=== PATIENT | female | born 1945 | race Caucasian/White ===

== ENCOUNTER → 2017-12-04 11:38 | Outpatient (CLI) | payer MEDICARE, SELFPAY ==
[2017-12-04 14:21] LABS: Anion Gap 9 (5-15); BUN 15 mg/dL (7-18); BUN/Creat Ratio 16.2 RATIO (10-20); Calcium,Total 8.9 mg/dL (8.5-10.1); Chloride 103 mmol/L (98-107); Cholesterol 150 mg/dL (200); Creatinine, Serum 0.92 mg/dL (0.55-1.02); EST Glomerular Filtration Rate 63 mL/min (>60); Est Glom Filt Rate - Afr Amer 76 mL/min (>60); Glucose 155 mg/dL (74-106); High Density Lipoprotein 48 mg/dL; Potassium 3.5 mmol/L (3.5-5.1); Sodium Level 138 mmol/L (136-145); Triglycerides 124 mg/dL; Very Low Density Lipoprotein 25 mg/dL (5-40)
[2017-12-04 14:27] LABS: Microalbumin,Random Urine 5.5 mg/L (NO RANGE EST.)
[2017-12-04 14:33] LABS: Hemoglobin A1c 6.3 % (4.2-6.3)
== END ==
PROVIDERS: Family Provider Family Medicine; PCP Family Medicine; Visit Provider Family Medicine
DX: I10 Essential (primary) hypertension (principal); R73.01 Impaired fasting glucose
CPT/HCPCS: 36415; 80048; 80061; 82043; 82570; 83036

== ENCOUNTER → 2018-05-27 17:00 | Outpatient (CLI) | payer MEDICARE, SELFPAY ==
--- NOTE | 2018-05-27 17:07 | BI_ITS ---
MAMMOGRAPHY - BILATERAL SCREENING REASON FOR EXAM: Female, 72 years old. Routine annual screening examination. PERTINENT HISTORY: Mother with breast cancer. TECHNIQUE: Digital bilateral breast kierra (3D mammographic acquisition) in the CC and MLO projections. 2-D mediolateral oblique (MLO) and craniocaudad (CC) views of both breasts were obtained. CAD: Full Field Digital Mammography with Computer Added Detection was performed. COMPARISON: Comparison is made with prior study dated March 24, 2017 and December 27, 2015. FINDINGS: Breast Composition: There are scattered areas of fibroglandular density. There are no dominant masses or suspicious calcifications. No other significant abnormalities are identified. There has been no significant change since the prior study. BI/SCREENING MAMM (CAD), BILAT IMPRESSION: Stable bilateral screening mammogram. Yearly follow-up mammogram recommended. (A) ASSESSMENT CATEGORY: BIRADS Category 1: Negative. A letter regarding these results will be sent to the patient by the facility within 30 days. Approximately 10% of breast cancers are not detected by mammography. A normal mammogram should not delay biopsy of a clinically suspicious abnormality. [id number] Electronically Signed: Collin Hampton MD at 9:15 EST Tel [phone], Service support ,
== END ==
PROVIDERS: Family Provider Family Medicine; PCP Family Medicine; Referring Provider Family Medicine; Visit Provider Family Medicine
DX: Z12.31 Encounter for screening mammogram for malignant neoplasm of breast (principal)
CPT/HCPCS: 77063; 77067

== ENCOUNTER → 2018-06-04 14:04 | Outpatient (CLI) | payer MEDICARE, SELFPAY ==
[2018-06-04 16:45] LABS: Hemoglobin A1c 6.8 % (4.2-6.3)
[2018-06-04 16:50] LABS: Anion Gap 10 (5-15); BUN 17 mg/dL (7-18); BUN/Creat Ratio 23.1 RATIO (10-20); Chloride 100 mmol/L (98-107); Cholesterol 156 mg/dL (200); Creatinine, Serum 0.74 mg/dL (0.55-1.02); EST Glomerular Filtration Rate 82 mL/min (>60); Est Glom Filt Rate - Afr Amer 99 mL/min (>60); Glucose 150 mg/dL (74-106); High Density Lipoprotein 54 mg/dL; Potassium 3.7 mmol/L (3.5-5.1); Sodium Level 139 mmol/L (136-145); Triglycerides 109 mg/dL; Very Low Density Lipoprotein 22 mg/dL (5-40)
--- OUTSIDE RECORDS SUMMARY | 2018-08-09 04:18 | XMS RPT_ITS ---
:1945 Author Organization [facility] Care Team Providers Name Role Phone EMIR ENRIQUE, DR. SMITH Attending Unavailable ANGEL ENRIQUE, DR. STEVEN Gaines Primary Care Unavailable Steven Smith Attending Unavailable Steven Smith Referring Unavailable Steven Smith Primary Care Unavailable Steven Smith Attending Unavailable Angel, Steven Primary Care Unavailable Angel, Steven Attending Unavailable Angel, Steven Primary Care Unavailable Angel, Steven Attending Unavailable Angel, Steven Primary Care Unavailable PROBLEMS PROBLEMS DATE TYPE CONDITION / CODE ATTENDING STATUS SOURCE 06/11/2018 Unknown Z51.89 - Encounter Steven Smith for other Community specified Hospital aftercare / Repository Z51.89(ICD-10) 06/04/2018 Unknown I10 - Essential Steven Smith (primary) Community hypertension / Hospital I10(ICD-10) Repository 06/04/2018 Unknown R73.01 - Impaired Steven Smith fasting glucose / Community R73.01(ICD-10) Hospital Repository 05/28/2018 Unknown Z12.31 - Encounter Steven Smith for screening Community mammogram for Hospital malignant neoplasm Repository of breast / Z12.31(ICD-10) PROCEDURES PROCEDURES No Procedure Records FoundRESULTS RESULTS HEMOGLOBIN A1C Collected: 06/04/2018 Status: F Source: [place] 2:07 PM [facility] REPOSITORY TYPE CODE TESTS RESULT OUT OF RANGE REFERENCE UNITS LAB L501.9985 4.2-6.3 % High HGB A1C 6.8 Performed By: #### L501.9985 #### [facility] [address] [place], [place], [id number] BASIC METABOLIC Collected: 06/04/2018 Status: F Source: [place] PROFILE (BMP) 2:07 PM [facility] REPOSITORY TYPE CODE TESTS RESULT OUT OF RANGE REFERENCE UNITS LAB L501.0100 74-106 mg/dL High GLU 150 Result Comment: Fasting Glucose result greater than or equal to 126 mg/dL suggests DIABETES MELLITUS per A.D.A. criteria. Please note revised GLUCOSE reference range effective 2017. LAB L501.1000 7-18 mg/dL Normal BUN 17 LAB L501.1100 0.55-1.02 mg/dL Normal CREAT,SERUM 0.74 Result Comment: The validity of the calculated GFR AND GFRAA in patients over 70 years has not been determined. Clinical correlation is essential. LAB L501.1110 >60 mL/min Normal EST GFR 82 Result Comment: Non- GFR Calc LAB L501.1115 >60 mL/min Normal EST GFR - AA 99 Result Comment: GFR Calc LAB L501.1300 10-20 RATIO High BUN/CRE 23.1 LAB L501.2200 8.5-10.1 mg/dL CA Normal 9.0 LAB L501.5300 136-145 mmol/L NA Normal 139 LAB L501.5600 3.5-5.1 mmol/L K Normal 3.7 LAB L501.5900 98-107 mmol/L CL Normal 100 LAB L501.6100 21.0-32.0 mmol/L Normal CO2 29.0 LAB L501.6200 5-15 Normal GAP 10 Performed By: #### L500.2500, L500.4100 #### [facility] [address] [place], [place], [address] LIPID PROFILE Collected: 06/04/2018 Status: F Source: [place] 2:07 PM [facility] REPOSITORY TYPE CODE TESTS RESULT OUT OF RANGE REFERENCE UNITS LAB L501.4900 200 mg/dL Normal CHOL 156 Result Comment: <200 mg/dL Desirable 200-240 mg/dL Borderline >240 mg/dL High Risk LAB L501.5000 mg/dL Normal TRIG 109 Result Comment: The drugs N-Acetylcysteine and Metamizole may falsely depress this assay. Serum Triglycerides Reference Interval Normal <150 mg/dL Borderline high 150 - 199 mg/dL High 200 - 499 mg/dL Very High > or = 500 mg/dL LAB L501.6400 mg/dL Normal HDL 54 Result Comment: The drugs N-Acetylcysteine and Metamizole may falsely depress this assay. Reference Range HDL <40 mg/dL Low HDL Cholesterol HDL >or= 60 mg/dL High HDL Cholesterol LAB L501.6500 0-130 mg/dL Normal LDL 80 LAB L501.6600 5-40 mg/dL Normal VLDL 22 Performed By: #### L500.2500, L500.4100 #### [facility] [address] [facility] [place], [address] SCREENING MAMM (CAD), Observed: 05/27/2018 Status: F Source: [place] BILAT 5:22 PM [facility] REPOSITORY [facility] Imaging Services [address] [place] [address] SCREENING MAMM (CAD), BILAT MR#: [id number] Acct: [id number] Name: JENIFFER MILIAN Rep #: [id number] : 1945 F 72 From: Collin Hampton MD PCP: Steven Smith MD Status: [facility] Study: SCREENING MAMM (CAD), BILAT Date of Exam: 05/27/18 Exam# [id number] Ordering Dr: Steven Smith MD MAMMOGRAPHY - BILATERAL SCREENING REASON FOR EXAM: Female, 72 years old. Routine annual screening examination. PERTINENT HISTORY: Mother with breast cancer. TECHNIQUE: Digital bilateral breast kierra (3D mammographic acquisition) in the CC and MLO projections. 2-D mediolateral oblique (MLO) and craniocaudad (CC) views of both breasts were obtained. CAD: Full Field Digital Mammography with Computer Added Detection was performed. COMPARISON: Comparison is made with prior study dated March 24, 2017 and December 27, 2015. FINDINGS: Breast Composition: There are scattered areas of fibroglandular density. There are no dominant masses or suspicious calcifications. No other significant abnormalities are identified. There has been no significant change since the prior study. BI/SCREENING MAMM (CAD), BILAT IMPRESSION: Stable bilateral screening mammogram. Yearly follow-up mammogram recommended. (A) ASSESSMENT CATEGORY: BIRADS Category 1: Negative. A letter regarding these results will be sent to the patient by the facility within 30 days. Approximately 10% of breast cancers are not detected by mammography. A normal mammogram should not delay biopsy of a clinically suspicious abnormality. [id number] Electronically Signed: Collin Hampton MD at 9:15 EST Tel [phone], Service support , CC: Steven Smith MD Power Plant Technician: Signed BASIC METABOLIC Collected: 12/04/2017 Status: F Source: [place] PROFILE (BMP) 11:39 AM [facility] REPOSITORY TYPE CODE TESTS RESULT OUT OF RANGE REFERENCE UNITS LAB L501.0100 74-106 mg/dL High GLU 155 Result Comment: Fasting Glucose result greater than or equal to 126 mg/dL suggests DIABETES MELLITUS per A.D.A. criteria. Please note revised GLUCOSE reference range effective 2017. LAB L501.1000 7-18 mg/dL Normal BUN 15 LAB L501.1100 0.55-1.02 mg/dL Normal CREAT,SERUM 0.92 Result Comment: The validity of the calculated GFR AND GFRAA in patients over 70 years has not been determined. Clinical correlation is essential. LAB L501.1110 >60 mL/min Normal EST GFR 63 Result Comment: Non- GFR Calc LAB L501.1115 >60 mL/min Normal EST GFR - AA 76 Result Comment: GFR Calc LAB L501.1300 10-20 RATIO Normal BUN/CRE 16.2 LAB L501.2200 8.5-10.1 mg/dL CA Normal 8.9 LAB L501.5300 136-145 mmol/L NA Normal 138 LAB L501.5600 3.5-5.1 mmol/L K Normal 3.5 LAB L501.5900 98-107 mmol/L CL Normal 103 LAB L501.6100 21.0-32.0 mmol/L Normal CO2 26.0 LAB L501.6200 5-15 Normal GAP 9 Performed By: #### L500.2500, L500.4100 #### [facility] [address] [place], [address] LIPID PROFILE Collected: 12/04/2017 Status: F Source: [place] 11:39 AM [facility] REPOSITORY TYPE CODE TESTS RESULT OUT OF RANGE REFERENCE UNITS LAB L501.4900 200 mg/dL Normal CHOL 150 Result Comment: <200 mg/dL Desirable 200-240 mg/dL Borderline >240 mg/dL High Risk LAB L501.5000 mg/dL Normal TRIG 124 Result Comment: The drugs N-Acetylcysteine and Metamizole may falsely depress this assay. Serum Triglycerides Reference Interval Normal <150 mg/dL Borderline high 150 - 199 mg/dL High 200 - 499 mg/dL Very High > or = 500 mg/dL LAB L501.6400 mg/dL Normal HDL 48 Result Comment: The drugs N-Acetylcysteine and Metamizole may falsely depress this assay. Reference Range HDL <40 mg/dL Low HDL Cholesterol HDL >or= 60 mg/dL High HDL Cholesterol LAB L501.6500 0-130 mg/dL Normal LDL 77 LAB L501.6600 5-40 mg/dL Normal VLDL 25 Performed By: #### L500.2500, L500.4100 #### [facility] [address] [place], [address] MICROALB:CREAT Collected: 12/04/2017 Status: F Source: [place] RATIO,RANDOM UR 11:39 AM [facility] REPOSITORY TYPE CODE TESTS RESULT OUT OF RANGE REFERENCE UNITS LAB L501.1200 NO RANGE EST. mg/dL Normal UR CREAT 34.20 LAB L502.0500 NO RANGE EST. mg/L Normal 5.5 MICROALBUMIN ,UR LAB L502.0600 <30 mg/g CRE mg/g CRE Normal 16.0 MALB:CREAT Performed By: #### L502.0250 #### [facility] [address] [place], [address] HEMOGLOBIN A1C Collected: 12/04/2017 Status: F Source: [place] 11:39 AM [facility] REPOSITORY TYPE CODE TESTS RESULT OUT OF RANGE REFERENCE UNITS LAB L501.9985 4.2-6.3 % Normal HGB A1C 6.3 Performed By: #### L501.9985 #### [facility] [address] [place], [address] ALLERGIES ALLERGIES No Allergies Records FoundENCOUNTERS ENCOUNTERS ADMIT/DISCHARGE ACCOUNT NUMBER ADMITTING ENCOUNTER LOCATION SOURCE CLASS 06/11/2018 [id number] General acute hospital ding:CCN Repository 06/04/2018 [id number] General acute hospital ding:MFPLAB Repository 05/27/2018 [id number] General acute hospital ding:OPBI Repository 01/08/2018/01/09/20 [id number] Ambulatory BBuilding:ONI Rothman [address] [place] [address] Repository 12/04/2017 [id number] General acute hospital ding:MFPLAB Repository PAYERS PAYERS ENCOUNTER GUARANTOR PAYER SUBSCRIBER SOURCE 06/11/2018 JENIFFER Toth Primary JENIFFER [id number] Insurance:NICOLLE HOOPER: Community [place] [employer] PPOPolicy [id number], [place] Number: Repository [id number]: [phone] [id number] [phone] () Date:[id number] [address]MA: 06/11/2018 Secondary NOT GIVENUNK [place] Insurance:SELF PAY [facility] Number: Effective Repository Date:2018-06-11 06/04/2018 JENIFFER L Primary JENIFFER L [place] [id number] Insurance:ANTHEM HAWKINSDOB: Community [place] [employer] PPOPolicy [id number], [place] Number: Repository [phone]: [phone] [id number] [phone] () Date:3839-26-54[id number] [place] [address]UH: 06/04/2018 Secondary NOT GIVENUNK [place] Insurance:SELF PAY [facility] Number: Effective Repository Date:2018-06-04 05/27/2018 JENIFFER L [id number] Insurance:ANTHEM [facility] CHILDRENKINSDOB: Community [place] [employer] PPOPolicy [id number], [place] Number: Repository [id number]: [phone] [id number] [phone] () Date:9379-28-07FO [address] [place] [address]SN: 05/27/2018 Secondary NOT GIVENUNK [place] Insurance:SELF PAY [facility] Number: Effective Repository Date:2018-03-09 01/08/2018 JENIFFER L [facility] Insurance:ANTHEM HAWKINSDOB: [facility] E [facility] H[facility]PITALBLUEPoly [id number] [facility] Number: [place], [place] [id number] [place], [place] [address]Hql: [phone]) Date:2017-11-17 [id number]: () [id number] [phone] Name:[address] ()Tel: [phone], [place] [phone] () [address]HD: 12/04/2017 Jeniffer Primary Jeniffer [place] [id number] Insurance:ANTHEM HawkinsDOB: Community [place] MED[place]ARE PPOPolicy [id number], [place] Number: Repository [address]Ltq: [phone] [id number] [phone] () Date:2561-26-36[address]VDUQMU, [place] [address]GR: 12/04/2017 Secondary NOT GIVENUNK [place] Insurance:SELF PAY [facility] Number: Effective Repository Date:2017-12-04
== END ==
PROVIDERS: Family Provider Family Medicine; PCP Family Medicine; Visit Provider Family Medicine
DX: I10 Essential (primary) hypertension (principal); R73.01 Impaired fasting glucose
CPT/HCPCS: 36415; 80048; 80061; 83036

== ENCOUNTER → 2018-12-04 11:18 | Outpatient (CLI) | payer MEDICARE, SELFPAY ==
[2018-12-04 12:17] LABS: Hemoglobin A1c 6.6 % (4.2-6.3)
[2018-12-04 12:25] LABS: ALB/GLOB Ratio 0.9 RATIO (0.9-2.4); AST(SGOT) 23 U/L (15-37); Alanine Aminotransfer ALT/SGPT 39 U/L (13-56); Albumin, Serum 3.5 g/dL (3.2-5.0); Alkaline Phosphatase 83 U/L (45-117); Anion Gap 4 (5-15); BUN 10 mg/dL (7-18); BUN/Creat Ratio 14.4 RATIO (10-20); Calcium,Total 9.4 mg/dL (8.5-10.1); Chloride 101 mmol/L (98-107); Cholesterol 148 mg/dL (200); Creatinine, Serum 0.69 mg/dL (0.55-1.02); EST Glomerular Filtration Rate 88 mL/min (>60); Est Glom Filt Rate - Afr Amer 106 mL/min (>60); Globulin 3.8 g/dL (2.2-4.2); Glucose 135 mg/dL (74-106); High Density Lipoprotein 51 mg/dL; Potassium 3.9 mmol/L (3.5-5.1); Protein, Total 7.3 g/dL (6.4-8.2); Sodium Level 133 mmol/L (136-145); Triglycerides 138 mg/dL; Very Low Density Lipoprotein 28 mg/dL (5-40)
== END ==
PROVIDERS: Family Provider Family Medicine; PCP Family Medicine; Referring Provider Family Medicine; Visit Provider Family Medicine
DX: R73.01 Impaired fasting glucose (principal); E66.9 Obesity, unspecified; Z68.43 Body mass index [BMI] 50.0-59.9, adult
CPT/HCPCS: 36415; 80053; 80061; 83036

== ENCOUNTER → 2019-06-09 14:29 | Outpatient (CLI) | payer MEDICARE, SELFPAY ==
[2019-06-09 16:10] LABS: Anion Gap 6 (5-15); BUN 15 mg/dL (7-18); BUN/Creat Ratio 20.3 RATIO (10-20); Calcium,Total 9.2 mg/dL (8.5-10.1); Chloride 105 mmol/L (98-107); Cholesterol 161 mg/dL (200); Creatinine, Serum 0.74 mg/dL (0.55-1.02); EST Glomerular Filtration Rate 81 mL/min (>60); Est Glom Filt Rate - Afr Amer 98 mL/min (>60); Glucose 119 mg/dL (74-106); High Density Lipoprotein 55 mg/dL; Potassium 4.1 mmol/L (3.5-5.1); Sodium Level 138 mmol/L (136-145); Triglycerides 127 mg/dL; Very Low Density Lipoprotein 25 mg/dL (5-40)
[2019-06-09 16:14] LABS: Hemoglobin A1c 6.2 % (4.2-6.3)
== END ==
PROVIDERS: PCP Family Medicine; Referring Provider Family Medicine; Visit Provider Family Medicine
DX: I10 Essential (primary) hypertension (principal); R73.01 Impaired fasting glucose
CPT/HCPCS: 36415; 80048; 80061; 83036

== ENCOUNTER → 2019-06-28 16:54 | Outpatient (CLI) | payer MEDICARE, SELFPAY ==
--- NOTE | 2019-06-28 16:59 | BI_ITS ---
MAMMOGRAPHY - BILATERAL SCREENING REASON FOR EXAM: Female, 73 years old. Routine annual screening examination. PERTINENT HISTORY: Mother with breast cancer. TECHNIQUE: Digital bilateral breast rosa maria (3D mammographic acquisition) in the CC and MLO projections. 2-D mediolateral oblique (MLO) and craniocaudad (CC) views of both breasts were obtained. CAD: Full Field Digital Mammography with Computer Added Detection was performed. COMPARISON: Comparison is made with prior examination dated May 27, 2018 and March 24, 2017. FINDINGS: Breast Composition: There are scattered areas of fibroglandular density. There are no dominant masses or suspicious calcifications. No other significant abnormalities are identified. There has been no significant change since the prior study. BI/SCREEN MAMM (CAD) W/ROSA MARIA BILAT IMPRESSION: Stable bilateral screening mammogram. Yearly follow-up mammogram recommended. (A) ASSESSMENT CATEGORY: BIRADS Category 1: Negative. A letter regarding these results will be sent to the patient by the facility within 30 days. Approximately 10% of breast cancers are not detected by mammography. A normal mammogram should not delay biopsy of a clinically suspicious abnormality. [id number] Electronically Signed: Collin Hampton, at 9:44 EST , Service support ,
== END ==
PROVIDERS: PCP Family Medicine; Referring Provider Family Medicine; Visit Provider Family Medicine
DX: Z12.31 Encounter for screening mammogram for malignant neoplasm of breast (principal)
CPT/HCPCS: 77063; 77067

== ENCOUNTER → 2020-02-27 10:55 | Outpatient (CLI) | payer MEDICARE, SELFPAY | PROVIDERS: PCP Family Medicine; Visit Provider Family Medicine | DX: Z00.00 Encounter for general adult medical examination without abnormal findings (principal) | CPT/HCPCS: 36415 ==

== ENCOUNTER → 2020-12-27 14:20 | Outpatient (CLI) | payer MEDICARE, SELFPAY ==
[2020-12-27 17:54] LABS: ALB/GLOB Ratio 0.9 RATIO (0.9-2.4); AST(SGOT) 22 U/L (15-37); Alanine Aminotransfer ALT/SGPT 35 U/L (13-56); Albumin, Serum 3.6 g/dL (3.2-5.0); Alkaline Phosphatase 101 U/L (45-117); Anion Gap 8 (5-15); BUN 18 mg/dL (7-18); BUN/Creat Ratio 23.2 RATIO (10-20); Calcium,Total 9.1 mg/dL (8.5-10.1); Chloride 105 mmol/L (98-107); Cholesterol 150 mg/dL (200); Creatinine, Serum 0.78 mg/dL (0.55-1.02); EST Glomerular Filtration Rate 76 mL/min (>60); Est Glom Filt Rate - Afr Amer 93 mL/min (>60); Globulin 3.8 g/dL (2.2-4.2); Glucose 134 mg/dL (74-106); High Density Lipoprotein 51 mg/dL; Potassium 4.3 mmol/L (3.5-5.1); Protein, Total 7.4 g/dL (6.4-8.2); Sodium Level 137 mmol/L (136-145); Triglycerides 104 mg/dL; Very Low Density Lipoprotein 21 mg/dL (5-40)
[2020-12-27 17:59] LABS: Microalbumin,Random Urine 12.5 mg/L (NO RANGE EST.)
== END ==
PROVIDERS: PCP Family Medicine; Visit Provider Family Medicine
DX: I10 Essential (primary) hypertension (principal); E11.9 Type 2 diabetes mellitus without complications
CPT/HCPCS: 36415; 80053; 80061; 82043; 83036

== ENCOUNTER → 2021-03-30 10:11 | Outpatient (CLI) | payer MEDICARE, SELFPAY ==
[2021-03-30 11:11] LABS: ALB/GLOB Ratio 0.8 RATIO (0.9-2.4); AST(SGOT) 18 U/L (15-37); Alanine Aminotransfer ALT/SGPT 31 U/L (13-56); Albumin, Serum 3.1 g/dL (3.2-5.0); Alkaline Phosphatase 87 U/L (45-117); Anion Gap 7 (5-15); BUN 22 mg/dL (7-18); BUN/Creat Ratio 31.5 RATIO (10-20); Chloride 104 mmol/L (98-107); Cholesterol 151 mg/dL (200); EST Glomerular Filtration Rate 86 mL/min (>60); Est Glom Filt Rate - Afr Amer 105 mL/min (>60); Globulin 4.1 g/dL (2.2-4.2); Glucose 146 mg/dL (74-106); High Density Lipoprotein 54 mg/dL; Potassium 3.7 mmol/L (3.5-5.1); Protein, Total 7.2 g/dL (6.4-8.2); Sodium Level 138 mmol/L (136-145); Triglycerides 106 mg/dL; Very Low Density Lipoprotein 21 mg/dL (5-40)
== END ==
PROVIDERS: PCP Family Medicine; Referring Provider Family Medicine; Visit Provider Family Medicine
DX: I10 Essential (primary) hypertension (principal)
CPT/HCPCS: 36415; 80053; 80061

== ENCOUNTER 2021-07-03 14:14 | Outpatient (CLI) | payer MEDICARE, SELFPAY ==
[2021-07-03 19:03] LABS: Anion Gap 8 (5-15); BUN 16 mg/dL (7-18); BUN/Creat Ratio 24.8 RATIO (10-20); Chloride 99 mmol/L (98-107); Creatinine, Serum 0.64 mg/dL (0.55-1.02); EST Glomerular Filtration Rate 95 mL/min (>60); Est Glom Filt Rate - Afr Amer 115 mL/min (>60); Glucose 122 mg/dL (74-106); Potassium 3.6 mmol/L (3.5-5.1); Sodium Level 136 mmol/L (136-145)
== END 2021-07-03 23:59 | disposition home or self-care (01) ==
LOC: MFPLAB 14:17
PROVIDERS: PCP Family Medicine; Referring Provider Family Medicine; Visit Provider Family Medicine
DX: I10 Essential (primary) hypertension (principal)
CPT/HCPCS: 36415; 80048

== ENCOUNTER 2022-01-28 09:09 | Observation (INO) | payer MEDICARE, SELFPAY ==
[2022-01-28] VITALS (11 sets, daily range): BP systolic 136–172; BP diastolic 55–85; PULSE 65–89; RESP 18–19; TEMP 36.4–36.9; O2SAT 93–99; BMI 76.4; BMI 78.0
--- NOTE | 2022-01-28 09:19 | EX.ED.DYSGE1 ---
HPI History of Present Illness Chief Complaint: Alt LOC Informant: patient Onset/Context/Timing Onset: Weeks (3) Context: Gradual Onset Timing: Continuous Quality: Dull Location: Left leg Worsened by: Palpation Relieved by: Nothing Narrative Narrative: Patient presents with left leg infection that has been getting progressively worse over the past 3 weeks. Patient states she has some dull pain in her left leg. Patient states it is worse whenever she hits it or bumps it. Patient states nothing makes it better. Patient states she has not been sleeping well. Patient denies any fevers or chills. Patient denies any discharge or drainage. Patient states she has a history of bullous pemphigoid on her left leg. Patient states that he has been improved recently. [facility] Medical History (Updated 01/28/22 @ 11:[address] Amilcar Rankin, ) Bullous pemphigoid Cataracts, bilateral Cholecystectomy planned Fatty liver Glaucoma (increased eye pressure) Hypertension Melanoma Obesity Sleep apnea Type II diabetes mellitus Home Medications ascorbic acid (vitamin C) 1,000 mg tablet 1 g PO DAILY 01/28/22 [History Last Taken Unknown] bimatoprost 0.01 % eye drops (Lumigan) 1 drp EACH EYE QPM 01/28/22 [History Last Taken Unknown] biotin 10,000 mcg capsule 5,000 mcg PO DAILY 01/28/22 [History Last Taken Unknown] calcium carbonate 600 mg-vitamin D3 10 mcg (400 unit) tablet (Calcium 600 + D(3)) 1 tab PO BID 01/28/22 [History Last Taken Unknown] carvedilol 25 mg tablet 25 mg PO BID 01/28/22 [History Last Taken Unknown] cinnamon bark 500 mg capsule (Cinnamon) 2,000 mg PO DAILY 01/28/22 [History Last Taken Unknown] jjolxphreln-qhldkbhsr-uzvl883-hyal 750 mg-100 mg-125 mg-1.65 mg tablet (Glucosamine Chondroit Complx Advan) 1 tab PO DAILY 01/28/22 [History Last Taken Unknown] hydrochlorothiazide 25 mg tablet 25 mg PO BID 01/28/22 [History Last Taken Unknown] krill 1,000 mg-omega-3 170 mg-dha 50 mg-epa 80 lb-sjzwrn-mdtuq capsule (krill oil) 2 cap PO DAILY 01/28/22 [History Last Taken Unknown] lysine 1,000 mg tablet 1,000 mg PO DAILY 01/28/22 [History Last Taken Unknown] vmevlzdl-ibyp-tjvtc acid 200 mcg-lycopene 5 mg-boron 250 mcg tablet (Bladder 2.2) 1 tab PO PRN PRN leaking bladder 01/28/22 [History Last Taken Unknown] multivitamin-ferrous fumarate-folic acid 18 mg-400 mcg tablet 1 tab PO DAILY 01/28/22 [History Last Taken Unknown] niacinamide 500 mg tablet 500 mg PO BID 01/28/22 [History Last Taken Unknown] omega-3 fatty acids-vitamin E 1,000 mg capsule 1 cap PO DAILY 01/28/22 [History Last Taken Unknown] timolol 0.5 %-dorzolamide 2 %-latanprost 0.005 % (PF) eye drops 1 drp ophthalmic (eye) QHS 01/28/22 [History Last Taken Unknown] triamcinolone acetonide 0.1 % topical cream 1 applic topical PRN PRN redness 01/28/22 [History Last Taken Unknown] Allergy/AdvReac Type Severity Reaction Status Date / Time ciprofloxacin [From Cipro] Allergy Hives Verified 01/28/22 09:19 Penicillins Allergy Hives Verified 01/28/22 09:19 NSAIDS (Non-Steroidal AdvReac Upset Verified 01/28/22 09:19 Anti-Inflamma Stomach Surgical History (Updated 01/28/22 @ 09:[address] Amilcar Rankin DO) Hx of appendectomy Hx of cholecystectomy Social History (Updated 01/28/22 @ 09:[address] Amilcar Rankin DO) Smoking Status: Never smoker alcohol intake: never substance use type: does not use ROS ROS ED Constitutional Constitutional ED: Denies chills or fever(s) Eyes Eyes: Denies blurry vision or change in vision ENT ENT ED: Denies rhinorrhea or sore throat Cardiovascular Cardiovascular: Denies chest pain or palpitations Respiratory/Chest Respiratory/Chest: Denies cough or dyspnea Gastrointestinal Gastrointestinal: Denies nausea or vomiting Genitourinary Genitourinary ED: Denies dysuria or hematuria Musculoskeletal Musculoskeletal: Denies back pain or neck pain Integumentary Reports rash; Denies abscess Neurologic Neurologic: Denies headache(s) or weakness Allergic/Immunologic Allergic/Immunologic ED: Denies mouth swelling or urticaria EXAM Physical Exam Const Vital Signs: 01/28/22 09:10 01/28/22 09:12 01/28/22 09:12 Temperature 98.1 F 98.1 F 98.1 F Temperature Source Oral Oral Oral Pulse Rate 83 78 83 Respiratory Rate 18 18 18 Respiratory Effort Respiratory Pattern Blood Pressure 163/85 H 163/85 H 163/85 H Blood Pressure Mean 111 111 111 Pulse Ox 99 98 98 Oxygen Delivery Method Room Air Room Air Room Air 01/28/22 11:10 01/28/22 11:10 01/28/22 11:12 Temperature 97.8 F Temperature Source Temporal Pulse Rate 78 79 Respiratory Rate 19 H 18 Respiratory Effort Normal Non-Labored Respiratory Pattern Normal Blood Pressure 155/64 H 155/64 H Blood Pressure Mean 94 94 Pulse Ox 95 97 Oxygen Delivery Method Room Air Room Air Positive well nourished, well developed and obese General Appearance ED: well developed and NAD Nutritional Appearance: obese HEENT Reports dry mucous membranes Mouth ED: Yes dry mucous membranes Mouth: dry mucous membranes Neck supple and no JVD Resp normal respiratory effort and clear to auscultation bilaterally Cardio regular rate and regular rhythm GI normal to inspection, nondistended, normoactive bowel sounds and non-tender Palpation: soft Extremity Extremity Narrative: There is some erythema and warmth over the left lower extremity. There is mild erythema on the right lower leg. There is no discharge or drainage. There are no vesicles or pustules noted. There is no evidence of any abscess formation. Pedal pulses are equal bilaterally. Sensation was intact to light touch in all digits. Capillary refill was less than 2 seconds in all digits. General Extremety ED: Yes edema and tenderness General Extremity: edema Neuro oriented x3, CN's II-XII intact bilaterally and no sensory deficits noted Sensorium / Orientation: alert Motor Exam: strength 5/5 throughout MDM MDM MDM Narrative Medical decision making narrative: Patient was given IV fluids. EKG was obtained. On my interpretation, it showed a normal sinus rhythm with a rate of 80. RI interval, QRS interval, and QTc intervals were all normal. Burdine was normal. There are no acute ST or T wave changes. There is criteria for LVH. There are no prior EKGs available for comparison. Portable 1 view chest x-ray was obtained. On my interpretation, lung barnett are clear. There is cardiomegaly. Bony thorax is normal. There is no acute process noted. Radiologist also interpreted the x-ray and agrees. CBC shows a mild leukocytosis of 11.1. PT with INR and PTT within normal limits. Comprehensive metabolic profile shows a mild hyponatremia of 130 and hypokalemia of 3.0. Glucose was 146. High-sensitivity troponin was slightly elevated at 144. Lipase was normal. Lactate was normal. Patient was started on Ancef for the cellulitis on her left leg. Patient was given aspirin the elevated troponin. Patient was given potassium for her hypokalemia. Because of the elevated troponin, I feel the patient would benefit from observation in the hospital. Case was discussed with the hospitalist. He will admit the patient for observation. Patient understood and was agreeable with the plan. All questions were answered. Lab Data Attestation: I reviewed the patient's lab results. Labs: Laboratory Results - last 24 hr 01/28/22 01/28/22 01/28/22 09:43 09:43 10:23 WBC 11.1 H RBC 4.58 Hgb 14.4 Hct 42.9 MCV 93.7 MCH 31.4 MCHC 33.6 RDW Std Deviation 44.5 H RDW Coeff of Garland 13.1 Plt Count 198 MPV 10.6 Immature Gran % (Auto) 0.400 Neut % (Auto) 76.6 H Lymph % (Auto) 12.5 L Choct[place] % (Auto) 9.3 Eos % (Auto) 0.7 Baso % (Auto) 0.5 Absolute Neuts (auto) 8.5 H Absolute Lymphs (auto) 1.39 Nucleated RBC % 0 PT 14.2 INR 1.1 APTT 28.8 Sodium 130 L Potassium 3.0 L Chloride 93 L Carbon Dioxide 25.0 Anion Gap 12 BUN 11 Creatinine 0.58 Estim Creat Clear Calc 36.67 Est GFR (MDRD) Af Amer 129 Est GFR (MDRD) Non-Af 107 BUN/Creatinine Ratio 18.9 Glucose 146 H Lactic Acid Calcium 9.1 Total Bilirubin 1.50 H AST 50 H ALT 43 Alkaline Phosphatase 66 Troponin I High Sens 144 H* Total Protein 6.6 Albumin 3.1 L Globulin 3.5 Albumin/Globulin Ratio 0.9 Lipase 91 01/28/22 10:23 WBC RBC Hgb Hct MCV MCH MCHC RDW Std Deviation RDW Coeff of Garland Plt Count MPV Immature Gran % (Auto) Neut % (Auto) Lymph % (Auto) [place]ct[place] % (Auto) Eos % (Auto) Baso % (Auto) Absolute Neuts (auto) Absolute Lymphs (auto) Nucleated RBC % PT INR APTT Sodium Potassium Chloride Carbon Dioxide Anion Gap BUN Creatinine Estim Creat Clear Calc Est GFR (MDRD) Af Amer Est GFR (MDRD) Non-Af BUN/Creatinine Ratio Glucose Lactic Acid 1.4 Calcium Total Bilirubin AST ALT Alkaline Phosphatase Troponin I High Sens Total Protein Albumin Globulin Albumin/Globulin Ratio Lipase Radiography Chest X-Ray - ED: 1 View, Read by ED Physician, Read by Radiologist, No Acute Disease and Cardiomegaly Diagnostic Testing: Clinical Impression(s) from Imaging Studies Chest X-Ray 01/28/22 10:25 IMPRESSION: Cardiomegaly. The lungs are clear. Electronically Signed: Collin Hampton MD at 10:48 EDT , EKG Initial EKG: Attestation: I personally reviewed and interpreted this EKG as follows: Interpretation: Sinus Rhythm (80) and No Acute Injury Pattern Prior EKG tracings: not available for review Prior: No Prior Discharge Plan Dx/Rx/DC Orders Clinical Impression: Elevated troponin, General weakness, Cellulitis of left lower leg, Morbid obesity with BMI of 70 and over, adult Disposition Disposition: Acute Care [facility]
--- NOTE | 2022-01-28 09:27 | EKG12_ITS ---
Test Reason : alt loc Blood Pressure : / mmHG Vent. Rate : 080 BPM Atrial Rate : 080 BPM P-R Int : 186 ms QRS Dur : 100 ms QT Int : 438 ms P-R-T Axes : 047 001 001 degrees QTc Int : 505 ms Normal sinus rhythm Minimal voltage criteria for LVH, may be normal variant ( R in aVL ) Cannot rule out Anterior infarct , age undetermined Abnormal ECG Confirmed by TALIB GUAJARDO, LEONARDO ([id number]), commercial production editor CECILIO MCGARRY ([id number]) on 01/29/2022 1:58:05 PM Referred By: Confirmed By:LEONARDO MAYERS MD
[2022-01-28 10:03] LABS: Absolute Lymphocyte Count 1.39 X10^3/uL (0.83-4.51); Absolute Neutrophil Count 8.5 X10^3/uL (2.0-7.7); Basophil# 0.05 X10^3/uL; Basophil% 0.5 % (0-1); Eosinophil# 0.08 X10^3/uL; Eosinophils% 0.7 % (0-5); Hematocrit 42.9 % (37-47); Hemoglobin 14.4 g/dL (12.0-15.0); Lymphocyte # 1.39 X10^3/ul (0.83-4.51); Lymphocyte % 12.5 % (19-41); Mean Corp Hgb Conc 33.6 g/dL (32-36); Mean Corpuscular Hgb 31.4 pg (27.0-32.0); Mean Corpuscular Volume 93.7 fL (81-99); Mean Platelet Vol. 10.6 fl (6.2-12.0); Monocyte# 1.03 X10^3/uL; Monocyte% 9.3 % (0-10); NRBC Flagged by Analyzer 0 % (0-5); Neutrophil # 8.51 X10^3/uL (2.7-7.7); Neutrophil % 76.6 % (47-70); POSITIVE COUNT YES; Platelet Count 198 K/mm3 (150-450); RBC Distribution Width CV 13.1 % (11.6-14.6); RBC Distribution Width SD 44.5 fl (35.1-43.9); Red Blood Count 4.58 M/mm3 (4.2-5.4); White Blood Count 11.1 K/mm3 (4.4-11.0)
--- NOTE | 2022-01-28 10:25 | RAD_ITS ---
STUDY: X-RAY CHEST REASON FOR EXAM: Female, 76 years old. Cough TECHNIQUE: Single AP portable view of the chest. COMPARISON: Comparison is made with prior study dated 04/23/2016. FINDINGS: EKG electrodes are seen. Scattered calcified granulomas. There is no demonstrated pleural abnormality. There is moderate cardiac enlargement. Normal mediastinum and arie. Normal visualized pulmonary arteries. There is atherosclerotic calcification of the aortic arch with tortuosity. There are diffuse degenerative changes of the visualized thoracic spine. There is degenerative osteoarthritis of the bilateral shoulders. There is no demonstrated abnormality of the visualized soft tissue structures of the upper abdomen. RAD/Chest 1 View (Portable) IMPRESSION: Cardiomegaly. The lungs are clear. Electronically Signed: Collin Hampton MD at 10:48 EDT ,
[2022-01-28 10:27] LABS: ALB/GLOB Ratio 0.9 RATIO (0.9-2.4); AST(SGOT) 50 U/L (15-37); Alanine Aminotransfer ALT/SGPT 43 U/L (13-56); Albumin, Serum 3.1 g/dL (3.2-5.0); Alkaline Phosphatase 66 U/L (45-117); Anion Gap 12 (5-15); BUN 11 mg/dL (7-18); BUN/Creat Ratio 18.9 RATIO (10-20); Calcium,Total 9.1 mg/dL (8.5-10.1); Chloride 93 mmol/L (98-107); Creatinine, Serum 0.58 mg/dL (0.55-1.02); EST Glomerular Filtration Rate 107 mL/min (>60); Est Glom Filt Rate - Afr Amer 129 mL/min (>60); Estimated Creatinine Clearance 36.67 ml/min; Globulin 3.5 g/dL (2.2-4.2); Glucose 146 mg/dL (74-106); Lipase 91 U/L (73-393); Protein, Total 6.6 g/dL (6.4-8.2); Sodium Level 130 mmol/L (136-145); Troponin-I HS 144 pg/mL (3.0-54.0)
[2022-01-28 10:45] LABS: International Normalized Ratio 1.1; Prothrombin Time (Protime)PT. 14.2 SECONDS (11.7-14.9)
[2022-01-28 10:46] LABS: Partial Thromboplast Time 28.8 Seconds (24.1-36.2)
[2022-01-28] MEDS: Aspirin 81 MG TAB.CHEW 324 MG PO (10:48)
[2022-01-28] MEDS: Potassium Chloride Oral Tablet 20 MEQ 40 MEQ PO (11:08)
[2022-01-28 11:10] LABS: Lactic Acid 1.4 mmol/L (0.4-1.9)
[2022-01-28 12:10] LABS: Troponin-I HS 128 pg/mL (3.0-54.0)
[2022-01-28] MEDS: Cefazolin 1 GM/50 ML BAG IV (12:13)
--- NOTE | 2022-01-28 12:14 | HP.PCM.HOS_ITS ---
[facility] - General General Date of Service: 01/28/22 Chief Complaint: Leg redness. HPI Narrative HARINDER MILIAN, is a 76 F who presents due to swelling in her lower extremities and redness. States its been ongoing for couple weeks but admits that she is unable to see her leg due to her morbid obesity. Patient's other daughter was admitted last night for perforated bowel and her other daughter came to stay with her. Brought to the hospital today. Patient was seen by the emergency room and received cefazolin. Patient was not have any chest pain or any shortness of breath but did have a troponin that was elevated at 144-128. Patient notes that she has had chronic lower extremity edema. FORMERLY [facility], [facility] Medical History (Updated 01/28/22 @ 12:[address] Amilcar Aguilar, DO) Bullous pemphigoid Cataracts, bilateral Cholecystectomy planned Fatty liver Glaucoma (increased eye pressure) Hypertension Lymphedema Melanoma Obesity Sleep apnea Type II diabetes mellitus Home Medications ascorbic acid (vitamin C) 1,000 mg tablet 1 g PO DAILY 01/28/22 [History Last Taken Unknown] bimatoprost 0.01 % eye drops (Lumigan) 1 drp EACH EYE QPM 01/28/22 [History Last Taken Unknown] biotin 10,000 mcg capsule 5,000 mcg PO DAILY 01/28/22 [History Last Taken Unknown] calcium carbonate 600 mg-vitamin D3 10 mcg (400 unit) tablet (Calcium 600 + D(3)) 1 tab PO BID 01/28/22 [History Last Taken Unknown] carvedilol 25 mg tablet 25 mg PO BID 01/28/22 [History Last Taken Unknown] cinnamon bark 500 mg capsule (Cinnamon) 2,000 mg PO DAILY 01/28/22 [History Last Taken Unknown] apaxcoftmkm-fuyjkdbuq-xqbd892-hyal 750 mg-100 mg-125 mg-1.65 mg tablet (Glucosamine Chondroit Complx Advan) 1 tab PO DAILY 01/28/22 [History Last Taken Unknown] hydrochlorothiazide 25 mg tablet 25 mg PO BID 01/28/22 [History Last Taken Unknown] krill 1,000 mg-omega-3 170 mg-dha 50 mg-epa 80 gk-umdzub-jgklj capsule (krill oil) 2 cap PO DAILY 01/28/22 [History Last Taken Unknown] lysine 1,000 mg tablet 1,000 mg PO DAILY 01/28/22 [History Last Taken Unknown] jpcdjqru-eapr-movjy acid 200 mcg-lycopene 5 mg-boron 250 mcg tablet (Bladder 2.2) 1 tab PO PRN PRN leaking bladder 01/28/22 [History Last Taken Unknown] multivitamin-ferrous fumarate-folic acid 18 mg-400 mcg tablet 1 tab PO DAILY 01/28/22 [History Last Taken Unknown] niacinamide 500 mg tablet 500 mg PO BID 01/28/22 [History Last Taken Unknown] omega-3 fatty acids-vitamin E 1,000 mg capsule 1 cap PO DAILY 01/28/22 [History Last Taken Unknown] timolol 0.5 %-dorzolamide 2 %-latanprost 0.005 % (PF) eye drops 1 drp ophthalmic (eye) QHS 01/28/22 [History Last Taken Unknown] triamcinolone acetonide 0.1 % topical cream 1 applic topical PRN PRN redness 01/28/22 [History Last Taken Unknown] Allergy/AdvReac Type Severity Reaction Status Date / Time ciprofloxacin [From Cipro] Allergy Hives Verified 01/28/22 09:19 Penicillins Allergy Hives Verified 01/28/22 09:19 NSAIDS (Non-Steroidal AdvReac Upset Verified 01/28/22 09:19 Anti-Inflamma Stomach Surgical History Hx of appendectomy Hx of cholecystectomy Social History Smoking Status: Never smoker alcohol intake: never substance use type: does not use ROS ROS Narrative Unaware if she is put on any weight. All review of systems were negative except as mentioned above in the history of present illness and the other review of systems. Vital Signs Vital Signs Vital Signs: 01/28/22 09:10 01/28/22 09:12 01/28/22 09:12 Temperature 36.7 C 36.7 C 36.7 C Temperature Source Oral Oral Oral Pulse Rate 83 78 83 Respiratory Rate 18 18 18 Respiratory Effort Respiratory Pattern Blood Pressure 163/85 H 163/85 H 163/85 H Blood Pressure Mean 111 111 111 Pulse Ox 99 98 98 Oxygen Delivery Method Room Air Room Air Room Air 01/28/22 11:10 01/28/22 11:10 01/28/22 11:12 Temperature 36.6 C Temperature Source Temporal Pulse Rate 78 79 Respiratory Rate 19 H 18 Respiratory Effort Normal Non-Labored Respiratory Pattern Normal Blood Pressure 155/64 H 155/64 H Blood Pressure Mean 94 94 Pulse Ox 95 97 Oxygen Delivery Method Room Air Room Air Weight Weight: 189.7 kg Body Mass Index (BMI) 76.4 Physical Exam Const alert and no apparent distress HEENT normocephalic Resp normal respiratory effort, no retractions, no use of accessory muscles and clear to auscultation bilaterally Cardio regular rate, regular rhythm, S1 normal heart sound and S2 normal heart sound GI normal to inspection, nondistended, normoactive bowel sounds, soft to palpation, non-tender and non-distended Extremity Extremity Narrative: Bilateral lower extremity edema with lymphedematous changes. Skin Skin Narrative: More prominent lymphedema changes on her left lower extremity. No warmth noted. Results Lab / Micro Data Attestation: I reviewed the patient's lab results. Result Diagrams: 01/28/22 09:43 01/28/22 09:43 Labs: Laboratory Results - last 24 hr 01/28/22 09:43: WBC 11.1 H, RBC 4.58, Hgb 14.4, Hct 42.9, MCV 93.7, MCH 31.4, MCHC 33.6, RDW Std Deviation 44.5 H, RDW Coeff of Garland 13.1, Plt Count 198, MPV 10.6, Immature Gran % (Auto) 0.400, Neut % (Auto) 76.6 H, Lymph % (Auto) 12.5 L, [place] % (Auto) 9.3, Eos % (Auto) 0.7, Baso % (Auto) 0.5, Absolute Neuts (auto) 8.5 H, Absolute Lymphs (auto) 1.39, Nucleated RBC % 0 01/28/22 09:43: Sodium 130 L, Potassium 3.0 L, Chloride 93 L, Carbon Dioxide 25.0, Anion Gap 12, BUN 11, Creatinine 0.58, Estim Creat Clear Calc 36.67, Est GFR (MDRD) Af Amer 129, Est GFR (MDRD) Non-Af 107, BUN/Creatinine Ratio 18.9, Glucose 146 H, Calcium 9.1, Total Bilirubin 1.50 H, AST 50 H, ALT 43, Alkaline Phosphatase 66, Troponin I High Sens 144 H*, Total Protein 6.6, Albumin 3.1 L, Globulin 3.5, Albumin/Globulin Ratio 0.9, Lipase 91 01/28/22 10:23: PT 14.2, INR 1.1, APTT 28.8 01/28/22 10:23: Lactic Acid 1.4 01/28/22 11:19: Troponin I High Sens 128 H* Micro: Microbiology 01/28/22 09:38 Nasal Secretion SARS-CoV-2 & FLU Antigen (Rapid) - Final EKG Initial EKG: Attestation: I personally reviewed and interpreted this EKG as follows: Prior EKG tracings: available for review EKG Rhythm Intrepretation: Sinus Rhythm Radiology Impression Chest X-Ray 01/28/22 10:25 IMPRESSION: Cardiomegaly. The lungs are clear. Electronically Signed: Collin Hampton MD at 10:48 EDT , Assessment & Plan Assessment/Plan (1) Elevated troponin: PLAN: No baseline to compare to. Patient was not have any chest pain symptoms but a troponin was ordered nonetheless. But given that we have no baseline, patient will undergo a stress test. Start aspirin (2) Lymphedema: PLAN: Cellulitis ruled out DC HCTZ and start her on furosemide Check 2D echocardiogram. Concern the patient may have pulmonary artery hypertension. Patient does have JENNIFER but does use BiPAP. May use her BiPAP here. PLAN: Plan Chronic conditions * JENNIFER: Continue with BiPAP * Morbid obesity: Would benefit from bariatric evaluation VTE prophylaxis: Not indicated given observation status. Charges/Coding Visit Charges OBSV E&M: 36048 Initial observation care L2
[2022-01-28 14:36] LABS: Troponin-I HS 102 pg/mL (3.0-54.0)
--- NOTE | 2022-01-28 15:10 | EKG12_ITS ---
Test Reason : AM EKG Blood Pressure : / mmHG Vent. Rate : 078 BPM Atrial Rate : 078 BPM P-R Int : 180 ms QRS Dur : 100 ms QT Int : 416 ms P-R-T Axes : 057 006 004 degrees QTc Int : 474 ms Normal sinus rhythm Minimal voltage criteria for LVH, may be normal variant ( Hiren product ) Poor R wave progression Cannot rule out anterior infarct, age undetermined Confirmed by YOSVANY GUAJARDO, OLEGARIO ([id number]), proposal editor CECILIO MCGARRY ([id number]) on 01/30/2022 9:43:34 AM Referred By: Confirmed By:OLEGARIO BAR MD
[2022-01-28] MEDS: Furosemide 40 MG/4 ML Vial IV (16:32)
[2022-01-28] MEDS: Calcium Carb/Vitamin D 1 TABLET Tablet PO (19:05)
[2022-01-28] MEDS: Dorzolamide HCL/Timolol 10 ml Bottle 1 DRP EACH EYE (20:40)
[2022-01-28] MEDS: Latanoprost 0.005% 1 Bottle 1 DRP EACH EYE (21:28)
[2022-01-28] MEDS: Carvedilol 25 MG Tablet PO (21:29)
[2022-01-29] VITALS (12 sets, daily range): BP systolic 127–180; BP diastolic 57–73; PULSE 71–85; RESP 18–20; TEMP 36.5–37; O2SAT 94–100
[2022-01-29] MEDS: Aspirin E.C. 81 MG Tablet PO (05:41)
--- NOTE | 2022-01-29 05:55 | EKG12_ITS ---
Test Reason : elevated troponin Blood Pressure : / mmHG Vent. Rate : 074 BPM Atrial Rate : 074 BPM P-R Int : 182 ms QRS Dur : 096 ms QT Int : 438 ms P-R-T Axes : 054 -13 002 degrees QTc Int : 486 ms Normal sinus rhythm Cannot rule out Anterior infarct , age undetermined Abnormal ECG Confirmed by YOSVANY GUAJARDO, OLEGARIO ([id number]), international editorial producer CECILIO MCGARRY ([id number]) on 01/30/2022 9:43:58 AM Referred By: Lauren Confirmed By:OLEGARIO BAR MD
--- NOTE | 2022-01-29 05:55 | ECHOCS_ITS ---
Reason For Study: Edema Procedure This was a 2D Doppler, Color Flow transthoracic echocardiogram. Contrast injection was performed. Exam performed in department. Left Ventricle Normal LV size. Moderate concentric left ventricular hypertrophy. Left ventricular systolic function is normal. The estimated ejection fraction is 55 %. Stage 1 diastolic dysfunction. No regional wall motion abnormalities noted. Right Ventricle Normal RV size. Normal systolic function. Atria Normal left atrium. Normal right atrium. Mitral Valve Normal mitral valve. Tricuspid Valve Normal tricuspid valve. Mild (1+) tricuspid valve insufficiency. Pulmonary artery systolic pressure is 33 mmHg. Aortic Valve Trisinus/trileaflet aortic valve. Mild focal aortic valve thickening. Pulmonic Valve Normal pulmonic valve. Great Vessels Normal aortic root. Pericardium/Pleural No pericardial effusion. Medication Diluted definity 3ml given slow IV push to enhance endocardial definition. MMode/2D Measurements & Calculations LVIDd: 3.9 cm IVSd: 1.8 cm LVOT diam: 2.0 cm LVIDs: 2.5 cm LVPWd: 1.5 cm RVDd: 4.0 cm FS: 36.7 % LVOT area: 3.2 cm2 Ao root diam: 2.9 cm LAV(MOD-bp): 67.4 ml LVAd ap4: 34.3 cm2 LAV(MOD-bp) Indexed: 26.2 ml/m2 LVLd ap4: 8.5 cm LAV(MOD-sp2): 68.6 ml EDV(MOD-sp4): 115.4 ml LAV(MOD-sp4): 61.9 ml EDV(sp4-el): 116.6 ml LVAs ap4: 16.9 cm2 LVLs ap4: 7.0 cm ESV(MOD-sp4): 34.3 ml ESV(sp4-el): 34.3 ml EF(MOD-sp4): 70.3 % EF(sp4-el): 70.5 % SV(MOD-sp4): 81.1 ml SV(sp4-el): 82.2 ml LA A4 area: 21.2 cm2 LA dimension(2D): 5.0 cm RA A4 area: 14.4 cm2 Doppler Measurements & Calculations MV E max praful: 100.4 cm/sec Lat Peak E' Praful: 4.4 cm/sec Med Peak E' Praful: 4.8 cm/sec MV A max praful: 121.9 cm/sec E/E' lat: 22.7 E/E' med: 20.9 MV E/A: 0.82 Ao V2 max: 249.4 cm/sec LV V1 max: 167.2 cm/sec SV(LVOT): 140.4 ml Ao max P.9 mmHg LV V1 max P.2 mmHg Ao V2 mean: 181.6 cm/sec LV V1 mean P.3 mmHg Ao mean P.5 mmHg LV V1 mean: 140.6 cm/sec Ao V2 VTI: 56.3 cm LV V1 VTI: 43.5 cm TAYLOR(I,D): 2.5 cm2 TAYLOR(V,D): 2.2 cm2 PA V2 max: 119.9 cm/sec TR max praful: 268.9 cm/sec TR max P.9 mmHg ECHO/Echo Complete W/ Contrast Interpretation Summary Normal LV size. Left ventricular systolic function is normal. The estimated ejection fraction is 55 %. Moderate concentric left ventricular hypertrophy. Stage 1 diastolic dysfunction. Pulmonary artery systolic pressure is 33 mmHg. Contrast injection was performed. Ordering Physician: Amilcar Aguilar Performed By: Harleen Reyes, RODRIGO, RVT
[2022-01-29 06:32] LABS: Absolute Lymphocyte Count 1.27 X10^3/uL (0.83-4.51); Absolute Neutrophil Count 8.2 X10^3/uL (2.0-7.7); Basophil# 0.07 X10^3/uL; Basophil% 0.6 % (0-1); Eosinophil# 0.17 X10^3/uL; Eosinophils% 1.5 % (0-5); Hematocrit 41.5 % (37-47); Hemoglobin 13.7 g/dL (12.0-15.0); Lymphocyte # 1.27 X10^3/ul (0.83-4.51); Lymphocyte % 11.6 % (19-41); Mean Corpuscular Hgb 30.3 pg (27.0-32.0); Mean Corpuscular Volume 91.8 fL (81-99); Mean Platelet Vol. 10.8 fl (6.2-12.0); Monocyte% 10.9 % (0-10); NRBC Flagged by Analyzer 0 % (0-5); Neutrophil # 8.22 X10^3/uL (2.7-7.7); Neutrophil % 74.9 % (47-70); Platelet Count 247 K/mm3 (150-450); RBC Distribution Width CV 13.3 % (11.6-14.6); RBC Distribution Width SD 44.8 fl (35.1-43.9); Red Blood Count 4.52 M/mm3 (4.2-5.4)
[2022-01-29 07:05] LABS: Anion Gap 10 (5-15); BUN 11 mg/dL (7-18); BUN/Creat Ratio 25.3 RATIO (10-20); Chloride 95 mmol/L (98-107); Cholesterol 105 mg/dL (200); Creatinine, Serum 0.44 mg/dL (0.55-1.02); EST Glomerular Filtration Rate 149 mL/min (>60); Est Glom Filt Rate - Afr Amer 180 mL/min (>60); Estimated Creatinine Clearance 34.99 ml/min; Glucose 140 mg/dL (74-106); High Density Lipoprotein 46 mg/dL; Potassium 2.8 mmol/L (3.5-5.1); Sodium Level 132 mmol/L (136-145); Thyroid Stim Hormone (TSH) 1.97 uIU/mL (0.358-3.74); Triglycerides 74 mg/dL; Very Low Density Lipoprotein 15 mg/dL (5-40)
--- NOTE | 2022-01-29 08:01 | PN.HOSP_ITS ---
Subjective Subjective Feels better. Objective Data Objective Data Vital Signs: Vital Signs Temp Pulse Resp BP Pulse Ox O2 Del Method FiO2 36.5 C L 78 18 172/72 H 96 Room Air 21 01/29/22 07:41 01/29/22 07:41 01/29/22 07:41 01/29/22 07:41 01/29/22 07:41 01/29/22 07:41 01/28/22 21:16 Oxygen Delivery Method Room Air Weight: 187.5 kg Body Mass Index (BMI) 78.0 Intake & Output: Intake and Output for Last 24 Hours 01/27/22 01/28/22 01/29/22 23:59 23:59 23:59 Intake Total 1050 / 1170 120 / 120 Output Total 2700 / 3250 650 / 650 Balance -1650 / -2080 -530 / -530 Lab / Micro Data Result Diagrams: 01/29/22 05:20 01/29/22 05:20 Labs: Laboratory Results - last 24 hr 01/28/22 09:43: WBC 11.1 H, RBC 4.58, Hgb 14.4, Hct 42.9, MCV 93.7, MCH 31.4, MCHC 33.6, RDW Std Deviation 44.5 H, RDW Coeff of Gar[place] 13.1, Plt Count 198, MPV 10.6, Immature Gran % (Auto) 0.400, Neut % (Auto) 76.6 H, Lymph % (Auto) 12.5 L, [place] % (Auto) 9.3, Eos % (Auto) 0.7, Baso % (Auto) 0.5, Absolute Neuts (auto) 8.5 H, Absolute Lymphs (auto) 1.39, Nucleated RBC % 0 01/28/22 09:43: Sodium 130 L, Potassium 3.0 L, Chloride 93 L, Carbon Dioxide 25.0, Anion Gap 12, BUN 11, Creatinine 0.58, Estim Creat Clear Calc 36.67, Est GFR (MDRD) Af Amer 129, Est GFR (MDRD) Non-Af 107, BUN/Creatinine Ratio 18.9, Glucose 146 H, Calcium 9.1, Total Bilirubin 1.50 H, AST 50 H, ALT 43, Alkaline Phosphatase 66, Troponin I High Sens 144 H*, Total Protein 6.6, Albumin 3.1 L, Globulin 3.5, Albumin/Globulin Ratio 0.9, Lipase 91 01/28/22 10:23: PT 14.2, INR 1.1, APTT 28.8 01/28/22 10:23: Lactic Acid 1.4 01/28/22 11:19: Troponin I High Sens 128 H* 01/28/22 14:10: Troponin I High Sens 102 H 01/29/22 05:20: WBC 11.0, RBC 4.52, Hgb 13.7, Hct 41.5, MCV 91.8, MCH 30.3, MCHC 33.0, RDW Std Deviation 44.8 H, RDW Coeff of [place] 13.3, Plt Count 247, MPV 10.8, Immature Gran % (Auto) 0.500, Neut % (Auto) 74.9 H, Lymph % (Auto) 11.6 L, [place] % (Auto) 10.9 H, Eos % (Auto) 1.5, Baso % (Auto) 0.6, Absolute Neuts (auto) 8.2 H, Absolute Lymphs (auto) 1.27, Nucleated RBC % 0 01/29/22 05:20: Sodium 132 L, Potassium 2.8 L, Chloride 95 L, Carbon Dioxide 27.0, Anion Gap 10, BUN 11, Creatinine 0.44 L, Estim Creat Clear Calc 34.99, Est GFR (MDRD) Af Amer 180, Est GFR (MDRD) Non-Af 149, BUN/Creatinine Ratio 25.3 H, Glucose 140 H, Calcium 9.0, Triglycerides 74, Cholesterol 105, LDL Cholesterol 44, VLDL Cholesterol 15, HDL Cholesterol 46, TSH 1.97 Micro: Microbiology 01/28/22 09:43 Blood Culture (Wb) - Arm Left Blood Culture - Preliminary 01/28/22 09:38 Nasal Secretion SARS-CoV-2 & FLU Antigen (Rapid) - Final Radiography Diagnostic Testing: Radiology Impression Chest X-Ray 01/28/22 10:25 IMPRESSION: Cardiomegaly. The lungs are clear. Electronically Signed: Collin Hampton MD at 10:48 EDT , Physical Exam Const alert and no apparent distress Constitutional Narrative: god spirits Resp normal respiratory effort and no retractions Cardio regular rate, regular rhythm, S1 normal heart sound and S2 normal heart sound GI normal to inspection, nondistended, normoactive bowel sounds Extremity Extremity Narrative: bilateral edema Skin Skin Narrative: still with lymphedema in lower extremities. Assessment & Plan Assessment/Plan (1) Elevated troponin: PLAN: No baseline to compare to. Patient was not have any chest pain symptoms but a troponin was ordered nonetheless. Stress test negative No aditional work up. (2) Lymphedema: PLAN: Cellulitis ruled out DC HCTZ and start her on furosemide 2D echocardiogram shows an EF of 55% with pulmonary artery systolic pressure of 33 mmHg. Patient does have JENNIFER but does use BiPAP. May use her BiPAP here. (3) Hypokalemia: PLAN: Replace Check magnesium (4) Bacteremia: PLAN: Thus far 1 of 2 sets. Detection positive for staph aureus and group B strep. Unclear if actual true infection or colonization though given the staph and strep it would seem more concerning that this could actually be a true infection. Her legs, though I do not feel are cellulitic, could be a source if this is true infection. PLAN: Plan Chronic conditions * JENNIFER: Continue with BiPAP * Morbid obesity: Would benefit from bariatric evaluation VTE prophylaxis: Not indicated given observation status. Discussed with the patient's daughter. There is a daughter that patient does not live with her as the patient's daughter whom she does live with is currently in the hospital recovering from surgery. The daughter spoke with states that she is concerned about her mental status and for possible dementia. Greater than 35 minutes of which greater than 50% of time was discussed with the patient and daughter about test results, plan for treatment, anticipated need for group home facility and also discussing admission versus observation status. Charges/Coding Visit Charges Inpatient E&M: 89008 Subs Hosp L3
[2022-01-29] MEDS: Potassium Chloride Oral Tablet 20 MEQ 60 MEQ PO (08:38)
[2022-01-29] MEDS: Dorzolamide HCL/Timolol 10 ml Bottle 1 DRP EACH EYE ×2 (08:40→21:43)
[2022-01-29] MEDS: Potassium Chloride 10mEq/100mL 10 MEQ/100 ML IV.SOLN. 100 MEQ IV BOLUS ×4 (11:23→14:45)
[2022-01-29] MEDS: Calcium Carb/Vitamin D 1 TABLET Tablet PO ×2 (11:24→16:39)
[2022-01-29] MEDS: Carvedilol 25 MG Tablet PO ×2 (11:25→21:42)
[2022-01-29] MEDS: Furosemide 40 MG/4 ML Vial IV ×2 (11:25→17:01)
--- NOTE | 2022-01-29 11:50 | CASEMGMT ---
Addendum entered by Sangeeta Majano 01/29/22 15:32: This RN CM back to room with CUMMINGS form, explanation done-pt voices understanding, and signs CUMMINGS form. Pt is A/Ox4. Original to chart and copy to pt. Pt voices no further questions/concerns/needs. Steven MOLINA CM Original Note: This RN CM to room with CUMMINGS form but therapy is at bedside. CM to go back at later time. Steven MOLINA CM
--- NOTE | 2022-01-29 12:20 | STRESSREP ---
Stress Test Report Pharmacologic perfusion stress test. 76-year-old lady with a history of chest pain. Stress protocol: Resting EKG demonstrates normal sinus rhythm with a rate of 97 bpm normal intervals are noted resting blood pressure 170/100 mmHg. 0.4 mg of regadenoson was infused per usual protocol followed by rapid intravenous saline flush injection continuous EKG monitoring was performed. The maximum heart rate attained was 104 bpm which was 73% of max impacted heart rate the maximum workload was 1 metabolic equivalent. At rest there were no ST or T wave changes noted to suggest abnormal flow reserve and at peak infusion nonspecific ST changes were noted with did not meet the criteria for ischemia. No clinical angina was noted the test was terminated due to completion of protocol. The final blood pressure was 160/82 mmHg. Myocardial perfusion protocol. 15.0 mCi of technetium 99m sestamibi was injected at rest. 0.4 mg of regadenoson was infused per usual protocol. At peak infusion 44.8 mCi of technetium 99m sestamibi was injected stress images were obtained stress and rest images were reconstructed in comparing the short axis vertical long and horizontal long axis. Perfusion SPECT analysis: Review of the stress images demonstrate normal uptake of tracer noted in all areas of the myocardium. The resting images similar demonstrate normal uptake of tracer noted in all areas of the myocardium. No areas of reversibility are noted to suggest ischemia. Conclusion: Normal pharmacologic myocardial perfusion stress test. Preserved ejection fraction.
--- NOTE | 2022-01-29 12:47 | CASEMGMT ---
SW met with patient. Introduced self and role at [facility]. SW spoke with patient about her discharge plan. Patient agreed she would need to go to a jail facility at discharge. SW provided patient with a list of jail facility providers including quality and resource use data and consistent with patient?s preferred geographic region, medical needs, and insurance network were provided from the [facility] Guide. SW explained patient will need to pick at least 3-4 facilities that she would be willing to go to. SW will then call the facilities and make referrals. SW will let patient know who is able to accept. SW explained that insurance will need to approve patient before patient can be discharged. This can take a day or two depending on insurance. SW will check back in a little bit to get choices. Jing Frances BUSINESS OPERATIONS COORDINATORMarylin FIGUEROA
--- NOTE | 2022-01-29 13:28 | CASEMGMT ---
ARPIT checked back with patient and her daughter has the list with her other daughter in room 124. Jing Frances PLANT ASSOCIATE [place]
--- NOTE | 2022-01-29 14:03 | CASEMGMT ---
Addendum entered by Angelita Toney 01/29/22 14:44: [facility] reached out and is unable to take patient due to the weigh limit. Angelita Toney Discharge Data Operations Leader Original Note: Discharge Data Operations Leader Angelita d/jose de jesus specimen preparation assistant sent referral via [facility] to Viviane ARRIAGA [place], [facility]. Will follow up. Plan: Angelita Toney Discharge Data Operations Leader
--- NOTE | 2022-01-29 15:38 | CASEMGMT ---
Discharge Back Roller Marge from [facility] reached out. Clinically [facility] will accept patient. Marge was waiting for insurance to come back for benefits. Marge stated that if [facility] is in network Marge will start pre-cert. Angelita went to patient bedside, patient is in agreement to going to [facility]. Patient stated she knows how hard it can be to find beds at a SNF now a days. Angelita told patient that the plan will be to go to [facility] then unless insurance is not in network. Pre-cert will be started todat 01/29/2022 Plan: [facility], Waiting pre-cert Angelita Toney Discharge Back Roller
--- NOTE | 2022-01-29 16:10 | PCM.RX.CS ---
Consult Pharmacy has been consulted to manage selected antiobiotic: Vancomycin Type of Consult: New start Suspected Infection: Bacteremia Labs: Sodium 132 mmol/L (136-145) L 01/29/22 05:20 Potassium 2.8 mmol/L (3.5-5.1) L 01/29/22 05:20 Chloride 95 mmol/L (98-107) L 01/29/22 05:20 Carbon Dioxide 27.0 mmol/L (21.0-32.0) 01/29/22 05:20 Anion Gap 10 (5-15) 01/29/22 05:20 BUN 11 mg/dL (7-18) 01/29/22 05:20 Creatinine 0.44 mg/dL (0.55-1.02) L 01/29/22 05:20 Est GFR (MDRD) Af Amer 180 mL/min (>60) 01/29/22 05:20 Est GFR (MDRD) Non-Af 149 mL/min (>60) 01/29/22 05:20 BUN/Creatinine Ratio 25.3 RATIO (10-20) H 01/29/22 05:20 Glucose 140 mg/dL (74-106) H 01/29/22 05:20 Microbiology: Microbiology 01/28/22 09:43 Blood Culture (Wb) - Arm Left Bacteria Detection (PCR) - Final Staphylococcus aureus Streptococcus agalactiae (B) 01/28/22 09:43 Blood Culture (Wb) - Arm Left Blood Culture - Preliminary 01/28/22 09:38 Nasal Secretion SARS-CoV-2 & FLU Antigen (Rapid) - Final Pharmacy Plan for Drug Dosing: NEW START IV VANCOMYCIN Consulting Physician: JOEL Indication: BACTEREMIA Goal Trough: 15-20 MG/DL SrCr: 0.44 --> ROUNDED TO 0.8 DUE TO AGE CrCl: 94 ML/MIN (USING ADJUSTED BODY WEIGHT) Comments: LOADING DOSE OF 2000MG GIVEN 01/29/22 @ 1545 Vancomycin Dose: WILL START 1250MG Q8 BASED ON CRCL AND WEIGHT PER POLICY. TROUGH ORDER PRIOR TO 4TH TOTAL DOSE. Pending Level: 01/30/22 @ 1530 Pharmacy Service will continue to monitor and adjust dosing as required.
[2022-01-29] MEDS: 0.9% Saline Lock 10 ML Syringe IV (17:01)
[2022-01-29] MEDS: Acetaminophen 325 MG Tablet 650 MG PO (21:41)
[2022-01-29] MEDS: Latanoprost 0.005% 1 Bottle 1 DRP EACH EYE (21:43)
[2022-01-30] VITALS (16 sets, daily range): BP systolic 147–192; BP diastolic 69–86; PULSE 73–97; RESP 16–20; TEMP 36.4–36.8; O2SAT 93–96
[2022-01-30 06:42] LABS: Absolute Lymphocyte Count 1.75 X10^3/uL (0.83-4.51); Absolute Neutrophil Count 7.1 X10^3/uL (2.0-7.7); Basophil# 0.08 X10^3/uL; Basophil% 0.8 % (0-1); Eosinophil# 0.32 X10^3/uL; Eosinophils% 3.1 % (0-5); Hematocrit 40.2 % (37-47); Hemoglobin 13.2 g/dL (12.0-15.0); Lymphocyte # 1.75 X10^3/ul (0.83-4.51); Lymphocyte % 16.9 % (19-41); Mean Corp Hgb Conc 32.8 g/dL (32-36); Mean Corpuscular Hgb 30.4 pg (27.0-32.0); Mean Corpuscular Volume 92.6 fL (81-99); Mean Platelet Vol. 10.8 fl (6.2-12.0); Monocyte# 1.08 X10^3/uL; Monocyte% 10.4 % (0-10); NRBC Flagged by Analyzer 0 % (0-5); Neutrophil # 7.06 X10^3/uL (2.7-7.7); Neutrophil % 68.3 % (47-70); Platelet Count 240 K/mm3 (150-450); RBC Distribution Width CV 13.5 % (11.6-14.6); RBC Distribution Width SD 46.6 fl (35.1-43.9); Red Blood Count 4.34 M/mm3 (4.2-5.4); White Blood Count 10.3 K/mm3 (4.4-11.0)
[2022-01-30 07:23] LABS: Anion Gap 9 (5-15); BUN 15 mg/dL (7-18); BUN/Creat Ratio 32.3 RATIO (10-20); Calcium,Total 8.5 mg/dL (8.5-10.1); Chloride 100 mmol/L (98-107); Creatinine, Serum 0.46 mg/dL (0.55-1.02); EST Glomerular Filtration Rate 138 mL/min (>60); Est Glom Filt Rate - Afr Amer 167 mL/min (>60); Estimated Creatinine Clearance 34.99 ml/min; Glucose 133 mg/dL (74-106); Potassium 3.2 mmol/L (3.5-5.1); Sodium Level 136 mmol/L (136-145)
--- NOTE | 2022-01-30 07:52 | PN.HOSP_ITS ---
Subjective Subjective Feels well. No new events. Objective Data Objective Data Vital Signs: Vital Signs Temp Pulse Resp BP Pulse Ox O2 Del Method FiO2 36.6 C 76 16 158/75 H 95 Room Air 21 01/30/22 05:00 01/30/22 05:00 01/30/22 05:00 01/30/22 05:00 01/30/22 05:00 01/30/22 07:49 01/28/22 21:16 Oxygen Delivery Method Room Air Weight: 187.5 kg Body Mass Index (BMI) 78.0 Intake & Output: Intake and Output for Last 24 Hours 01/28/22 01/29/22 01/30/22 23:59 23:59 23:59 Intake Total 1050 / 1170 1656.67 / 1656.67 515 / 515 Output Total 2700 / 3250 2150 / 2150 250 / 250 Balance -1650 / -2080 -493.33 / -493.33 265 / 265 Lab / Micro Data Result Diagrams: 01/30/22 05:30 01/30/22 05:30 Labs: Laboratory Results - last 24 hr 01/29/22 05:20: Magnesium 2.0 01/30/22 05:30: WBC 10.3, RBC 4.34, Hgb 13.2, Hct 40.2, MCV 92.6, MCH 30.4, MCHC 32.8, RDW Std Deviation 46.6 H, RDW Coeff of Garland 13.5, Plt Count 240, MPV 10.8, Immature Gran % (Auto) 0.500, Neut % (Auto) 68.3, Lymph % (Auto) 16.9 L, Alfalfa % (Auto) 10.4 H, Eos % (Auto) 3.1, Baso % (Auto) 0.8, Absolute Neuts (auto) 7.1, Absolute Lymphs (auto) 1.75, Nucleated RBC % 0 01/30/22 05:30: Sodium 136, Potassium 3.2 L, Chloride 100, Carbon Dioxide 27.0, Anion Gap 9, BUN 15, Creatinine 0.46 L, Estim Creat Clear Calc 34.99, Est GFR (MDRD) Af Amer 167, Est GFR (MDRD) Non-Af 138, BUN/Creatinine Ratio 32.3 H, Glucose 133 H, Calcium 8.5 Micro: Microbiology 01/28/22 09:43 Blood Culture (Wb) - Arm Left Bacteria Detection (PCR) - Final Staphylococcus aureus Streptococcus agalactiae (B) 01/28/22 09:43 Blood Culture (Wb) - Arm Left Blood Culture - Preliminary Streptococcus agalactiae (B) Staphylococcus aureus 01/28/22 09:38 Nasal Secretion SARS-CoV-2 & FLU Antigen (Rapid) - Final Radiography Diagnostic Testing: Radiology Impression Echocardiogram 01/29/22 05:55 Interpretation Summary Normal LV size. Left ventricular systolic function is normal. The estimated ejection fraction is 55 %. Moderate concentric left ventricular hypertrophy. Stage 1 diastolic dysfunction. Pulmonary artery systolic pressure is 33 mmHg. Contrast injection was performed. Ordering Physician: Amilcar Aguilar Performed By: Harleen Reyes, RODRIGO, RVT Physical Exam Const alert Resp normal respiratory effort, no retractions and no use of accessory muscles Cardio regular rate, regular rhythm and S1 normal heart sound GI normal to inspection, nondistended, normoactive bowel sounds and soft to palpation Extremity Extremity Narrative: lymphedema bilaterally. Psych affect normal Assessment & Plan Assessment/Plan (1) Elevated troponin: PLAN: No baseline to compare to. Patient was not have any chest pain symptoms but a troponin was ordered nonetheless. Stress test negative No aditional work up. (2) Lymphedema: PLAN: Cellulitis ruled out DC HCTZ and start her on furosemide 2D echocardiogram shows an EF of 55% with pulmonary artery systolic pressure of 33 mmHg. Patient does have JENNIFER but does use BiPAP. May use her BiPAP here. (3) Hypokalemia: PLAN: Replace (4) Bacteremia: PLAN: Thus far 1 of 2 sets. Detection positive for staph aureus and group B strep. Unclear if actual true infection or colonization though given the staph and strep it would seem more concerning that this could actually be a true infection. Her legs, though I do not feel are cellulitic, could be a source if this is true infection. Repeat BCx. PLAN: Plan Chronic conditions * JENNIFER: Continue with BiPAP * Morbid obesity: Would benefit from bariatric evaluation VTE prophylaxis: Change to enoxaparin Discussed with the patient's friend with the patient's permission. Patient's friend endorsed to the to me as well as the patient that she is very debilitated and that the patient's daughter, who is in the hospital, is unable to care for the patient as she is recovering from surgery herself. Charges/Coding Visit Charges Inpatient E&M: 24333 Subs Hosp L2
[2022-01-30] MEDS: Carvedilol 25 MG Tablet PO ×2 (09:30→22:23)
[2022-01-30] MEDS: Calcium Carb/Vitamin D 1 TABLET Tablet PO ×2 (09:30→16:18)
[2022-01-30] MEDS: Aspirin E.C. 81 MG Tablet PO (09:30)
[2022-01-30] MEDS: Dorzolamide HCL/Timolol 10 ml Bottle 1 DRP EACH EYE ×2 (09:30→22:24)
[2022-01-30] MEDS: 0.9% Saline Lock 10 ML Syringe IV ×5 (09:30→17:24)
[2022-01-30] MEDS: Potassium Chloride Oral Tablet 20 MEQ 40 MEQ PO ×2 (09:33→16:18)
--- NOTE | 2022-01-30 09:49 | CASEMGMT ---
Discharge Hse Manager Marge from [facility] reached out. Pre-cert has been obtained. Patient can go to [facility] when medically ready. [facility] notified. Plan: [facility], When medically ready. Angelita Toney Discharge Hse Manager
--- NOTE | 2022-01-30 09:55 | CASEMGMT ---
Addendum entered by Sangeeta Majano 01/30/22 10:08: Dr. Esquivel aware there is a script on pt's chart for him to sign for colostomy supplies, voices understanding. Steven MOLINA CM Original Note: Per Jovita at [facility], pt has only met $300 of $3000 deductible so at this point she would have to pay $251.53 for each SN visit until she hits deductible. Pt is updated on all at this time and voices no concerns with paying until meets deductible. Pt aware that this visit will go toward deductible as well. Pt aware PT/OT added and would like to get up and moving. Jovita at [facility] updated and will notify this [facility]G of acceptance. CM to follow. Steven MOLINA CM
--- NOTE | 2022-01-30 10:09 | CASEMGMT ---
Discharge Molder Meat Angelita funez fast food sales assistant reached out to Marge at [facility] to see how long pre-cert is good for. Pre-cert is good until 01/31/2022. After tomorrow new pre-cert would be needed. Plan: [facility], When medically ready. Angelita Toney Discharge Molder Meat
[2022-01-30] MEDS: Furosemide 40 MG/4 ML Vial IV ×2 (10:14→17:24)
[2022-01-30 16:16] LABS: Vancomycin, Trough Level 18.3 ug/mL (5.0-15.0)
[2022-01-30] MEDS: Lisinopril 10 MG Tablet PO (16:18)
--- NOTE | 2022-01-30 16:52 | PCM.RX.CS ---
Consult Pharmacy has been consulted to manage selected antiobiotic: Vancomycin Type of Consult: Follow-up Prior Doses of Antibiotics Received/Current Regimen: 01/29/22 @ 1545 01/29/22 @ 2340 01/30/22 @1026 01/30/22 @ 1624 Labs: Sodium 136 mmol/L (136-145) 01/30/22 05:30 Potassium 3.2 mmol/L (3.5-5.1) L 01/30/22 05:30 Chloride 100 mmol/L (98-107) 01/30/22 05:30 Carbon Dioxide 27.0 mmol/L (21.0-32.0) 01/30/22 05:30 Anion Gap 9 (5-15) 01/30/22 05:30 BUN 15 mg/dL (7-18) 01/30/22 05:30 Creatinine 0.46 mg/dL (0.55-1.02) L 01/30/22 05:30 Est GFR (MDRD) Af Amer 167 mL/min (>60) 01/30/22 05:30 Est GFR (MDRD) Non-Af 138 mL/min (>60) 01/30/22 05:30 BUN/Creatinine Ratio 32.3 RATIO (10-20) H 01/30/22 05:30 Glucose 133 mg/dL (74-106) H 01/30/22 05:30 Vancomycin Trough 18.3 ug/mL (5.0-15.0) H 01/30/22 15:30 Microbiology: Microbiology 01/28/22 10:23 Blood Culture (Wb) - Left Forearm Blood Culture - Preliminary No growth in 48 hours. 01/28/22 09:43 Blood Culture (Wb) - Arm Left Bacteria Detection (PCR) - Final Staphylococcus aureus Streptococcus agalactiae (B) 01/28/22 09:43 Blood Culture (Wb) - Arm Left Blood Culture - Preliminary Streptococcus agalactiae (B) Staphylococcus aureus 01/28/22 09:38 Nasal Secretion SARS-CoV-2 & FLU Antigen (Rapid) - Final Weight used for dosin kg Estimated Creatinine Clearance: 96 Goal Trough: 15-20 mcg/mL Pharmacy Plan for Drug Dosing: CONTINUE VANCOMYCIN 1250MG Q8H Pharmacy Service will continue to monitor and adjust dosing as required. Follow-Up Labs: Trough Vancomycin Labs to be done on [date and time ordered]: 01/31/22 @ 1600
[2022-01-30] MEDS: Enoxaparin 40 MG/0.4 ML Syringe SC (17:24)
[2022-01-30] MEDS: Latanoprost 0.005% 1 Bottle 1 DRP EACH EYE (22:22)
--- NOTE | 2022-01-30 22:40 | RAD_ITS ---
STUDY: X-RAY CHEST REASON FOR EXAM: Female, 76 years old. wheezes TECHNIQUE: Single AP portable view of the chest. COMPARISON: 01/28/2022 FINDINGS: The lungs are clear and expanded. There is no demonstrated pleural abnormality. There is mild cardiac enlargement. Normal mediastinum and arie. Normal visualized pulmonary arteries. Normal visualized aortic arch and descending thoracic aorta. Normal visualized thoracic spine. Normal visualized ribs, clavicles, and shoulders. There is no demonstrated abnormality of the visualized soft tissue structures of the upper abdomen. RAD/Chest 1 View (Portable) IMPRESSION: Normal x-ray examination of the chest. Electronically Signed: Guevara Lawrence DO at 22:58 EDT ,
[2022-01-30] MEDS: MELATONIN 3 MG TABLET PO (22:50)
[2022-01-31] VITALS (13 sets, daily range): BP systolic 150–163; BP diastolic 52–104; PULSE 71–87; RESP 16–20; TEMP 36.6–37.1; O2SAT 94–97
[2022-01-31] MEDS: 0.9% Saline Lock 10 ML Syringe IV ×4 (01:15→16:51)
[2022-01-31] MEDS: Enoxaparin 40 MG/0.4 ML Syringe SC ×2 (05:05→16:52)
[2022-01-31 06:18] LABS: Anion Gap 7 (5-15); BUN 18 mg/dL (7-18); BUN/Creat Ratio 33.5 RATIO (10-20); Calcium,Total 8.6 mg/dL (8.5-10.1); Chloride 99 mmol/L (98-107); Creatinine, Serum 0.54 mg/dL (0.55-1.02); EST Glomerular Filtration Rate 117 mL/min (>60); Est Glom Filt Rate - Afr Amer 141 mL/min (>60); Estimated Creatinine Clearance 34.99 ml/min; Glucose 131 mg/dL (74-106); Potassium 3.8 mmol/L (3.5-5.1); Sodium Level 136 mmol/L (136-145)
--- NOTE | 2022-01-31 08:38 | PN.HOSP_ITS ---
Subjective Subjective No pain. decreased edema in LE. Objective Data Objective Data Vital Signs: Vital Signs Temp Pulse Resp BP Pulse Ox O2 Del Method FiO2 36.6 C 79 18 150/63 H 95 Room Air 21 01/31/22 04:00 01/31/22 07:00 01/31/22 04:00 01/31/22 04:00 01/31/22 04:00 01/31/22 08:15 01/30/22 15:40 Oxygen Delivery Method Room Air Weight: 187.5 kg Body Mass Index (BMI) 78.0 Intake & Output: Intake and Output for Last 24 Hours 01/29/22 01/30/22 01/31/22 23:59 23:59 23:59 Intake Total 1656.67 / 1656.67 2285 / 2285 585 / 585 Output Total 2150 / 2150 4150 / 4150 1350 / 1350 Balance -493.33 / -493.33 -1865 / -1865 -765 / -765 Lab / Micro Data Result Diagrams: 01/30/22 05:30 01/31/22 04:47 Labs: Laboratory Results - last 24 hr 01/30/22 15:30: Vancomycin Trough 18.3 H 01/31/22 04:47: Sodium 136, Potassium 3.8, Chloride 99, Carbon Dioxide 30.0, Anion Gap 7, BUN 18, Creatinine 0.54 L, Estim Creat Clear Calc 34.99, Est GFR (MDRD) Af Amer 141, Est GFR (MDRD) Non-Af 117, BUN/Creatinine Ratio 33.5 H, Glucose 131 H, Calcium 8.6 Micro: Microbiology 01/28/22 09:43 Blood Culture (Wb) - Arm Left Bacteria Detection (PCR) - Final Staphylococcus aureus Streptococcus agalactiae (B) 01/28/22 09:43 Blood Culture (Wb) - Arm Left Blood Culture - Final Streptococcus agalactiae (B) Staphylococcus aureus 01/28/22 10:23 Blood Culture (Wb) - Left Forearm Blood Culture - Preliminary No growth in 48 hours. 01/28/22 09:38 Nasal Secretion SARS-CoV-2 & FLU Antigen (Rapid) - Final Radiography Diagnostic Testing: Radiology Impression Chest X-Ray 01/30/22 22:40 IMPRESSION: Normal x-ray examination of the chest. Electronically Signed: Guevara Lawrence DO at 22:58 EDT , Physical Exam Const alert Constitutional Narrative: anxious. Speaking about herself in the third person. Resp normal respiratory effort Cardio regular rate, regular rhythm, S1 normal heart sound and S2 normal heart sound GI normal to inspection, nondistended, normoactive bowel sounds and soft to palpation Extremity Extremity Narrative: edema. slight improvement. Assessment & Plan Assessment/Plan (1) Elevated troponin: PLAN: No baseline to compare to. Patient was not have any chest pain symptoms but a troponin was ordered nonetheless. Stress test negative No aditional work up. (2) Lymphedema: PLAN: Cellulitis ruled out DC HCTZ and start her on furosemide 2D echocardiogram shows an EF of 55% with pulmonary artery systolic pressure of 33 mmHg. Patient does have JENNIFER but does use BiPAP. May use her BiPAP here. (3) Hypokalemia: PLAN: Replace (4) Bacteremia: PLAN: Thus far 1 of 2 sets. Detection positive for staph aureus and group B strep. Unclear if actual true infection or colonization though given the staph and strep it would seem more concerning that this could actually be a true infection. Her legs, though I do not feel are cellulitic, could be a source if this is true infection. Repeat BCx pending PLAN: Plan Chronic conditions * JENNIFER: Continue with BiPAP * Morbid obesity: Would benefit from bariatric evaluation VTE prophylaxis: Change to enoxaparin Discussed with the patient's friend with the patient's permission. Patient's friend endorsed to the to me as well as the patient that she is very debilitated and that the patient's daughter, who is in the hospital, is unable to care for the patient as she is recovering from surgery herself. Charges/Coding Visit Charges Inpatient E&M: 96065 Subs Hosp L2
[2022-01-31] MEDS: Albuterol 2.5 MG/3 ML VIAL.NEB. INHALATION (09:07)
[2022-01-31] MEDS: Aspirin E.C. 81 MG Tablet PO (09:32)
[2022-01-31] MEDS: Lisinopril 20 MG Tablet PO (09:32)
[2022-01-31] MEDS: Furosemide 40 MG/4 ML Vial IV ×2 (09:32→16:52)
[2022-01-31] MEDS: Calcium Carb/Vitamin D 1 TABLET Tablet PO ×2 (09:32→16:52)
[2022-01-31] MEDS: Potassium Chloride Oral Tablet 20 MEQ 40 MEQ PO ×2 (09:32→16:52)
[2022-01-31] MEDS: Carvedilol 25 MG Tablet PO ×2 (09:32→21:53)
[2022-01-31] MEDS: Dorzolamide HCL/Timolol 10 ml Bottle 1 DRP EACH EYE ×2 (09:32→21:52)
--- NOTE | 2022-01-31 11:41 | CASEMGMT ---
Addendum entered by Angelita Toney 01/31/22 15:12: Marge has reached out. Pre-cert has . Marge has started a new pre-cert. Marge will reach out when pre-cert has been obtained. Angelita Toney Discharge Manager Underwriting Original Note: Discharge Manager Underwriting Angelita d/jose de jesus murillo sent updated pt/ot notes and progress note via [facility] to Marge at [facility]. Plan: [facility] Angelita Toney Discharge Manager Underwriting
--- NOTE | 2022-01-31 15:22 | CASEMGMT ---
Discharge Ethylene Compressor Operator Marge reached out from [facility]. Marge got pre-cert again. Patient can go when medically ready. Dr. Aguilar is aware. Pre-cert is good until 02/03/2022 Plan: [facility], When medically ready Angelita Toney Discharge Ethylene Compressor Operator
[2022-01-31 16:32] LABS: Vancomycin, Trough Level 20.4 ug/mL (5.0-15.0)
--- NOTE | 2022-01-31 16:39 | NURSING ---
Patent only received half bag of vancomycin at this time. Vanc trough slightly elevated. Ok to waste other half of bag per pharmacist
--- NOTE | 2022-01-31 16:57 | PCM.RX.CS ---
Consult Pharmacy has been consulted to manage selected antiobiotic: Vancomycin Type of Consult: Follow-up Suspected Infection: Bacteremia Prior Doses of Antibiotics Received/Current Regimen: current dose is vanc 1250mg IV q8h Labs: Sodium 136 mmol/L (136-145) 01/31/22 04:47 Potassium 3.8 mmol/L (3.5-5.1) 01/31/22 04:47 Chloride 99 mmol/L (98-107) 01/31/22 04:47 Carbon Dioxide 30.0 mmol/L (21.0-32.0) 01/31/22 04:47 Anion Gap 7 (5-15) 01/31/22 04:47 BUN 18 mg/dL (7-18) 01/31/22 04:47 Creatinine 0.54 mg/dL (0.55-1.02) L 01/31/22 04:47 Est GFR (MDRD) Af Amer 141 mL/min (>60) 01/31/22 04:47 Est GFR (MDRD) Non-Af 117 mL/min (>60) 01/31/22 04:47 BUN/Creatinine Ratio 33.5 RATIO (10-20) H 01/31/22 04:47 Glucose 131 mg/dL (74-106) H 01/31/22 04:47 Vancomycin Trough 20.4 ug/mL (5.0-15.0) H 01/31/22 16:00 Microbiology: Microbiology 01/28/22 09:43 Blood Culture (Wb) - Arm Left Bacteria Detection (PCR) - Final Staphylococcus aureus Streptococcus agalactiae (B) 01/28/22 09:43 Blood Culture (Wb) - Arm Left Blood Culture - Final Streptococcus agalactiae (B) Staphylococcus aureus 01/28/22 10:23 Blood Culture (Wb) - Left Forearm Blood Culture - Preliminary No growth in 48 hours. 01/28/22 09:38 Nasal Secretion SARS-CoV-2 & FLU Antigen (Rapid) - Final Weight used for dosin.5 kg Estimated Creatinine Clearance: 95ml/min Goal Trough: 15-20 mcg/mL Pharmacy Plan for Drug Dosing: The vanc trough drawn at 16:00 today (drawn approx 8 hours after the previous dose) was 20.4. This is slightly high so will discontinue the current dose. Per the MAR, it appears the nurse may have hung this afternoon's dose a few minutes before the trough was drawn but the nurse said that it wasn't actully started until after the trough was drawn at 16:00. The nurse then was told by pharmacy to hold the rest of the infusion since the trough came back high (the patient received about half of the 1250mg dose). Will change dose to 1000mg IV q8h starting at midnight tonight. Repeat another trough tomorrow afternoon. The patient's CrCl of 95 ml/min was calculated using an adjusted body weight and the SCr rounded to 0.8 since the patient is > 65 years. Pharmacy Service will continue to monitor and adjust dosing as required. Follow-Up Labs: Trough Vancomycin Labs to be done on [date and time ordered]: 02/01/22 15:30
[2022-01-31] MEDS: Latanoprost 0.005% 1 Bottle 1 DRP EACH EYE (21:52)
[2022-01-31] MEDS: MELATONIN 3 MG TABLET PO (21:53)
[2022-02-01] VITALS (10 sets, daily range): BP systolic 154–209; BP diastolic 74–111; PULSE 77–87; RESP 18–20; TEMP 36.7–37.2; O2SAT 93–98
[2022-02-01] MEDS: Albuterol 2.5 MG/3 ML VIAL.NEB. INHALATION (00:18)
[2022-02-01] MEDS: Vancomycin IV 1,000 MG/200 ML BAG 200 MG IV ×2 (00:32→08:27)
[2022-02-01] MEDS: Enoxaparin 40 MG/0.4 ML Syringe SC (05:14)
[2022-02-01] MEDS: hydrALAZINE 20 MG/ML Vial 10 MG IV (05:21)
[2022-02-01] MEDS: 0.9% Saline Lock 10 ML Syringe IV (05:22)
[2022-02-01 07:53] LABS: Anion Gap 8 (5-15); BUN 21 mg/dL (7-18); BUN/Creat Ratio 39.2 RATIO (10-20); Calcium,Total 9.1 mg/dL (8.5-10.1); Chloride 101 mmol/L (98-107); Creatinine, Serum 0.54 mg/dL (0.55-1.02); EST Glomerular Filtration Rate 117 mL/min (>60); Est Glom Filt Rate - Afr Amer 142 mL/min (>60); Estimated Creatinine Clearance 34.99 ml/min; Glucose 136 mg/dL (74-106); Potassium 3.6 mmol/L (3.5-5.1); Sodium Level 137 mmol/L (136-145)
[2022-02-01] MEDS: Potassium Chloride Oral Tablet 20 MEQ 40 MEQ PO (08:04)
[2022-02-01] MEDS: Aspirin E.C. 81 MG Tablet PO (08:04)
[2022-02-01] MEDS: Calcium Carb/Vitamin D 1 TABLET Tablet PO (08:04)
--- NOTE | 2022-02-01 10:14 | PCM.TXEXTCAR ---
Diet Diet Order/Speech Therapy: 01/29/22 12:40 Diet: Cardiac - Heart Healthy Is pt able to select menu?: Yes Fluid intake: 1.5 liters/day Routine Orders/Code Status Routine Lab Work: BMP (weekly) Code Status: Full Code Wound(s) LLE: Wound Type: lymphedema Dressing Change: Dry Sterile Dressing Therapies Physical Therapy: Eval and Treat Occupational Therapy: Eval and Treat Problem/Diagnosis (1) Elevated troponin: Status: Acute Code(s): R77.8 - Other specified abnormalities of plasma proteins Plan: No baseline to compare to. Patient was not have any chest pain symptoms but a troponin was ordered nonetheless. Stress test negative No aditional work up. (2) Lymphedema: Status: Acute Code(s): I89.0 - Lymphedema, not elsewhere classified Plan: Cellulitis ruled out DC HCTZ and start her on furosemide 2D echocardiogram shows an EF of 55% with pulmonary artery systolic pressure of 33 mmHg. Patient does have JENNIFER but does use BiPAP. May use her BiPAP here. (3) Hypokalemia: Status: Acute Code(s): E87.6 - Hypokalemia Plan: Replace (4) Bacteremia: Status: Acute Code(s): R78.81 - Bacteremia Plan: If a true infection, the source would likely be due to her lower extremities. Which I still do not feel are cellulitic Detection positive for staph aureus and group B strep. Unclear if actual true infection or colonization though given the staph and strep it would seem more concerning that this could actually be a true infection. Her legs, though I do not feel are cellulitic, could be a source if this is true infection. Repeat BCx negative Unclear if this is actual true infection but would continue with the treatment as it was showing strep and staph aureus, both of which are atypical contaminants, and treated with clindamycin to cleated 10-day course of antibiotics. Plan Chronic conditions JENNIFER: Continue with BiPAP Morbid obesity: Would benefit from bariatric evaluation VTE prophylaxis: Change to enoxaparin Allergies/Procedures Done in Hospital Allergies ciprofloxacin [From Cipro] Allergy (Verified 01/28/22 09:19) Hives Penicillins Allergy (Verified 01/28/22 09:19) Hives NSAIDS (Non-Steroidal Anti-Inflamma Adverse Reaction (Verified 01/28/22 09:19) Upset Stomach Procedures: None Type of Care/Length of Stay Estimated LOS: Convalescent Care Less Than 30 days Type of Care Needed: Skilled Rehab Potential: Fair Prognosis: Fair Additional Orders/Day of Discharge Day of Discharge: 02/01/22 Dietary and Speech Recommendations Dietitian Recommendations/Changes: 1800 CCD/ Cardiac diet Discharge Plan Admission Admit Date/Time: 01/31/22 09:13 Primary Reason for Your Visit: Debility Attending Provider: Amilcar Aguialr Primary Care Provider: Care Physician,No Primary Discharge Orders/Prescriptions Prescriptions: New acetaminophen [Tylenol] 325 mg Tablet 650 mg PO Q4H PRN PRN (Reason: Pain 1-10 Or Fever) Qty: 0 0RF lisinopril 20 mg Tablet 20 mg PO DAILY Qty: 0 0RF furosemide 40 mg tablet 40 mg PO DAILY Qty: 30 0RF potassium chloride 20 mEq tablet extended release 20 meq PO DAILY Qty: 30 0RF clindamycin HCl 150 mg capsule 450 mg PO Q8H 6 Days Qty: 54 0RF Continued carvedilol 25 mg Tablet 25 mg PO BID Rx Instructions: must administer with a meal/food ascorbic acid (vitamin C) 1,000 mg Tablet 1 g PO DAILY triamcinolone acetonide 0.1 % Cream 1 applic TOPICAL PRN PRN (Reason: redness) biotin 10,000 mcg Capsule 5,000 mcg PO DAILY calcium carbonate-vitamin D3 [Calcium 600 + D(3)] 600 mg-10 mcg (400 unit) Tablet 1 tab PO BID Glucos Chond Cplx Advanced 750 mg-100 mg- 125 mg-1.65 mg Tablet 1 tab PO DAILY qycysoqobntu-wevb-xzbtc acid 18-400 mg-mcg Tablet 1 tab PO DAILY Lumigan 0.01 % Drops 1 drp EACH EYE QPM dorzolamide-timolol 22.3-6.8 mg/mL drops 1 drp EACH EYE BID Discontinued lysine 1,000 mg Tablet 1,000 mg PO DAILY hydrochlorothiazide 25 mg Tablet 25 mg PO BID Fish Oil 1,000 mg Capsule 1 cap PO DAILY cinnamon bark [Cinnamon] 500 mg Capsule 2,000 mg PO DAILY Bladder 2.2 200-5-250 mcg-mg-mcg Tablet 1 tab PO PRN PRN (Reason: leaking bladder) [id number] [krill oil] [id number],[id number] mg Capsule 2 cap PO DAILY Referrals / Follow Up: Care Physician,No Primary [Primary Care Provider] - Disposition Disposition (needs filled in before D/C Order can be placed): Senior Living Facility
--- NOTE | 2022-02-01 10:24 | DS.PCM_ITS ---
Providers Date of Admission: 01/31/22 Primary Care Physician: No Primary Care Phys Reason For Visit: ABNORMAL TROPONIN Diagnosis Discharge Diagnosis (1) Elevated troponin: Status: Acute Code(s): R77.8 - Other specified abnormalities of plasma proteins Plan: No baseline to compare to. Patient was not have any chest pain symptoms but a troponin was ordered nonetheless. Stress test negative No aditional work up. (2) Lymphedema: Status: Acute Code(s): I89.0 - Lymphedema, not elsewhere classified Plan: Cellulitis ruled out DC HCTZ and start her on furosemide 2D echocardiogram shows an EF of 55% with pulmonary artery systolic pressure of 33 mmHg. Patient does have JENNIFER but does use BiPAP. May use her BiPAP here. Continue furosemide 40 mg daily Fluid restrict 1.5 liters/day (3) Hypokalemia: Status: Acute Code(s): E87.6 - Hypokalemia Plan: 2/2 diuresis. Continue replacement while on furosemide (4) Bacteremia: Status: Acute Code(s): R78.81 - Bacteremia Plan: If a true infection, the source would likely be due to her lower extremities. Which I still do not feel are cellulitic Detection positive for staph aureus and group B strep. Unclear if actual true infection or colonization though given the staph and strep it would seem more concerning that this could actually be a true infection. Her legs, though I do not feel are cellulitic, could be a source if this is true infection. Repeat BCx negative Unclear if this is actual true infection but would continue with the treatment as it was showing strep and staph aureus, both of which are atypical contaminants, and treated with clindamycin to cleated 10-day course of antibiotics. Plan Chronic conditions * JENNIFER: Continue with BiPAP * Morbid obesity: Would benefit from bariatric evaluation DC to SNF Patient would benefit from outpt psychiatric evaluation. Pt is not overtly psychotic, but almost appears manic. Concern for undiagnosed bipolar disorder. Medications at Discharge Home Medications ascorbic acid (vitamin C) 1,000 mg tablet 1 g PO DAILY 01/28/22 bimatoprost 0.01 % eye drops (Lumigan) 1 drp EACH EYE QPM 01/28/22 biotin 10,000 mcg capsule 5,000 mcg PO DAILY 01/28/22 calcium carbonate 600 mg-vitamin D3 10 mcg (400 unit) tablet (Calcium 600 + D(3 )) 1 tab PO BID 01/28/22 carvedilol 25 mg tablet 25 mg PO BID 01/28/22 dorzolamide 22.3 mg-timolol 6.8 mg/mL eye drops 1 drp EACH EYE BID 01/28/22 xyjglpsgyxm-fwjarmzah-skzs506-hyal 750 mg-100 mg-125 mg-1.65 mg tablet (Glucosamine Chondroit Complx Advan) 1 tab PO DAILY 01/28/22 multivitamin-ferrous fumarate-folic acid 18 mg-400 mcg tablet 1 tab PO DAILY 01/28/22 triamcinolone acetonide 0.1 % topical cream 1 applic topical PRN PRN redness 01/28/22 acetaminophen 325 mg tablet (Tylenol) 650 mg PO Q4H PRN PRN Pain 1-10 Or Fever #0 tabs 02/01/22 clindamycin HCl 150 mg capsule 450 mg PO Q8H 6 days #54 caps 02/01/22 furosemide 40 mg tablet 40 mg PO DAILY #30 tabs 02/01/22 lisinopril 20 mg tablet 20 mg PO DAILY #0 tabs 02/01/22 potassium chloride 20 mEq tablet,extended release 20 meq PO DAILY #30 tabs 02/01/22 Hospital Course Operations None Procedures 2-D Echocardiogram Summary of Care Provided Minutes Spent on Discharge: 40 Weight / BMI Weight Weight: 187.5 kg Body Mass Index (BMI) 78.0 ABG / Lab / Microbiology Data Result Diagrams: 01/30/22 05:30 02/01/22 06:58 Laboratory: Laboratory Results - last 24 hr 01/31/22 16:00: Vancomycin Trough 20.4 H 02/01/22 06:58: Sodium 137, Potassium 3.6, Chloride 101, Carbon Dioxide 28.0, Anion Gap 8, BUN 21 H, Creatinine 0.54 L, Estim Creat Clear Calc 34.99, Est GFR (MDRD) Af Amer 142, Est GFR (MDRD) Non-Af 117, BUN/Creatinine Ratio 39.2 H, Glucose 136 H, Calcium 9.1 Microbiology: Microbiology 01/30/22 08:43 Blood Culture (Wb) - Right Forearm Blood Culture - Preliminary No growth in 48 hours. 01/30/22 08:35 Blood Culture (Wb) - Left Forearm Blood Culture - Preliminary No growth in 48 hours. 02/01/22 08:47 Nasal Secretion SARS-CoV-2 Antigen (Rapid) - Final 01/28/22 09:43 Blood Culture (Wb) - Arm Left Bacteria Detection (PCR) - Final Staphylococcus aureus Streptococcus agalactiae (B) 01/28/22 09:43 Blood Culture (Wb) - Arm Left Blood Culture - Final Streptococcus agalactiae (B) Staphylococcus aureus 01/28/22 10:23 Blood Culture (Wb) - Left Forearm Blood Culture - Preliminary No growth in 48 hours. 01/28/22 09:38 Nasal Secretion SARS-CoV-2 & FLU Antigen (Rapid) - Final D/C Instructions Discharge Diet: Low fat / Low cholesterol and 2000 Calorie Control Diet Meaningful Use Info Meaningful Use Diagnoses (Choose all that apply): None applicable Discharge Plan Admission Admit Date/Time: 01/31/22 09:13 Primary Reason for Your Visit: Debility Attending Provider: Amilcar Aguilar Primary Care Provider: Care Physician,No Primary Discharge Orders/Prescriptions Prescriptions: New acetaminophen [Tylenol] 325 mg Tablet 650 mg PO Q4H PRN PRN (Reason: Pain 1-10 Or Fever) Qty: 0 0RF lisinopril 20 mg Tablet 20 mg PO DAILY Qty: 0 0RF furosemide 40 mg tablet 40 mg PO DAILY Qty: 30 0RF potassium chloride 20 mEq tablet extended release 20 meq PO DAILY Qty: 30 0RF clindamycin HCl 150 mg capsule 450 mg PO Q8H 6 Days Qty: 54 0RF Continued carvedilol 25 mg Tablet 25 mg PO BID Rx Instructions: must administer with a meal/food ascorbic acid (vitamin C) 1,000 mg Tablet 1 g PO DAILY triamcinolone acetonide 0.1 % Cream 1 applic TOPICAL PRN PRN (Reason: redness) biotin 10,000 mcg Capsule 5,000 mcg PO DAILY calcium carbonate-vitamin D3 [Calcium 600 + D(3)] 600 mg-10 mcg (400 unit) Tablet 1 tab PO BID Glucos Chond Cplx Advanced 750 mg-100 mg- 125 mg-1.65 mg Tablet 1 tab PO DAILY ipirzgwanifl-dwai-cdftd acid 18-400 mg-mcg Tablet 1 tab PO DAILY Lumigan 0.01 % Drops 1 drp EACH EYE QPM dorzolamide-timolol 22.3-6.8 mg/mL drops 1 drp EACH EYE BID Discontinued lysine 1,000 mg Tablet 1,000 mg PO DAILY hydrochlorothiazide 25 mg Tablet 25 mg PO BID Fish Oil 1,000 mg Capsule 1 cap PO DAILY cinnamon bark [Cinnamon] 500 mg Capsule 2,000 mg PO DAILY Bladder 2.2 200-5-250 mcg-mg-mcg Tablet 1 tab PO PRN PRN (Reason: leaking bladder) hwndp-yu-1-bfe-yac-ujtcjlt-ast [krill oil] [id number],[id number] mg Capsule 2 cap PO DAILY Referrals / Follow Up: Care Physician,No Primary [Primary Care Provider] - Disposition Disposition (needs filled in before D/C Order can be placed): [facility]way Facility Charges/Coding Visit Charges Inpatient E&M: 13661 Disch Hosp
[2022-02-01] MEDS: Carvedilol 25 MG Tablet PO (10:27)
[2022-02-01] MEDS: Lisinopril 20 MG Tablet PO (10:27)
[2022-02-01] MEDS: Furosemide 40 MG/4 ML Vial IV (10:27)
[2022-02-01] MEDS: Dorzolamide HCL/Timolol 10 ml Bottle 1 DRP EACH EYE (10:27)
--- NOTE | 2022-02-01 10:33 | NURSING ---
Left voicemail for PT's daughter Dee to call PCU to notify her of PT's d/c to [facility]
--- NOTE | 2022-02-01 10:38 | NURSING ---
Called [facility] and gabriele Mandel to notify them of PT's d/c
--- NOTE | 2022-02-01 10:45 | NURSING ---
I spoke with PT's daughter Dee to notify her of PT's d/c to [facility]
--- NOTE | 2022-02-01 10:50 | CASEMGMT ---
Social Work SW completed PAS/RR in the [facility] system as pt is going to [facility] today. AUGUSTINA Flores
== END 2022-02-01 12:50 | disposition skilled nursing facility (03) | DRG 948 ==
LOC: ED 11:35 → PCU 12:21
PROVIDERS: Emergency Provider Emergency Medicine
DX: R77.8 Other specified abnormalities of plasma proteins (principal); Z68.45 Body mass index [BMI] 70 or greater, adult; E66.01 Morbid (severe) obesity due to excess calories; E11.9 Type 2 diabetes mellitus without complications; E87.6 Hypokalemia; I10 Essential (primary) hypertension; I89.0 Lymphedema, not elsewhere classified; G47.33 Obstructive sleep apnea (adult) (pediatric); R78.81 Bacteremia; Z79.899 Other long term (current) drug therapy; E87.1 Hypo-osmolality and hyponatremia
CPT/HCPCS: 36415; 71045; 78452; 80048; 80053; 80061; 80202; 83605; 83690; 83735; 84443; 84484; 85025; 85610; 85730; 87040; 87149; 87186; 87426; 87428; 93005; 93017; 93306; 94640; 96365; 96366; 96367; 96372; 96375; 96376; 97110; 97116; 97162; 97166; 97530; 97535; 97802; 99221; 99285; A9500; Q9957; A4216; C8929; G0378; J1938; J2785

== ENCOUNTER 2022-02-04 18:57 | Emergency (ER) | payer MEDICARE, SELFPAY ==
[2022-02-04 19:03] VITALS: BP 174/97; PULSE 90; RESP 18; TEMP 36.7; O2SAT 94; BMI 74.9
--- NOTE | 2022-02-04 19:20 | ED.RN ---
THIS RN SPOKE WITH [facility] NURSE LIZ WHO JUST ARRIVED ON SHIFT. PER NOTES FROM PREVIOUS SHIFT, PT ESCAPED FACILITY ALSO THROWING OBJECTS AT STAFF AND DID NOT TAKE MEDS. FACILITY WANTING PSYCH EVAL.
--- NOTE | 2022-02-04 19:46 | EX.ED.DYSGE1 ---
HPI History of Present Illness Chief Complaint: Mental Health Informant: patient and SNF Narrative Narrative: Patient presents from [facility] for request of a psych eval. Patient was just discharged there for rehab couple days ago after a short stay in the hospital. Patient reportedly is not comfortable with her care there and was trying to leave the facility. In light of this I sent her to the emergency room for a psych eval. Patient is alert and states she does not feel comfortable there and does not wish to go back. [facility] Medical History Bullous pemphigoid Cataracts, bilateral Cholecystectomy planned Fatty liver Glaucoma (increased eye pressure) Hypertension Lymphedema Melanoma Obesity Sleep apnea Type II diabetes mellitus Home Medications ascorbic acid (vitamin C) 1,000 mg tablet 1 g PO DAILY 01/28/22 [History Last Taken Unknown] bimatoprost 0.01 % eye drops (Lumigan) 1 drp EACH EYE QPM 01/28/22 [History Last Taken Unknown] biotin 10,000 mcg capsule 5,000 mcg PO DAILY 01/28/22 [History Last Taken Unknown] calcium carbonate 600 mg-vitamin D3 10 mcg (400 unit) tablet (Calcium 600 + D(3)) 1 tab PO BID 01/28/22 [History Last Taken Unknown] carvedilol 25 mg tablet 25 mg PO BID 01/28/22 [History Last Taken Unknown] dorzolamide 22.3 mg-timolol 6.8 mg/mL eye drops 1 drp EACH EYE BID 01/28/22 [History Last Taken Unknown] owbsqezqwww-cbgjcvabr-shgq982-hyal 750 mg-100 mg-125 mg-1.65 mg tablet (Glucosamine Chondroit Complx Advan) 1 tab PO DAILY 01/28/22 [History Last Taken Unknown] multivitamin-ferrous fumarate-folic acid 18 mg-400 mcg tablet 1 tab PO DAILY 01/28/22 [History Last Taken Unknown] triamcinolone acetonide 0.1 % topical cream 1 applic topical PRN PRN redness 01/28/22 [History Last Taken Unknown] acetaminophen 325 mg tablet (Tylenol) 650 mg PO Q4H PRN PRN Pain 1-10 Or Fever #0 tabs 02/01/22 [Rx Last Taken Unknown] clindamycin HCl 150 mg capsule 450 mg PO Q8H 6 days #54 caps 02/01/22 [Rx Last Taken Unknown] furosemide 40 mg tablet 40 mg PO DAILY #30 tabs 02/01/22 [Rx Last Taken Unknown] lisinopril 20 mg tablet 20 mg PO DAILY #0 tabs 02/01/22 [Rx Last Taken Unknown] potassium chloride 20 mEq tablet,extended release 20 meq PO DAILY #30 tabs 02/01/22 [Rx Last Taken Unknown] aluminum-mag hydroxide-simethicone 225 mg-200 mg-25 mg/5 mL oral susp 30 ml PO Q4H PRN PRN Acid Reflux 02/04/22 [History Last Taken Unknown] bisacodyl 10 mg rectal suppository 10 mg SC DAILY PRN Constipation 02/04/22 [History Last Taken Unknown] Allergy/AdvReac Type Severity Reaction Status Date / Time ciprofloxacin [From Cipro] Allergy Hives Verified 02/04/22 19:07 Penicillins Allergy Hives Verified 02/04/22 19:07 NSAIDS (Non-Steroidal AdvReac Upset Verified 02/04/22 19:07 Anti-Inflamma Stomach Surgical History Hx of appendectomy Hx of cholecystectomy Social History Smoking Status: Never smoker alcohol intake: never substance use type: does not use ROS ROS ED Constitutional Constitutional ED: Denies chills or fever(s) Eyes Eyes: Denies change in vision or discharge from eye(s) ENT ENT ED: Denies discharge from eye(s), rhinorrhea or sore throat Cardiovascular Cardiovascular: Denies chest pain or palpitations Respiratory/Chest Respiratory/Chest: Denies cough or dyspnea Gastrointestinal Gastrointestinal: Denies abdominal pain, diarrhea, nausea or vomiting Genitourinary Genitourinary ED: Denies difficulty urinating or dysuria Musculoskeletal Musculoskeletal: Denies back pain or extremity pain Integumentary Denies Abrasions or rash Neurologic Neurologic: Denies headache(s) or weakness Allergic/Immunologic Allergic/Immunologic ED: Denies lip swelling or urticaria EXAM Physical Exam Const Vital Signs: 02/04/22 19:03 02/04/22 19:12 02/04/22 21:11 Temperature 98.1 F Temperature Source Oral Pulse Rate 90 Respiratory Rate 18 15 Respiratory Effort Normal Non-Labored Blood Pressure 174/97 H Blood Pressure Mean 122 Pulse Ox 94 Oxygen Delivery Method Room Air Room Air 02/04/22 23:08 Temperature Temperature Source Pulse Rate 48 L Respiratory Rate 15 Respiratory Effort Blood Pressure 172/91 H Blood Pressure Mean 118 Pulse Ox 97 Oxygen Delivery Method Room Air Positive well nourished, well developed and obese General Appearance ED: well developed Nutritional Appearance: obese HEENT Reports normocephalic and head/scalp atraumatic Eyes PERRL and EOMs intact bilaterally Neck supple Chest Wall inspection of chest normal and palpation of chest normal Resp normal respiratory effort and clear to auscultation bilaterally Cardio regular rate and regular rhythm GI normal to inspection, nondistended, normoactive bowel sounds Palpation: soft Extremity Extremity Narrative: Chronic edema bilateral lower extremities. Mild erythema, left greater than right. No sign of acute cellulitis. Neuro oriented x3 Neuro Narrative: No focal neurologic deficits. Sensorium / Orientation: alert Psych mental status grossly normal Skin no rashes or lesions noted MDM MDM MDM Narrative Medical decision making narrative: Nurse spoke with the staff at [facility]. They state that the patient is trying to wander away from the facility and the protocol is to have her evaluated with a mental health eval. Lab work for medical clearance is obtained. Lab Data Attestation: I reviewed the patient's lab results. Labs: Laboratory Results - last 24 hr 02/04/22 02/04/22 02/04/22 20:00 20:00 20:00 WBC 10.1 RBC 4.82 Hgb 14.7 Hct 44.6 MCV 92.5 MCH 30.5 MCHC 33.0 RDW Std Deviation 45.7 H RDW Coeff of [place] 13.4 Plt Count Not Reportable MPV 10.6 Immature Gran % (Auto) 0.600 Neut % (Auto) 66.8 Lymph % (Auto) 14.3 L [place] % (Auto) 12.4 H Eos % (Auto) 5.3 H Baso % (Auto) 0.6 Absolute Neuts (auto) 6.7 Absolute Lymphs (auto) 1.44 Nucleated RBC % 0 Differential Comment SCANNED Platelet Estimate ADEQUATE Sodium 137 Potassium 4.5 Chloride 103 Carbon Dioxide 28.0 Anion Gap 6 BUN 19 H Creatinine 0.75 Estim Creat Clear Calc 34.99 Est GFR (MDRD) Af Amer 96 Est GFR (MDRD) Non-Af 79 BUN/Creatinine Ratio 25.3 H Glucose 148 H Calcium 9.2 Urine Opiates Screen Urine Methadone Screen Ur Barbiturates Screen Ur Phencyclidine Scrn Ur Amphetamines Screen MDMA (Ecstasy) Screen U Benzodiazepines Scrn Urine Cocaine Screen U Cannabinoids Screen Ur Drug Screen Comment Ethyl Alcohol < 3.0 02/04/22 20:59 WBC RBC Hgb Hct MCV MCH MCHC RDW Std Deviation RDW Coeff of [place] Plt Count MPV Immature Gran % (Auto) Neut % (Auto) Lymph % (Auto) [place] % (Auto) Eos % (Auto) Baso % (Auto) Absolute Neuts (auto) Absolute Lymphs (auto) Nucleated RBC % Differential Comment Platelet Estimate Sodium Potassium Chloride Carbon Dioxide Anion Gap BUN Creatinine Estim Creat Clear Calc Est GFR (MDRD) Af Amer Est GFR (MDRD) Non-Af BUN/Creatinine Ratio Glucose Calcium Urine Opiates Screen NEGATIVE Urine Methadone Screen NEGATIVE Ur Barbiturates Screen NEGATIVE Ur Phencyclidine Scrn NEGATIVE Ur Amphetamines Screen NEGATIVE MDMA (Ecstasy) Screen NEGATIVE U Benzodiazepines Scrn NEGATIVE Urine Cocaine Screen NEGATIVE U Cannabinoids Screen NEGATIVE Ur Drug Screen Comment Ethyl Alcohol Treatment and Re-Evaluation Narrative: Lab work and urinalysis unremarkable. Patient is medically cleared for evaluation by we are awaiting crisis evaluation at this time. Patient be signed out to oncoming physician pending evaluation. Discharge Plan Triage Chief Complaint: Mental Health Other Complaint: General Illness ED Provider: Ava Schmitt Dx/Rx/DC Orders Prescriptions: No Action carvedilol 25 mg Tablet 25 mg PO BID Rx Instructions: must administer with a meal/food ascorbic acid (vitamin C) 1,000 mg Tablet 1 g PO DAILY triamcinolone acetonide 0.1 % Cream 1 applic TOPICAL PRN PRN (Reason: redness) biotin 10,000 mcg Capsule 5,000 mcg PO DAILY calcium carbonate-vitamin D3 [Calcium 600 + D(3)] 600 mg-10 mcg (400 unit) Tablet 1 tab PO BID Glucos Chond Cplx Advanced 750 mg-100 mg- 125 mg-1.65 mg Tablet 1 tab PO DAILY qkpjgljokqhb-hrgp-noqvz acid 18-400 mg-mcg Tablet 1 tab PO DAILY Lumigan 0.01 % Drops 1 drp EACH EYE QPM dorzolamide-timolol 22.3-6.8 mg/mL drops 1 drp EACH EYE BID acetaminophen [Tylenol] 325 mg Tablet 650 mg PO Q4H PRN PRN (Reason: Pain 1-10 Or Fever) Qty: 0 0RF lisinopril 20 mg Tablet 20 mg PO DAILY Qty: 0 0RF furosemide 40 mg tablet 40 mg PO DAILY Qty: 30 0RF potassium chloride 20 mEq tablet extended release 20 meq PO DAILY Qty: 30 0RF clindamycin HCl 150 mg capsule 450 mg PO Q8H 6 Days Qty: 54 0RF Antacid Simethicone 225-200-25 mg/5 mL Suspension 30 ml PO Q4H PRN PRN (Reason: Acid Reflux) bisacodyl 10 mg Suppository 10 mg SC DAILY PRN (Reason: Constipation) Primary Care Provider: Care Physician,No Primary Referrals: Care Physician,No Primary [Primary Care Provider] -
[2022-02-04 20:14] LABS: Absolute Lymphocyte Count 1.44 X10^3/uL (0.83-4.51); Absolute Neutrophil Count 6.7 X10^3/uL (2.0-7.7); Basophil# 0.06 X10^3/uL; Basophil% 0.6 % (0-1); Eosinophil# 0.53 X10^3/uL; Eosinophils% 5.3 % (0-5); Hematocrit 44.6 % (37-47); Hemoglobin 14.7 g/dL (12.0-15.0); Lymphocyte # 1.44 X10^3/ul (0.83-4.51); Lymphocyte % 14.3 % (19-41); Mean Corpuscular Hgb 30.5 pg (27.0-32.0); Mean Corpuscular Volume 92.5 fL (81-99); Mean Platelet Vol. 10.6 fl (6.2-12.0); Monocyte# 1.25 X10^3/uL; Monocyte% 12.4 % (0-10); NRBC Flagged by Analyzer 0 % (0-5); Neutrophil # 6.74 X10^3/uL (2.7-7.7); Neutrophil % 66.8 % (47-70); POSITIVE COUNT YES; RBC Distribution Width CV 13.4 % (11.6-14.6); RBC Distribution Width SD 45.7 fl (35.1-43.9); Red Blood Count 4.82 M/mm3 (4.2-5.4); White Blood Count 10.1 K/mm3 (4.4-11.0)
[2022-02-04 20:27] LABS: Anion Gap 6 (5-15); BUN 19 mg/dL (7-18); BUN/Creat Ratio 25.3 RATIO (10-20); Calcium,Total 9.2 mg/dL (8.5-10.1); Chloride 103 mmol/L (98-107); Creatinine, Serum 0.75 mg/dL (0.55-1.02); EST Glomerular Filtration Rate 79 mL/min (>60); Est Glom Filt Rate - Afr Amer 96 mL/min (>60); Estimated Creatinine Clearance 34.99 ml/min; Glucose 148 mg/dL (74-106); Potassium 4.5 mmol/L (3.5-5.1); Sodium Level 137 mmol/L (136-145)
[2022-02-04 20:32] LABS: Differential Comment SCANNED; Differential Indicated SCAN CRITERIA MET; Platelet Estimate ADEQUATE (ADEQ)
[2022-02-04 20:36] LABS: Alcohol, Blood (Medical)-Serum < 3.0 mg/dL
[2022-02-04 21:11] VITALS: RESP 15
[2022-02-04 21:31] LABS: Amphetamine Urine VISTA NEGATIVE (<1000 ng/mL); Barbiturate Urine VISTA NEGATIVE (< 200 ng/mL); Benzodiazepine Urine VISTA NEGATIVE (< 200 ng/mL); Cocaine Urine VISTA NEGATIVE (< 300 ng/mL); Ecstacy Urine VISTA NEGATIVE (< 500 ng/mL); Methadone Urine VISTA NEGATIVE (< 300 ng/mL); PCP Urine VISTA NEGATIVE (< 25 ng/mL); THC Urine VISTA NEGATIVE (< 50 ng/mL); Vista UDS pH Range 6
[2022-02-04 23:08] VITALS: BP 172/91; PULSE 48; RESP 15; O2SAT 97
[2022-02-05] VITALS (12 sets, daily range): BP systolic 134–170; BP diastolic 74–82; PULSE 72–80; RESP 14–27; TEMP 36.6; O2SAT 95–97
--- NOTE | 2022-02-05 10:54 | ED.RN ---
THIS RN INTO ROOM TO CHECK GLUCOSE AND VITAL SIGNS. PATIENT REFUSES. PATIENT STARTED SCREAMING. DR. LOVE NOTIFIED.
--- NOTE | 2022-02-05 11:54 | CM.ED ---
Social Work Voicemail received from [facility] that patient is on a wait list. Voicemail sent around 09:00 today. Telephone call to Rima, rosa. This healthcare social worker inquired if patient is accepted and just waiting on bed. Intake reports that patient has not been accepted and that a bed is now open. Intake request for an EKG and Covid test results to be faxed. This healthcare social worker updated medical team, above clinical information to be obtained. Telephone call to Ava Laguerre. This healthcare social worker updated Ava on above as Crisis completed initial assessment and has been working on placement. Ava reports that patient has been declined at [facility]. Will continue to follow PLAN: [facility]-psychSamantha Ruiz MSW, AUGUSTINA
--- NOTE | 2022-02-05 12:51 | CM.ED ---
Social Work EKG and COVID-19 test results obtained and faxed to [facility] This psychotherapist social worker updated by medical team that patient daughter is present in ED. This psychotherapist social worker to patient room to updated patient daughter on above information. Patient daughter agreeable with treatment plan. PLAN: [facility]. Pending approval at [facility] German Ruiz SHADE MATCHER, CAROLINA-S
[2022-02-05 12:56] LABS: Bedside Glucose 109 mg/dL (74-106)
--- NOTE | 2022-02-05 13:05 | ED.RN ---
OlyaRN talked with pt and she was agreeable to take hydrochlorothiazide, carvedilol, clindamycin, timolol eye drop. verified with Dr. Lauren, given verbal order to order these meds.
[2022-02-05] MEDS: Clindamycin HCl 150 MG Capsule 450 MG PO (13:43)
[2022-02-05] MEDS: hydroCHLOROthiazide 25 MG Tablet PO (13:44)
[2022-02-05] MEDS: Carvedilol 25 MG Tablet PO (13:44)
[2022-02-05] MEDS: Dorzolamide HCL/Timolol 10 ml Bottle 1 DRP EACH EYE (13:45)
--- NOTE | 2022-02-05 13:52 | CM.ED ---
Social Work Telephone call to [facility], intake. No answer. Voicemail left inquiring about status of referral and if requested clinical information was obtained. Will continue to follow. German MARTE, AUGUSTINA
--- NOTE | 2022-02-05 16:00 | CM.ED ---
Social Work Telephone call to Konrad Abarca. Konrad reports to have accepted patient but to need a pink slip made out to Rima and then will call with admitting information. This social work supervisor faxed pink slip. Medical team updated. Will continue to follow. German MARTE, AUGUSTINA
--- NOTE | 2022-02-05 16:22 | CM.ED ---
Social Work Telephone call from [facility] Abarca. Patient accepted by Dr. Galaviz. Nurse to call report to [phone]. Patient to admit to [place] location with [facility]ira-psych unit. This social media executive updated patient daughter, Dee, medical team. Secratary to set up transportation. PLAN: [facility] - [facility]. German MARTE, MIKEYS
--- NOTE | 2022-02-05 17:22 | ED.RN ---
THIS RN CALLED REPORT TO [facility] AT 1720. THIS RN GAVE NURSE REPORT TO TRACY HINKLE.
--- NOTE | 2022-02-05 19:37 | NURSING ---
CALLED PHYSICIANS TO GET AN UPDATED ETA AND WAS TOLD IT WILL BE ANOTHER 90 MINUTES
== END 2022-02-05 22:33 ==
PROVIDERS: Emergency Provider Emergency Medicine; Visit Provider Emergency Medicine
DX: L53.9 Erythematous condition, unspecified (principal); G47.30 Sleep apnea, unspecified; E66.9 Obesity, unspecified; Z79.899 Other long term (current) drug therapy
CPT/HCPCS: 80048; 80307; 82077; 82962; 85025; 87811; 93005; 94002; 99285; P9612; A4216

== ENCOUNTER 2022-02-17 12:16 | Emergency (ER) | payer MEDICARE, SELFPAY ==
[2022-02-17 12:16] VITALS: BP 146/75; BP 164/79; PULSE 73; PULSE 75; RESP 21; TEMP 36.6; O2SAT 96; BMI 71.3
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
--- NOTE | 2022-02-17 13:06 | ED.RN ---
physicians called [facility] 20-30 min
[2022-02-17 13:50] VITALS: BP 151/90; PULSE 75; RESP 18; O2SAT 95
== END 2022-02-17 13:51 | disposition skilled nursing facility (03) ==
PROVIDERS: Emergency Provider Emergency Medicine; Visit Provider Emergency Medicine
DX: M54.50 Low back pain, unspecified (principal); E66.9 Obesity, unspecified; G47.30 Sleep apnea, unspecified
CPT/HCPCS: 99283

== ENCOUNTER → 2022-03-17 | Outpatient (REF) | payer MEDICARE, SELFPAY ==
[2022-03-17 07:58] LABS: Hematocrit 43.6 % (37-47); Hemoglobin 14.1 g/dL (12.0-15.0); Mean Corp Hgb Conc 32.3 g/dL (32-36); Mean Corpuscular Hgb 30.9 pg (27.0-32.0); Mean Corpuscular Volume 95.6 fL (81-99); Mean Platelet Vol. 11.8 fl (6.2-12.0); Platelet Count 172 K/mm3 (150-450); RBC Distribution Width CV 14.9 % (11.6-14.6); RBC Distribution Width SD 52.7 fl (35.1-43.9); Red Blood Count 4.56 M/mm3 (4.2-5.4)
[2022-03-17 08:08] LABS: Anion Gap 7 (5-15); BUN 11 mg/dL (7-18); BUN/Creat Ratio 24.7 RATIO (10-20); CRP 9.82 mg/L (0.0-3.0); Calcium,Total 8.7 mg/dL (8.5-10.1); Chloride 103 mmol/L (98-107); Creatinine, Serum 0.45 mg/dL (0.55-1.02); EST Glomerular Filtration Rate 145 mL/min (>60); Est Glom Filt Rate - Afr Amer 175 mL/min (>60); Glucose 112 mg/dL (74-106); Magnesium 1.8 mg/dL (1.6-2.6); Potassium 3.4 mmol/L (3.5-5.1); Sodium Level 139 mmol/L (136-145)
== END ==
LOC: OLS.SW 04:00
PROVIDERS: Visit Provider Internal Medicine
DX: U07.1 COVID-19 (principal); R74.8 Abnormal levels of other serum enzymes; I89.0 Lymphedema, not elsewhere classified; I10 Essential (primary) hypertension; E87.6 Hypokalemia
CPT/HCPCS: 36415; 80048; 83735; 85027; 86140

== ENCOUNTER → 2022-03-26 | Outpatient (CLI) | payer MEDICARE, SELFPAY ==
[2022-03-26 15:14] LABS: Absolute Lymphocyte Count 1.36 X10^3/uL (0.83-4.51); Basophil# 0.07 X10^3/uL; Basophil% 0.9 % (0-1); Eosinophil# 0.04 X10^3/uL; Eosinophils% 0.5 % (0-5); Hematocrit 45.5 % (37-47); Hemoglobin 14.8 g/dL (12.0-15.0); Lymphocyte # 1.36 X10^3/ul (0.83-4.51); Lymphocyte % 16.7 % (19-41); Mean Corp Hgb Conc 32.5 g/dL (32-36); Mean Corpuscular Hgb 30.6 pg (27.0-32.0); Mean Corpuscular Volume 94.2 fL (81-99); Mean Platelet Vol. 11.9 fl (6.2-12.0); Monocyte# 0.61 X10^3/uL; Monocyte% 7.5 % (0-10); NRBC Flagged by Analyzer 0 % (0-5); Neutrophil # 6.01 X10^3/uL (2.7-7.7); Platelet Count 191 K/mm3 (150-450); RBC Distribution Width SD 51.8 fl (35.1-43.9); Red Blood Count 4.83 M/mm3 (4.2-5.4); White Blood Count 8.1 K/mm3 (4.4-11.0)
[2022-03-26 15:25] LABS: ALB/GLOB Ratio 0.9 RATIO (0.9-2.4); AST(SGOT) 27 U/L (15-37); Alanine Aminotransfer ALT/SGPT 74 U/L (13-56); Albumin, Serum 3.4 g/dL (3.2-5.0); Alkaline Phosphatase 102 U/L (45-117); Anion Gap 7 (5-15); BUN 27 mg/dL (7-18); BUN/Creat Ratio 37.6 RATIO (10-20); Calcium,Total 9.5 mg/dL (8.5-10.1); Chloride 101 mmol/L (98-107); Creatinine, Serum 0.72 mg/dL (0.55-1.02); EST Glomerular Filtration Rate 84 mL/min (>60); Est Glom Filt Rate - Afr Amer 101 mL/min (>60); Globulin 3.8 g/dL (2.2-4.2); Glucose 135 mg/dL (74-106); Potassium 3.7 mmol/L (3.5-5.1); Protein, Total 7.2 g/dL (6.4-8.2); Sodium Level 137 mmol/L (136-145)
== END | disposition home or self-care (01) ==
LOC: MTLAB 12:52
PROVIDERS: PCP Nurse Practitioner Family; Referring Provider Nurse Practitioner Family; Visit Provider Nurse Practitioner Family
DX: I10 Essential (primary) hypertension (principal)
CPT/HCPCS: 36415; 80053; 85025

== ENCOUNTER → 2022-06-03 | Outpatient (CLI) | payer MEDICARE, SELFPAY ==
[2022-06-03 18:00] LABS: Absolute Lymphocyte Count 2.27 X10^3/uL (0.83-4.51); Absolute Neutrophil Count 3.3 X10^3/uL (2.0-7.7); Basophil% 1.5 % (0-1); Hematocrit 48.3 % (37-47); Hemoglobin 15.5 g/dL (12.0-15.0); Lymphocyte # 2.27 X10^3/ul (0.83-4.51); Lymphocyte % 34.2 % (19-41); Mean Corp Hgb Conc 32.1 g/dL (32-36); Mean Corpuscular Hgb 31.4 pg (27.0-32.0); Mean Corpuscular Volume 97.8 fL (81-99); Mean Platelet Vol. 12.1 fl (6.2-12.0); Monocyte# 0.56 X10^3/uL; Monocyte% 8.4 % (0-10); NRBC Flagged by Analyzer 0 % (0-5); Neutrophil % 49.7 % (47-70); Platelet Count 206 K/mm3 (150-450); RBC Distribution Width CV 12.8 % (11.6-14.6); RBC Distribution Width SD 45.9 fl (35.1-43.9); Red Blood Count 4.94 M/mm3 (4.2-5.4); White Blood Count 6.6 K/mm3 (4.4-11.0)
[2022-06-03 18:25] LABS: ALB/GLOB Ratio 1.1 RATIO (0.9-2.4); AST(SGOT) 18 U/L (15-37); Alanine Aminotransfer ALT/SGPT 26 U/L (13-56); Albumin, Serum 3.6 g/dL (3.2-5.0); Alkaline Phosphatase 95 U/L (45-117); Anion Gap 8 (5-15); BUN 15 mg/dL (7-18); BUN/Creat Ratio 26.5 RATIO (10-20); Calcium,Total 9.2 mg/dL (8.5-10.1); Chloride 104 mmol/L (98-107); Creatinine, Serum 0.57 mg/dL (0.55-1.02); EST Glomerular Filtration Rate 110 mL/min (>60); Est Glom Filt Rate - Afr Amer 133 mL/min (>60); Globulin 3.4 g/dL (2.2-4.2); Glucose 103 mg/dL (74-106); Potassium 4.1 mmol/L (3.5-5.1); Sodium Level 139 mmol/L (136-145)
== END | disposition home or self-care (01) ==
LOC: MFPLAB 16:39
PROVIDERS: PCP Nurse Practitioner Family; Visit Provider Family Medicine
DX: I10 Essential (primary) hypertension (principal)
CPT/HCPCS: 36415; 80053; 85025

== ENCOUNTER 2022-09-11 08:00 | Outpatient (RCR) | payer MEDICARE, SELFPAY ==
[2022-09-04 08:06] VITALS: BP 165/98; PULSE 95; RESP 16; TEMP 36.2; BMI 66.5
--- NOTE | 2022-09-04 09:27 | HP.PCM_ITS ---
History of Present Illness Date of Service: 09/04/22 Chief Complaint: Bilateral lower extremity wounds and blisters History of Wound: Patient is a 76-year-old female with PMHx of excision of melanoma from the left arm, HTN, morbid obesity, lymphedema, DM type II, bullous pemphigoid. She states she will be following with dermatology for continued skin examination due to history of melanoma. She recently developed multiple sites of blister to both lower extremities which has ruptured leaking yellow serous fluid. She denies recent cellulitis to the lower extremities. Daughter states they recently developed over the last week or 2 and did discuss with her PCP. She was referred to the wound care center for care of multiple lower extremity wounds with blisters. Patient is morbidly obese however is trying to move more and is able to walk. Patient is diabetic with last A1c 6.0%, denies taking medication. Patient denies N/V/F/chills. She denies pain to the lower extremities today. FORMERLY [facility], [facility] Medical History (Updated 09/04/22 @ 09:[address] Gilmar Coyne, DPM) Bullous pemphigoid Cataracts, bilateral Cholecystectomy planned Fatty liver Glaucoma (increased eye pressure) Hypertension Lymphedema MDD (major depressive disorder), single episode, severe with psychotic features Melanoma Morbid obesity with BMI of 70 and over, adult Obesity Sleep apnea Type II diabetes mellitus Home Medications ascorbic acid (vitamin C) 1,000 mg tablet 1 g PO DAILY 01/28/22 [History Last Taken Unknown] biotin 10,000 mcg capsule 5,000 mcg PO DAILY 01/28/22 [History Last Taken Unknown] calcium carbonate 600 mg-vitamin D3 10 mcg (400 unit) tablet (Calcium 600 + D(3)) 1 tab PO BID 01/28/22 [History Last Taken Unknown] carvedilol 25 mg tablet 25 mg PO BID 01/28/22 [History Last Taken Unknown] [id number] 750 mg-100 mg-125 mg-1.65 mg tablet (Glucosamine Chondroit Complx Advan) 1 tab PO DAILY 01/28/22 [History Last Taken Unknown] multivitamin-ferrous fumarate-folic acid 18 mg-400 mcg tablet 1 tab PO DAILY 01/28/22 [History Last Taken Unknown] triamcinolone acetonide 0.1 % topical cream 1 applic topical PRN PRN redness 01/28/22 [History Last Taken Unknown] furosemide 40 mg tablet 40 mg PO DAILY #30 tabs 02/01/22 [Rx Last Taken Unknown] potassium chloride 20 mEq tablet,extended release 20 meq PO DAILY #30 tabs 02/01/22 [Rx Last Taken Unknown] sertraline 25 mg tablet 25 mg PO DAILY #30 tabs 04/28/22 [Rx Last Taken Unknown] Allergy/AdvReac Type Severity Reaction Status Date / Time ciprofloxacin [From Cipro] Allergy Hives Verified 04/28/22 09:31 Penicillins Allergy Hives Verified 04/28/22 09:31 NSAIDS (Non-Steroidal AdvReac Upset Verified 04/28/22 09:31 Anti-Inflamma Stomach Cephallexin AdvReac Severe Other Uncoded 04/28/22 09:31 Surgical History Hx of appendectomy Hx of cholecystectomy Social History household members: other housing: [facility] Smoking Status: Never smoker alcohol intake: never substance use type: does not use ROS Constitutional Constitutional: Denies chills, fatigue or fever(s) Eyes Eyes: Denies change in vision or double vision ENT HEENT: Denies dysphagia, nasal congestion or sore throat Cardiovascular Cardiovascular: Denies chest pain, claudication or palpitations Respiratory/Chest Respiratory/Chest: Denies cough or wheezing Gastrointestinal Gastrointestinal: Denies abdominal pain, constipation, diarrhea, nausea or vomiting Genitourinary Genitourinary: Denies dysuria, hematuria, urinary frequency, urinary hesitancy, urinary incontinence or urinary urgency Musculoskeletal Musculoskeletal: Denies joint pain, joint stiffness or joint swelling Integumentary Integumentary: Denies jaundice, lesions or rash Neurologic Neurologic: Denies dizziness, numbness or seizures Psychiatric Psychiatric: Reports depression Endocrine Endocrinology: Denies cold intolerance or heat intolerance Hematologic/Lymphatic Hematologic/Lymphatic: Denies easy bleeding or easy bruising Vital Signs Vital Signs Vital Signs: 09/04/22 08:06 Temperature 97.2 F L Temperature Source Temporal Pulse Rate 95 Respiratory Rate 16 Blood Pressure 165/98 H Blood Pressure Mean 120 Blood Pressure Source Monitor Blood Pressure Position Semi-Fowlers Blood Pressure Location Left Forearm Weight Weight: 165.108 kg Body Mass Index (BMI) 66.5 Physical Exam Const alert, oriented x3, no apparent distress and well nourished General Appearance: cooperative HEENT normocephalic Eyes General Eye: normal appearance of both eyes Neck General: normal visual inspection Lymph Lymphatic: no lymphadenopathy noted and no lymphedema noted Resp normal respiratory effort Cardio regular rate and regular rhythm Extremity normal capillary refill, no joint enlargement and no calf tenderness Extremity Narrative: DP and PT pulses weakly palpable secondary to edema bilateral. Triphasic DP and PT on Doppler bilateral. Capillary fill time less than 4 seconds to the digits bilateral. Musculoskeletal: Muscle strength 5 of 5 and age-appropriate. No pain to palpation to bones of the foot or ankle Dermatological: There is multiple areas of serous filled bulla that are intact in multiple areas that are ruptured with the deroofed skin with superficial granular tissue to bilateral lower extremities. Chronic areas of rubor secondary to lymphedema and chronic venous stasis/insufficiency and bullous pemphigoid. No signs of infection. Skin no rashes or lesions noted, skin turgor normal and no jaundice Neuro moves all extremities Debridement Note Debridement Note Wound debrided: Right lower extremity Laterality: Right Wound Grade/Stage: Martin stage I Type of Debridement: Excisional debridement Anesthesia Used: 5% Lidocaine Gel Depth: Down to and including healthy tissue and in the subcutaneous layer Percentage of wound debrided: 100 Instrument Used: #15 blade Tissue Removed: Fibrous, devitalized subcutaneous, biofilm, slough Severity: Fat Layer Exposed Amount of bleeding with debridement: Mild Bleeding Controlled with: Compression and gauze Patient tolerated procedure: Patient tolerated procedure well Post-Debridement Measurements and Additional Note: Post-Debridement Measurements/Treatment KATIE - Nurse 1 - General Ulcer Assessment Start: 09/04/22 08:05 Freq: Status: Active Protocol: NETTIE Activity Type Activity Date Activity User E-sign Co-sign Detail Recorded Client Recorded Date Recorded By Document 09/04/22 08:06 ACE [id number] 09/04/22 08:24 ACE Edit Result 09/04/22 08:06 ACE (1) [id number] 09/04/22 08:26 ACE (1) Right - Posterior Tibial Palpable => Yes - Posterior Tibial Doppler => Multiphasic - Dorsalis Pedis Palpable => Yes - Dorsalis Pedis Doppler => Multiphasic Left - Posterior Tibial Palpable => Yes - Posterior Tibial Doppler => Multiphasic - Dorsalis Pedis Palpable => Yes - Dorsalis Pedis Doppler => Multiphasic 09/04/22 08:06 WC - Today's Visit Information Type of service Follow-up Visit (Physician/COMBO WELDER ) Arrival Mode Ambulatory, Walker Patient Identification Verified (Name & Yes ) Patient Requires Transmission-Based No Precautions Safety Precautions NA Finger Stick Blood Sugar(mg/dl) (if 108 indicated): Blood Sugar Stated by Patient Height and Weight Height 5 ft 2 in Weight 165.108 kg Weight in Pounds 364.0 lbs Body Mass Index (BMI) 66.5 BMI Classification Obese BSA - Henry 2.47 Vital Signs Temperature (97.8 F-99.1 F) 97.2 F L Temperature Source Temporal Pulse Rate (60-100) 95 Pulse Location Monitor Respiratory Rate (12-18) 16 Respiratory rate source Observation Blood Pressure (90/60-120/80) 165/98 H Blood Pressure Mean 120 Source Monitor Position Semi-Fowlers Blood Pressure Location Left Forearm History Since Last Visit- (Skip if this is Patient's initial visit) Left Footwear Slipper Right Footwear Slipper Pain Scale: 0-10 Numeric Is Patient Pain Free? Yes Lower Extremity Assessment/ Foot Assessment/ Toe Nail Assessment Right -Posterior Tibial Palpable Yes -Posterior Tibial Doppler Multiphasic -Dorsalis Pedis Palpable Yes -Dorsalis Pedis Doppler Multiphasic Left -Posterior Tibial Palpable Yes -Posterior Tibial Doppler Multiphasic -Dorsalis Pedis Palpable Yes -Dorsalis Pedis Doppler Multiphasic Communication Assessment Preferred language Trinidadian Tankage Grinder Operator Required No Able to Read Yes Able to Write Yes Right Hearing Abillity Normal Left Hearing Abillity Normal Visual Assistive Devices Glasses Teaching Assessment Preferences Verbal,Written, Audio/Visual, Demonstration Barriers to Learning None Readiness To Learn Excellent Willingness to Engage in Self Management High Activies Readiness to Engage in Self Management High Activities Anxiety Level Calm Cooperation Cooperative Perception Coherent Interest in Health Problem Asks Questions Education Importance Acknowledges Need Does Patient Smoke tobacco or other No substances Smoking Status Never smoker Is Patient Diabetic Yes Functional Assessment Recent Decline in Ability to Perform Ambulation Assistive Device With Patient Yes List Device(s) with Patient walker Culture/Latter-Day/Still Operator Cultural/Latter-Day Needs that may affect No Treatment Plan Would you allow our hospital gut sorter to No meet you for the purpose of spiritual/ emotional support? Still Operator to contact place of pentecostal No Teaching: Wound Center [facility] Orientation/ Contacting Physician -Person Taught Patient,Family -Teaching Method Discussion, Demonstration -Response to teaching Return demonstration, Verbalize understanding [facility] Nurse 1 - General Ulcer Measurement Start: 09/04/22 08:05 Freq: Status: Active Protocol: Activity Type Activity Date Activity User E-sign Co-sign Detail Recorded Client Recorded Date Recorded By Document 09/04/22 08:06 [id number] 09/04/22 08:24 ACE 09/04/22 08:06 Wound Center Nurse 1 3-left posterior calf -Combined with other wound No -Current Size (cm) - Length 3.0 -Current Size (cm) - Width 4.0 -Current Size (cm) - Depth 0.1 -Total Square Cm 12.00 -Photo Taken Yes -Epithelialization Medium 34-66% -Tunneling No -Undermining/Tunneling No -Circular Undermining No -Classification - Martin Grading ( Grade 2 Diabetic Ulcer) -Exudate Amt Large -Exudate Type Serosanguineous -Wound Margin Flat & Intact -Granulation Amt Medium (34-66%) -Granulation Quality Red -Slough/Fibrin Yes -Necrosis Amt Small (1-33%) -Necrotic Tissue Type Adherent Slough -Structure Exposed N/A -Texture (Maryuri-wound Skin Appearance) Assessed, Localized Edema -Moisture (Maryuri-wound Skin Appearance) Assessed,Dry/ Scaly -Color (Maryuri-wound Skin Appearance) Assessed -Temperature (Maryuri-wound Skin No Abnormality Appearance) (Pt Warm) -Tenderness on Palpation (Maryuri-wound No Skin Appearance) -Ulcer Cleansing Wound Cleanser -Foul Odor after Cleansing No -Anesthetic Used 5% Lidocaine Gel 2-left sumner -Combined with other wound No -Current Size (cm) - Length 2.0 -Current Size (cm) - Width 2.6 -Current Size (cm) - Depth 0.1 -Total Square Cm 5.20 -Photo Taken Yes -Epithelialization Medium 34-66% -Tunneling No -Undermining/Tunneling No -Circular Undermining No -Classification - Martin Grading ( Grade 2 Diabetic Ulcer) -Exudate Amt Medium -Exudate Type Serosanguineous -Wound Margin Flat & Intact -Granulation Amt Large (67-100%) -Granulation Quality [place] -Slough/Fibrin Yes -Necrosis Amt Medium (34-66%) -Necrotic Tissue Type Adherent Slough -Structure Exposed N/A -Texture (Maryuri-wound Skin Appearance) Assessed, Localized Edema -Moisture (Maryuri-wound Skin Appearance) Assessed,Dry/ Scaly -Color (Maryuri-wound Skin Appearance) Assessed, Hemosiderin Staining -Temperature (Maryuri-wound Skin No Abnormality Appearance) (Pt Warm) -Tenderness on Palpation (Maryuri-wound No Skin Appearance) -Ulcer Cleansing Wound Cleanser -Foul Odor after Cleansing No -Anesthetic Used 5% Lidocaine Gel 1-right Cluster leg -Combined with other wound No -Current Size (cm) - Length 6.0 -Current Size (cm) - Width 3.5 -Current Size (cm) - Depth 0.1 -Total Square Cm 21.00 -Photo Taken Yes -Epithelialization Medium 34-66% -Tunneling No -Undermining/Tunneling No -Circular Undermining No -Classification - Martin Grading ( Grade 2 Diabetic Ulcer) -Exudate Amt Large -Exudate Type Serosanguineous -Wound Margin Flat & Intact -Granulation Amt Large (67-100%) -Granulation Quality Red -Slough/Fibrin Yes -Necrosis Amt Medium (34-66%) -Necrotic Tissue Type Adherent Slough -Structure Exposed N/A -Texture (Maryuri-wound Skin Appearance) Assessed, Localized Edema -Moisture (Maryuri-wound Skin Appearance) Assessed,Dry/ Scaly -Color (Maryuri-wound Skin Appearance) Assessed -Temperature (Maryuri-wound Skin No Abnormality Appearance) (Pt Warm) -Tenderness on Palpation (Maryuri-wound No Skin Appearance) -Ulcer Cleansing Wound Cleanser -Foul Odor after Cleansing No -Anesthetic Used 5% Lidocaine Gel Lower Limb Edema Present Yes Right Calf (cm) 58.5 Right Ankle (cm) 32.6 Left Calf (cm) 66.8 Left Ankle (cm) 34.0 WC - Nurse 3 - General Ulcer D/C NN Start: 09/04/22 08:05 Freq: Status: Active Protocol: Activity Type Activity Date Activity User E-sign Co-sign Detail Recorded Client Recorded Date Recorded By Document 09/04/22 09:01 DL [id number] 09/04/22 09:03 DL Edit Result 09/04/22 09:01 DL (1) [id number] 09/04/22 09:04 DL (1) 2-left sumner - Primary Dressing Applied => Promogran Jazlyn => Matter - Promogran Jazlyn Matter => 1 09/04/22 09:01 Wound Care Center Nurse 3 3-left posterior calf -Ulcer Cleansing Soap and Water -Foul Odor after Cleansing No -Primary Dressing Applied Promogran Jazlyn Matter -Promogran Jazlyn Matter 1 2-left sumner -Ulcer Cleansing Soap and Water -Foul Odor after Cleansing No -Primary Dressing Applied Promogran Jazlyn Matter -Other Dressing jazlyn -Promogran Jazlyn Matter 1 1-right Cluster leg -Ulcer Cleansing Soap and Water -Foul Odor after Cleansing No -Other Dressing jazlyn van -Multi-Layered Wrap Application Unna Boot - Bilateral ($) -Unna Boots (Bilat) ($) 2 Treatment Response Procedure Tolerated Well Pain Scale: 0-10 Numeric Is Patient Pain Free? Yes WC - Visit Discharge Discharge Condition Stable Ambulatory Status Ambulatory Transportation Private Auto Notes: Dressing applied per Subhash Park RN Today in clinic . Additional Wound Wound debrided: Left lower extremity Laterality: Left Wound Grade/Stage: Martin stage I Type of Debridement: Excisional debridement Anesthesia Used: 5% Lidocaine Gel Depth: Down to and including healthy tissue and in the subcutaneous layer Percentage of wound debrided: 100 Instrument Used: #15 blade Tissue Removed: Fibrous, devitalized subcutaneous, biofilm, slough Severity: Fat Layer Exposed Amount of bleeding with debridement: Mild Bleeding Controlled with: Compression and gauze Patient tolerated procedure: Patient tolerated procedure well Assessment/Plan Assessment/Plan (1) General weakness: CODE(S): R53.1 - Weakness (2) Morbid obesity with BMI of 70 and over, adult: CODE(S): E66.01 - Morbid (severe) obesity due to excess calories; Z68.45 - Body mass index [BMI] 70 or greater, adult (3) Lymphedema: CODE(S): I89.0 - Lymphedema, not elsewhere classified (4) Type 2 diabetes mellitus without complications: CODE(S): E11.9 - Type 2 diabetes mellitus without complications (5) Non-pressure chronic ulcer of left calf with fat layer exposed: CODE(S): L97.222 - Non-pressure chronic ulcer of left calf with fat layer exposed (6) Non-pressure chronic ulcer of right calf with fat layer exposed: CODE(S): L97.212 - Non-pressure chronic ulcer of right calf with fat layer exposed PLAN: Plan Patient seen and evaluated Discussed her multiple lower extremity wounds with multiple sites of blistering. Blister sites were drained and deroofed utilizing #15 blade. All deroofed blister sites and open wounds were debrided as noted in the clinical panel above to both lower extremities. Wounds to the right lower extremity demonstrate chronic rubor and skin changes secondary to chronic venous stasis/lymphedema. No signs of infection. Left lower extremity wounds: Left anterior measures 1.8 cm x 2.9 cm x 0.1 cm, left lateral measures 0.9 cm x 0.9 cm x 0.1 cm, left posterior measures 1.8 cm x 3.0 cm x 0.1 cm. Right lower extremity wounds: Multiple clustering wounds in close proximity with total area measuring 27 cm x 8 cm time 0.1 cm Wounds are superficial in nature and demonstrate no signs of infection. Wounds were dressed with Jazlyn and Unna boot applied to bilateral lower extremities. She was instructed to not get the Unna boots wet and to cover with cast bag when showering. Discussed continued elevation of lower extremities to assist in edema control. Encouraged lifestyle modification of diet and exercise. Discussed continuing diabetic diet to assist in controlling blood sugar level. Last A1c 6%. Discussed continued compression to aid in wound healing. Recommend compression stockings appropriately measured to leg once edema resolved for long-term edema control. Discussed signs and symptoms of infection. Discussed if she experiences any increasing redness about the wound sites moving up the leg, purulent drainage from the wound sites, increasing foul odor, or if she experiences any fever greater than 101 degree, nausea, vomiting, chills that these are signs of a progressing infection and she needs to report to the ED. Patient voices understanding of this. The following work up and care recommendations were made: Dressing: Jazlyn and Unna boot bilateral leg Wash: Do not get wet Tissue growth optimization: Jazlyn Offload: Unna boot bilateral Vascular: Weakly palpable pulses secondary to pedal edema however DP and PT pulses triphasic on Doppler. Edema: Bilateral lower extremity edema secondary to chronic venous stasis/insufficiency and lymphedema continue to elevate lower extremities at all times of rest. Unna boots have been applied bilateral Infection: No signs of infection Pain: May take [id number] Tylenol extra strength for discomfort Host factors: DM type II, chronic venous stasis/insufficiency, lymphedema I answered all the patient's questions. To return to the wound healing center in 1 week or call sooner if the patient has any questions or concerns.
[2022-09-11 07:59] VITALS: BP 193/74; PULSE 66; RESP 24; TEMP 36.4; BMI 66.5
--- NOTE | 2022-09-11 08:15 | PCM.WC.PN ---
History of Present Illness Date of Service: 09/11/22 Chief Complaint: Bilateral lower extremity wounds and blisters History of Wound: Patient is a 76-year-old female with PMHx of excision of melanoma from the left arm, HTN, morbid obesity, lymphedema, DM type II, bullous pemphigoid. She states she will be following with dermatology for continued skin examination due to history of melanoma. She recently developed multiple sites of blister to both lower extremities which has ruptured leaking yellow serous fluid. She denies recent cellulitis to the lower extremities. Daughter states they recently developed over the last week or 2 and did discuss with her PCP. She was referred to the wound care center for care of multiple lower extremity wounds with blisters. Patient is morbidly obese however is trying to move more and is able to walk. Patient is diabetic with last A1c 6.0%, denies taking medication. Patient denies N/V/F/chills. She denies pain to the lower extremities today. Subjective Subjective This is a 76-year-old female who presents to the wound care center today for a follow-up of multiple bilateral lower extremity wounds secondary to lymphedema. Daughter states that the Unna boots on the left leg did not stay intact and slid down. She denies constitutional symptoms today. Denies further complaints today. Objective Data Objective Data Vital Signs: Vital Signs Temp Pulse Resp BP 97.2 F L 95 16 165/98 H 09/04/22 08:06 09/04/22 08:06 09/04/22 08:06 09/04/22 08:06 Weight: 165.108 kg Body Mass Index (BMI) 66.5 Physical Exam Const alert, oriented x3, no apparent distress and well nourished General Appearance: cooperative HEENT normocephalic Eyes General Eye: normal appearance of both eyes Neck General: normal visual inspection Lymph Lymphatic: no lymphadenopathy noted and no lymphedema noted Resp normal respiratory effort Cardio regular rate and regular rhythm Extremity normal capillary refill, no joint enlargement and no calf tenderness Extremity Narrative: DP and PT pulses weakly palpable secondary to edema bilateral. Triphasic DP and PT on Doppler bilateral. Capillary fill time less than 4 seconds to the digits bilateral. Musculoskeletal: Muscle strength 5 of 5 and age-appropriate. No pain to palpation to bones of the foot or ankle Dermatological: There is multiple areas of serous filled bulla that are intact in multiple areas that are ruptured with the deroofed skin with superficial granular tissue to bilateral lower extremities. Chronic areas of rubor secondary to lymphedema and chronic venous stasis/insufficiency and bullous pemphigoid. No signs of infection. Skin no rashes or lesions noted, skin turgor normal and no jaundice Neuro moves all extremities Debridement Note Debridement Note Wound debrided: Left lower extremity x4 Laterality: Left Wound Grade/Stage: Martin stage I Type of Debridement: Excisional debridement Anesthesia Used: 5% Lidocaine Gel Depth: Down to and including healthy tissue and in the subcutaneous layer Percentage of wound debrided: 100 Instrument Used: #15 blade and Forceps Tissue Removed: Fibrous, devitalized subcutaneous, biofilm, slough Severity: Fat Layer Exposed Amount of bleeding with debridement: Mild Bleeding Controlled with: Compression and gauze Patient tolerated procedure: Patient tolerated procedure well Post-Debridement Measurements and Additional Note: Post-Debridement Measurements/Treatment - Nurse 1 - General Ulcer Assessment Start: 09/04/22 08:05 Freq: Status: Active Protocol: NETTIE Activity Type Activity Date Activity User E-sign Co-sign Detail Recorded Client Recorded Date Recorded By Document 09/04/22 08:06 [id number] 09/04/22 08:24 Edit Result 09/04/22 08:06 ACE (1) [id number] 09/04/22 08:26 ACE (1) Right - Posterior Tibial Palpable => Yes - Posterior Tibial Doppler => Multiphasic - Dorsalis Pedis Palpable => Yes - Dorsalis Pedis Doppler => Multiphasic Left - Posterior Tibial Palpable => Yes - Posterior Tibial Doppler => Multiphasic - Dorsalis Pedis Palpable => Yes - Dorsalis Pedis Doppler => Multiphasic 09/04/22 08:06 - Today's Visit Information Type of service Follow-up Visit (Physician/DELIVERY REPRESENTATIVE ) Arrival Mode Ambulatory, Walker Patient Identification Verified (Name & Yes ) Patient Requires Transmission-Based No Precautions Safety Precautions NA Finger Stick Blood Sugar(mg/dl) (if 108 indicated): Blood Sugar Stated by Patient Height and Weight Height 5 ft 2 in Weight 165.108 kg Weight in Pounds 364.0 lbs Body Mass Index (BMI) 66.5 BMI Classification Obese BSA - Henry 2.47 Vital Signs Temperature (97.8 F-99.1 F) 97.2 F L Temperature Source Temporal Pulse Rate (60-100) 95 Pulse Location Monitor Respiratory Rate (12-18) 16 Respiratory rate source Observation Blood Pressure (90/60-120/80) 165/98 H Blood Pressure Mean (mm Hg) 120 Source Monitor Position Semi-Fowlers Blood Pressure Location Left Forearm History Since Last Visit- (Skip if this is Patient's initial visit) Left Footwear Slipper Right Footwear Slipper Pain Scale: 0-10 Numeric Is Patient Pain Free? Yes Lower Extremity Assessment/ Foot Assessment/ Toe Nail Assessment Right -Posterior Tibial Palpable Yes -Posterior Tibial Doppler Multiphasic -Dorsalis Pedis Palpable Yes -Dorsalis Pedis Doppler Multiphasic Left -Posterior Tibial Palpable Yes -Posterior Tibial Doppler Multiphasic -Dorsalis Pedis Palpable Yes -Dorsalis Pedis Doppler Multiphasic Communication Assessment Preferred language [place] Women[employer]S [employer] Lecturer Required No Able to Read Yes Able to Write Yes Right Hearing Abillity Normal Left Hearing Abillity Normal Visual Assistive Devices Glasses Teaching Assessment Preferences Verbal,Written, Audio/Visual, Demonstration Barriers to Learning None Readiness To Learn Excellent Willingness to Engage in Self Management High Activies Readiness to Engage in Self Management High Activities Anxiety Level Calm Cooperation Cooperative Perception Coherent Interest in Health Problem Asks Questions Education Importance Acknowledges Need Does Patient Smoke tobacco or other No substances Smoking Status Never smoker Is Patient Diabetic Yes Functional Assessment Recent Decline in Ability to Perform Ambulation Assistive Device With Patient Yes List Device(s) with Patient walker Culture/Congregation/Senior Compliance Analyst Cultural/Congregation Needs that may affect No Treatment Plan Would you allow our hospital business development coordinator to No meet you for the purpose of spiritual/ emotional support? Senior Compliance Analyst to contact place of quaker No Teaching: Wound Center [facility] Orientation/ Contacting Physician -Person Taught Patient,Family -Teaching Method Discussion, Demonstration -Response to teaching Return demonstration, Verbalize understanding [facility] Nurse 1 - General Ulcer Measurement Start: 09/04/22 08:05 Freq: Status: Active Protocol: Activity Type Activity Date Activity User E-sign Co-sign Detail Recorded Client Recorded Date Recorded By Document 09/04/22 08:06 ACE [id number] 09/04/22 08:24 ACE 09/04/22 08:06 Wound Center Nurse 1 3-left posterior calf -Combined with other wound No -Current Size (cm) - Length 3.0 -Current Size (cm) - Width 4.0 -Current Size (cm) - Depth 0.1 -Total Square Cm 12.00 -Photo Taken Yes -Epithelialization Medium 34-66% -Tunneling No -Undermining/Tunneling No -Circular Undermining No -Classification - Martin Grading ( Grade 2 Diabetic Ulcer) -Exudate Amt Large -Exudate Type Serosanguineous -Wound Margin Flat & Intact -Granulation Amt Medium (34-66%) -Granulation Quality Red -Slough/Fibrin Yes -Necrosis Amt Small (1-33%) -Necrotic Tissue Type Adherent Slough -Structure Exposed N/A -Texture (Maryuri-wound Skin Appearance) Assessed, Localized Edema -Moisture (Maryuri-wound Skin Appearance) Assessed,Dry/ Scaly -Color (Maryuri-wound Skin Appearance) Assessed -Temperature (Maryuri-wound Skin No Abnormality Appearance) (Pt Warm) -Tenderness on Palpation (Maryuri-wound No Skin Appearance) -Ulcer Cleansing Wound Cleanser -Foul Odor after Cleansing No -Anesthetic Used 5% Lidocaine Gel 2-left sumner -Combined with other wound No -Current Size (cm) - Length 2.0 -Current Size (cm) - Width 2.6 -Current Size (cm) - Depth 0.1 -Total Square Cm 5.20 -Photo Taken Yes -Epithelialization Medium 34-66% -Tunneling No -Undermining/Tunneling No -Circular Undermining No -Classification - Martin Grading ( Grade 2 Diabetic Ulcer) -Exudate Amt Medium -Exudate Type Serosanguineous -Wound Margin Flat & Intact -Granulation Amt Large (67-100%) -Granulation Quality Fenton -Slough/Fibrin Yes -Necrosis Amt Medium (34-66%) -Necrotic Tissue Type Adherent Slough -Structure Exposed N/A -Texture (Maryuri-wound Skin Appearance) Assessed, Localized Edema -Moisture (Maryuri-wound Skin Appearance) Assessed,Dry/ Scaly -Color (Maryuri-wound Skin Appearance) Assessed, Hemosiderin Staining -Temperature (Maryuri-wound Skin No Abnormality Appearance) (Pt Warm) -Tenderness on Palpation (Maryuri-wound No Skin Appearance) -Ulcer Cleansing Wound Cleanser -Foul Odor after Cleansing No -Anesthetic Used 5% Lidocaine Gel 1-right Cluster leg -Combined with other wound No -Current Size (cm) - Length 6.0 -Current Size (cm) - Width 3.5 -Current Size (cm) - Depth 0.1 -Total Square Cm 21.00 -Photo Taken Yes -Epithelialization Medium 34-66% -Tunneling No -Undermining/Tunneling No -Circular Undermining No -Classification - Martin Grading ( Grade 2 Diabetic Ulcer) -Exudate Amt Large -Exudate Type Serosanguineous -Wound Margin Flat & Intact -Granulation Amt Large (67-100%) -Granulation Quality Red -Slough/Fibrin Yes -Necrosis Amt Medium (34-66%) -Necrotic Tissue Type Adherent Slough -Structure Exposed N/A -Texture (Maryuri-wound Skin Appearance) Assessed, Localized Edema -Moisture (Maryuri-wound Skin Appearance) Assessed,Dry/ Scaly -Color (Maryuri-wound Skin Appearance) Assessed -Temperature (Maryuri-wound Skin No Abnormality Appearance) (Pt Warm) -Tenderness on Palpation (Maryuri-wound No Skin Appearance) -Ulcer Cleansing Wound Cleanser -Foul Odor after Cleansing No -Anesthetic Used 5% Lidocaine Gel Lower Limb Edema Present Yes Right Calf (cm) 58.5 Right Ankle (cm) 32.6 Left Calf (cm) 66.8 Left Ankle (cm) 34.0 WC - Nurse 2 - General Ulcer CM Notes Start: 09/04/22 08:05 Freq: Status: Active Protocol: Activity Type Activity Date Activity User E-sign Co-sign Detail Recorded Client Recorded Date Recorded By Document 09/04/22 11:53 PL [id number] 09/04/22 12:15 PL 09/04/22 11:53 Wound Center Nurse 2 3-left posterior calf -Time 08:28 -Correct Patient Yes -Correct Side, Site, Position Yes -Correct Procedure Yes -Procedure Performed Yes -Type of Procedure Debridement -Clinical Debridement Subcutaneous -Tissue Removed Subcutaneous -Post Debridement (cm) - Length 2.9 -Post Debridement (cm) - Width 3.5 -Post Debridement (cm) - Depth 0.1 -Total Square (Post) (cm) 10.15 -Area of Debridement (cm) - Length 2.9 -Area of Debridement (cm) - Width 3.5 -Total Square (Area) (cm) 10.15 -Tunneling No -Undermining/Tunneling No -Circular Undermining No -Wound/Ulcer Outcome Not Healed -Ulcer Cleansing Rinsed/ Irrigated with Saline -Foul Odor after Cleansing No -Bioengineered Tissue No -Bleeding Controlled with Pressure -Treatment Response Procedure Tolerated Well -Debridement - Subq, 1st 20sq cm No 2-left sumner -Time 08:28 -Correct Patient Yes -Correct Side, Site, Position Yes -Correct Procedure Yes -Procedure Performed Yes -Type of Procedure Debridement -Clinical Debridement Subcutaneous -Tissue Removed Subcutaneous -Post Debridement (cm) - Length 1.8 -Post Debridement (cm) - Width 2.9 -Post Debridement (cm) - Depth 0.1 -Total Square (Post) (cm) 5.22 -Area of Debridement (cm) - Length 1.8 -Area of Debridement (cm) - Width 2.9 -Total Square (Area) (cm) 5.22 -Tunneling No -Undermining/Tunneling No -Circular Undermining No -Wound/Ulcer Outcome Not Healed -Ulcer Cleansing Rinsed/ Irrigated with Saline -Foul Odor after Cleansing No -Bioengineered Tissue No -Debridement - Subq, 1st 20sq cm No 1-right Cluster leg -Time 08:28 -Correct Patient Yes -Correct Side, Site, Position Yes -Correct Procedure Yes -Procedure Performed Yes -Type of Procedure Debridement -Clinical Debridement Subcutaneous -Tissue Removed Subcutaneous -Post Debridement (cm) - Length 27.0 -Post Debridement (cm) - Width 8.0 -Post Debridement (cm) - Depth 0.1 -Total Square (Post) (cm) 216.00 -Area of Debridement (cm) - Length 27.0 -Area of Debridement (cm) - Width 8.0 -Total Square (Area) (cm) 216.00 -Tunneling No -Undermining/Tunneling No -Circular Undermining No -Wound/Ulcer Outcome Not Healed -Ulcer Cleansing Rinsed/ Irrigated with Saline -Foul Odor after Cleansing No -Bioengineered Tissue No -Bleeding Controlled with Pressure -Treatment Response Procedure Tolerated Well -Debridement - Subq, 1st 20sq cm Yes -Debridement, SubQ, ea addt'l 20sq cm 11 or part thereof Pain Scale: 0-10 Numeric Is Patient Pain Free? Yes WC - Nurse 3 - General Ulcer D/C NN Start: 09/04/22 08:05 Freq: Status: Active Protocol: Activity Type Activity Date Activity User E-sign Co-sign Detail Recorded Client Recorded Date Recorded By Document 09/04/22 09:01 DL [id number] 09/04/22 09:03 DL Edit Result 09/04/22 09:01 DL (1) [id number] 09/04/22 09:04 DL Edit Result 09/04/22 09:01 DL (2) [id number] 09/04/22 09:50 BMF (1) 2-left sumner - Primary Dressing Applied => Promogran Jazlyn => Matter - Promogran Jazlyn Matter => 1 (2) 1-right Cluster leg - Primary Dressing Applied => Promogran Jazlyn => Matter - Promogran Jazlyn Matter => 1 09/04/22 09:01 Wound Care Center Nurse 3 3-left posterior calf -Ulcer Cleansing Soap and Water -Foul Odor after Cleansing No -Primary Dressing Applied Promogran Jazlyn Matter -Promogran Jazlyn Matter 1 2-left sumner -Ulcer Cleansing Soap and Water -Foul Odor after Cleansing No -Primary Dressing Applied Promogran Jazlyn Matter -Other Dressing jazlyn -Promogran Jazlyn Matter 1 1-right Cluster leg -Ulcer Cleansing Soap and Water -Foul Odor after Cleansing No -Primary Dressing Applied Promogran Jazlyn Matter -Other Dressing jazlyn -Promogran Jazlyn Matter 1 van -Multi-Layered Wrap Application Unna Boot - Bilateral ($) -Unna Boots (Bilat) ($) 2 Treatment Response Procedure Tolerated Well Pain Scale: 0-10 Numeric Is Patient Pain Free? Yes WC - Visit Discharge Discharge Condition Stable Ambulatory Status Ambulatory Transportation Private Auto Notes: Dressing applied per Subhash Park RN Today in clinic . Assessment/Plan Assessment/Plan (1) General weakness: CODE(S): R53.1 - Weakness (2) Morbid obesity with BMI of 70 and over, adult: CODE(S): E66.01 - Morbid (severe) obesity due to excess calories; Z68.45 - Body mass index [BMI] 70 or greater, adult (3) Lymphedema: CODE(S): I89.0 - Lymphedema, not elsewhere classified (4) Type 2 diabetes mellitus without complications: CODE(S): E11.9 - Type 2 diabetes mellitus without complications (5) Non-pressure chronic ulcer of left calf with fat layer exposed: CODE(S): L97.222 - Non-pressure chronic ulcer of left calf with fat layer exposed (6) Non-pressure chronic ulcer of right calf with fat layer exposed: CODE(S): L97.212 - Non-pressure chronic ulcer of right calf with fat layer exposed PLAN: Plan Patient seen and evaluated Discussed her multiple lower extremity wounds with multiple sites of blistering. Blister sites were drained and deroofed utilizing #15 blade. All deroofed blister sites and open wounds were debrided as noted in the clinical panel above to both lower extremities. Wounds to the right lower extremity demonstrate chronic rubor and skin changes secondary to chronic venous stasis/lymphedema. No signs of infection. Left lower extremity wounds: Left anterior measures 1.4 cm x 1.8 cm x 0.1 cm, left lateral measures 0.4 cm x 0.4 cm x 0.1 cm, left posterior measures 1.2 cm x 2.5 cm x 0.1 cm, new blister left anterior lateral measures 1.5 cm x 1.3 cm x 0.1 cm. Right lower extremity wounds: Multiple clustering wounds in close proximity with total area measuring 18 cm x 6 cm time 0.1 cm, there is areas of epithelialization across the wounds. Wounds are superficial in nature and demonstrate no signs of infection. Wounds demonstrating good progression in healing versus previous visit. She did have a biopsy performed to one of the blister sites on the dorsal aspect of the left foot by dermatology and placed on prednisone 4mg taper to aid her likely bullous pemphigoid. Due to failure of the Unna boots maintaining compression she was switched to 3M compression wrap today. Wounds were dressed with Jazlyn and 3M compression wrap applied to bilateral lower extremities. She was instructed to not get the 3M compression wrap wet and to cover with cast bag when showering. Discussed continued elevation of lower extremities to assist in edema control. Encouraged lifestyle modification of diet and exercise. Discussed continuing diabetic diet to assist in controlling blood sugar level. Last A1c 6%. Discussed continued compression to aid in wound healing. Recommend compression stockings appropriately measured to leg once edema resolved for long-term edema control. Discussed signs and symptoms of infection. Discussed if she experiences any increasing redness about the wound sites moving up the leg, purulent drainage from the wound sites, increasing foul odor, or if she experiences any fever greater than 101 degree, nausea, vomiting, chills that these are signs of a progressing infection and she needs to report to the ED. Patient voices understanding of this. The following work up and care recommendations were made: Dressing: Jazlyn and 3M compression wrap bilateral leg Wash: Do not get wet Tissue growth optimization: Jazlyn Offload: 3M compression wrap bilateral Vascular: Weakly palpable pulses secondary to pedal edema however DP and PT pulses triphasic on Doppler. Edema: Bilateral lower extremity edema secondary to chronic venous stasis/insufficiency and lymphedema continue to elevate lower extremities at all times of rest. 3M compression wrap have been applied bilateral Infection: No signs of infection Pain: May take [id number] Tylenol extra strength for discomfort Host factors: DM type II, chronic venous stasis/insufficiency, lymphedema I answered all the patient's questions. To return to the wound healing center in 1 week or call sooner if the patient has any questions or concerns.
== END 2022-09-14 23:59 | disposition home or self-care (01) ==
LOC: WC 08:00
PROVIDERS: PCP Family Medicine; Referring Provider Family Medicine; Visit Provider Student in an Organized Health Care Education/Training Program
DX: E11.622 Type 2 diabetes mellitus with other skin ulcer (principal); L97.212 Non-pressure chronic ulcer of right calf with fat layer exposed; L97.222 Non-pressure chronic ulcer of left calf with fat layer exposed; E66.01 Morbid (severe) obesity due to excess calories; Z68.45 Body mass index [BMI] 70 or greater, adult; I89.0 Lymphedema, not elsewhere classified; I10 Essential (primary) hypertension; Z79.899 Other long term (current) drug therapy; L12.0 Bullous pemphigoid
CPT/HCPCS: 11042; 11045; 29580; 29581; 99213; G0463

== ENCOUNTER 2022-10-09 10:45 | Outpatient (RCR) | payer MEDICARE, SELFPAY ==
[2022-09-15 00:49] VITALS: BP 193/74; PULSE 66; RESP 24; TEMP 36.4; BMI 66.5
[2022-09-16 13:08] VITALS: BP 236/95; PULSE 55; RESP 24; TEMP 36.4; BMI 66.5
[2022-09-16 13:34] VITALS: BP 196/84; PULSE 52
--- NOTE | 2022-09-18 11:01 | PCM.WC.PN ---
History of Present Illness Date of Service: 09/18/22 Chief Complaint: Bilateral lower extremity wounds and blisters History of Wound: Patient is a 76-year-old female with PMHx of excision of melanoma from the left arm, HTN, morbid obesity, lymphedema, DM type II, bullous pemphigoid. She states she will be following with dermatology for continued skin examination due to history of melanoma. She recently developed multiple sites of blister to both lower extremities which has ruptured leaking yellow serous fluid. She denies recent cellulitis to the lower extremities. Daughter states they recently developed over the last week or 2 and did discuss with her PCP. She was referred to the wound care center for care of multiple lower extremity wounds with blisters. Patient is morbidly obese however is trying to move more and is able to walk. Patient is diabetic with last A1c 6.0%, denies taking medication. Patient denies N/V/F/chills. She denies pain to the lower extremities today. Subjective Subjective This is a 76-year-old female who presents to the wound care center today for a follow-up of multiple bilateral lower extremity wounds secondary to lymphedema.? She states compression dressings are staying in place better.? She states she may have opened a new blister on the right sumner. She denies constitutional symptoms today.? Denies further complaints today. Objective Data Objective Data Vital Signs: Vital Signs Temp Pulse Resp BP 97.5 F L 52 L 24 H 196/84 H 09/16/22 13:08 09/16/22 13:34 09/16/22 13:08 09/16/22 13:34 Weight: 165.108 kg Body Mass Index (BMI) 66.5 Physical Exam Const alert, oriented x3, no apparent distress and well nourished General Appearance: cooperative HEENT normocephalic Eyes General Eye: normal appearance of both eyes Neck General: normal visual inspection Lymph Lymphatic: no lymphadenopathy noted and no lymphedema noted Resp normal respiratory effort Cardio regular rate and regular rhythm Extremity normal capillary refill, no joint enlargement, no calf tenderness and no pedal edema Extremity Narrative: DP and PT pulses weakly palpable secondary to edema bilateral.? Triphasic DP and PT on Doppler bilateral.? Capillary fill time less than 4 seconds to the digits bilateral. Musculoskeletal: Muscle strength 5 of 5 and age-appropriate.? No pain to palpation to bones of the foot or ankle Dermatological: There is multiple areas of serous filled bulla that are intact in multiple areas that are ruptured with the deroofed skin with superficial granular tissue to bilateral lower extremities.? Chronic areas of rubor secondary to lymphedema and chronic venous stasis/insufficiency and bullous pemphigoid.? No signs of infection. Skin no rashes or lesions noted, skin turgor normal and no jaundice Neuro moves all extremities Debridement Note Debridement Note Wound debrided: Right lower extremity x2 Laterality: Right Wound Grade/Stage: Martin stage I Type of Debridement: Excisional debridement Anesthesia Used: 5% Lidocaine Gel Depth: Down to and including healthy tissue and in the subcutaneous layer Percentage of wound debrided: 100 Instrument Used: 3mm curette Tissue Removed: Fibrous, devitalized subcutaneous, biofilm, slough Severity: Fat Layer Exposed Amount of bleeding with debridement: Mild Bleeding Controlled with: Compression and gauze Patient tolerated procedure: Patient tolerated procedure well Post-Debridement Measurements and Additional Note: Post-Debridement Measurements/Treatment - Nurse 1 - General Ulcer Assessment Start: 09/16/22 13:08 Freq: Status: Active Protocol: NETTIE Activity Type Activity Date Activity User E-sign Co-sign Detail Recorded Client Recorded Date Recorded By Document 09/16/22 13:08 DL [id number] 09/16/22 13:21 DL 09/16/22 13:08 - Today's Visit Information Type of service Nurse-only Visit Arrival Mode Ambulatory, Walker Transfer Assistance None Patient Identification Verified (Name & Yes ) Patient Requires Transmission-Based No Precautions Finger Stick Blood Sugar(mg/dl) (if 110 indicated): Blood Sugar Stated by Patient Height and Weight Body Mass Index (BMI) 66.5 BMI Classification Obese Vital Signs Temperature (97.8 F-99.1 F) 97.5 F L Temperature Source Temporal Pulse Rate (60-100) 55 L Pulse Location Monitor Respiratory Rate (12-18) 24 H Respiratory rate source Observation Blood Pressure (90/60-120/80) 236/95 H Blood Pressure Mean (mm Hg) 142 Source Monitor History Since Last Visit- (Skip if this is Patient's initial visit) Have you changed medications since your No last visit? Any new allergies or adverse reactions No Had a fall/change in ADL's that may No increase risk of falls Signs or symptoms of abuse and/or No neglect since last visit Have you been in the hospital since your No last visit? Has dressing in place as prescribed Yes Has compression in place as prescribed Yes Has offloadiing in place as prescribed N/A Experienced any changes in pain level or No management Pain Scale: 0-10 Numeric Is Patient Pain Free? Yes WC - Nurse 1 - General Ulcer Measurement Start: 09/16/22 13:08 Freq: Status: Active Protocol: Activity Type Activity Date Activity User E-sign Co-sign Detail Recorded Client Recorded Date Recorded By Document 09/16/22 13:08 DL [id number] 09/16/22 13:21 DL 09/16/22 13:08 Wound Center Nurse 1 3-left posterior calf -Exudate Amt Small -Exudate Type Serosanguineous -Texture (Maryuri-wound Skin Appearance) Scarring -Moisture (Maryuri-wound Skin Appearance) Dry/Scaly -Color (Maryuri-wound Skin Appearance) Hemosiderin Staining -Temperature (Maryuri-wound Skin No Abnormality Appearance) (Pt Warm) -Tenderness on Palpation (Maryuri-wound No Skin Appearance) -Ulcer Cleansing Soap and Water -Foul Odor after Cleansing No 2-left sumner -Exudate Amt Small -Exudate Type Serosanguineous -Structure Exposed N/A -Texture (Maryuri-wound Skin Appearance) Scarring -Moisture (Maryuri-wound Skin Appearance) Dry/Scaly -Color (Maryuri-wound Skin Appearance) Hemosiderin Staining -Temperature (Maryuri-wound Skin No Abnormality Appearance) (Pt Warm) -Tenderness on Palpation (Maryuri-wound No Skin Appearance) -Ulcer Cleansing Soap and Water -Foul Odor after Cleansing No 1-right Cluster leg -Exudate Amt Small -Exudate Type Serosanguineous -Texture (Maryuri-wound Skin Appearance) Scarring -Moisture (Maryuri-wound Skin Appearance) Dry/Scaly -Color (Maryuri-wound Skin Appearance) Hemosiderin Staining -Temperature (Maryuri-wound Skin No Abnormality Appearance) (Pt Warm) -Tenderness on Palpation (Maryuri-wound No Skin Appearance) -Ulcer Cleansing Soap and Water -Foul Odor after Cleansing No Right Calf (cm) 50 Right Ankle (cm) 30.2 Left Calf (cm) 69.5 Left Ankle (cm) 32 WC - Nurse 3 - General Ulcer D/C NN Start: 09/16/22 13:08 Freq: Status: Active Protocol: Activity Type Activity Date Activity User E-sign Co-sign Detail Recorded Client Recorded Date Recorded By Document 09/16/22 13:08 DL [id number] 09/16/22 13:21 DL Document 09/16/22 13:34 MW [id number] 09/16/22 13:36 MW 09/16/22 09/16/22 13:08 13:34 Vital Signs Temperature (97.8 F-99.1 F) 97.5 F L Temperature Source Temporal Pulse Rate (60-100) 55 L 52 L Pulse Location Monitor Monitor Respiratory Rate (12-18) 24 H Respiratory rate source Observation Blood Pressure (90/60-120/80) 236/95 H 196/84 H Blood Pressure Mean (mm Hg) 142 121 Source Monitor Monitor Position Sitting Blood Pressure Location Left Forearm Pain Scale: 0-10 Numeric Is Patient Pain Free? Yes Yes Wound Care Center Nurse 3 3-left posterior calf -Ulcer Cleansing Soap and Water -Foul Odor after Cleansing No -Primary Dressing Applied Aquacel AG 4x4 -Primary Dressing Covered/Secured with Dry Gauze -Aquacel AG 4x4 1 2-left sumner -Ulcer Cleansing Soap and Water -Foul Odor after Cleansing No -Other Dressing aquacel ag -Primary Dressing Covered/Secured with Dry Gauze 1-right Cluster leg -Ulcer Cleansing Soap and Water -Foul Odor after Cleansing No -Other Dressing aquacel ag -Primary Dressing Covered/Secured with Dry Gauze van -Multi-Layered Wrap Application Multi-Layer Comp - Bilat ($ ) Treatment Response Procedure Tolerated Well WC - Visit Discharge Discharge Condition Stable Stable Ambulatory Status Ambulatory, Walker Walker Transportation Private Auto Private Auto Accompanied by daughter Notes: Blood pressure rechecked after 3M2L wraps applied. Denies any S/S hypertension. Additional Wound Wound debrided: Left lower extremity x2 Laterality: Left Wound Grade/Stage: Martin stage I Type of Debridement: Excisional debridement Anesthesia Used: 5% Lidocaine Gel Depth: Down to and including healthy tissue and in the subcutaneous layer Percentage of wound debrided: 100 Instrument Used: 3mm curette Tissue Removed: Fibrous, devitalized subcutaneous, biofilm, slough Severity: Fat Layer Exposed Amount of bleeding with debridement: Mild Bleeding Controlled with: Compression and gauze Patient tolerated procedure: Patient tolerated procedure well Assessment/Plan Assessment/Plan (1) Non-pressure chronic ulcer of right calf with fat layer exposed: CODE(S): L97.212 - Non-pressure chronic ulcer of right calf with fat layer exposed (2) Non-pressure chronic ulcer of left calf with fat layer exposed: CODE(S): L97.222 - Non-pressure chronic ulcer of left calf with fat layer exposed (3) Type 2 diabetes mellitus without complications: CODE(S): E11.9 - Type 2 diabetes mellitus without complications (4) Lymphedema: CODE(S): I89.0 - Lymphedema, not elsewhere classified (5) Morbid obesity with BMI of 70 and over, adult: CODE(S): E66.01 - Morbid (severe) obesity due to excess calories; Z68.45 - Body mass index [BMI] 70 or greater, adult (6) General weakness: CODE(S): R53.1 - Weakness PLAN: Plan Patient seen and evaluated Discussed her multiple lower extremity wounds with multiple sites of blistering.? Blister sites were drained and deroofed utilizing #15 blade.? All deroofed blister sites and open wounds were debrided as noted in the clinical panel above to both lower extremities.? Wounds to the right lower extremity demonstrate chronic rubor and skin changes secondary to chronic venous stasis/lymphedema.? No signs of infection. Left lower extremity wounds: Left anterior measures healed, left medial measures 1.2 cm x 1.4 cm x 0.1 cm, left posterior measures healed, new blister left anterior lateral measures 1.6 cm x 2.1 cm x 0.1 cm. Right lower extremity wounds: Multiple clustering wounds in close proximity have healed. Right anterior wound measures 3.6 cm x 2.2 cm x 0.1 cm, right medial wound measures 0.5 cm x 0.4 cm x 0.1 cm Wounds are superficial in nature and demonstrate no signs of infection. Wounds demonstrating good progression in healing versus previous visit.? She did have a biopsy performed to one of the blister sites on the dorsal aspect of the left foot by dermatology and placed on prednisone 4mg taper to aid her likely bullous pemphigoid. She has finished oral prednisone taper. Wounds were dressed with Analia and 3M compression wrap applied to bilateral lower extremities.? She was instructed to not get the 3M compression wrap wet and to cover with cast bag when showering. Discussed continued elevation of lower extremities to assist in edema control. Encouraged lifestyle modification of diet and exercise.? Discussed continuing diabetic diet to assist in controlling blood sugar level.? Last A1c 6%. Discussed continued compression to aid in wound healing.? Recommend compression stockings appropriately measured to leg once edema resolved for long-term edema control. Discussed signs and symptoms of infection.? Discussed if she experiences any increasing redness about the wound sites moving up the leg, purulent drainage from the wound sites, increasing foul odor, or if she experiences any fever greater than 101 degree, nausea, vomiting, chills that these are signs of a progressing infection and she needs to report to the ED.? Patient voices understanding of this. The following work up and care recommendations were made: Dressing: Analia and 3M compression wrap bilateral leg Wash: Do not get wet Tissue growth optimization: Analia Offload: 3M compression wrap bilateral Vascular: Weakly palpable pulses secondary to pedal edema however DP and PT pulses triphasic on Doppler. Edema: Bilateral lower extremity edema secondary to chronic venous stasis/insufficiency and lymphedema continue to elevate lower extremities at all times of rest.? 3M compression wrap have been applied bilateral Infection: No signs of infection Pain: May take [id number] Tylenol extra strength for discomfort Host factors: DM type II, chronic venous stasis/insufficiency, lymphedema ? I answered all the patient's questions.? To return to the wound healing center in 1 week or call sooner if the patient has any questions or concerns.
[2022-09-18 11:29] VITALS: BP 154/78; PULSE 57; RESP 18; TEMP 36.3; BMI 66.5
[2022-09-25 11:20] VITALS: RESP 18; TEMP 36.1; BMI 66.5
--- NOTE | 2022-09-25 11:24 | PN.PCM_ITS ---
History of Present Illness Date of Service: 09/25/22 Chief Complaint: Bilateral lower extremity wounds and blisters History of Wound: Patient is a 76-year-old female with PMHx of excision of melanoma from the left arm, HTN, morbid obesity, lymphedema, DM type II, bullous pemphigoid. She states she will be following with dermatology for continued skin examination due to history of melanoma. She recently developed multiple sites of blister to both lower extremities which has ruptured leaking yellow serous fluid. She denies recent cellulitis to the lower extremities. Daughter states they recently developed over the last week or 2 and did discuss with her PCP. She was referred to the wound care center for care of multiple lower extremity wounds with blisters. Patient is morbidly obese however is trying to move more and is able to walk. Patient is diabetic with last A1c 6.0%, denies taking medication. Patient denies N/V/F/chills. She denies pain to the lower extremities today. Subjective Subjective This is a 76-year-old female who presents to the wound care center today for a follow-up of multiple bilateral lower extremity wounds secondary to lymphedema.? She states compression dressings are staying in place better.? She feels that her wounds have healed today.? She denies constitutional symptoms today.? Denies further complaints today. Objective Data Objective Data Vital Signs: Vital Signs Temp Pulse Resp BP O2 Del Method 97.4 F L 57 L 18 154/78 H Room Air 09/18/22 11:29 09/18/22 11:29 09/18/22 11:29 09/18/22 11:29 09/18/22 11:29 Oxygen Delivery Method Room Air Weight: 165.108 kg Body Mass Index (BMI) 66.5 Physical Exam Const alert, oriented x3, no apparent distress and well nourished General Appearance: cooperative HEENT normocephalic Eyes General Eye: normal appearance of both eyes Neck General: normal visual inspection Lymph Lymphatic: no lymphadenopathy noted and no lymphedema noted Resp normal respiratory effort Cardio regular rate and regular rhythm Extremity normal capillary refill, no joint enlargement, no calf tenderness and no pedal edema Extremity Narrative: DP and PT pulses weakly palpable secondary to edema bilateral.? Triphasic DP and PT on Doppler bilateral.? Capillary fill time less than 4 seconds to the digits bilateral. Musculoskeletal: Muscle strength 5 of 5 and age-appropriate.? No pain to palpation to bones of the foot or ankle Dermatological: There is multiple areas of previous serous filled bulla that have healed.? Chronic areas of rubor secondary to lymphedema and chronic venous stasis/insufficiency and bullous pemphigoid.? No signs of infection. Skin no rashes or lesions noted, skin turgor normal and no jaundice Neuro moves all extremities Debridement Note Debridement Note No debridement was completed: No debridement was completed today Post-Debridement Measurements and Additional Note: Post-Debridement Measurements/Treatment - Nurse 1 - General Ulcer Assessment Start: 09/16/22 13:08 Freq: Status: Active Protocol: [email or web address] Activity Type Activity Date Activity User E-sign Co-sign Detail Recorded Client Recorded Date Recorded By Document 09/16/22 13:08 DL [id number] 09/16/22 13:21 DL Document 09/18/22 11:29 [facility] [id number] 09/18/22 11:42 [facility] 09/16/22 09/18/22 13:08 11:29 - Today's Visit Information Type of service Nurse-only Follow-up Visit Visit (Physician/PUBLIC HEALTH AIDE ) Arrival Mode Ambulatory, Ambulatory, Walker Walker Transfer Assistance None None Accompanied by AIMEE Patient Identification Verified (Name & Yes No ) Patient Requires Transmission-Based No No Precautions Finger Stick Blood Sugar(mg/dl) (if 110 indicated): Blood Sugar Stated by Patient Height and Weight Body Mass Index (BMI) 66.5 66.5 BMI Classification Obese Obese Vital Signs Temperature (97.8 F-99.1 F) 97.5 F L 97.4 F L Temperature Source Temporal Temporal Pulse Rate (60-100) 55 L 57 L Pulse Location Monitor Monitor Respiratory Rate (12-18) 24 H 18 Respiratory rate source Observation Observation Oxygen Delivery Method Room Air Blood Pressure (90/60-120/80) 236/95 H 154/78 H Blood Pressure Mean (mm Hg) 142 103 Source Monitor Monitor Position Supine Blood Pressure Location Right Forearm History Since Last Visit- (Skip if this is Patient's initial visit) Have you changed medications since your No No last visit? Any new allergies or adverse reactions No No Had a fall/change in ADL's that may No No increase risk of falls Signs or symptoms of abuse and/or No No neglect since last visit Have you been in the hospital since your No No last visit? Has dressing in place as prescribed Yes Yes Has compression in place as prescribed Yes Yes Has offloadiing in place as prescribed N/A N/A Experienced any changes in pain level or No No management Left Footwear Regular Shoe Right Footwear Regular Shoe Pain Scale: 0-10 Numeric Is Patient Pain Free? Yes Yes WC - Nurse 1 - General Ulcer Measurement Start: 09/16/22 13:08 Freq: Status: Active Protocol: Activity Type Activity Date Activity User E-sign Co-sign Detail Recorded Client Recorded Date Recorded By Document 09/16/22 13:08 DL [id number] 09/16/22 13:21 DL Document 09/18/22 11:29 BM [id number] 09/18/22 11:42 BMF 09/16/22 09/18/22 13:08 11:29 Wound Center Nurse 1 3-left posterior calf -Combined with other wound No -Current Size (cm) - Length 0.1 -Current Size (cm) - Width 0.1 -Current Size (cm) - Depth 0.1 -Total Square Cm 0.01 -Epithelialization Large 67-100% -Exudate Amt Small -Exudate Type Serosanguineous -Texture (Maryuri-wound Skin Appearance) Scarring Assessed, Scarring -Moisture (Maryuri-wound Skin Appearance) Dry/Scaly Assessed,Dry/ Scaly -Color (Maryuri-wound Skin Appearance) Hemosiderin Assessed Staining -Temperature (Maryuri-wound Skin No Abnormality No Abnormality Appearance) (Pt Warm) (Pt Warm) -Tenderness on Palpation (Maryuri-wound No No Skin Appearance) -Ulcer Cleansing Soap and Water Soap and Water -Foul Odor after Cleansing No 2-left sumner -Combined with other wound No -Current Size (cm) - Length 1.5 -Current Size (cm) - Width 11.2 -Current Size (cm) - Depth 0.1 -Total Square Cm 16.80 -Photo Taken No -Epithelialization Small 1-33% -Tunneling No -Undermining/Tunneling No -Circular Undermining No -Exudate Amt Small Medium -Exudate Type Serosanguineous Serous -Wound Margin Flat & Intact -Granulation Amt Large (67-100%) -Granulation Quality Red -Slough/Fibrin Yes -Necrosis Amt Small (1-33%) -Necrotic Tissue Type Adherent Slough -Structure Exposed N/A -Texture (Maryuri-wound Skin Appearance) Scarring Assessed, Scarring -Moisture (Maryuri-wound Skin Appearance) Dry/Scaly Assessed,Dry/ Scaly -Color (Maryuri-wound Skin Appearance) Hemosiderin Assessed Staining -Temperature (Maryuri-wound Skin No Abnormality No Abnormality Appearance) (Pt Warm) (Pt Warm) -Tenderness on Palpation (Maryuri-wound No No Skin Appearance) -Ulcer Cleansing Soap and Water Soap and Water -Foul Odor after Cleansing No No -Anesthetic Used 4% Lidocaine Solution 1-right Cluster leg -Combined with other wound No -Current Size (cm) - Length 2.6 -Current Size (cm) - Width 4 -Current Size (cm) - Depth 0.1 -Total Square Cm 10.4 -Epithelialization Small 1-33% -Tunneling No -Undermining/Tunneling No -Circular Undermining No -Exudate Amt Small Medium -Exudate Type Serosanguineous Serosanguineous -Wound Margin Flat & Intact -Granulation Amt Large (67-100%) -Granulation Quality Red -Slough/Fibrin Yes -Necrosis Amt Small (1-33%) -Necrotic Tissue Type Adherent Slough -Texture (Maryuri-wound Skin Appearance) Scarring Assessed, Scarring -Moisture (Maryuri-wound Skin Appearance) Dry/Scaly Assessed,Dry/ Scaly -Color (Maryuri-wound Skin Appearance) Hemosiderin Assessed Staining -Temperature (Maryuri-wound Skin No Abnormality No Abnormality Appearance) (Pt Warm) (Pt Warm) -Tenderness on Palpation (Maryuri-wound No No Skin Appearance) -Ulcer Cleansing Soap and Water Soap and Water -Foul Odor after Cleansing No No -Anesthetic Used 4% Lidocaine Solution Lower Limb Edema Present Yes Right Calf (cm) 50 53.8 Right Ankle (cm) 30.2 29.5 Left Calf (cm) 69.5 62.8 Left Ankle (cm) 32 30.6 WC - Nurse 2 - General Ulcer CM Notes Start: 09/16/22 13:08 Freq: Status: Active Protocol: Activity Type Activity Date Activity User E-sign Co-sign Detail Recorded Client Recorded Date Recorded By Document 09/18/22 11:53 ACE [id number] 09/18/22 12:05 JF 09/18/22 11:53 Wound Center Nurse 2 3-left posterior calf -Time 11:54 -Correct Patient No -Correct Side, Site, Position No -Correct Procedure No -Procedure Performed No -Post Debridement (cm) - Length 0 -Post Debridement (cm) - Width 0 -Post Debridement (cm) - Depth 0 -Total Square (Post) (cm) 0 -Area of Debridement (cm) - Length 0 -Area of Debridement (cm) - Width 0 -Total Square (Area) (cm) 0 -Tunneling No -Undermining/Tunneling No -Circular Undermining No -Wound/Ulcer Outcome Healed- Epithelialized -Foul Odor after Cleansing No -Bioengineered Tissue No -Bleeding Controlled with NA -Treatment Response Procedure Tolerated Well -Offloading No -Debridement - Subq, 20sq cm No 4-right medial leg -Time 12:05 -Correct Patient Yes -Correct Side, Site, Position Yes -Correct Procedure Yes -Procedure Performed Yes -Type of Procedure Debridement -Clinical Debridement Subcutaneous -Tissue Removed Subcutaneous -Post Debridement (cm) - Length 0.5 -Post Debridement (cm) - Width 0.4 -Post Debridement (cm) - Depth 0.1 -Total Square (Post) (cm) 0.20 -Area of Debridement (cm) - Length 0.5 -Area of Debridement (cm) - Width 0.4 -Total Square (Area) (cm) 0.20 -Tunneling No -Undermining/Tunneling No -Circular Undermining No -Wound/Ulcer Outcome Not Healed -Ulcer Cleansing Rinsed/ Irrigated with Saline -Foul Odor after Cleansing No -Bioengineered Tissue No -Bleeding Controlled with Pressure -Treatment Response Procedure Tolerated Well -Offloading No -Debridement - Subq, 20sq cm No 2-left sumner -Time 11:56 -Correct Patient Yes -Correct Side, Site, Position Yes -Correct Procedure Yes -Procedure Performed Yes -Type of Procedure Debridement -Clinical Debridement Subcutaneous -Tissue Removed Subcutaneous -Post Debridement (cm) - Length 1.2 -Post Debridement (cm) - Width 1.4 -Post Debridement (cm) - Depth 0.1 -Total Square (Post) (cm) 1.68 -Area of Debridement (cm) - Length 1.2 -Area of Debridement (cm) - Width 1.4 -Total Square (Area) (cm) 1.68 -Tunneling No -Undermining/Tunneling No -Circular Undermining No -Wound/Ulcer Outcome Not Healed -Ulcer Cleansing Rinsed/ Irrigated with Saline -Foul Odor after Cleansing No -Bioengineered Tissue No -Bleeding Controlled with Pressure -Treatment Response Procedure Tolerated Well -Offloading No -Debridement - Subq, 1st 20sq cm Yes 1-right Cluster leg -Time 11:57 -Correct Patient Yes -Correct Side, Site, Position Yes -Correct Procedure Yes -Procedure Performed Yes -Type of Procedure Debridement -Clinical Debridement Subcutaneous -Tissue Removed Subcutaneous -Post Debridement (cm) - Length 3.6 -Post Debridement (cm) - Width 2.2 -Post Debridement (cm) - Depth 0.1 -Total Square (Post) (cm) 7.92 -Area of Debridement (cm) - Length 3.6 -Area of Debridement (cm) - Width 2.2 -Total Square (Area) (cm) 7.92 -Tunneling No -Undermining/Tunneling No -Circular Undermining No -Wound/Ulcer Outcome Not Healed -Ulcer Cleansing Rinsed/ Irrigated with Saline -Foul Odor after Cleansing No -Bioengineered Tissue No -Bleeding Controlled with Pressure -Treatment Response Procedure Tolerated Well -Offloading No -Debridement - Subq, 1st 20sq cm No Pain Scale: 0-10 Numeric Is Patient Pain Free? Yes WC - Nurse 3 - General Ulcer D/C NN Start: 09/16/22 13:08 Freq: Status: Active Protocol: Activity Type Activity Date Activity User E-sign Co-sign Detail Recorded Client Recorded Date Recorded By Document 09/16/22 13:08 DL [id number] 09/16/22 13:21 DL Document 09/16/22 13:34 MW [id number] 09/16/22 13:36 MW Document 09/18/22 12:11 [facility] [id number] 09/18/22 12:13 BMF 09/16/22 09/16/22 09/18/22 13:08 13:34 12:11 Vital Signs Temperature (97.8 F-99.1 F) 97.5 F L Temperature Source Temporal Pulse Rate (60-100) 55 L 52 L Pulse Location Monitor Monitor Respiratory Rate (12-18) 24 H Respiratory rate source Observation Blood Pressure (90/60-120/80) 236/95 H 196/84 H Blood Pressure Mean (mm Hg) 142 121 Source Monitor Monitor Position Sitting Blood Pressure Location Left Forearm Pain Scale: 0-10 Numeric Is Patient Pain Free? Yes Yes Yes Wound Care Center Nurse 3 3-left posterior calf -Ulcer Cleansing Soap and Water -Foul Odor after Cleansing No -Primary Dressing Applied Aquacel AG 4x4 -Primary Dressing Covered/Secured with Dry Gauze -Aquacel AG 4x4 1 4-right medial leg -Ulcer Cleansing Rinsed/ Irrigated with Saline -Foul Odor after Cleansing No -Primary Dressing Applied Aquacel AG 4x4 -Other Dressing PER PL RN -Primary Dressing Covered/Secured with Dry Gauze -Aquacel AG 4x4 1 2-left sumner -Ulcer Cleansing Soap and Water Rinsed/ Irrigated with Saline -Foul Odor after Cleansing No No -Primary Dressing Applied Aquacel AG 4x4 -Other Dressing aquacel ag PER PL RN -Primary Dressing Covered/Secured with Dry Gauze Dry Gauze -Aquacel AG 4x4 0 1-right Cluster leg -Ulcer Cleansing Soap and Water Rinsed/ Irrigated with Saline -Foul Odor after Cleansing No No -Primary Dressing Applied Aquacel AG 4x4 -Other Dressing aquacel ag PER PL RN -Primary Dressing Covered/Secured with Dry Gauze Dry Gauze -Aquacel AG 4x4 0 van -Multi-Layered Wrap Application Multi-Layer Multi-Layer Comp - Bilat ($ Comp - Bilat ($ ) ) -Other PER PL RN Treatment Response Procedure Procedure Tolerated Well Tolerated Well WC - Visit Discharge Discharge Condition Stable Stable Stable Ambulatory Status Ambulatory, Walker Ambulatory, Walker Walker Transportation Private Auto Private Auto Private Auto Accompanied by daughter AIMEE Notes: Blood pressure rechecked after 3M2L wraps applied. Denies any S/S hypertension. Assessment/Plan Assessment/Plan (1) Non-pressure chronic ulcer of right calf with fat layer exposed: CODE(S): L97.212 - Non-pressure chronic ulcer of right calf with fat layer exposed (2) Non-pressure chronic ulcer of left calf with fat layer exposed: CODE(S): L97.222 - Non-pressure chronic ulcer of left calf with fat layer exposed (3) Type 2 diabetes mellitus without complications: CODE(S): E11.9 - Type 2 diabetes mellitus without complications (4) Lymphedema: CODE(S): I89.0 - Lymphedema, not elsewhere classified (5) Morbid obesity with BMI of 70 and over, adult: CODE(S): E66.01 - Morbid (severe) obesity due to excess calories; Z68.45 - Body mass index [BMI] 70 or greater, adult (6) General weakness: CODE(S): R53.1 - Weakness PLAN: Plan Patient seen and evaluated Left lower extremity wounds: Healed today Right lower extremity wounds: Healed today Sites demonstrate no signs of infection Legs were dressed with 3M compression wrap applied to bilateral lower extremities.? She was instructed to not get the 3M compression wrap wet and to cover with cast bag when showering. Discussed continued elevation of lower extremities to assist in edema control. Encouraged lifestyle modification of diet and exercise.? Discussed continuing diabetic diet to assist in controlling blood sugar level.? Last A1c 6%. She will return for nurse visit next week for to change the 3M compression wrap. Discussed seeing her in 2 weeks to ensure sites remain healed and at that time if all healed she may be discharged from the wound center. Discussed continued compression to aid in wound healing.? Recommend compression stockings appropriately measured to leg once edema resolved for long-term edema control. Discussed signs and symptoms of infection.? Discussed if she experiences any increasing redness about the wound sites moving up the leg, purulent drainage from the wound sites, increasing foul odor, or if she experiences any fever greater than 101 degree, nausea, vomiting, chills that these are signs of a progressing infection and she needs to report to the ED.? Patient voices understanding of this. The following work up and care recommendations were made: DressinM compression wrap bilateral leg Wash: Do not get wet Tissue growth optimization: None Offload: 3M compression wrap bilateral Vascular: Weakly palpable pulses secondary to pedal edema however DP and PT pulses triphasic on Doppler. Edema: Bilateral lower extremity edema secondary to chronic venous stasis/insufficiency and lymphedema continue to elevate lower extremities at all times of rest.? 3M compression wrap have been applied bilateral Infection: No signs of infection Pain: May take [id number] Tylenol extra strength for discomfort Host factors: DM type II, chronic venous stasis/insufficiency, lymphedema ? I answered all the patient's questions.? To return to the wound healing center in 2 week or call sooner if the patient has any questions or concerns.
--- NOTE | 2022-10-02 08:18 | PCM.WC.PN ---
History of Present Illness Chief Complaint: Bilateral lower extremity wounds and blisters History of Wound: Patient is a 76-year-old female with PMHx of excision of melanoma from the left arm, HTN, morbid obesity, lymphedema, DM type II, bullous pemphigoid. She states she will be following with dermatology for continued skin examination due to history of melanoma. She recently developed multiple sites of blister to both lower extremities which has ruptured leaking yellow serous fluid. She denies recent cellulitis to the lower extremities. Daughter states they recently developed over the last week or 2 and did discuss with her PCP. She was referred to the wound care center for care of multiple lower extremity wounds with blisters. Patient is morbidly obese however is trying to move more and is able to walk. Patient is diabetic with last A1c 6.0%, denies taking medication. Patient denies N/V/F/chills. She denies pain to the lower extremities today. Subjective Subjective This is a 76-year-old female who presents to the wound care center today for a follow-up of multiple bilateral lower extremity wounds secondary to lymphedema.? She states compression dressings are staying in place better.? She feels that her wounds have healed today.? She denies constitutional symptoms today.? Denies further complaints today. Objective Data Objective Data Vital Signs: Vital Signs Temp Pulse Resp BP O2 Del Method 97.0 F L 57 L 18 154/78 H Room Air 09/25/22 11:20 09/18/22 11:29 09/25/22 11:20 09/18/22 11:29 09/18/22 11:29 Oxygen Delivery Method Room Air Weight: 165.108 kg Body Mass Index (BMI) 66.5 Physical Exam Const alert, oriented x3, no apparent distress and well nourished General Appearance: cooperative HEENT normocephalic Eyes General Eye: normal appearance of both eyes Neck General: normal visual inspection Lymph Lymphatic: no lymphadenopathy noted and no lymphedema noted Resp normal respiratory effort Cardio regular rate and regular rhythm Extremity normal capillary refill, no joint enlargement, no calf tenderness and no pedal edema Extremity Narrative: DP and PT pulses weakly palpable secondary to edema bilateral.? Triphasic DP and PT on Doppler bilateral.? Capillary fill time less than 4 seconds to the digits bilateral. Musculoskeletal: Muscle strength 5 of 5 and age-appropriate.? No pain to palpation to bones of the foot or ankle Dermatological: There is multiple areas of previous serous filled bulla that have healed.? Chronic areas of rubor secondary to lymphedema and chronic venous stasis/insufficiency and bullous pemphigoid.? No signs of infection. Skin no rashes or lesions noted, skin turgor normal and no jaundice Neuro moves all extremities Debridement Note Debridement Note Post-Debridement Measurements and Additional Note: Post-Debridement Measurements/Treatment - Nurse 1 - General Ulcer Assessment Start: 09/16/22 13:08 Freq: Status: Active Protocol: NETTIE Activity Type Activity Date Activity User E-sign Co-sign Detail Recorded Client Recorded Date Recorded By Document 09/16/22 13:08 DL [id number] 09/16/22 13:21 DL Document 09/18/22 11:29 [facility] [id number] 09/18/22 11:42 BM Document 09/25/22 11:20 [facility] [id number] 09/25/22 11:27 BM 09/16/22 09/18/22 09/25/22 13:08 11:29 11:20 - Today's Visit Information Type of service Nurse-only Follow-up Visit Follow-up Visit Visit (Physician/ASSISTANT QUALITY MANAGER (Physician/ASSISTANT QUALITY MANAGER ) ) Arrival Mode Ambulatory, Ambulatory, Ambulatory, Walker Walker Walker Transfer Assistance None None Accompanied by AIMEE Patient Identification Verified (Name & Yes No Yes ) Patient Requires Transmission-Based No No No Precautions Finger Stick Blood Sugar(mg/dl) (if 110 indicated): Blood Sugar Stated by Patient Height and Weight Body Mass Index (BMI) 66.5 66.5 66.5 BMI Classification Obese Obese Obese Vital Signs Temperature (97.8 F-99.1 F) 97.5 F L 97.4 F L 97.0 F L Temperature Source Temporal Temporal Temporal Pulse Rate (60-100) 55 L 57 L Pulse Location Monitor Monitor Respiratory Rate (12-18) 24 H 18 18 Respiratory rate source Observation Observation Observation Oxygen Delivery Method Room Air Blood Pressure (90/60-120/80) 236/95 H 154/78 H Blood Pressure Mean (mm Hg) 142 103 Source Monitor Monitor Position Supine Blood Pressure Location Right Forearm History Since Last Visit- (Skip if this is Patient's initial visit) Have you changed medications since your No No Yes last visit? Any new allergies or adverse reactions No No No Had a fall/change in ADL's that may No No No increase risk of falls Signs or symptoms of abuse and/or No No No neglect since last visit Have you been in the hospital since your No No No last visit? Has dressing in place as prescribed Yes Yes Yes Has compression in place as prescribed Yes Yes Yes Has offloadiing in place as prescribed N/A N/A N/A Experienced any changes in pain level or No No No management Left Footwear Regular Shoe Slipper Right Footwear Regular Shoe Slipper Pain Scale: 0-10 Numeric Is Patient Pain Free? Yes Yes Yes WC - Nurse 1 - General Ulcer Measurement Start: 09/16/22 13:08 Freq: Status: Active Protocol: Activity Type Activity Date Activity User E-sign Co-sign Detail Recorded Client Recorded Date Recorded By Document 09/16/22 13:08 DL [id number] 09/16/22 13:21 DL Document 09/18/22 11:29 [facility] [id number] 09/18/22 11:42 [facility] Document 09/25/22 11:20 [facility] [id number] 09/25/22 11:27 [facility] 09/16/22 09/18/22 09/25/22 13:08 11:29 11:20 Wound Center Nurse 1 4-right medial leg -Combined with other wound No -Current Size (cm) - Length 0.1 -Current Size (cm) - Width 0.1 -Current Size (cm) - Depth 0.1 -Total Square Cm 0.01 -Photo Taken Yes -Epithelialization Large 67-100% -Tunneling No -Undermining/Tunneling No -Circular Undermining No -Wound Margin Indistinct, Non -Visible -Granulation Amt None Present (0 %) -Slough/Fibrin No -Structure Exposed N/A -Texture (Maryuri-wound Skin Appearance) Assessed, Localized Edema -Moisture (Maryuri-wound Skin Appearance) Assessed,Dry/ Scaly -Color (Maryuri-wound Skin Appearance) Assessed -Temperature (Maryuri-wound Skin No Abnormality Appearance) (Pt Warm) -Tenderness on Palpation (Maryuri-wound No Skin Appearance) -Ulcer Cleansing Wound Cleanser -Foul Odor after Cleansing No 3-left posterior calf -Combined with other wound No -Current Size (cm) - Length 0.1 -Current Size (cm) - Width 0.1 -Current Size (cm) - Depth 0.1 -Total Square Cm 0.01 -Epithelialization Large 67-100% -Exudate Amt Small -Exudate Type Serosanguineous -Texture (Maryuri-wound Skin Appearance) Scarring Assessed, Scarring -Moisture (Maryuri-wound Skin Appearance) Dry/Scaly Assessed,Dry/ Scaly -Color (Maryuri-wound Skin Appearance) Hemosiderin Assessed Staining -Temperature (Maryuri-wound Skin No Abnormality No Abnormality Appearance) (Pt Warm) (Pt Warm) -Tenderness on Palpation (Maryuri-wound No No Skin Appearance) -Ulcer Cleansing Soap and Water Soap and Water -Foul Odor after Cleansing No 2-left sumner -Combined with other wound No No -Current Size (cm) - Length 1.5 0 -Current Size (cm) - Width 11.2 0 -Current Size (cm) - Depth 0.1 0 -Total Square Cm 16.80 0 -Photo Taken No Yes -Epithelialization Small 1-33% Large 67-100% -Tunneling No No -Undermining/Tunneling No No -Circular Undermining No No -Exudate Amt Small Medium None Present -Exudate Type Serosanguineous Serous -Wound Margin Flat & Intact Flat & Intact -Granulation Amt Large (67-100%) None Present (0 %) -Granulation Quality Red -Slough/Fibrin Yes No -Necrosis Amt Small (1-33%) None Present (0 %) -Necrotic Tissue Type Adherent Slough -Structure Exposed N/A N/A -Texture (Maryuri-wound Skin Appearance) Scarring Assessed, Assessed, Scarring Localized Edema -Moisture (Maryuri-wound Skin Appearance) Dry/Scaly Assessed,Dry/ Assessed,Dry/ Scaly Scaly -Color (Maryuri-wound Skin Appearance) Hemosiderin Assessed Assessed Staining -Temperature (Maryuri-wound Skin No Abnormality No Abnormality No Abnormality Appearance) (Pt Warm) (Pt Warm) (Pt Warm) -Tenderness on Palpation (Maryuri-wound No No No Skin Appearance) -Ulcer Cleansing Soap and Water Soap and Water Wound Cleanser -Foul Odor after Cleansing No No No -Anesthetic Used 4% Lidocaine Solution 1-right Cluster leg -Combined with other wound No No -Current Size (cm) - Length 2.6 0.1 -Current Size (cm) - Width 4 0.1 -Current Size (cm) - Depth 0.1 0.1 -Total Square Cm 10.4 0.01 -Photo Taken Yes -Epithelialization Small 1-33% Large 67-100% -Tunneling No No -Undermining/Tunneling No No -Circular Undermining No No -Exudate Amt Small Medium -Exudate Type Serosanguineous Serosanguineous -Wound Margin Flat & Intact -Granulation Amt Large (67-100%) None Present (0 %) -Granulation Quality Red -Slough/Fibrin Yes No -Necrosis Amt Small (1-33%) -Necrotic Tissue Type Adherent Slough -Structure Exposed N/A -Texture (Maryuri-wound Skin Appearance) Scarring Assessed, Assessed, Scarring Localized Edema -Moisture (Maryuri-wound Skin Appearance) Dry/Scaly Assessed,Dry/ Assessed,Dry/ Scaly Scaly -Color (Maryuri-wound Skin Appearance) Hemosiderin Assessed Assessed Staining -Temperature (Maryuri-wound Skin No Abnormality No Abnormality No Abnormality Appearance) (Pt Warm) (Pt Warm) (Pt Warm) -Tenderness on Palpation (Maryuri-wound No No No Skin Appearance) -Ulcer Cleansing Soap and Water Soap and Water Wound Cleanser -Foul Odor after Cleansing No No No -Anesthetic Used 4% Lidocaine Solution Lower Limb Edema Present Yes Yes Right Calf (cm) 50 53.8 57.6 Right Ankle (cm) 30.2 29.5 28.9 Left Calf (cm) 69.5 62.8 58.4 Left Ankle (cm) 32 30.6 30.0 WC - Nurse 2 - General Ulcer CM Notes Start: 09/16/22 13:08 Freq: Status: Active Protocol: Activity Type Activity Date Activity User E-sign Co-sign Detail Recorded Client Recorded Date Recorded By Document 09/18/22 11:53 ACE [id number] 09/18/22 12:05 09/18/22 11:53 Wound Center Nurse 2 4-right medial leg -Time 12:05 -Correct Patient Yes -Correct Side, Site, Position Yes -Correct Procedure Yes -Procedure Performed Yes -Type of Procedure Debridement -Clinical Debridement Subcutaneous -Tissue Removed Subcutaneous -Post Debridement (cm) - Length 0.5 -Post Debridement (cm) - Width 0.4 -Post Debridement (cm) - Depth 0.1 -Total Square (Post) (cm) 0.20 -Area of Debridement (cm) - Length 0.5 -Area of Debridement (cm) - Width 0.4 -Total Square (Area) (cm) 0.20 -Tunneling No -Undermining/Tunneling No -Circular Undermining No -Wound/Ulcer Outcome Not Healed -Ulcer Cleansing Rinsed/ Irrigated with Saline -Foul Odor after Cleansing No -Bioengineered Tissue No -Bleeding Controlled with Pressure -Treatment Response Procedure Tolerated Well -Offloading No -Debridement - Subq, 20sq cm No 3-left posterior calf -Time 11:54 -Correct Patient No -Correct Side, Site, Position No -Correct Procedure No -Procedure Performed No -Post Debridement (cm) - Length 0 -Post Debridement (cm) - Width 0 -Post Debridement (cm) - Depth 0 -Total Square (Post) (cm) 0 -Area of Debridement (cm) - Length 0 -Area of Debridement (cm) - Width 0 -Total Square (Area) (cm) 0 -Tunneling No -Undermining/Tunneling No -Circular Undermining No -Wound/Ulcer Outcome Healed- Epithelialized -Foul Odor after Cleansing No -Bioengineered Tissue No -Bleeding Controlled with NA -Treatment Response Procedure Tolerated Well -Offloading No -Debridement - Subq, 20sq cm No 2-left sumner -Time 11:56 -Correct Patient Yes -Correct Side, Site, Position Yes -Correct Procedure Yes -Procedure Performed Yes -Type of Procedure Debridement -Clinical Debridement Subcutaneous -Tissue Removed Subcutaneous -Post Debridement (cm) - Length 1.2 -Post Debridement (cm) - Width 1.4 -Post Debridement (cm) - Depth 0.1 -Total Square (Post) (cm) 1.68 -Area of Debridement (cm) - Length 1.2 -Area of Debridement (cm) - Width 1.4 -Total Square (Area) (cm) 1.68 -Tunneling No -Undermining/Tunneling No -Circular Undermining No -Wound/Ulcer Outcome Not Healed -Ulcer Cleansing Rinsed/ Irrigated with Saline -Foul Odor after Cleansing No -Bioengineered Tissue No -Bleeding Controlled with Pressure -Treatment Response Procedure Tolerated Well -Offloading No -Debridement - Subq, 1st 20sq cm Yes 1-right Cluster leg -Time 11:57 -Correct Patient Yes -Correct Side, Site, Position Yes -Correct Procedure Yes -Procedure Performed Yes -Type of Procedure Debridement -Clinical Debridement Subcutaneous -Tissue Removed Subcutaneous -Post Debridement (cm) - Length 3.6 -Post Debridement (cm) - Width 2.2 -Post Debridement (cm) - Depth 0.1 -Total Square (Post) (cm) 7.92 -Area of Debridement (cm) - Length 3.6 -Area of Debridement (cm) - Width 2.2 -Total Square (Area) (cm) 7.92 -Tunneling No -Undermining/Tunneling No -Circular Undermining No -Wound/Ulcer Outcome Not Healed -Ulcer Cleansing Rinsed/ Irrigated with Saline -Foul Odor after Cleansing No -Bioengineered Tissue No -Bleeding Controlled with Pressure -Treatment Response Procedure Tolerated Well -Offloading No -Debridement - Subq, 1st 20sq cm No Pain Scale: 0-10 Numeric Is Patient Pain Free? Yes WC - Nurse 3 - General Ulcer D/C NN Start: 09/16/22 13:08 Freq: Status: Active Protocol: Activity Type Activity Date Activity User E-sign Co-sign Detail Recorded Client Recorded Date Recorded By Document 09/16/22 13:08 DL [id number] 09/16/22 13:21 DL Document 09/16/22 13:34 MW [id number] 09/16/22 13:36 MW Document 09/18/22 12:11 [facility] [id number] 09/18/22 12:13 [facility] Document 09/25/22 11:42 [id number] 09/25/22 11:42 09/16/22 09/16/22 09/18/22 13:08 13:34 12:11 Vital Signs Temperature (97.8 F-99.1 F) 97.5 F L Temperature Source Temporal Pulse Rate (60-100) 55 L 52 L Pulse Location Monitor Monitor Respiratory Rate (12-18) 24 H Respiratory rate source Observation Blood Pressure (90/60-120/80) 236/95 H 196/84 H Blood Pressure Mean (mm Hg) 142 121 Source Monitor Monitor Position Sitting Blood Pressure Location Left Forearm Pain Scale: 0-10 Numeric Is Patient Pain Free? Yes Yes Yes Wound Care Center Nurse 3 4-right medial leg -Ulcer Cleansing Rinsed/ Irrigated with Saline -Foul Odor after Cleansing No -Primary Dressing Applied Aquacel AG 4x4 -Other Dressing PER PL RN -Primary Dressing Covered/Secured with Dry Gauze -Aquacel AG 4x4 1 3-left posterior calf -Ulcer Cleansing Soap and Water -Foul Odor after Cleansing No -Primary Dressing Applied Aquacel AG 4x4 -Primary Dressing Covered/Secured with Dry Gauze -Aquacel AG 4x4 1 2-left sumner -Ulcer Cleansing Soap and Water Rinsed/ Irrigated with Saline -Foul Odor after Cleansing No No -Primary Dressing Applied Aquacel AG 4x4 -Other Dressing aquacel ag PER PL RN -Primary Dressing Covered/Secured with Dry Gauze Dry Gauze -Aquacel AG 4x4 0 1-right Cluster leg -Ulcer Cleansing Soap and Water Rinsed/ Irrigated with Saline -Foul Odor after Cleansing No No -Primary Dressing Applied Aquacel AG 4x4 -Other Dressing aquacel ag PER PL RN -Primary Dressing Covered/Secured with Dry Gauze Dry Gauze -Aquacel AG 4x4 0 van -Lotion applied to leg before compression wrap -Multi-Layered Wrap Application Multi-Layer Multi-Layer Comp - Bilat ($ Comp - Bilat ($ ) ) -Other PER PL RN Treatment Response Procedure Procedure Tolerated Well Tolerated Well WC - Visit Discharge Discharge Condition Stable Stable Stable Ambulatory Status Ambulatory, Walker Ambulatory, Walker Walker Transportation Private Auto Private Auto Private Auto Accompanied by daughter AIMEE Medication Reconcilliation completed & provided to patient/care provider Clinical Summary of Care Provided Notes: Blood pressure rechecked after 3M2L wraps applied. Denies any S/S hypertension. 09/25/22 11:42 Vital Signs Temperature (97.8 F-99.1 F) Temperature Source Pulse Rate (60-100) Pulse Location Respiratory Rate (12-18) Respiratory rate source Blood Pressure (90/60-120/80) Blood Pressure Mean (mm Hg) Source Position Blood Pressure Location Pain Scale: 0-10 Numeric Is Patient Pain Free? Yes Wound Care Center Nurse 3 4-right medial leg -Ulcer Cleansing -Foul Odor after Cleansing -Primary Dressing Applied -Other Dressing -Primary Dressing Covered/Secured with -Aquacel AG 4x4 3-left posterior calf -Ulcer Cleansing -Foul Odor after Cleansing -Primary Dressing Applied -Primary Dressing Covered/Secured with -Aquacel AG 4x4 2-left sumner -Ulcer Cleansing -Foul Odor after Cleansing -Primary Dressing Applied -Other Dressing -Primary Dressing Covered/Secured with -Aquacel AG 4x4 1-right Cluster leg -Ulcer Cleansing -Foul Odor after Cleansing -Primary Dressing Applied -Other Dressing -Primary Dressing Covered/Secured with -Aquacel AG 4x4 van -Lotion applied to leg before Yes compression wrap -Multi-Layered Wrap Application Multi-Layer Comp - Bilat ($ ) -Other Treatment Response WC - Visit Discharge Discharge Condition Stable Ambulatory Status Ambulatory, Walker Transportation Private Auto Accompanied by daughter Medication Reconcilliation completed & Yes provided to patient/care provider Clinical Summary of Care Provided Yes Notes: Assessment/Plan Assessment/Plan (1) Non-pressure chronic ulcer of right calf with fat layer exposed: CODE(S): L97.212 - Non-pressure chronic ulcer of right calf with fat layer exposed (2) Non-pressure chronic ulcer of left calf with fat layer exposed: CODE(S): L97.222 - Non-pressure chronic ulcer of left calf with fat layer exposed (3) Type 2 diabetes mellitus without complications: CODE(S): E11.9 - Type 2 diabetes mellitus without complications (4) Lymphedema: CODE(S): I89.0 - Lymphedema, not elsewhere classified (5) Morbid obesity with BMI of 70 and over, adult: CODE(S): E66.01 - Morbid (severe) obesity due to excess calories; Z68.45 - Body mass index [BMI] 70 or greater, adult (6) General weakness: CODE(S): R53.1 - Weakness PLAN: Plan Patient seen and evaluated Left lower extremity wounds: Healed today Right lower extremity wounds: Healed today Sites demonstrate no signs of infection Legs were dressed with 3M compression wrap applied to bilateral lower extremities.? She was instructed to not get the 3M compression wrap wet and to cover with cast bag when showering. Discussed continued elevation of lower extremities to assist in edema control. Encouraged lifestyle modification of diet and exercise.? Discussed continuing diabetic diet to assist in controlling blood sugar level.? Last A1c 6%. She will return for nurse visit next week for to change the 3M compression wrap. Discussed seeing her in 2 weeks to ensure sites remain healed and at that time if all healed she may be discharged from the wound center. Discussed continued compression to aid in wound healing.? Recommend compression stockings appropriately measured to leg once edema resolved for long-term edema control. Discussed signs and symptoms of infection.? Discussed if she experiences any increasing redness about the wound sites moving up the leg, purulent drainage from the wound sites, increasing foul odor, or if she experiences any fever greater than 101 degree, nausea, vomiting, chills that these are signs of a progressing infection and she needs to report to the ED.? Patient voices understanding of this. The following work up and care recommendations were made: DressinM compression wrap bilateral leg Wash: Do not get wet Tissue growth optimization: None Offload: 3M compression wrap bilateral Vascular: Weakly palpable pulses secondary to pedal edema however DP and PT pulses triphasic on Doppler. Edema: Bilateral lower extremity edema secondary to chronic venous stasis/insufficiency and lymphedema continue to elevate lower extremities at all times of rest.? 3M compression wrap have been applied bilateral Infection: No signs of infection Pain: May take [id number] Tylenol extra strength for discomfort Host factors: DM type II, chronic venous stasis/insufficiency, lymphedema ? I answered all the patient's questions.? To return to the wound healing center in 2 week or call sooner if the patient has any questions or concerns.
[2022-10-09 10:56] VITALS: BP 161/82; PULSE 68; RESP 18; TEMP 36; BMI 66.5
--- NOTE | 2022-10-09 11:03 | PN.PCM_ITS ---
History of Present Illness Date of Service: 10/09/22 Chief Complaint: Bilateral lower extremity wounds and blisters History of Wound: Patient is a 76-year-old female with PMHx of excision of melanoma from the left arm, HTN, morbid obesity, lymphedema, DM type II, bullous pemphigoid. She states she will be following with dermatology for continued skin examination due to history of melanoma. She recently developed multiple sites of blister to both lower extremities which has ruptured leaking yellow serous fluid. She denies recent cellulitis to the lower extremities. Daughter states they recently developed over the last week or 2 and did discuss with her PCP. She was referred to the wound care center for care of multiple lower extremity wounds with blisters. Patient is morbidly obese however is trying to move more and is able to walk. Patient is diabetic with last A1c 6.0%, denies taking medication. Patient denies N/V/F/chills. She denies pain to the lower extremities today. Subjective Subjective This is a 76-year-old female who presents to the wound care center today for a follow-up of multiple bilateral lower extremity wounds secondary to lymphedema.? States she has opened up several new blister sites. States her previous biopsy revealed bullous pemphigoid. She denies constitutional symptoms today.? Denies further complaints today. Objective Data Objective Data Vital Signs: Vital Signs Temp Pulse Resp BP O2 Del Method 97.0 F L 57 L 18 154/78 H Room Air 09/25/22 11:20 09/18/22 11:29 09/25/22 11:20 09/18/22 11:29 09/18/22 11:29 Oxygen Delivery Method Room Air Weight: 165.108 kg Body Mass Index (BMI) 66.5 Physical Exam Const alert, oriented x3, no apparent distress and well nourished General Appearance: cooperative HEENT normocephalic Eyes General Eye: normal appearance of both eyes Neck General: normal visual inspection Lymph Lymphatic: no lymphadenopathy noted and no lymphedema noted Resp normal respiratory effort Cardio regular rate and regular rhythm Extremity normal capillary refill, no joint enlargement, no calf tenderness and no pedal edema Extremity Narrative: DP and PT pulses weakly palpable secondary to edema bilateral.? Triphasic DP and PT on Doppler bilateral.? Capillary fill time less than 4 seconds to the digits bilateral. Musculoskeletal: Muscle strength 5 of 5 and age-appropriate.? No pain to palpation to bones of the foot or ankle Dermatological: There is multiple areas of serous filled bulla to the right lower extremity and 1 to the anterior left lower extremity.? Chronic areas of rubor secondary to lymphedema and chronic venous stasis/insufficiency and bullous pemphigoid.? No signs of infection. Skin no rashes or lesions noted, skin turgor normal and no jaundice Neuro moves all extremities Debridement Note Debridement Note Wound debrided: Right lower extremity x6 Laterality: Right Wound Grade/Stage: Martin stage I Type of Debridement: Excisional debridement Anesthesia Used: 5% Lidocaine Gel Depth: Down to and including healthy tissue and in the subcutaneous layer Percentage of wound debrided: 100 Instrument Used: #15 blade and Forceps Tissue Removed: Fibrous, devitalized subcutaneous, biofilm, slough Severity: Fat Layer Exposed Amount of bleeding with debridement: Mild Bleeding Controlled with: Compression and gauze Patient tolerated procedure: Patient tolerated procedure well Post-Debridement Measurements and Additional Note: Post-Debridement Measurements/Treatment - Nurse 1 - General Ulcer Assessment Start: 09/16/22 13:08 Freq: Status: Active Protocol: NETTIE Activity Type Activity Date Activity User E-sign Co-sign Detail Recorded Client Recorded Date Recorded By Document 09/16/22 13:08 [id number] 09/16/22 13:21 Document 09/18/22 11:29 [facility] [id number] 09/18/22 11:42 [facility] Document 09/25/22 11:20 [facility] [id number] 09/25/22 11:27 [facility] 09/16/22 09/18/22 09/25/22 13:08 11:29 11:20 - Today's Visit Information Type of service Nurse-only Follow-up Visit Follow-up Visit Visit (Physician/OPERATIONS RESEARCH ENGINEER (Physician/OPERATIONS RESEARCH ENGINEER ) ) Arrival Mode Ambulatory, Ambulatory, Ambulatory, Walker Walker Walker Transfer Assistance None None Accompanied by AIMEE Patient Identification Verified (Name & Yes No Yes ) Patient Requires Transmission-Based No No No Precautions Finger Stick Blood Sugar(mg/dl) (if 110 indicated): Blood Sugar Stated by Patient Height and Weight Body Mass Index (BMI) 66.5 66.5 66.5 BMI Classification Obese Obese Obese Vital Signs Temperature (97.8 F-99.1 F) 97.5 F L 97.4 F L 97.0 F L Temperature Source Temporal Temporal Temporal Pulse Rate (60-100) 55 L 57 L Pulse Location Monitor Monitor Respiratory Rate (12-18) 24 H 18 18 Respiratory rate source Observation Observation Observation Oxygen Delivery Method Room Air Blood Pressure (90/60-120/80) 236/95 H 154/78 H Blood Pressure Mean (mm Hg) 142 103 Source Monitor Monitor Position Supine Blood Pressure Location Right Forearm History Since Last Visit- (Skip if this is Patient's initial visit) Have you changed medications since your No No Yes last visit? Any new allergies or adverse reactions No No No Had a fall/change in ADL's that may No No No increase risk of falls Signs or symptoms of abuse and/or No No No neglect since last visit Have you been in the hospital since your No No No last visit? Has dressing in place as prescribed Yes Yes Yes Has compression in place as prescribed Yes Yes Yes Has offloadiing in place as prescribed N/A N/A N/A Experienced any changes in pain level or No No No management Left Footwear Regular Shoe Slipper Right Footwear Regular Shoe Slipper Pain Scale: 0-10 Numeric Is Patient Pain Free? Yes Yes Yes WC - Nurse 1 - General Ulcer Measurement Start: 09/16/22 13:08 Freq: Status: Active Protocol: Activity Type Activity Date Activity User E-sign Co-sign Detail Recorded Client Recorded Date Recorded By Document 09/16/22 13:08 DL [id number] 09/16/22 13:21 DL Document 09/18/22 11:29 [facility] [id number] 09/18/22 11:42 [facility] Document 09/25/22 11:20 [facility] [id number] 09/25/22 11:27 F 09/16/22 09/18/22 09/25/22 13:08 11:29 11:20 Wound Center Nurse 1 4-right medial leg -Combined with other wound No -Current Size (cm) - Length 0.1 -Current Size (cm) - Width 0.1 -Current Size (cm) - Depth 0.1 -Total Square Cm 0.01 -Photo Taken Yes -Epithelialization Large 67-100% -Tunneling No -Undermining/Tunneling No -Circular Undermining No -Wound Margin Indistinct, Non -Visible -Granulation Amt None Present (0 %) -Slough/Fibrin No -Structure Exposed N/A -Texture (Maryuri-wound Skin Appearance) Assessed, Localized Edema -Moisture (Maryuri-wound Skin Appearance) Assessed,Dry/ Scaly -Color (Maryuri-wound Skin Appearance) Assessed -Temperature (Maryuri-wound Skin No Abnormality Appearance) (Pt Warm) -Tenderness on Palpation (Maryuri-wound No Skin Appearance) -Ulcer Cleansing Wound Cleanser -Foul Odor after Cleansing No 3-left posterior calf -Combined with other wound No -Current Size (cm) - Length 0.1 -Current Size (cm) - Width 0.1 -Current Size (cm) - Depth 0.1 -Total Square Cm 0.01 -Epithelialization Large 67-100% -Exudate Amt Small -Exudate Type Serosanguineous -Texture (Maryuri-wound Skin Appearance) Scarring Assessed, Scarring -Moisture (Maryuri-wound Skin Appearance) Dry/Scaly Assessed,Dry/ Scaly -Color (Maryuri-wound Skin Appearance) Hemosiderin Assessed Staining -Temperature (Maryuri-wound Skin No Abnormality No Abnormality Appearance) (Pt Warm) (Pt Warm) -Tenderness on Palpation (Maryuri-wound No No Skin Appearance) -Ulcer Cleansing Soap and Water Soap and Water -Foul Odor after Cleansing No 2-left sumner -Combined with other wound No No -Current Size (cm) - Length 1.5 0 -Current Size (cm) - Width 11.2 0 -Current Size (cm) - Depth 0.1 0 -Total Square Cm 16.80 0 -Photo Taken No Yes -Epithelialization Small 1-33% Large 67-100% -Tunneling No No -Undermining/Tunneling No No -Circular Undermining No No -Exudate Amt Small Medium None Present -Exudate Type Serosanguineous Serous -Wound Margin Flat & Intact Flat & Intact -Granulation Amt Large (67-100%) None Present (0 %) -Granulation Quality Red -Slough/Fibrin Yes No -Necrosis Amt Small (1-33%) None Present (0 %) -Necrotic Tissue Type Adherent Slough -Structure Exposed N/A N/A -Texture (Maryuri-wound Skin Appearance) Scarring Assessed, Assessed, Scarring Localized Edema -Moisture (Maryuri-wound Skin Appearance) Dry/Scaly Assessed,Dry/ Assessed,Dry/ Scaly Scaly -Color (Maryuri-wound Skin Appearance) Hemosiderin Assessed Assessed Staining -Temperature (Maryuri-wound Skin No Abnormality No Abnormality No Abnormality Appearance) (Pt Warm) (Pt Warm) (Pt Warm) -Tenderness on Palpation (Maryuri-wound No No No Skin Appearance) -Ulcer Cleansing Soap and Water Soap and Water Wound Cleanser -Foul Odor after Cleansing No No No -Anesthetic Used 4% Lidocaine Solution 1-right Cluster leg -Combined with other wound No No -Current Size (cm) - Length 2.6 0.1 -Current Size (cm) - Width 4 0.1 -Current Size (cm) - Depth 0.1 0.1 -Total Square Cm 10.4 0.01 -Photo Taken Yes -Epithelialization Small 1-33% Large 67-100% -Tunneling No No -Undermining/Tunneling No No -Circular Undermining No No -Exudate Amt Small Medium -Exudate Type Serosanguineous Serosanguineous -Wound Margin Flat & Intact -Granulation Amt Large (67-100%) None Present (0 %) -Granulation Quality Red -Slough/Fibrin Yes No -Necrosis Amt Small (1-33%) -Necrotic Tissue Type Adherent Slough -Structure Exposed N/A -Texture (Maryuri-wound Skin Appearance) Scarring Assessed, Assessed, Scarring Localized Edema -Moisture (Maryuri-wound Skin Appearance) Dry/Scaly Assessed,Dry/ Assessed,Dry/ Scaly Scaly -Color (Maryuri-wound Skin Appearance) Hemosiderin Assessed Assessed Staining -Temperature (Maryuri-wound Skin No Abnormality No Abnormality No Abnormality Appearance) (Pt Warm) (Pt Warm) (Pt Warm) -Tenderness on Palpation (Maryuri-wound No No No Skin Appearance) -Ulcer Cleansing Soap and Water Soap and Water Wound Cleanser -Foul Odor after Cleansing No No No -Anesthetic Used 4% Lidocaine Solution Lower Limb Edema Present Yes Yes Right Calf (cm) 50 53.8 57.6 Right Ankle (cm) 30.2 29.5 28.9 Left Calf (cm) 69.5 62.8 58.4 Left Ankle (cm) 32 30.6 30.0 WC - Nurse 2 - General Ulcer CM Notes Start: 09/16/22 13:08 Freq: Status: Active Protocol: Activity Type Activity Date Activity User E-sign Co-sign Detail Recorded Client Recorded Date Recorded By Document 09/18/22 11:53 ACE [id number] 09/18/22 12:05 ACE 09/18/22 11:53 Wound Center Nurse 2 4-right medial leg -Time 12:05 -Correct Patient Yes -Correct Side, Site, Position Yes -Correct Procedure Yes -Procedure Performed Yes -Type of Procedure Debridement -Clinical Debridement Subcutaneous -Tissue Removed Subcutaneous -Post Debridement (cm) - Length 0.5 -Post Debridement (cm) - Width 0.4 -Post Debridement (cm) - Depth 0.1 -Total Square (Post) (cm) 0.20 -Area of Debridement (cm) - Length 0.5 -Area of Debridement (cm) - Width 0.4 -Total Square (Area) (cm) 0.20 -Tunneling No -Undermining/Tunneling No -Circular Undermining No -Wound/Ulcer Outcome Not Healed -Ulcer Cleansing Rinsed/ Irrigated with Saline -Foul Odor after Cleansing No -Bioengineered Tissue No -Bleeding Controlled with Pressure -Treatment Response Procedure Tolerated Well -Offloading No -Debridement - Subq, 1st 20sq cm No 3-left posterior calf -Time 11:54 -Correct Patient No -Correct Side, Site, Position No -Correct Procedure No -Procedure Performed No -Post Debridement (cm) - Length 0 -Post Debridement (cm) - Width 0 -Post Debridement (cm) - Depth 0 -Total Square (Post) (cm) 0 -Area of Debridement (cm) - Length 0 -Area of Debridement (cm) - Width 0 -Total Square (Area) (cm) 0 -Tunneling No -Undermining/Tunneling No -Circular Undermining No -Wound/Ulcer Outcome Healed- Epithelialized -Foul Odor after Cleansing No -Bioengineered Tissue No -Bleeding Controlled with NA -Treatment Response Procedure Tolerated Well -Offloading No -Debridement - Subq, 1st 20sq cm No 2-left sumner -Time 11:56 -Correct Patient Yes -Correct Side, Site, Position Yes -Correct Procedure Yes -Procedure Performed Yes -Type of Procedure Debridement -Clinical Debridement Subcutaneous -Tissue Removed Subcutaneous -Post Debridement (cm) - Length 1.2 -Post Debridement (cm) - Width 1.4 -Post Debridement (cm) - Depth 0.1 -Total Square (Post) (cm) 1.68 -Area of Debridement (cm) - Length 1.2 -Area of Debridement (cm) - Width 1.4 -Total Square (Area) (cm) 1.68 -Tunneling No -Undermining/Tunneling No -Circular Undermining No -Wound/Ulcer Outcome Not Healed -Ulcer Cleansing Rinsed/ Irrigated with Saline -Foul Odor after Cleansing No -Bioengineered Tissue No -Bleeding Controlled with Pressure -Treatment Response Procedure Tolerated Well -Offloading No -Debridement - Subq, 1st 20sq cm Yes 1-right Cluster leg -Time 11:57 -Correct Patient Yes -Correct Side, Site, Position Yes -Correct Procedure Yes -Procedure Performed Yes -Type of Procedure Debridement -Clinical Debridement Subcutaneous -Tissue Removed Subcutaneous -Post Debridement (cm) - Length 3.6 -Post Debridement (cm) - Width 2.2 -Post Debridement (cm) - Depth 0.1 -Total Square (Post) (cm) 7.92 -Area of Debridement (cm) - Length 3.6 -Area of Debridement (cm) - Width 2.2 -Total Square (Area) (cm) 7.92 -Tunneling No -Undermining/Tunneling No -Circular Undermining No -Wound/Ulcer Outcome Not Healed -Ulcer Cleansing Rinsed/ Irrigated with Saline -Foul Odor after Cleansing No -Bioengineered Tissue No -Bleeding Controlled with Pressure -Treatment Response Procedure Tolerated Well -Offloading No -Debridement - Subq, 1st 20sq cm No Pain Scale: 0-10 Numeric Is Patient Pain Free? Yes WC - Nurse 3 - General Ulcer D/C NN Start: 09/16/22 13:08 Freq: Status: Active Protocol: Activity Type Activity Date Activity User E-sign Co-sign Detail Recorded Client Recorded Date Recorded By Document 09/16/22 13:08 DL [id number] 09/16/22 13:21 DL Document 09/16/22 13:34 MW [id number] 09/16/22 13:36 MW Document 09/18/22 12:11 BMF [id number] 09/18/22 12:13 BMF Document 09/25/22 11:42 [id number] 09/25/22 11:42 JF Document 10/02/22 06:58 PL [id number] 10/03/22 06:58 PL 09/16/22 09/16/22 09/18/22 13:08 13:34 12:11 Vital Signs Temperature (97.8 F-99.1 F) 97.5 F L Temperature Source Temporal Pulse Rate (60-100) 55 L 52 L Pulse Location Monitor Monitor Respiratory Rate (12-18) 24 H Respiratory rate source Observation Blood Pressure (90/60-120/80) 236/95 H 196/84 H Blood Pressure Mean (mm Hg) 142 121 Source Monitor Monitor Position Sitting Blood Pressure Location Left Forearm Pain Scale: 0-10 Numeric Is Patient Pain Free? Yes Yes Yes Wound Care Center Nurse 3 4-right medial leg -Ulcer Cleansing Rinsed/ Irrigated with Saline -Foul Odor after Cleansing No -Primary Dressing Applied Aquacel AG 4x4 -Other Dressing PER PL RN -Primary Dressing Covered/Secured with Dry Gauze -Aquacel AG 4x4 1 3-left posterior calf -Ulcer Cleansing Soap and Water -Foul Odor after Cleansing No -Primary Dressing Applied Aquacel AG 4x4 -Primary Dressing Covered/Secured with Dry Gauze -Aquacel AG 4x4 1 2-left sumner -Ulcer Cleansing Soap and Water Rinsed/ Irrigated with Saline -Foul Odor after Cleansing No No -Primary Dressing Applied Aquacel AG 4x4 -Other Dressing aquacel ag PER PL RN -Primary Dressing Covered/Secured with Dry Gauze Dry Gauze -Aquacel AG 4x4 0 1-right Cluster leg -Ulcer Cleansing Soap and Water Rinsed/ Irrigated with Saline -Foul Odor after Cleansing No No -Primary Dressing Applied Aquacel AG 4x4 -Other Dressing aquacel ag PER PL RN -Primary Dressing Covered/Secured with Dry Gauze Dry Gauze -Aquacel AG 4x4 0 van -Lotion applied to leg before compression wrap -Multi-Layered Wrap Application Multi-Layer Multi-Layer Comp - Bilat ($ Comp - Bilat ($ ) ) -Other PER PL RN Treatment Response Procedure Procedure Tolerated Well Tolerated Well WC - Visit Discharge Discharge Condition Stable Stable Stable Ambulatory Status Ambulatory, Walker Ambulatory, Walker Walker Transportation Private Auto Private Auto Private Auto Accompanied by daughter AIMEE Medication Reconcilliation completed & provided to patient/care provider Clinical Summary of Care Provided Notes: Blood pressure rechecked after 3M2L wraps applied. Denies any S/S hypertension. 09/25/22 10/02/22 11:42 06:58 Vital Signs Temperature (97.8 F-99.1 F) Temperature Source Pulse Rate (60-100) Pulse Location Respiratory Rate (12-18) Respiratory rate source Blood Pressure (90/60-120/80) Blood Pressure Mean (mm Hg) Source Position Blood Pressure Location Pain Scale: 0-10 Numeric Is Patient Pain Free? Yes Yes Wound Care Center Nurse 3 4-right medial leg -Ulcer Cleansing -Foul Odor after Cleansing -Primary Dressing Applied -Other Dressing -Primary Dressing Covered/Secured with -Aquacel AG 4x4 3-left posterior calf -Ulcer Cleansing -Foul Odor after Cleansing -Primary Dressing Applied -Primary Dressing Covered/Secured with -Aquacel AG 4x4 2-left sumner -Ulcer Cleansing -Foul Odor after Cleansing -Primary Dressing Applied -Other Dressing -Primary Dressing Covered/Secured with -Aquacel AG 4x4 1-right Cluster leg -Ulcer Cleansing -Foul Odor after Cleansing -Primary Dressing Applied -Other Dressing -Primary Dressing Covered/Secured with -Aquacel AG 4x4 avn -Lotion applied to leg before Yes compression wrap -Multi-Layered Wrap Application Multi-Layer Multi-Layer Comp - Bilat ($ Comp - Bilat ($ ) ) -Other Treatment Response WC - Visit Discharge Discharge Condition Stable Ambulatory Status Ambulatory, Walker Transportation Private Auto Accompanied by daughter Medication Reconcilliation completed & Yes provided to patient/care provider Clinical Summary of Care Provided Yes Notes: Additional Wound Wound debrided: Left anterior lower extremity Laterality: Left Wound Grade/Stage: Martin stage I Type of Debridement: Excisional debridement Anesthesia Used: 5% Lidocaine Gel Depth: Down to and including healthy tissue and in the subcutaneous layer Percentage of wound debrided: 100 Instrument Used: #15 blade and Forceps Tissue Removed: Fibrous, devitalized subcutaneous, biofilm, slough Severity: Fat Layer Exposed Amount of bleeding with debridement: Mild Bleeding Controlled with: Compression and gauze Patient tolerated procedure: Patient tolerated procedure well Assessment/Plan Assessment/Plan (1) Non-pressure chronic ulcer of right calf with fat layer exposed: CODE(S): L97.212 - Non-pressure chronic ulcer of right calf with fat layer exposed (2) Non-pressure chronic ulcer of left calf with fat layer exposed: CODE(S): L97.222 - Non-pressure chronic ulcer of left calf with fat layer exposed (3) Type 2 diabetes mellitus without complications: CODE(S): E11.9 - Type 2 diabetes mellitus without complications (4) Lymphedema: CODE(S): I89.0 - Lymphedema, not elsewhere classified (5) Morbid obesity with BMI of 70 and over, adult: CODE(S): E66.01 - Morbid (severe) obesity due to excess calories; Z68.45 - Body mass index [BMI] 70 or greater, adult (6) General weakness: CODE(S): R53.1 - Weakness PLAN: Plan Patient seen and evaluated Her previous biopsy result returned positive for bullous pemphigoid. She will discuss with dermatology for continued treatments. Left lower extremity wounds: Anterior leg wound measuring 1.5 cm x 2.5 cm x 0.1 cm. No signs of infection Right lower extremity wounds: Proximal lateral measures 1.9 cm x 2 cm x 0.1 cm, lateral measures 1.8 cm x 1.9 cm x 0.1 cm, right lateral distal measures 1.4 cm x 1.4 cm x 0.1 cm, right anterior measures 2.5 cm x 3.6 cm x 0.1 cm, right medial measures 6.5 cm x 3.7 cm x 0.1 cm Sites demonstrate no signs of infection Legs were dressed with Adaptic and 4 x 4 gauze to blister sites and 3M compression wrap applied to bilateral lower extremities.? She was instructed to not get the 3M compression wrap wet and to cover with cast bag when showering. Discussed continued elevation of lower extremities to assist in edema control. Encouraged lifestyle modification of diet and exercise.? Discussed continuing diabetic diet to assist in controlling blood sugar level.? Last A1c 6%. Discussed continued compression to aid in wound healing.? Recommend compression stockings appropriately measured to leg once edema resolved for long-term edema control. Discussed signs and symptoms of infection.? Discussed if she experiences any increasing redness about the wound sites moving up the leg, purulent drainage from the wound sites, increasing foul odor, or if she experiences any fever greater than 101 degree, nausea, vomiting, chills that these are signs of a progressing infection and she needs to report to the ED.? Patient voices understanding of this. The following work up and care recommendations were made: Dressing: Adaptic, 4 x 4 gauze, 3M compression wrap bilateral leg Wash: Do not get wet Tissue growth optimization: None Offload: 3M compression wrap bilateral Vascular: Weakly palpable pulses secondary to pedal edema however DP and PT pulses triphasic on Doppler. Edema: Bilateral lower extremity edema secondary to chronic venous stasis/insufficiency and lymphedema continue to elevate lower extremities at all times of rest.? 3M compression wrap have been applied bilateral Infection: No signs of infection Pain: May take [id number] Tylenol extra strength for discomfort Host factors: DM type II, chronic venous stasis/insufficiency, lymphedema, bullous pemphigoid ? I answered all the patient's questions.? To return to the wound healing center in 1 week or call sooner if the patient has any questions or concerns.
== END 2022-10-15 23:59 | disposition home or self-care (01) ==
LOC: WC 10:45
PROVIDERS: PCP Family Medicine; Referring Provider Family Medicine; Visit Provider Student in an Organized Health Care Education/Training Program
DX: E11.622 Type 2 diabetes mellitus with other skin ulcer (principal); L97.212 Non-pressure chronic ulcer of right calf with fat layer exposed; L97.222 Non-pressure chronic ulcer of left calf with fat layer exposed; E66.01 Morbid (severe) obesity due to excess calories; Z68.44 Body mass index [BMI] 60.0-69.9, adult; I89.0 Lymphedema, not elsewhere classified; I10 Essential (primary) hypertension; R53.1 Weakness; L12.0 Bullous pemphigoid
CPT/HCPCS: 11042; 11045; 29581; 99213; G0463

== ENCOUNTER → 2022-10-15 | Outpatient (CLI) | payer MEDICARE, SELFPAY ==
[2022-10-15 16:18] LABS: Anion Gap 6 (5-15); BUN 19 mg/dL (7-18); BUN/Creat Ratio 30.8 RATIO (10-20); Calcium,Total 9.1 mg/dL (8.5-10.1); Chloride 106 mmol/L (98-107); Creatinine, Serum 0.62 mg/dL (0.55-1.02); EST Glomerular Filtration Rate 100 mL/min (>60); Est Glom Filt Rate - Afr Amer 120 mL/min (>60); Glucose 131 mg/dL (74-106); Potassium 4.3 mmol/L (3.5-5.1); Sodium Level 138 mmol/L (136-145)
== END | disposition home or self-care (01) ==
LOC: MFPLAB 11:41
PROVIDERS: PCP Family Medicine; Visit Provider Family Medicine
DX: E87.6 Hypokalemia (principal)
CPT/HCPCS: 36415; 80048

== ENCOUNTER 2022-11-06 08:30 | Outpatient (RCR) | payer MEDICARE, SELFPAY ==
[2022-10-16 00:38] VITALS: BP 161/82; PULSE 68; RESP 18; TEMP 36; BMI 66.5
[2022-10-16 10:57] VITALS: BP 142/79; PULSE 69; TEMP 36.2; BMI 66.5
--- NOTE | 2022-10-16 10:58 | PCM.WC.PN ---
History of Present Illness Date of Service: 10/16/22 Chief Complaint: Bilateral lower extremity wounds and blisters History of Wound: Patient is a 76-year-old female with PMHx of excision of melanoma from the left arm, HTN, morbid obesity, lymphedema, DM type II, bullous pemphigoid. She states she will be following with dermatology for continued skin examination due to history of melanoma. She recently developed multiple sites of blister to both lower extremities which has ruptured leaking yellow serous fluid. She denies recent cellulitis to the lower extremities. Daughter states they recently developed over the last week or 2 and did discuss with her PCP. She was referred to the wound care center for care of multiple lower extremity wounds with blisters. Patient is morbidly obese however is trying to move more and is able to walk. Patient is diabetic with last A1c 6.0%, denies taking medication. Patient denies N/V/F/chills. She denies pain to the lower extremities today. Subjective Subjective This is a 76-year-old female who presents to the wound care center today for a follow-up of multiple bilateral lower extremity wounds secondary to lymphedema.? States she has opened up several new blister sites.? States her previous biopsy revealed bullous pemphigoid and she is seeing dermatology for injection of biologics.? She denies constitutional symptoms today.? Denies further complaints today. Objective Data Objective Data Vital Signs: Vital Signs Temp Pulse Resp BP 96.8 F L 68 18 161/82 H 10/16/22 00:38 10/16/22 00:38 10/16/22 00:38 10/16/22 00:38 Weight: 165.108 kg Body Mass Index (BMI) 66.5 Physical Exam Const alert, oriented x3 and no apparent distress General Appearance: cooperative HEENT normocephalic Eyes General Eye: normal appearance of both eyes Neck General: normal visual inspection Lymph Lymphatic: no lymphadenopathy noted and no lymphedema noted Resp normal respiratory effort Cardio regular rate and regular rhythm Extremity normal capillary refill, no joint enlargement, no calf tenderness and no pedal edema Extremity Narrative: DP and PT pulses weakly palpable secondary to edema bilateral.? Triphasic DP and PT on Doppler bilateral.? Capillary fill time less than 4 seconds to the digits bilateral. Musculoskeletal: Muscle strength 5 of 5 and age-appropriate.? No pain to palpation to bones of the foot or ankle Dermatological: There is multiple areas of serous filled bulla to the right lower extremity and 1 to the anterior left lower extremity.? Chronic areas of rubor secondary to lymphedema and chronic venous stasis/insufficiency and bullous pemphigoid.? No signs of infection. Skin no rashes or lesions noted, skin turgor normal and no jaundice Neuro moves all extremities Debridement Note Debridement Note Wound debrided: Left lower extremity Laterality: Left Wound Grade/Stage: Martin stage I Type of Debridement: Excisional debridement Anesthesia Used: 5% Lidocaine Gel Depth: Down to and including healthy tissue and in the subcutaneous layer Percentage of wound debrided: 100 Instrument Used: #15 blade Tissue Removed: Fibrous, devitalized subcutaneous, biofilm, slough Severity: Fat Layer Exposed Amount of bleeding with debridement: Mild Bleeding Controlled with: Compression and gauze Patient tolerated procedure: Patient tolerated procedure well Additional Wound Wound debrided: Right lower extremity Laterality: Right Wound Grade/Stage: Martin stage I Type of Debridement: Excisional debridement Anesthesia Used: 5% Lidocaine Gel Depth: Down to and including healthy tissue and in the subcutaneous layer Percentage of wound debrided: 100 Instrument Used: #15 blade Tissue Removed: Fibrous, devitalized subcutaneous, biofilm, slough Severity: Fat Layer Exposed Amount of bleeding with debridement: Mild Bleeding Controlled with: Compression and gauze Patient tolerated procedure: Patient tolerated procedure well Assessment/Plan Assessment/Plan (1) Non-pressure chronic ulcer of right calf with fat layer exposed: CODE(S): L97.212 - Non-pressure chronic ulcer of right calf with fat layer exposed (2) Non-pressure chronic ulcer of left calf with fat layer exposed: CODE(S): L97.222 - Non-pressure chronic ulcer of left calf with fat layer exposed (3) Type 2 diabetes mellitus without complications: CODE(S): E11.9 - Type 2 diabetes mellitus without complications (4) Lymphedema: CODE(S): I89.0 - Lymphedema, not elsewhere classified (5) Morbid obesity with BMI of 70 and over, adult: CODE(S): E66.01 - Morbid (severe) obesity due to excess calories; Z68.45 - Body mass index [BMI] 70 or greater, adult (6) General weakness: CODE(S): R53.1 - Weakness (7) Intrinsic eczema: CODE(S): L20.84 - Intrinsic (allergic) eczema (8) Bullous pemphigoid: CODE(S): L12.0 - Bullous pemphigoid PLAN: Plan Patient seen and evaluated Her previous biopsy result returned positive for bullous pemphigoid.? She is following dermatology who is discontinued her steroid and started her on initial dose of Dupixent 600 mg subQ and will follow with 300 mg SC every other week for 10 weeks. She will continue to follow with dermatology to evaluate progress. Left lower extremity wounds: Anterior leg wound measuring 1.0 cm x 2.0 cm x 0.1 cm.? No signs of infection Right lower extremity wounds: Proximal lateral healed, lateral healed, right lateral distal healed, right anterior measures 2.0 cm x 2.0 cm x 0.1 cm, right medial measures 3.0 cm x 2.0 cm x 0.1 cm Sites demonstrate no signs of infection Legs were dressed with Adaptic and 4 x 4 gauze to blister sites and 3M compression wrap applied to bilateral lower extremities.? She was instructed to not get the 3M compression wrap wet and to cover with cast bag when showering. Discussed continued elevation of lower extremities to assist in edema control. Encouraged lifestyle modification of diet and exercise.? Discussed continuing diabetic diet to assist in controlling blood sugar level.? Last A1c 6%. Discussed continued compression to aid in wound healing.? Recommend compression stockings appropriately measured to leg once edema resolved for long-term edema control. Discussed signs and symptoms of infection.? Discussed if she experiences any increasing redness about the wound sites moving up the leg, purulent drainage from the wound sites, increasing foul odor, or if she experiences any fever greater than 101 degree, nausea, vomiting, chills that these are signs of a progressing infection and she needs to report to the ED.? Patient voices understanding of this. The following work up and care recommendations were made: Dressing: Adaptic, 4 x 4 gauze, 3M compression wrap bilateral leg Wash: Do not get wet Tissue growth optimization: None Offload: 3M compression wrap bilateral Vascular: Weakly palpable pulses secondary to pedal edema however DP and PT pulses triphasic on Doppler. Edema: Bilateral lower extremity edema secondary to chronic venous stasis/insufficiency and lymphedema continue to elevate lower extremities at all times of rest.? 3M compression wrap have been applied bilateral Infection: No signs of infection Pain: May take [id number] Tylenol extra strength for discomfort Host factors: DM type II, chronic venous stasis/insufficiency, lymphedema, bullous pemphigoid ? I answered all the patient's questions.? To return to the wound healing center in 1 week or call sooner if the patient has any questions or concerns.
--- NOTE | 2022-10-23 10:33 | PN.PCM_ITS ---
History of Present Illness Date of Service: 10/23/22 Chief Complaint: Bilateral lower extremity wounds and blisters History of Wound: Patient is a 76-year-old female with PMHx of excision of melanoma from the left arm, HTN, morbid obesity, lymphedema, DM type II, bullous pemphigoid. She states she will be following with dermatology for continued skin examination due to history of melanoma. She recently developed multiple sites of blister to both lower extremities which has ruptured leaking yellow serous fluid. She denies recent cellulitis to the lower extremities. Daughter states they recently developed over the last week or 2 and did discuss with her PCP. She was referred to the wound care center for care of multiple lower extremity wounds with blisters. Patient is morbidly obese however is trying to move more and is able to walk. Patient is diabetic with last A1c 6.0%, denies taking medication. Patient denies N/V/F/chills. She denies pain to the lower extremities today. Subjective Subjective This is a 76-year-old female who presents to the wound care center today for a follow-up of multiple bilateral lower extremity wounds secondary to lymphedema.? States she has opened up several new blister sites.? States her previous biopsy revealed bullous pemphigoid and she is seeing dermatology for injection of biologics, Dupixent which she recieved last week.? She denies constitutional symptoms today.? Denies further complaints today. Objective Data Objective Data Vital Signs: Vital Signs Temp Pulse Resp BP 97.2 F L 69 18 142/79 H 10/16/22 10:57 10/16/22 10:57 10/16/22 00:38 10/16/22 10:57 Weight: 165.108 kg Body Mass Index (BMI) 66.5 Physical Exam Const alert, oriented x3 and no apparent distress General Appearance: cooperative HEENT normocephalic Eyes General Eye: normal appearance of both eyes Neck General: normal visual inspection Lymph Lymphatic: no lymphadenopathy noted and no lymphedema noted Resp normal respiratory effort Cardio regular rate and regular rhythm Extremity normal capillary refill, no joint enlargement, no calf tenderness and no pedal edema Extremity Narrative: DP and PT pulses weakly palpable secondary to edema bilateral.? Triphasic DP and PT on Doppler bilateral.? Capillary fill time less than 4 seconds to the digits bilateral. Musculoskeletal: Muscle strength 5 of 5 and age-appropriate.? No pain to palpation to bones of the foot or ankle Dermatological: There is multiple areas of serous filled bulla to the right lower extremity and 1 to the anterior left lower extremity.? Chronic areas of rubor secondary to lymphedema and chronic venous stasis/insufficiency and bullous pemphigoid.? No signs of infection. Skin no rashes or lesions noted, skin turgor normal and no jaundice Neuro moves all extremities Debridement Note Debridement Note No debridement was completed: No debridement was completed today Post-Debridement Measurements and Additional Note: Post-Debridement Measurements/Treatment WC - Nurse 1 - General Ulcer Assessment Start: 10/16/22 10:48 Freq: Status: Active Protocol: NETTIE Activity Type Activity Date Activity User E-sign Co-sign Detail Recorded Client Recorded Date Recorded By Document 10/16/22 10:57 JARET [id number] 10/16/22 10:59 JARET 10/16/22 10:57 KATIE - Today's Visit Information Type of service Follow-up Visit (Physician/PATIENT NAVIGATOR ) Arrival Mode Ambulatory Patient Identification Verified (Name & Yes ) Patient Requires Transmission-Based No Precautions Safety Precautions NA Height and Weight Body Mass Index (BMI) 66.5 BMI Classification Obese Vital Signs Temperature (97.8 F-99.1 F) 97.2 F L Temperature Source Temporal Pulse Rate (60-100) 69 Pulse Location Monitor Blood Pressure (90/60-120/80) 142/79 H Blood Pressure Mean (mm Hg) 100 Source Monitor History Since Last Visit- (Skip if this is Patient's initial visit) Have you changed medications since your No last visit? Any new allergies or adverse reactions No Had a fall/change in ADL's that may No increase risk of falls Signs or symptoms of abuse and/or No neglect since last visit Have you been in the hospital since your No last visit? Has dressing in place as prescribed Yes Has compression in place as prescribed Yes Has offloadiing in place as prescribed N/A Experienced any changes in pain level or No management Left Footwear Regular Shoe Right Footwear Regular Shoe Pain Scale: 0-10 Numeric Is Patient Pain Free? Yes KATIE - Nurse 1 - General Ulcer Measurement Start: 10/16/22 10:48 Freq: Status: Active Protocol: Activity Type Activity Date Activity User E-sign Co-sign Detail Recorded Client Recorded Date Recorded By Document 10/16/22 10:57 AK [id number] 10/16/22 10:59 AK 10/16/22 10:57 Wound Center Nurse 1 #5 Left Ant -Combined with other wound No Lower Limb Edema Present No Right Calf (cm) 52 Right Ankle (cm) 29 Left Calf (cm) 55 Left Ankle (cm) 32 WC - Nurse 2 - General Ulcer CM Notes Start: 10/16/22 10:48 Freq: Status: Active Protocol: Activity Type Activity Date Activity User E-sign Co-sign Detail Recorded Client Recorded Date Recorded By Document 10/16/22 12:23 PL [id number] 10/16/22 12:24 PL 10/16/22 12:23 Wound Center Nurse 2 #5 Left Ant -Time 11:11 -Correct Patient Yes -Correct Side, Site, Position Yes -Correct Procedure Yes -Procedure Performed Yes -Type of Procedure Debridement -Clinical Debridement Subcutaneous -Tissue Removed Subcutaneous -Post Debridement (cm) - Length 1.8 -Post Debridement (cm) - Width 1.9 -Post Debridement (cm) - Depth 0.1 -Total Square (Post) (cm) 3.42 -Area of Debridement (cm) - Length 1.8 -Area of Debridement (cm) - Width 1.9 -Total Square (Area) (cm) 3.42 -Tunneling No -Undermining/Tunneling No -Circular Undermining No -Wound/Ulcer Outcome Not Healed -Ulcer Cleansing Rinsed/ Irrigated with Saline -Foul Odor after Cleansing No -Bioengineered Tissue No -Bleeding Controlled with Pressure -Treatment Response Procedure Tolerated Well -Debridement - Subq, 1st 20sq cm Yes Pain Scale: 0-10 Numeric Is Patient Pain Free? Yes - Nurse 3 - General Ulcer D/C NN Start: 10/16/22 10:48 Freq: Status: Active Protocol: Activity Type Activity Date Activity User E-sign Co-sign Detail Recorded Client Recorded Date Recorded By Document 10/16/22 11:21 [id number] 10/16/22 11:22 ACE 10/16/22 11:21 Wound Care Center Nurse 3 #5 Left Ant -Primary Dressing Applied NonAdherent Contact Layer -Primary Dressing Covered/Secured with Dry Gauze 4-right medial leg -Ulcer Cleansing Rinsed/ Irrigated with Saline -Foul Odor after Cleansing No -Primary Dressing Applied NonAdherent Contact Layer -Primary Dressing Covered/Secured with Dry Gauze 3-left posterior calf -Ulcer Cleansing Rinsed/ Irrigated with Saline -Foul Odor after Cleansing No -Primary Dressing Applied NonAdherent Contact Layer -Primary Dressing Covered/Secured with Dry Gauze 1-right Cluster leg -Ulcer Cleansing Rinsed/ Irrigated with Saline -Foul Odor after Cleansing No -Primary Dressing Applied NonAdherent Contact Layer -Primary Dressing Covered/Secured with Dry Gauze Left -Multi-Layered Wrap Application Multi-Layer Comp - Bilat ($ ) Pain Scale: 0-10 Numeric Is Patient Pain Free? Yes WC - Visit Discharge Discharge Condition Stable Ambulatory Status Ambulatory Transportation Private Auto Medication Reconcilliation completed & Yes provided to patient/care provider Clinical Summary of Care Provided Yes Assessment/Plan Assessment/Plan (1) Non-pressure chronic ulcer of right calf with fat layer exposed: CODE(S): L97.212 - Non-pressure chronic ulcer of right calf with fat layer exposed (2) Non-pressure chronic ulcer of left calf with fat layer exposed: CODE(S): L97.222 - Non-pressure chronic ulcer of left calf with fat layer exposed (3) Type 2 diabetes mellitus without complications: CODE(S): E11.9 - Type 2 diabetes mellitus without complications (4) Lymphedema: CODE(S): I89.0 - Lymphedema, not elsewhere classified (5) Morbid obesity with BMI of 70 and over, adult: CODE(S): E66.01 - Morbid (severe) obesity due to excess calories; Z68.45 - Body mass index [BMI] 70 or greater, adult (6) General weakness: CODE(S): R53.1 - Weakness (7) Intrinsic eczema: CODE(S): L20.84 - Intrinsic (allergic) eczema (8) Bullous pemphigoid: CODE(S): L12.0 - Bullous pemphigoid PLAN: Plan Patient seen and evaluated Her previous biopsy result returned positive for bullous pemphigoid.? She is following dermatology who is discontinued her steroid and started her on initial dose of Dupixent 600 mg subQ and will follow with 300 mg SC every other week for 10 weeks. She will continue to follow with dermatology to evaluate progress. Left lower extremity wounds: Anterior leg wound has healed.? No signs of infection Right lower extremity wounds: Proximal lateral healed, lateral healed, right lateral distal healed, right anterior healed, right medial healed Sites demonstrate no signs of infection Biologic injection is helping. Discussed returning in 2 weeks to continue to evaluate. Legs were dressed Tubigrip and Circaid Juxtalite compression wrap applied to bilateral lower extremities.? She was instructed to wrap daily. Discussed continued elevation of lower extremities to assist in edema control. Encouraged lifestyle modification of diet and exercise.? Discussed continuing diabetic diet to assist in controlling blood sugar level.? Last A1c 6%. Discussed continued compression to aid in wound healing.? Recommend compression stockings appropriately measured to leg once edema resolved for long-term edema control. Discussed signs and symptoms of infection.? Discussed if she experiences any increasing redness about the wound sites moving up the leg, purulent drainage from the wound sites, increasing foul odor, or if she experiences any fever greater than 101 degree, nausea, vomiting, chills that these are signs of a progressing infection and she needs to report to the ED.? Patient voices understanding of this. The following work up and care recommendations were made: Dressing: Adaptic, 4 x 4 gauze, 3M compression wrap bilateral leg Wash: Do not get wet Tissue growth optimization: None Offload: 3M compression wrap bilateral Vascular: Weakly palpable pulses secondary to pedal edema however DP and PT pulses triphasic on Doppler. Edema: Bilateral lower extremity edema secondary to chronic venous stasis/insufficiency and lymphedema continue to elevate lower extremities at all times of rest.? 3M compression wrap have been applied bilateral Infection: No signs of infection Pain: May take [id number] Tylenol extra strength for discomfort Host factors: DM type II, chronic venous stasis/insufficiency, lymphedema, bullous pemphigoid ? I answered all the patient's questions.? To return to the wound healing center in 2 weeks or call sooner if the patient has any questions or concerns.
[2022-10-23 10:48] VITALS: BP 162/87; PULSE 70; RESP 16; TEMP 35.9; BMI 66.5
[2022-11-06 08:21] VITALS: BP 169/91; PULSE 63; RESP 20; TEMP 35.9; BMI 66.5
--- NOTE | 2022-11-06 08:40 | PN.PCM_ITS ---
History of Present Illness Date of Service: 11/06/22 Chief Complaint: Bilateral lower extremity wounds and blisters History of Wound: Patient is a 76-year-old female with PMHx of excision of melanoma from the left arm, HTN, morbid obesity, lymphedema, DM type II, bullous pemphigoid. She states she will be following with dermatology for continued skin examination due to history of melanoma. She recently developed multiple sites of blister to both lower extremities which has ruptured leaking yellow serous fluid. She denies recent cellulitis to the lower extremities. Daughter states they recently developed over the last week or 2 and did discuss with her PCP. She was referred to the wound care center for care of multiple lower extremity wounds with blisters. Patient is morbidly obese however is trying to move more and is able to walk. Patient is diabetic with last A1c 6.0%, denies taking medication. Patient denies N/V/F/chills. She denies pain to the lower extremities today. Subjective Subjective This is a 76-year-old female who presents to the wound care center today for a follow-up of multiple bilateral lower extremity wounds secondary to lymphedema.?States her previous biopsy revealed bullous pemphigoid and she is seeing dermatology for injection of biologics, Dupixent which she received 3 weeks ago. States her wounds remain healed and skin is clearing up. She denies constitutional symptoms today.? Denies further complaints today. Objective Data Objective Data Vital Signs: Vital Signs Temp Pulse Resp BP 96.6 F L 70 16 162/87 H 10/23/22 10:48 10/23/22 10:48 10/23/22 10:48 10/23/22 10:48 Weight: 165.108 kg Body Mass Index (BMI) 66.5 Physical Exam Const alert, oriented x3 and no apparent distress General Appearance: cooperative HEENT normocephalic Eyes General Eye: normal appearance of both eyes Neck General: normal visual inspection Lymph Lymphatic: no lymphadenopathy noted and no lymphedema noted Resp normal respiratory effort Cardio regular rate and regular rhythm Extremity normal capillary refill, no joint enlargement, no calf tenderness and no pedal edema Extremity Narrative: DP and PT pulses weakly palpable secondary to edema bilateral.? Triphasic DP and PT on Doppler bilateral.? Capillary fill time less than 4 seconds to the digits bilateral. Musculoskeletal: Muscle strength 5 of 5 and age-appropriate.? No pain to palpation to bones of the foot or ankle Dermatological: Previous areas of blisters/wounds have healed and skin improving. No open wounds.? Chronic areas of rubor secondary to lymphedema and chronic venous stasis/insufficiency and bullous pemphigoid.? No signs of infection. Skin no rashes or lesions noted, skin turgor normal and no jaundice Neuro moves all extremities Debridement Note Debridement Note No debridement was completed: No debridement was completed today Post-Debridement Measurements and Additional Note: Post-Debridement Measurements/Treatment - Nurse 1 - General Ulcer Assessment Start: 10/16/22 10:48 Freq: Status: Active Protocol: [email or web address] Activity Type Activity Date Activity User E-sign Co-sign Detail Recorded Client Recorded Date Recorded By Document 10/16/22 10:57 JARET [id number] 10/16/22 10:59 OR Document 10/23/22 10:48 ACE [id number] 10/23/22 10:50 ACE 10/16/22 10/23/22 10:57 10:48 - Today's Visit Information Type of service Follow-up Visit Follow-up Visit (Physician/FURNITURE REPRODUCER (Physician/FURNITURE REPRODUCER ) ) Arrival Mode Ambulatory Ambulatory, Walker Patient Identification Verified (Name & Yes Yes ) Patient Requires Transmission-Based No No Precautions Safety Precautions NA Height and Weight Body Mass Index (BMI) 66.5 66.5 BMI Classification Obese Obese Vital Signs Temperature (97.8 F-99.1 F) 97.2 F L 96.6 F L Temperature Source Temporal Temporal Pulse Rate (60-100) 69 70 Pulse Location Monitor Monitor Respiratory Rate (12-18) 16 Respiratory rate source Observation Blood Pressure (90/60-120/80) 142/79 H 162/87 H Blood Pressure Mean (mm Hg) 100 112 Source Monitor Monitor Position Semi-Fowlers Blood Pressure Location Left Forearm History Since Last Visit- (Skip if this is Patient's initial visit) Have you changed medications since your No No last visit? Any new allergies or adverse reactions No No Had a fall/change in ADL's that may No No increase risk of falls Signs or symptoms of abuse and/or No No neglect since last visit Have you been in the hospital since your No No last visit? Has dressing in place as prescribed Yes Yes Has compression in place as prescribed Yes Yes Has offloadiing in place as prescribed N/A N/A Experienced any changes in pain level or No No management Left Footwear Regular Shoe Regular Shoe Right Footwear Regular Shoe Regular Shoe Pain Scale: 0-10 Numeric Is Patient Pain Free? Yes Yes WC - Nurse 1 - General Ulcer Measurement Start: 10/16/22 10:48 Freq: Status: Active Protocol: Activity Type Activity Date Activity User E-sign Co-sign Detail Recorded Client Recorded Date Recorded By Document 10/16/22 10:57 AK [id number] 10/16/22 10:59 AK Document 10/23/22 10:48 [id number] 10/23/22 10:50 JF 10/16/22 10/23/22 10:57 10:48 Wound Center Nurse 1 #5 Left Ant -Combined with other wound No Lower Limb Edema Present No Yes Right Calf (cm) 52 48.2 Right Ankle (cm) 29 29 Left Calf (cm) 55 50.6 Left Ankle (cm) 32 29.6 WC - Nurse 2 - General Ulcer CM Notes Start: 10/16/22 10:48 Freq: Status: Active Protocol: Activity Type Activity Date Activity User E-sign Co-sign Detail Recorded Client Recorded Date Recorded By Document 10/16/22 12:23 PL [id number] 10/16/22 12:24 PL 10/16/22 12:23 Wound Center Nurse 2 #5 Left Ant -Time 11:11 -Correct Patient Yes -Correct Side, Site, Position Yes -Correct Procedure Yes -Procedure Performed Yes -Type of Procedure Debridement -Clinical Debridement Subcutaneous -Tissue Removed Subcutaneous -Post Debridement (cm) - Length 1.8 -Post Debridement (cm) - Width 1.9 -Post Debridement (cm) - Depth 0.1 -Total Square (Post) (cm) 3.42 -Area of Debridement (cm) - Length 1.8 -Area of Debridement (cm) - Width 1.9 -Total Square (Area) (cm) 3.42 -Tunneling No -Undermining/Tunneling No -Circular Undermining No -Wound/Ulcer Outcome Not Healed -Ulcer Cleansing Rinsed/ Irrigated with Saline -Foul Odor after Cleansing No -Bioengineered Tissue No -Bleeding Controlled with Pressure -Treatment Response Procedure Tolerated Well -Debridement - Subq, 1st 20sq cm Yes Pain Scale: 0-10 Numeric Is Patient Pain Free? Yes WC - Nurse 3 - General Ulcer D/C NN Start: 10/16/22 10:48 Freq: Status: Active Protocol: Activity Type Activity Date Activity User E-sign Co-sign Detail Recorded Client Recorded Date Recorded By Document 10/16/22 11:21 [id number] 10/16/22 11:22 Document 10/23/22 11:13 [id number] 10/23/22 11:15 10/16/22 10/23/22 11:21 11:13 Wound Care Center Nurse 3 #5 Left Ant -Primary Dressing Applied NonAdherent Contact Layer -Primary Dressing Covered/Secured with Dry Gauze 4-right medial leg -Ulcer Cleansing Rinsed/ Irrigated with Saline -Foul Odor after Cleansing No -Primary Dressing Applied NonAdherent Contact Layer -Primary Dressing Covered/Secured with Dry Gauze 3-left posterior calf -Ulcer Cleansing Rinsed/ Irrigated with Saline -Foul Odor after Cleansing No -Primary Dressing Applied NonAdherent Contact Layer -Primary Dressing Covered/Secured with Dry Gauze 1-right Cluster leg -Ulcer Cleansing Rinsed/ Irrigated with Saline -Foul Odor after Cleansing No -Primary Dressing Applied NonAdherent Contact Layer -Primary Dressing Covered/Secured with Dry Gauze Right -Tubular Bandage Double Layer -Size of Tubigrip Used Size F -Size F ($) 4 Left -Multi-Layered Wrap Application Multi-Layer Comp - Bilat ($ ) -Tubular Bandage Double Layer -Size of Tubigrip Used Size F -Size F ($) 4 Pain Scale: 0-10 Numeric Is Patient Pain Free? Yes Yes - Visit Discharge Discharge Condition Stable Stable Ambulatory Status Ambulatory Ambulatory, Walker Transportation Private Auto Private Auto Medication Reconcilliation completed & Yes Yes provided to patient/care provider Clinical Summary of Care Provided Yes Yes Assessment/Plan Assessment/Plan (1) Non-pressure chronic ulcer of right calf with fat layer exposed: CODE(S): L97.212 - Non-pressure chronic ulcer of right calf with fat layer exposed (2) Non-pressure chronic ulcer of left calf with fat layer exposed: CODE(S): L97.222 - Non-pressure chronic ulcer of left calf with fat layer exposed (3) Type 2 diabetes mellitus without complications: CODE(S): E11.9 - Type 2 diabetes mellitus without complications (4) Lymphedema: CODE(S): I89.0 - Lymphedema, not elsewhere classified (5) Morbid obesity with BMI of 70 and over, adult: CODE(S): E66.01 - Morbid (severe) obesity due to excess calories; Z68.45 - Body mass index [BMI] 70 or greater, adult (6) General weakness: CODE(S): R53.1 - Weakness (7) Intrinsic eczema: CODE(S): L20.84 - Intrinsic (allergic) eczema (8) Bullous pemphigoid: CODE(S): L12.0 - Bullous pemphigoid PLAN: Plan Patient seen and evaluated Her previous biopsy result returned positive for bullous pemphigoid.? She is following dermatology who is discontinued her steroid and started her on initial dose of Dupixent 600 mg subQ and will follow with 300 mg SC every other week for 10 weeks. She will continue to follow with dermatology to evaluate progress. Left lower extremity wounds: Anterior leg wound healed.? No signs of infection Right lower extremity wounds: Proximal lateral healed, lateral healed, right lateral distal healed, right anterior healed, right medial healed Sites demonstrate no signs of infection Biologic injection is helping. Skin is clearing up and improving with no open wounds. Legs were dressed Tubigrip and Circaid Juxtalite compression wrap applied to bilateral lower extremities.? She was instructed to wrap daily. Discussed continued elevation of lower extremities to assist in edema control. Encouraged lifestyle modification of diet and exercise.? Discussed continuing diabetic diet to assist in controlling blood sugar level.? Last A1c 6%. Discussed continued compression to aid in wound healing.? Recommend compression stockings appropriately measured to leg once edema resolved for long-term edema control. The following work up and care recommendations were made: Dressing: None Wash: Soap and water Tissue growth optimization: None Offload: Tubigrip and elevation Vascular: Weakly palpable pulses secondary to pedal edema however DP and PT pulses triphasic on Doppler. Edema: Bilateral lower extremity edema secondary to chronic venous stasis/insufficiency and lymphedema continue to elevate lower extremities at all times of rest.? Tubigrip stocking bilateral Infection: No signs of infection Pain: May take [id number] Tylenol extra strength for discomfort Host factors: DM type II, chronic venous stasis/insufficiency, lymphedema, bullous pemphigoid ? At this time she is healed and being discharged from the wound care center. She will follow-up in the lymphedema clinic for continued care of her lower extremities. I answered all the patient's questions.? To return to the wound healing center as needed or call sooner if the patient has any questions or concerns.
== END 2022-11-06 14:54 | disposition home or self-care (01) ==
LOC: WC 08:30
PROVIDERS: PCP Family Medicine; Referring Provider Family Medicine; Visit Provider Student in an Organized Health Care Education/Training Program
DX: E11.622 Type 2 diabetes mellitus with other skin ulcer (principal); L97.222 Non-pressure chronic ulcer of left calf with fat layer exposed; L97.212 Non-pressure chronic ulcer of right calf with fat layer exposed; E66.01 Morbid (severe) obesity due to excess calories; Z68.45 Body mass index [BMI] 70 or greater, adult; I10 Essential (primary) hypertension; I89.0 Lymphedema, not elsewhere classified; L12.0 Bullous pemphigoid
CPT/HCPCS: 11042; 29581; 99213; G0463

== ENCOUNTER 2023-01-02 08:00 | Outpatient (RCR) | payer MEDICARE, SELFPAY ==
--- NOTE | 2022-12-15 16:41 | HP.OTEVAL_ITS ---
Patient's Visit Information Visit Information Visit Information: HARINDER MILIAN is a 77 year old F, referred to Occupational Therapy by Dr. Gilmar Coyne DPM, with a diagnosis of Lymphedema. Date of Evaluation: 12/15/22 Occupational Therapist: Ivonne Barone, SAMY/[place], CHT Subjective Subjective: This 77 year old female was seen for OT eval with dx of BLE lymphedema. Pt states she has had left LE lymphedema for years. pt states D/C from wound center-and has been using tubigrip and velcro closure devices to mtg. lymphedema- dtr is assisting pt. feels legs are doing better- states keeping wrapped 08/12. pt states wound center initiated getting home compression pump to assist pt in mtg. pt states she does sleep in bed with wedge to elevate her legs. pt would like to know what more she can do to decrease and mtg. her swelling. Lymphedema (Circumferential Measure) Mid-foot: right 27cm left 28cm Ankle: right 32.5cm left 33cm Lower calf: right 35cm left 44cm Largest calf: right 56cm left 60cm Below knee: right 61cm left 69cm Lower Limb Functional Index Lower Extremity Functional Score: 21 Goals Goal: Patient will demonstrate a 20% reduction in edema by discharge: Yes Goal: Patient will demonstrate adequate knowledge of self-bandaging by the end of the first week.: Yes Goal: Patient will demonstrate adequate knowledge of self-massage by the end of the second week.: Yes Goal: Patient will demonstrate adequate knowledge of skin care and precautions by the end of the first week.: Yes Goal: Patient will demonstrate adequate knowledge of therapeutic exercises by discharge.: Yes Goal: Patient will select an appropriate compression garment and demonstrate adequate knowledge of correct donning technique, care and wearing schedule by discharge.: Yes Goal: Patient will voice understanding of need to replace compression garment every four to six months by discharge.: Yes Rehabilitation General Assessment: pt demo with stage III lymphedema in BLE and would benefit from skilled OT services 2-3 visits to ed. pt and family on life long mtg of lymphedema, lymph stimulation ex, and self manual lymph massage. pt and family receptive. Today therapist ed. pt on compression alternatives - Velcor closure devices that provided compression for toes, ankle LE and above knee. Pt and pts dtr was receptive. Pt and dtr also ed. on lymph stimulation ex along with aquatic ex classes, and self manual lymph massage and skin care precautions. pt states she is getting information on silver sneakers to assist with her getting to pool to do ex. ( dtr is supportive). therapist ed. pt on use of home comp ression pump to use with self manual lymph massage. pt and pts drt states she has not received approval for home pump unit yet. Advised pt to work with ex. and compression daily. pt demo understanding and agree to POC. Rehabilitation Potential: Good Anticipated Interventions Anticipated Interventions: Education re assistive Equipment, Education re Diagnosis, Education re Life-long lymphedema Management, Education re Skin Care and Precautions, Education re Self Massage Techniques, Education re Correct Donning Tech,Care&Wearing Sched Comp Garments and Caregiver Training Visit Plan Frequency: Monthly Duration: 2 Months TEXT: Thank you for the opportunity to evaluate your patient. For Medicare and Medicare HMO plans, please review the plan of care and approve it. It will need to be FAXED BACK to us at [phone] for Medicare purposes. Please let me know if there are questions or concerns regarding this plan of care. Physician Signature: Date:
--- NOTE | 2023-05-20 13:55 | HP.OT.NRP ---
Patient Information Patient Information: HARINDER MILIAN was seen in my office for initial evaluation on 12/15/22. The following Plan of Care was established for this patient: POC Established Initial Frequency: Monthly Initial Duration: 2 Months Anticipated Interventions Anticipated Interventions: Education re assistive Equipment, Education re Diagnosis, Education re Life-long lymphedema Management, Education re Skin Care and Precautions, Education re Self Massage Techniques, Education re Correct Donning Tech,Care&Wearing Sched Comp Garments and Caregiver Training Last Seen Last Seen: This patient was last seen in our office 01/02/23. Pertinent comments regarding their Occupational therapy will appear below: pt was seen for 2 OT session for ed. on self lymphedema mtg. pt did get velcro closure device and has made good gains with her circumference and pt stated they were comfortable. pt has not scheduled further apts at this time and due to time lapse in services pt d/c. At this point I will be discontinuing this patient from occupational therapy. I would be happy to see this patient again in the future if found appropriate by the physician. Thank you! Ivonne Barone, OTR/L, CHT
== END 2023-01-02 19:00 | disposition home or self-care (01) ==
LOC: OT 08:00
PROVIDERS: PCP Family Medicine; Referring Provider Student in an Organized Health Care Education/Training Program; Visit Provider Student in an Organized Health Care Education/Training Program
DX: I89.0 Lymphedema, not elsewhere classified (principal)
CPT/HCPCS: 97166; 97530

== ENCOUNTER → 2023-08-24 | Outpatient (CLI) | payer MEDICARE, SELFPAY ==
[2023-08-24 12:36] LABS: Erythrocyte Sedimentation Rate 14 mm/hr (0-30)
[2023-08-24 12:38] LABS: Absolute Neutrophil Count 4.3 X10^3/uL (2.0-7.7); Basophil# 0.08 X10^3/uL; Basophil% 1.1 % (0-1); Eosinophil# 0.55 X10^3/uL; Eosinophils% 7.5 % (0-5); Hematocrit 46.5 % (37-47); Hemoglobin 14.9 g/dL (12.0-15.0); Lymphocyte % 23.3 % (19-41); Mean Corpuscular Hgb 30.7 pg (27.0-32.0); Mean Corpuscular Volume 95.7 fL (81-99); Mean Platelet Vol. 11.9 fl (6.2-12.0); Monocyte# 0.69 X10^3/uL; Monocyte% 9.5 % (0-10); NRBC Flagged by Analyzer 0 % (0-5); Neutrophil # 4.26 X10^3/uL (2.7-7.7); Neutrophil % 58.3 % (47-70); Platelet Count 184 K/mm3 (150-450); RBC Distribution Width CV 13.6 % (11.6-14.6); RBC Distribution Width SD 48.7 fl (35.1-43.9); Red Blood Count 4.86 M/mm3 (4.2-5.4); White Blood Count 7.3 K/mm3 (4.4-11.0)
[2023-08-24 12:56] LABS: Vitamin B12 540 pg/mL (211-911); Vitamin D,25 Hydroxy 42.2 ng/mL
[2023-08-24 13:01] LABS: ALB/GLOB Ratio 1.1 RATIO (0.9-2.4); AST(SGOT) 17 U/L (15-37); Alanine Aminotransfer ALT/SGPT 25 U/L (13-56); Albumin, Serum 3.7 g/dL (3.2-5.0); Alkaline Phosphatase 87 U/L (45-117); Anion Gap 6 (5-15); BUN 15 mg/dL (7-18); BUN/Creat Ratio 24.1 RATIO (10-20); Calcium,Total 8.9 mg/dL (8.5-10.1); Chloride 107 mmol/L (98-107); Cholesterol 145 mg/dL (200); Creatinine, Serum 0.62 mg/dL (0.55-1.02); EST Glomerular Filtration Rate 98 mL/min (>60); Est Glom Filt Rate - Afr Amer 119 mL/min (>60); Ferritin 93 ng/mL (8-252); Globulin 3.5 g/dL (2.2-4.2); Glucose 118 mg/dL (74-106); High Density Lipoprotein 55 mg/dL; Magnesium 2.1 mg/dL (1.6-2.6); Potassium 4.1 mmol/L (3.5-5.1); Protein, Total 7.2 g/dL (6.4-8.2); Sodium Level 139 mmol/L (136-145); Thyroid Stim Hormone (TSH) 3.85 uIU/mL (0.358-3.74); Triglycerides 80 mg/dL; Very Low Density Lipoprotein 16 mg/dL (5-40)
[2023-08-24 13:31] LABS: Hemoglobin A1c 5.8 % (3.8-5.6)
[2023-08-25 11:08] LABS: ANTINUCLEAR ANTIBODIES DIRECT Positive (Negative)
[2023-08-25 15:08] LABS: PROEL- A/G Ratio 1.4 (0.7-1.7); PROEL- Alpha-1 Globulin 0.3 g/dL (0.0-0.4); PROEL- Alpha-2 Globulin 0.5 g/dL (0.4-1.0); PROEL- Beta Globulin 0.9 g/dL (0.7-1.3); PROEL- Gamma Globulin 1.2 g/dL (0.4-1.8); PROEL- Globulin, Total 2.9 g/dL (2.2-3.9); PROEL- TOTAL PROTEIN 6.9 g/dL (6.0-8.5); PROEL-M-Spike Not Observed g/dL (Not Observed)
== END | disposition home or self-care (01) ==
LOC: MFPLAB 10:23
PROVIDERS: PCP Family Medicine; Visit Provider Family Medicine
DX: R53.83 Other fatigue (principal); E11.9 Type 2 diabetes mellitus without complications; E55.9 Vitamin D deficiency, unspecified
CPT/HCPCS: 36415; 80053; 80061; 82306; 82607; 82728; 83036; 83735; 84165; 84443; 85025; 85652; 86038; 86140

== ENCOUNTER → 2023-09-08 | Outpatient (CLI) | payer MEDICARE, SELFPAY ==
--- NOTE | 2023-09-08 09:29 | US_ITS ---
STUDY: SUPERFICIAL ULTRASOUND - LEFT LATERAL NECK AND SUBMANDIBULAR REGION REASON FOR EXAM: Female, 77 years old. FATIGUE, ITCHING, ENLARGED LYMPH NODES IN NECK AND ARMPITS. TECHNIQUE: A superficial ultrasound was performed with real-time and static umanzor-scale imaging. COMPARISON: None. FINDINGS: Multiple grayscale and color images of the lateral side of the left neck and submandibular region were acquired. 2-D lymph nodes are seen in the lateral side of the neck maximally measuring 1 cm in diameter but with normal reniform shape and preserved fatty hilus. 2 lymph nodes are also present in the submandibular region measuring 1.4 cm and 1.0 cm maximally. The lymph nodes in the submandibular region are slightly enlarged likely due to reactivity or underlying inflammation. If there is concern for malignancy or lymphoma a CT of the soft tissues of the neck with contrast should be obtained for further assessment. US/Head/Neck Soft Tissue IMPRESSION: 1. Mildly enlarged reactive lymph nodes in the submandibular region Electronically Signed: Bo Nguyen MD at 13:19 EDT ,
--- NOTE | 2023-09-08 09:29 | US_ITS ---
EXAM: US BILATERAL UPPER EXTREMITIES NON-VASCULAR, COMPLETE CLINICAL INDICATION: FATIGUE, ITCHING, ENLARGED LYMPH NODES IN ARMPIT AND NECK TECHNIQUE: Real-time ultrasound scan of the bilateral upper extremities with image documentation. COMPARISON: No relevant prior studies available. FINDINGS: SOFT TISSUES: A 2.5 cm well-defined, encapsulated soft tissue mass of the right axilla suggestive of a lipoma. Mildly prominent bilateral axillary lymph nodes are seen maintaining normal internal architecture suggestive of reactive change. No foreign body. US/Ext Non Vasc Limited/Soft Tiss IMPRESSION: 1. 2.5 cm right axillary lipoma. 2. Bilateral axillary reactive lymph nodes. Electronically Signed: Jackson Taylor MD at 14:23 EDT ,
--- NOTE | 2023-09-08 10:30 | BI_ITS ---
MAMMOGRAPHY - BILATERAL SCREENING REASON FOR EXAM: Female, 77 years old. Routine annual screening examination. PERTINENT HISTORY: Mother with breast cancer. TECHNIQUE: Digital bilateral breast rosa maria (3D mammographic acquisition) in the CC and MLO projections. 2-D mediolateral oblique (MLO) and craniocaudad (CC) views of both breasts were obtained. CAD: Full Field Digital Mammography with Computer Added Detection was performed. COMPARISON: Comparison is made with prior study June 28, 2019 and May 27, 2018. FINDINGS: Breast Composition: There are scattered areas of fibroglandular density. There are no dominant masses or suspicious calcifications. No other significant abnormalities are identified. There has been no significant change since the prior study. BI/SCRN MAMM (CAD)W/ROSA MARIA BILAT IMPRESSION: Stable bilateral screening mammogram. Yearly follow-up mammogram recommended. (A) ASSESSMENT CATEGORY: BIRADS Category 1: Negative. A letter regarding these results will be sent to the patient by the facility within 30 days. Approximately 10% of breast cancers are not detected by mammography. A normal mammogram should not delay biopsy of a clinically suspicious abnormality. [id number] Electronically Signed: Collin Hampton MD at 12:43 EDT ,
== END | disposition home or self-care (01) ==
LOC: US 09:28
PROVIDERS: PCP Family Medicine; Referring Provider Family Medicine; Visit Provider Family Medicine
DX: Z12.31 Encounter for screening mammogram for malignant neoplasm of breast (principal); R59.1 Generalized enlarged lymph nodes
CPT/HCPCS: 76536; 76882; 77063; 77067

== ENCOUNTER → 2023-10-01 | Outpatient (CLI) | payer MEDICARE, SELFPAY ==
[2023-10-01 12:56] LABS: Free T3 2.2 pg/mL (2.18-3.98); T4 Total, Thyroxin 7.6 ug/dL (4.8-13.9); Thyroid Stim Hormone (TSH) 4.61 uIU/mL (0.358-3.74)
[2023-10-03 08:11] LABS: Thyroid Stim Immunoglob <0.10 IU/L (0.00-0.55)
== END | disposition home or self-care (01) ==
LOC: MFPLAB 10:39
PROVIDERS: Visit Provider Family Medicine
DX: R79.89 Other specified abnormal findings of blood chemistry (principal); I10 Essential (primary) hypertension
CPT/HCPCS: 36415; 84436; 84443; 84445; 84481

== ENCOUNTER → 2023-12-01 | Outpatient (CLI) | payer MEDICARE, SELFPAY | END | disposition home or self-care (01) | LOC: MFPLAB 10:39 | PROVIDERS: PCP Family Medicine; Visit Provider Family Medicine | DX: E03.8 Other specified hypothyroidism (principal) | CPT/HCPCS: 36415; 84439; 84443 ==

== ENCOUNTER 2023-12-11 10:30 | Outpatient (RCR) | payer MEDICARE, SELFPAY ==
[2023-12-04 09:07] VITALS: BP 231/94; PULSE 71; RESP 18; TEMP 36.3; BMI 70.6
--- NOTE | 2023-12-04 11:40 | PCM.WC.HP ---
History of Present Illness Date of Service: 12/04/23 Chief Complaint: Right lower extremity ulcers and blisters and bilateral lymphedema History of Wound: Jeniffer is an 78-year-old female with PMHx of excision of melanoma from the left arm, HTN, morbid obesity, lymphedema, DM type II, bullous pemphigoid, JENNIFER on Bipap that has been treated by the wound healing center in the past, most recently October of [address] Coyne for nonhealing ulcers of lower extremities and edema. She is accompanied by her daughter Lily whom she lives with. Her bullous pemphigoid has been stable. Her lymphedema is not well controlled with Circaid compression wraps and she is also diligent with elevating her legs while in bed with a wedge pillow with still having difficulty with swelling in her lower legs. She is somewhat sedentary but does not sit with her legs down. She is compliant with JENNIFER treatment. She recently developed multiple sites of blisters to her right lower leg which have ruptured and have been leaking yellow serous fluid. The ulcers have been present x approx. 4 weeks. Her daughter has been applying vaseline and Bacitracin and covering these with gauze. She is compliant with Circaid compression wraps but does note that when she elevates her legs during the day and gets up that they do slide down frequently and her daughter is not always home to readjust the wraps and she is unable to do this on her own. She denies recent cellulitis to the lower extremities. Daughter brought her to PCP. She was referred to the wound care center for care of multiple right lower extremity ulcers with blisters. Patient is morbidly obese however is trying to move more and is able to walk some. Patient is diabetic with last A1c 5.9%, managed with diet. Patient denies N/V/F/chills. She denies pain to the lower extremities today. [facility] Medical History (Updated 12/04/23 @ 12:[address] Ilene Chavez DO) MDD (major depressive disorder), single episode, severe with psychotic features Lymphedema Morbid obesity with BMI of 70 and over, adult Cholecystectomy planned Melanoma Bullous pemphigoid Type II diabetes mellitus Cataracts, bilateral Glaucoma (increased eye pressure) Sleep apnea Fatty liver Hypertension Obesity Home Medications ?Medication ?Instructions ?Recorded ?Last Taken ?Type ascorbic acid (vitamin C) 1,000 mg 1 g PO DAILY 01/28/22 Unknown History tablet biotin 10,000 mcg capsule 5,000 mcg PO DAILY 01/28/22 Unknown History calcium carbonate 600 mg-vitamin 1 tab PO BID 01/28/22 Unknown History D3 10 mcg (400 unit) tablet (Calcium 600 + D(3)) carvedilol 25 mg tablet 25 mg PO BID 01/28/22 Unknown History [id number] 1 tab PO DAILY 01/28/22 Unknown History 750 mg-100 mg-125 mg-1.65 mg tablet (Glucosamine Chondroit Complx Advan) multivitamin-ferrous 1 tab PO DAILY 01/28/22 Unknown History fumarate-folic acid 18 mg-400 mcg tablet triamcinolone acetonide 0.1 % 1 applic topical PRN PRN redness 01/28/22 Unknown History topical cream dorzolamide 22.3 mg-timolol 6.8 ophthalmic (eye) 12/04/23 Unknown History mg/mL eye drops doxycycline monohydrate 100 mg 100 mg PO BID 12/04/23 Unknown History tablet levothyroxine 25 mcg tablet 25 mcg PO DAILY 12/04/23 Unknown History Allergy/AdvReac Type Severity Reaction Status Date / Time ciprofloxacin (From Cipro) Allergy Hives Verified 12/04/23 09:25 Penicillins Allergy Hives Verified 12/04/23 09:25 cephalexin AdvReac Severe Psychosis Verified 12/04/23 09:25 issues NSAIDS (Non-Steroidal AdvReac Upset Verified 12/04/23 09:25 Anti-Inflamma Stomach Surgical History Hx of cholecystectomy Hx of appendectomy Social History household members: other housing: [facility] Smoking Status: Never smoker alcohol intake: never substance use type: does not use ROS Constitutional Constitutional: Denies chills, fatigue or fever(s) Eyes Eyes: Denies blurry vision, change in vision or loss of vision ENT HEENT: Denies dysphagia, hearing loss or sore throat Cardiovascular Cardiovascular: Denies chest pain, edema or palpitations Respiratory/Chest Respiratory/Chest: Denies dry cough, dyspnea, dyspnea on exertion, productive cough or wheezing Gastrointestinal Gastrointestinal: Denies diarrhea, nausea or vomiting Genitourinary Genitourinary: Denies dysuria or polyuria Musculoskeletal Musculoskeletal: Denies arthralgias, joint stiffness or muscle weakness Integumentary Integumentary: Reports erythema and wounds Neurologic Neurologic: Denies dizziness, memory loss or weakness Psychiatric Psychiatric: Denies homicidal ideation or suicidal ideation Endocrine Endocrinology: Denies polydipsia, polyphagia or polyuria Hematologic/Lymphatic Hematologic/Lymphatic: Denies easy bleeding or easy bruising Allergic/Immunologic Allergic/Immunologic: Denies throat swelling, tongue swelling or urticaria Vital Signs Vital Signs Vital Signs: 12/04/23 09:07 Temperature 97.4 F L Temperature Source Temporal Pulse Rate 71 Respiratory Rate 18 Blood Pressure 231/94 H Blood Pressure Mean 139 Blood Pressure Source Monitor Blood Pressure Position Semi-Fowlers Blood Pressure Location Right Arm Oxygen Delivery Method Room Air Weight Weight: 175.087 kg Body Mass Index (BMI) 70.6 Physical Exam Const alert, oriented x3 and no apparent distress General Appearance: cooperative and comfortable Nutritional Appearance: morbidly obese HEENT normocephalic and head/scalp atraumatic Lymph Lymphatic: lymphedema elephantiasis Resp normal respiratory effort Effort and Inspection: able to speak in complete sentences Cardio regular rate and regular rhythm Extremity General Extremity: edema bilateral lower extremity Details: severe Skin General Skin Exam: lichenification, venous stasis and dermatitis Wounds: wounds noted Wound Narrative: as in clinical panel Psych mental status grossly normal, thought process normal, cooperative and affect normal Debridement Note Debridement Note Wound debrided: right dorsal foot Laterality: Right Type of Debridement: Selective debridement Anesthesia Used: 4% Lidocaine Solution and 5% Lidocaine Gel Depth: Down to and including healthy tissue and in the subcutaneous layer Percentage of wound debrided: 100 Instrument Used: 5mm curette Tissue Removed: yellow slough, devitalized tissue Severity: Limited To Skin Breakdown Amount of bleeding with debridement: None Patient tolerated procedure: Patient tolerated procedure well Post-Debridement Measurements and Additional Note: Post-Debridement Measurements/Treatment - Nurse 1 - General Ulcer Assessment Start: 12/04/23 09:07 Freq: Status: Active Protocol: NETTIE Activity Type Activity Date Activity User E-sign Co-sign Detail Recorded Client Recorded Date Recorded By Document 12/04/23 09:07 KW l 12/04/23 09:25 KW 12/04/23 09:07 - Today's Visit Information Type of service Initial Visit Arrival Mode Ambulatory, Walker Accompanied by daughter Patient Identification Verified (Name & Yes ) Height and Weight Height 5 ft 2 in Weight 175.087 kg Weight in Pounds 386.0 lbs Weight Measurement Method Estimated by Patient Body Mass Index (BMI) 70.6 BMI Classification Obese BSA - Henry 2.53 Vital Signs Temperature (97.8 F-99.1 F) 97.4 F L Temperature Source Temporal Pulse Rate (60-100) 71 Pulse Location Monitor Respiratory Rate (12-18) 18 Respiratory rate source Observation Oxygen Delivery Method Room Air Blood Pressure (90/60-120/80) 231/94 H Blood Pressure Mean 139 Source Monitor Position Semi-Fowlers Blood Pressure Location Right Arm History Since Last Visit- (Skip if this is Patient's initial visit) Have you changed medications since your No last visit? Any new allergies or adverse reactions No Had a fall/change in ADL's that may No increase risk of falls Signs or symptoms of abuse and/or No neglect since last visit Have you been in the hospital since your No last visit? Has dressing in place as prescribed Yes Has compression in place as prescribed Yes Has offloadiing in place as prescribed N/A Experienced any changes in pain level or No management Left Footwear Regular Shoe Right Footwear Regular Shoe Pain Scale: 0-10 Numeric Is Patient Pain Free? Yes WC - Nurse 1 - General Ulcer Measurement Start: 12/04/23 09:07 Freq: Status: Active Protocol: Activity Type Activity Date Activity User E-sign Co-sign Detail Recorded Client Recorded Date Recorded By Document 12/04/23 09:07 KW l 12/04/23 09:25 KW 12/04/23 09:07 Wound Center Nurse 1 #7 DORSAL FT -Current Size (cm) - Length 1.7 -Current Size (cm) - Width 2 -Current Size (cm) - Depth 0.1 -Total Square Cm 3.4 -Date of Last Picture (Recall this 12/04/23 field) -Exudate Amt Medium -Exudate Type Serosanguineous -Wound Margin Distinct, Outline Attached -Granulation Amt Large (67-100%) -Granulation Quality Red -Necrosis Amt Large (67-100%) -Necrotic Tissue Type Adherent Slough -Texture (Maryuri-wound Skin Appearance) Assessed -Moisture (Maryuri-wound Skin Appearance) Assessed -Color (Maryuri-wound Skin Appearance) Assessed -Tenderness on Palpation (Maryuri-wound No Skin Appearance) -Ulcer Cleansing Soap and Water -Foul Odor after Cleansing No -Anesthetic Used 5% Lidocaine Gel #9 RT SUMNER CLUSTER -Current Size (cm) - Length 3.8 -Current Size (cm) - Width 19 -Current Size (cm) - Depth 0.2 -Total Square Cm 72.2 -Date of Last Picture (Recall this 12/04/23 field) -Wound Margin Distinct, Outline Attached -Granulation Amt Large (67-100%) -Granulation Quality Red -Necrosis Amt Small (1-33%) -Necrotic Tissue Type Adherent Slough -Texture (Maryuri-wound Skin Appearance) Assessed -Moisture (Maryuri-wound Skin Appearance) Assessed -Color (Maryuri-wound Skin Appearance) Assessed -Temperature (Maryuri-wound Skin No Abnormality Appearance) (Pt Warm) -Tenderness on Palpation (Maryuri-wound No Skin Appearance) -Ulcer Cleansing Soap and Water -Foul Odor after Cleansing No -Anesthetic Used 5% Lidocaine Gel #8 MED ANKLE -Current Size (cm) - Length 1.9 -Current Size (cm) - Width 3.1 -Current Size (cm) - Depth 0.1 -Total Square Cm 5.89 -Date of Last Picture (Recall this 12/04/23 field) -Exudate Amt Medium -Wound Margin Distinct, Outline Attached -Granulation Amt Large (67-100%) -Granulation Quality Red -Necrosis Amt Small (1-33%) -Necrotic Tissue Type Adherent Slough -Texture (Maryuri-wound Skin Appearance) Assessed -Moisture (Maryuri-wound Skin Appearance) Assessed -Color (Maryuri-wound Skin Appearance) Assessed -Temperature (Maryuri-wound Skin No Abnormality Appearance) (Pt Warm) -Tenderness on Palpation (Maryuri-wound No Skin Appearance) -Ulcer Cleansing Soap and Water -Anesthetic Used 5% Lidocaine Gel #6 RT 3RD TOE -Current Size (cm) - Length 1.4 -Current Size (cm) - Width 0.5 -Current Size (cm) - Depth 0.1 -Total Square Cm 0.70 -Date of Last Picture (Recall this 12/04/23 field) -Wound Margin Distinct, Outline Attached -Necrosis Amt Small (1-33%) -Necrotic Tissue Type Adherent Slough -Texture (Maryuri-wound Skin Appearance) Assessed -Moisture (Maryuri-wound Skin Appearance) Assessed -Color (Maryuri-wound Skin Appearance) Assessed -Temperature (Maryuri-wound Skin No Abnormality Appearance) (Pt Warm) -Tenderness on Palpation (Maryuri-wound No Skin Appearance) -Ulcer Cleansing Soap and Water -Foul Odor after Cleansing No -Anesthetic Used 5% Lidocaine Gel Right Calf (cm) 57.6 Right Ankle (cm) 31 Left Calf (cm) 61.2 Left Ankle (cm) 29.8 WC - Nurse 2 - General Ulcer CM Notes Start: 12/04/23 09:07 Freq: Status: Active Protocol: Activity Type Activity Date Activity User E-sign Co-sign Detail Recorded Client Recorded Date Recorded By Document 12/04/23 09:39 [facility] 12/04/23 10:05 12/04/23 09:39 Wound Center Nurse 2 #7 DORSAL FT -Time 09:39 -Correct Patient Yes -Correct Side, Site, Position Yes -Tunneling No -Undermining/Tunneling No -Circular Undermining No -Wound/Ulcer Outcome Healed- Epithelialized #9 RT SUMNER CLUSTER -Time 09:39 -Correct Patient Yes -Correct Side, Site, Position Yes -Correct Procedure Yes -Procedure Performed Yes -Type of Procedure Debridement -Clinical Debridement Subcutaneous -Tissue Removed Subcutaneous -Post Debridement (cm) - Length 3.0 -Post Debridement (cm) - Width 2.0 -Post Debridement (cm) - Depth 0.1 -Total Square (Post) (cm) 6.00 -Area of Debridement (cm) - Length 3.0 -Area of Debridement (cm) - Width 2.0 -Total Square (Area) (cm) 6.00 -Tunneling No -Undermining/Tunneling No -Circular Undermining No -Wound/Ulcer Outcome Not Healed -Ulcer Cleansing Rinsed/ Irrigated with Saline -Foul Odor after Cleansing No -Bioengineered Tissue No -Bleeding Controlled with Pressure -Treatment Response Procedure Tolerated Well -Debridement - Subq, 1st 20sq cm Yes #8 MED ANKLE -Time 09:39 -Correct Patient Yes -Correct Side, Site, Position Yes -Correct Procedure Yes -Procedure Performed Yes -Type of Procedure Debridement -Clinical Debridement Subcutaneous -Tissue Removed Subcutaneous -Post Debridement (cm) - Length 1.4 -Post Debridement (cm) - Width 1.5 -Post Debridement (cm) - Depth 0.1 -Total Square (Post) (cm) 2.10 -Area of Debridement (cm) - Length 1.4 -Area of Debridement (cm) - Width 1.5 -Total Square (Area) (cm) 2.10 -Tunneling No -Undermining/Tunneling No -Circular Undermining No -Wound/Ulcer Outcome Not Healed -Ulcer Cleansing Rinsed/ Irrigated with Saline -Foul Odor after Cleansing No -Bleeding Controlled with Pressure -Treatment Response Procedure Tolerated Well -Debridement - Subq, 1st 20sq cm No #6 RT 3RD TOE -Time 09:40 -Correct Patient Yes -Correct Side, Site, Position Yes -Correct Procedure Yes -Procedure Performed Yes -Type of Procedure Debridement -Clinical Debridement Subcutaneous -Tissue Removed Subcutaneous -Post Debridement (cm) - Length 0.3 -Post Debridement (cm) - Width 0.2 -Post Debridement (cm) - Depth 0.1 -Total Square (Post) (cm) 0.06 -Area of Debridement (cm) - Length 0.3 -Area of Debridement (cm) - Width 0.2 -Total Square (Area) (cm) 0.06 -Tunneling No -Undermining/Tunneling No -Circular Undermining No -Wound/Ulcer Outcome Healed- Epithelialized -Bleeding Controlled with Pressure -Treatment Response Procedure Tolerated Well -Debridement - Subq, 1st 20sq cm No Pain Scale: 0-10 Numeric Is Patient Pain Free? Yes - Nurse 3 - General Ulcer D/C NN Start: 12/04/23 09:07 Freq: Status: Active Protocol: Activity Type Activity Date Activity User E-sign Co-sign Detail Recorded Client Recorded Date Recorded By Document 12/04/23 10:39 KW l 12/04/23 10:40 KW 12/04/23 10:39 Wound Care Center Nurse 3 #9 RT SUMNER CLUSTER -Primary Dressing Applied Promogran -Primary Dressing Covered/Secured with Dry Gauze -Promogran 1 #8 MED ANKLE -Other Dressing PROMOGRAN -Primary Dressing Covered/Secured with Dry Gauze #6 RT 3RD TOE -Other Dressing PROMOGRAN -Primary Dressing Covered/Secured with Dry Gauze, Secured with Tape Right -Multi-Layered Wrap Application Unna Boot - Right ($) Pain Scale: 0-10 Numeric Is Patient Pain Free? Yes - Visit Discharge Discharge Condition Stable Ambulatory Status Ambulatory, Walker Transportation Private Auto Accompanied by DAUGHTER Medication Reconcilliation completed & No provided to patient/care provider Clinical Summary of Care Provided Yes Additional Wound Wound debrided: rigt medial ankle Laterality: Right Type of Debridement: Excisional debridement Anesthesia Used: 4% Lidocaine Solution and 5% Lidocaine Gel Depth: Down to and including healthy tissue and in the subcutaneous layer Percentage of wound debrided: 100 Instrument Used: 5mm curette Tissue Removed: yellow slough, devitalized tissue Severity: Fat Layer Exposed Amount of bleeding with debridement: Mild Bleeding Controlled with: Compression and gauze Patient tolerated procedure: Patient tolerated procedure well Additional Wound Wound debrided: right anterior sumner Laterality: Right Type of Debridement: Excisional debridement Anesthesia Used: 4% Lidocaine Solution and 5% Lidocaine Gel Depth: Down to and including healthy tissue and in the subcutaneous layer Percentage of wound debrided: 100 Instrument Used: 5mm curette Tissue Removed: yellow slough, devitalized tissue Severity: Fat Layer Exposed Amount of bleeding with debridement: Mild Bleeding Controlled with: Compression and gauze Patient tolerated procedure: Patient tolerated procedure well Additional Wound Wound debrided: right 3rd toe Laterality: Right Type of Debridement: Selective debridement Anesthesia Used: 4% Lidocaine Solution and 5% Lidocaine Gel Depth: Down to and including healthy tissue and in the subcutaneous layer Instrument Used: 5mm curette Tissue Removed: yellow slough, devitalized tissue Severity: Fat Layer Exposed Amount of bleeding with debridement: None Bleeding Controlled with: Compression and gauze Patient tolerated procedure: Patient tolerated procedure well Assessment/Plan Assessment/Plan (1) Bullous pemphigoid: CODE(S): L12.0 - Bullous pemphigoid (2) Type 2 diabetes mellitus without complications: CODE(S): E11.9 - Type 2 diabetes mellitus without complications QUALIFIERS: Diabetes mellitus [facility] insulin use: without manager intermediate use Qualified Code(s): E11.9 - Type 2 diabetes mellitus without complications (3) Lymphedema: CODE(S): I89.0 - Lymphedema, not elsewhere classified (4) Morbid obesity with BMI of 70 and over, adult: CODE(S): E66.01 - Morbid (severe) obesity due to excess calories; Z68.45 - Body mass index [BMI] 70 or greater, adult (5) Hypertension: CODE(S): I10 - Essential (primary) hypertension QUALIFIERS: Hypertension type: primary hypertension Qualified Code(s): I10 - Essential (primary) hypertension (6) Venous stasis ulcer of right ankle with fat layer exposed: CODE(S): I83.013 - Varicose veins of right lower extremity with ulcer of ankle; L97.312 - Non-pressure chronic ulcer of right ankle with fat layer exposed QUALIFIERS: Varicose vein presence: with varicose veins Qualified Code(s): I83.013 - Varicose veins of right lower extremity with ulcer of ankle; L97.312 - Non-pressure chronic ulcer of right ankle with fat layer exposed (7) Ulcer of right lower extremity with fat layer exposed: CODE(S): L97.912 - Non-pressure chronic ulcer of unspecified part of right lower leg with fat layer exposed PLAN: Plan Evaluation and debridement of right lower extremity ulcers performed today in clinic as annotated above. At home wound-care instructions: Will apply Promogran to ulcers for moderate drainage and then apply UNNA boot compression wrap to manage increased edema of right lower leg. Continue treatment with Circaid compression wrap of left lower leg. Due to her compliance with conservative treatment of her lymphedema with compression wraps and elevation, lymphedema clinic referral and treatment with continued struggles with worsening lymphedema and development of ulcers, she would benefit from lymphedema pumps. She is unable to don traditional compression stockings or adjust her Circaid compression wraps due to arthritis and morbid obesity which limit the effectiveness of these modalities. She would be able to apply and operate lymphedema pumps. Off-loading: The patient was instructed to avoid pressure and friction on the affected areas. Reposition every 2 hours at minimum. Avoid prolonged standing and/or dangling of legs. When seated, feet should be elevated at chest level. Frequent ambulation is encouraged. Diet: Patient encouraged to increase protein intake while taking caution to avoid high carbohydrate and/or sugar intake to promote healing. Labs/cultures/imaging: Wound culture taken today, will treat based on results. She is on chronic treatment with doxycycline for bullous pemphigoid. Follow-up: Return in 1 week for wound care follow up. Return sooner or report to the emergency room should symptoms worsen, or new symptoms arise.
--- NOTE | 2023-12-08 16:34 | WC ---
Received an order for an ATB from Dr Chavez for Bactrim DS. Left her a voicemail for her to return my call.
--- NOTE | 2023-12-09 09:01 | WC ---
Notified patient regarding her positive wound culture, Dr Chavez ordered Bactrim DS 1 tab PO BID x 10 days with no refills. Patient said she should be fine with that and the prescription was called into [facility].
[2023-12-11 10:48] VITALS: BP 182/100; PULSE 88; RESP 18; TEMP 35.7; BMI 70.6
--- NOTE | 2023-12-11 13:35 | PCM.WC.PN ---
History of Present Illness Date of Service: 12/11/23 Chief Complaint: Right lower extremity ulcers and blisters and bilateral lymphedema History of Wound: Jeniffer is an 78-year-old female with PMHx of excision of melanoma from the left arm, HTN, morbid obesity, lymphedema, DM type II, bullous pemphigoid, JENNIFER on Bipap that has been treated by the wound healing center in the past, most recently October of [address] Coyne for nonhealing ulcers of lower extremities and edema. She is accompanied by her daughter Lily whom she lives with. Her bullous pemphigoid has been stable. Her lymphedema is not well controlled with Circaid compression wraps and she is also diligent with elevating her legs while in bed with a wedge pillow with still having difficulty with swelling in her lower legs. She is somewhat sedentary but does not sit with her legs down. She is compliant with JENNIFER treatment. She recently developed multiple sites of blisters to her right lower leg which have ruptured and have been leaking yellow serous fluid. The ulcers have been present x approx. 4 weeks. Her daughter has been applying vaseline and Bacitracin and covering these with gauze. She is compliant with Circaid compression wraps but does note that when she elevates her legs during the day and gets up that they do slide down frequently and her daughter is not always home to readjust the wraps and she is unable to do this on her own. She denies recent cellulitis to the lower extremities. Daughter brought her to PCP. She was referred to the wound care center for care of multiple right lower extremity ulcers with blisters. Patient is morbidly obese however is trying to move more and is able to walk some. Patient is diabetic with last A1c 5.9%, managed with diet. Patient denies N/V/F/chills. She denies pain to the lower extremities today. Subjective Subjective This is a 76-year-old female who presents to the wound care center today for a follow-up of multiple right lower extremity ulcers secondary to lymphedema.?She tolerated treatment with UNNA boot compression and had a decrease in 4 cm in her calf circumference since last week. The ulcers on her leg are improved and 2 healed but unfortunately 2 new blisters have developed. She denies increased pain, drainage, or odor. She was started on Bactrim DS for positive wound cultures and is tolerating treatment well. Objective Data Objective Data Vital Signs: Vital Signs Temp Pulse Resp BP O2 Del Method 96.2 F L 88 18 182/100 H Room Air 12/11/23 10:48 12/11/23 10:48 12/11/23 10:48 12/11/23 10:48 12/04/23 09:07 Oxygen Delivery Method Room Air Weight: 175.087 kg Body Mass Index (BMI) 70.6 Lab / Micro Data Micro: Microbiology 12/04/23 09:50 Ulcer, Decubitus - Leg, Right Gram Stain - Final 12/04/23 09:50 Ulcer, Decubitus - Leg, Right Wound Culture - Final Staphylococcus aureus 12/04/23 09:50 Ulcer, Decubitus - Leg, Right Anaerobic Culture - Final No anaerobic bacteria isolated. Physical Exam Const alert, oriented x3 and no apparent distress General Appearance: cooperative and comfortable Nutritional Appearance: morbidly obese HEENT normocephalic and head/scalp atraumatic Lymph Lymphatic: lymphedema elephantiasis Resp normal respiratory effort Effort and Inspection: able to speak in complete sentences Cardio regular rate and regular rhythm Extremity General Extremity: edema bilateral lower extremity Details: severe Skin General Skin Exam: lichenification, venous stasis and dermatitis Wounds: wounds noted Wound Narrative: as in clinical panel Psych mental status grossly normal, thought process normal, cooperative and affect normal Debridement Note Debridement Note Wound debrided: right dorsal foot Laterality: Right Type of Debridement: Selective debridement Anesthesia Used: 4% Lidocaine Solution and 5% Lidocaine Gel Depth: Down to and including healthy tissue and in the subcutaneous layer Percentage of wound debrided: 100 Instrument Used: 5mm curette Tissue Removed: yellow slough, devitalized tissue Severity: Limited To Skin Breakdown Amount of bleeding with debridement: None Patient tolerated procedure: Patient tolerated procedure well Post-Debridement Measurements and Additional Note: Post-Debridement Measurements/Treatment KATIE - Nurse 1 - General Ulcer Assessment Start: 12/04/23 09:07 Freq: Status: Active Protocol: NETTIE Activity Type Activity Date Activity User E-sign Co-sign Detail Recorded Client Recorded Date Recorded By Document 12/04/23 09:07 KW l 12/04/23 09:25 KW Document 12/11/23 10:48 RB wound 12/11/23 10:54 RB 12/04/23 12/11/23 09:07 10:48 - Today's Visit Information Type of service Initial Visit Follow-up Visit (Physician/[employer] ) Arrival Mode Ambulatory, Ambulatory Walker Transfer Assistance None Accompanied by daughter Patient Identification Verified (Name & Yes Yes ) Patient Requires Transmission-Based No Precautions Height and Weight Height 5 ft 2 in Weight 175.087 kg Weight in Pounds 386.0 lbs Weight Measurement Method Estimated by Patient Body Mass Index (BMI) 70.6 70.6 BMI Classification Obese Obese BSA - Henry 2.53 Vital Signs Temperature (97.8 F-99.1 F) 97.4 F L 96.2 F L Temperature Source Temporal Temporal Pulse Rate (60-100) 71 88 Pulse Location Monitor Radial Respiratory Rate (12-18) 18 18 Respiratory rate source Observation Observation Oxygen Delivery Method Room Air Blood Pressure (90/60-120/80) 231/94 H 182/100 H Blood Pressure Mean (mm Hg) 139 127 Source Monitor Manual Position Semi-Fowlers Semi-Fowlers Blood Pressure Location Right Arm Left Arm History Since Last Visit- (Skip if this is Patient's initial visit) Have you changed medications since your No No last visit? Any new allergies or adverse reactions No No Had a fall/change in ADL's that may No No increase risk of falls Signs or symptoms of abuse and/or No No neglect since last visit Have you been in the hospital since your No No last visit? Has dressing in place as prescribed Yes Yes Has compression in place as prescribed Yes Yes Has offloadiing in place as prescribed N/A No Experienced any changes in pain level or No No management Left Footwear Regular Shoe Right Footwear Regular Shoe Pain Scale: 0-10 Numeric Is Patient Pain Free? Yes Yes - Nurse 1 - General Ulcer Measurement Start: 12/04/23 09:07 Freq: Status: Active Protocol: Activity Type Activity Date Activity User E-sign Co-sign Detail Recorded Client Recorded Date Recorded By Document 12/04/23 09:07 KW l 12/04/23 09:25 KW Document 12/11/23 10:48 RB wound 12/11/23 10:54 RB 12/04/23 12/11/23 09:07 10:48 Wound Center Nurse 1 #8 MED ANKLE -Combined with other wound No -Current Size (cm) - Length 1.9 0.1 -Current Size (cm) - Width 3.1 0.1 -Current Size (cm) - Depth 0.1 0.1 -Total Square Cm 5.89 0.01 -Date of Last Picture (Recall this 12/04/23 field) -Tunneling No -Undermining/Tunneling No -Circular Undermining No -Exudate Amt Medium Medium -Exudate Type Serosanguineous -Wound Margin Distinct, Distinct, Outline Outline Attached Attached -Granulation Amt Large (67-100%) Medium (34-66%) -Granulation Quality [place] -Slough/Fibrin Yes -Necrosis Amt Small (1-33%) Medium (34-66%) -Necrotic Tissue Type Adherent Slough Adherent Slough -Structure Exposed N/A -Texture (Maryuri-wound Skin Appearance) Assessed Assessed -Moisture (Maryuri-wound Skin Appearance) Assessed Assessed -Color (Maryuri-wound Skin Appearance) Assessed Assessed -Temperature (Maryuri-wound Skin No Abnormality No Abnormality Appearance) (Pt Warm) (Pt Warm) -Tenderness on Palpation (Maryuri-wound No No Skin Appearance) -Ulcer Cleansing Soap and Water Wound Cleanser -Foul Odor after Cleansing No -Anesthetic Used 5% Lidocaine 5% Lidocaine Gel Gel #7 DORSAL FT -Current Size (cm) - Length 1.7 -Current Size (cm) - Width 2 -Current Size (cm) - Depth 0.1 -Total Square Cm 3.4 -Date of Last Picture (Recall this 12/04/23 field) -Exudate Amt Medium -Exudate Type Serosanguineous -Wound Margin Distinct, Outline Attached -Granulation Amt Large (67-100%) -Granulation Quality Red -Necrosis Amt Large (67-100%) -Necrotic Tissue Type Adherent Slough -Texture (Maryuri-wound Skin Appearance) Assessed -Moisture (Maryuri-wound Skin Appearance) Assessed -Color (Maryuri-wound Skin Appearance) Assessed -Tenderness on Palpation (Maryuri-wound No Skin Appearance) -Ulcer Cleansing Soap and Water -Foul Odor after Cleansing No -Anesthetic Used 5% Lidocaine Gel #6 RT 3RD TOE -Combined with other wound No -Current Size (cm) - Length 1.4 0.1 -Current Size (cm) - Width 0.5 0.1 -Current Size (cm) - Depth 0.1 0.1 -Total Square Cm 0.70 0.01 -Date of Last Picture (Recall this 12/04/23 field) -Tunneling No -Undermining/Tunneling No -Circular Undermining No -Exudate Amt Medium -Exudate Type Serosanguineous -Wound Margin Distinct, Distinct, Outline Outline Attached Attached -Granulation Amt Medium (34-66%) -Granulation Quality [place] -Slough/Fibrin Yes -Necrosis Amt Small (1-33%) Medium (34-66%) -Necrotic Tissue Type Adherent Slough Adherent Slough -Structure Exposed N/A -Texture (Maryuri-wound Skin Appearance) Assessed Assessed -Moisture (Maryuri-wound Skin Appearance) Assessed Assessed -Color (Maryuri-wound Skin Appearance) Assessed Assessed -Temperature (Maryuri-wound Skin No Abnormality No Abnormality Appearance) (Pt Warm) (Pt Warm) -Tenderness on Palpation (Maryuri-wound No No Skin Appearance) -Ulcer Cleansing Soap and Water Wound Cleanser -Foul Odor after Cleansing No No -Anesthetic Used 5% Lidocaine 5% Lidocaine Gel Gel #9 RT SUMNER CLUSTER -Combined with other wound No -Current Size (cm) - Length 3.8 1.2 -Current Size (cm) - Width 19 1 -Current Size (cm) - Depth 0.2 0.1 -Total Square Cm 72.2 1.2 -Date of Last Picture (Recall this 12/04/23 field) -Tunneling No -Undermining/Tunneling No -Circular Undermining No -Exudate Amt Medium -Exudate Type Serosanguineous -Wound Margin Distinct, Distinct, Outline Outline Attached Attached -Granulation Amt Large (67-100%) Medium (34-66%) -Granulation Quality [place] -Slough/Fibrin Yes -Necrosis Amt Small (1-33%) Medium (34-66%) -Necrotic Tissue Type Adherent Slough Adherent Slough -Structure Exposed N/A -Texture (Maryuri-wound Skin Appearance) Assessed Assessed -Moisture (Maryuri-wound Skin Appearance) Assessed Assessed,Dry/ Scaly -Color (Maryuri-wound Skin Appearance) Assessed Assessed -Temperature (Maryuri-wound Skin No Abnormality No Abnormality Appearance) (Pt Warm) (Pt Warm) -Tenderness on Palpation (Maryuri-wound No No Skin Appearance) -Ulcer Cleansing Soap and Water Wound Cleanser -Foul Odor after Cleansing No No -Anesthetic Used 5% Lidocaine 5% Lidocaine Gel Gel Lower Limb Edema Present Yes Right Calf (cm) 57.6 52 Right Ankle (cm) 31 30 Left Calf (cm) 61.2 Left Ankle (cm) 29.8 - Nurse 2 - General Ulcer CM Notes Start: 12/04/23 09:07 Freq: Status: Active Protocol: Activity Type Activity Date Activity User E-sign Co-sign Detail Recorded Client Recorded Date Recorded By Document 12/04/23 09:39 GM 12/04/23 10:05 Document 12/11/23 11:01 [facility] [id number] 12/11/23 11:19 [facility] 12/04/23 12/11/23 09:39 11:01 Wound Center Nurse 2 #8 MED ANKLE -Time 09:39 11:16 -Correct Patient Yes -Correct Side, Site, Position Yes -Correct Procedure Yes -Procedure Performed Yes -Type of Procedure Debridement -Clinical Debridement Subcutaneous -Tissue Removed Subcutaneous -Post Debridement (cm) - Length 1.4 0 -Post Debridement (cm) - Width 1.5 0 -Post Debridement (cm) - Depth 0.1 0 -Total Square (Post) (cm) 2.10 0 -Area of Debridement (cm) - Length 1.4 0 -Area of Debridement (cm) - Width 1.5 0 -Total Square (Area) (cm) 2.10 0 -Tunneling No -Undermining/Tunneling No -Circular Undermining No -Wound/Ulcer Outcome Not Healed Healed- Epithelialized -Ulcer Cleansing Rinsed/ Irrigated with Saline -Foul Odor after Cleansing No -Bleeding Controlled with Pressure -Treatment Response Procedure Tolerated Well -Debridement - Subq, 1st 20sq cm No #7 DORSAL FT -Time 09:39 -Correct Patient Yes -Correct Side, Site, Position Yes -Tunneling No -Undermining/Tunneling No -Circular Undermining No -Wound/Ulcer Outcome Healed- Epithelialized #6 RT 3RD TOE -Time 09:40 -Correct Patient Yes -Correct Side, Site, Position Yes -Correct Procedure Yes -Procedure Performed Yes -Type of Procedure Debridement -Clinical Debridement Subcutaneous -Tissue Removed Subcutaneous -Post Debridement (cm) - Length 0.3 0 -Post Debridement (cm) - Width 0.2 0 -Post Debridement (cm) - Depth 0.1 0 -Total Square (Post) (cm) 0.06 0 -Area of Debridement (cm) - Length 0.3 0 -Area of Debridement (cm) - Width 0.2 0 -Total Square (Area) (cm) 0.06 0 -Tunneling No -Undermining/Tunneling No -Circular Undermining No -Wound/Ulcer Outcome Healed- Healed- Epithelialized Epithelialized -Bleeding Controlled with Pressure NA -Treatment Response Procedure Tolerated Well -Debridement - Subq, 1st 20sq cm No #11- R 2ND TOE -Time 11:13 -Correct Patient Yes -Correct Side, Site, Position Yes -Correct Procedure Yes -Procedure Performed Yes -Type of Procedure Debridement -Clinical Debridement Subcutaneous -Tissue Removed Subcutaneous -Post Debridement (cm) - Length 0.9 -Post Debridement (cm) - Width 0.5 -Post Debridement (cm) - Depth 0.1 -Total Square (Post) (cm) 0.45 -Area of Debridement (cm) - Length 0.9 -Area of Debridement (cm) - Width 0.5 -Total Square (Area) (cm) 0.45 -Tunneling No -Undermining/Tunneling No -Circular Undermining No -Wound/Ulcer Outcome Not Healed -Ulcer Cleansing Rinsed/ Irrigated with Saline -Foul Odor after Cleansing No -Bioengineered Tissue No -Bleeding Controlled with Pressure -Treatment Response Procedure Tolerated Well -Debridement - Subq, 1st 20sq cm Yes #10- R DORSAL FOOT CLUSTER -Time 11:08 -Correct Patient Yes -Correct Side, Site, Position Yes -Correct Procedure Yes -Procedure Performed Yes -Type of Procedure Debridement -Clinical Debridement Subcutaneous -Tissue Removed Subcutaneous -Tunneling No -Undermining/Tunneling No -Wound/Ulcer Outcome Not Healed -Ulcer Cleansing Rinsed/ Irrigated with Saline -Foul Odor after Cleansing No -Bioengineered Tissue No -Bleeding Controlled with Pressure -Treatment Response Procedure Tolerated Well -Debridement - Subq, 1st 20sq cm No #9 RT SUMNER CLUSTER -Time 09:39 11:05 -Correct Patient Yes Yes -Correct Side, Site, Position Yes Yes -Correct Procedure Yes Yes -Procedure Performed Yes Yes -Type of Procedure Debridement Debridement -Clinical Debridement Subcutaneous Subcutaneous -Tissue Removed Subcutaneous Subcutaneous -Post Debridement (cm) - Length 3.0 1.5 -Post Debridement (cm) - Width 2.0 1.3 -Post Debridement (cm) - Depth 0.1 0.1 -Total Square (Post) (cm) 6.00 1.95 -Area of Debridement (cm) - Length 3.0 1.5 -Area of Debridement (cm) - Width 2.0 1.3 -Total Square (Area) (cm) 6.00 1.95 -Tunneling No No -Undermining/Tunneling No No -Circular Undermining No No -Wound/Ulcer Outcome Not Healed Not Healed -Ulcer Cleansing Rinsed/ Rinsed/ Irrigated with Irrigated with Saline Saline -Foul Odor after Cleansing No No -Bioengineered Tissue No No -Bleeding Controlled with Pressure Pressure -Treatment Response Procedure Tolerated Well -Debridement - Subq, 1st 20sq cm Yes No Pain Scale: 0-10 Numeric Is Patient Pain Free? Yes Yes - Nurse 3 - General Ulcer D/C NN Start: 12/04/23 09:07 Freq: Status: Active Protocol: Activity Type Activity Date Activity User E-sign Co-sign Detail Recorded Client Recorded Date Recorded By Document 12/04/23 10:39 KW l 12/04/23 10:40 KW Document 12/11/23 12:00 RB wound 12/11/23 12:01 RB 12/04/23 12/11/23 10:39 12:00 Wound Care Center Nurse 3 #8 MED ANKLE -Other Dressing PROMOGRAN -Primary Dressing Covered/Secured with Dry Gauze #6 RT 3RD TOE -Other Dressing PROMOGRAN -Primary Dressing Covered/Secured with Dry Gauze, Secured with Tape #11- R 2ND TOE -Primary Dressing Applied Promogran -Primary Dressing Covered/Secured with Dry Gauze, Secured with Tape -Promogran 1 #10- R DORSAL FOOT CLUSTER -Other Dressing promogran #9 RT SUMNER CLUSTER -Primary Dressing Applied Promogran -Other Dressing promogran -Primary Dressing Covered/Secured with Dry Gauze -Promogran 1 Right -Multi-Layered Wrap Application Unna Boot - Unna Boot - Right ($) Right ($) Treatment Response Procedure Tolerated Well Pain Scale: 0-10 Numeric Is Patient Pain Free? Yes Yes - Visit Discharge Discharge Condition Stable Stable Ambulatory Status Ambulatory, Ambulatory Walker Transportation Private Auto Private Auto Accompanied by DAUGHTER Medication Reconcilliation completed & No No provided to patient/care provider Clinical Summary of Care Provided Yes Yes Additional Wound Wound debrided: right second toe Laterality: Right Type of Debridement: Excisional debridement Anesthesia Used: 4% Lidocaine Solution and 5% Lidocaine Gel Depth: Down to and including healthy tissue and in the subcutaneous layer Percentage of wound debrided: 100 Instrument Used: 5mm curette Tissue Removed: Yellow slough, devitalized tissue Severity: Fat Layer Exposed Amount of bleeding with debridement: Mild Bleeding Controlled with: Compression and gauze Patient tolerated procedure: Patient tolerated procedure well Additional Wound Wound debrided: right anterior sumner Laterality: Right Type of Debridement: Excisional debridement Anesthesia Used: 4% Lidocaine Solution and 5% Lidocaine Gel Depth: Down to and including healthy tissue and in the subcutaneous layer Percentage of wound debrided: 100 Instrument Used: 5mm curette Tissue Removed: yellow slough, devitalized tissue Severity: Fat Layer Exposed Amount of bleeding with debridement: Mild Bleeding Controlled with: Compression and gauze Patient tolerated procedure: Patient tolerated procedure well Assessment/Plan Assessment/Plan (1) Bullous pemphigoid: CODE(S): L12.0 - Bullous pemphigoid (2) Type 2 diabetes mellitus without complications: CODE(S): E11.9 - Type 2 diabetes mellitus without complications QUALIFIERS: Diabetes mellitus longterm insulin use: without longterm use Qualified Code(s): E11.9 - Type 2 diabetes mellitus without complications (3) Lymphedema: CODE(S): I89.0 - Lymphedema, not elsewhere classified (4) Morbid obesity with BMI of 70 and over, adult: CODE(S): E66.01 - Morbid (severe) obesity due to excess calories; Z68.45 - Body mass index [BMI] 70 or greater, adult (5) Hypertension: CODE(S): I10 - Essential (primary) hypertension QUALIFIERS: Hypertension type: primary hypertension Qualified Code(s): I10 - Essential (primary) hypertension (6) Venous stasis ulcer of right ankle with fat layer exposed: CODE(S): I83.013 - Varicose veins of right lower extremity with ulcer of ankle; L97.312 - Non-pressure chronic ulcer of right ankle with fat layer exposed QUALIFIERS: Varicose vein presence: with varicose veins Qualified Code(s): I83.013 - Varicose veins of right lower extremity with ulcer of ankle; L97.312 - Non-pressure chronic ulcer of right ankle with fat layer exposed (7) Ulcer of right lower extremity with fat layer exposed: CODE(S): L97.912 - Non-pressure chronic ulcer of unspecified part of right lower leg with fat layer exposed PLAN: Plan Evaluation and debridement of right lower extremity ulcers performed today in clinic as annotated above. At home wound-care instructions: Will continue to apply Promogran to ulcers for moderate drainage and then apply UNNA boot compression wrap to manage increased edema of right lower leg. Continue treatment with Circaid compression wrap of left lower leg. Apply Promogran to second toe ulcer daily and cover with gauze for moderate drainage. Due to her compliance with conservative treatment of her lymphedema with compression wraps and elevation, lymphedema clinic referral and treatment with continued struggles with worsening lymphedema and development of ulcers, she would benefit from lymphedema pumps. She is unable to don traditional compression stockings or adjust her Circaid compression wraps due to arthritis and morbid obesity which limit the effectiveness of these modalities. She would be able to apply and operate lymphedema pumps. Off-loading: The patient was instructed to avoid pressure and friction on the affected areas. Reposition every 2 hours at minimum. Avoid prolonged standing and/or dangling of legs. When seated, feet should be elevated at chest level. Frequent ambulation is encouraged. Diet: Patient encouraged to increase protein intake while taking caution to avoid high carbohydrate and/or sugar intake to promote healing. Labs/cultures/imaging: Wound culture positive for Staph aureus and she is currently taking Bactrim DS. She is on chronic treatment with doxycycline for bullous pemphigoid. Follow-up: Return in 1 week for wound care follow up. Return sooner or report to the emergency room should symptoms worsen, or new symptoms arise.
--- NOTE | 2023-12-16 09:40 | WC ---
PHOTO 11/30/23 RIGHT MEDIAL ANKLE
--- NOTE | 2023-12-16 09:40 | WC ---
PHOTO 11/30/23 RIGHT DORSAL FOOT
--- NOTE | 2023-12-16 09:43 | WC ---
PHOTO RIGHT THIRD TOE 11/30/2023
--- NOTE | 2023-12-16 09:44 | WC ---
PHOTO RIGHT JOSUE CLUSTER
== END 2023-12-16 23:59 | disposition home or self-care (01) ==
LOC: WC 10:30
PROVIDERS: PCP Family Medicine; Referring Provider Family Medicine; Visit Provider Family Medicine
DX: L12.0 Bullous pemphigoid (principal); I83.013 Varicose veins of right lower extremity with ulcer of ankle; L97.912 Non-pressure chronic ulcer of unspecified part of right lower leg with fat layer exposed; E66.01 Morbid (severe) obesity due to excess calories; Z68.45 Body mass index [BMI] 70 or greater, adult; E11.9 Type 2 diabetes mellitus without complications; R68.83 Chills (without fever); I10 Essential (primary) hypertension; G47.33 Obstructive sleep apnea (adult) (pediatric); I89.0 Lymphedema, not elsewhere classified; I87.2 Venous insufficiency (chronic) (peripheral); Z90.49 Acquired absence of other specified parts of digestive tract
CPT/HCPCS: 11042; 29580; 87070; 87075; 87077; 87186; 87205; 99213; G0463

== ENCOUNTER 2024-01-15 10:00 | Outpatient (RCR) | payer MEDICARE, SELFPAY ==
[2023-12-17 00:27] VITALS: BP 182/100; PULSE 88; RESP 18; TEMP 35.7; BMI 70.6
[2023-12-18 09:10] VITALS: RESP 18; BMI 70.6
--- NOTE | 2023-12-18 11:58 | PN.PCM_ITS ---
History of Present Illness Date of Service: 12/18/23 Chief Complaint: Right lower extremity ulcers and blisters and bilateral l ymphedema History of Wound: Jeniffer is an 78-year-old female with PMHx of excision of melanoma from the left arm, HTN, morbid obesity, lymphedema, DM type II, bullous pemphigoid, JENNIFER on Bipap that has been treated by the wound healing center in the past, most recently October of [address] Coyne for nonhealing ulcers of lower extremities and edema and was prescribed Circaid compression wraps. She is accompanied by her daughter Lily whom she lives with. Her bullous pemphigoid has been stable. Her lymphedema is not well controlled with Circaid compression wraps and she is also diligent with elevating her legs while in bed with a wedge pillow with still having difficulty with swelling in her lower legs. She is somewhat sedentary but does not sit with her legs down. She is compliant with JENNIFER treatment. She recently developed multiple sites of blisters to her right lower leg which have ruptured and have been leaking yellow serous fluid. The ulcers have been pr esent x approx. 4 weeks. Her daughter has been applying vaseline and Bacitracin and covering these with gauze. She is compliant with Circaid compression wraps but does note that when she elevates her legs during the day and gets up that they do slide down frequently and her daughter is not always home to readjust the wraps and she is unable to do this on her own. She denies recent cellulitis to the lower extremities. Daughter brought her to PCP. She was referred to the wound care center for care of multiple right lower extremity ulcers with blisters. Patient is morbidly obese however is trying to move more and is able to walk some. Patient is diabetic with last A1c 5.9%, managed with diet. Patient denies N/V/F/chills. She denies pain to the lower extremities today. Subjective Subjective This is a 76-year-old female who presents to the wound care center today for a follow-up of multiple right lower extremity ulcers secondary to lymphedema.?She also developed new ulcers/blisters to the top of her left foot. She tolerated treatment with UNNA boot compression and had a decrease in 4 cm in her calf circumference the first week. The ulcers on her leg are improved and 2 healed but unfortunately more new blisters have developed. This is likely due in part to a flare of her bullous pemphigoid. She denies increased pain, drainage, or odor. She completed Bactrim DS for positive wound cultures. Objective Data Objective Data Vital Signs: Vital Signs Temp Pulse Resp BP 96.2 F L 88 18 182/100 H 12/17/23 00:27 12/17/23 00:27 12/18/23 09:10 12/17/23 00:27 Weight: 175.087 kg Body Mass Index (BMI) 70.6 Physical Exam Const alert, oriented x3 and no apparent distress General Appearance: cooperative and comfortable Nutritional Appearance: morbidly obese HEENT normocephalic and head/scalp atraumatic Lymph Lymphatic: lymphedema elephantiasis Resp normal respiratory effort Effort and Inspection: able to speak in complete sentences Cardio regular rate and regular rhythm Extremity General Extremity: edema bilateral lower extremity Details: severe Skin General Skin Exam: lichenification, venous stasis and dermatitis Wounds: wounds noted Wound Narrative: as in clinical panel Psych mental status grossly normal, thought process normal, cooperative and affect normal Debridement Note Debridement Note Wound debrided: right dorsal foot Laterality: Right Type of Debridement: Selective debridement Anesthesia Used: 4% Lidocaine Solution and 5% Lidocaine Gel Depth: Down to and including healthy tissue and in the subcutaneous layer Percentage of wound debrided: 100 Instrument Used: 5mm curette Tissue Removed: Yellow slough, devitalized tissue Severity: Fat Layer Exposed Amount of bleeding with debridement: Mild Bleeding Controlled with: Compression and gauze Patient tolerated procedure: Patient tolerated procedure well Post-Debridement Measurements and Additional Note: Post-Debridement Measurements/Treatment [facility] Nurse 1 - General Ulcer Assessment Start: 12/18/23 09:10 Freq: Status: Active Protocol: WC.LOWALEJANDROT Activity Type Activity Date Activity User E-sign Co-sign Detail Recorded Client Recorded Date Recorded By Document 12/18/23 09:10 RB wound 12/18/23 09:36 RB 12/18/23 09:10 - Today's Visit Information Type of service Follow-up Visit (Physician/SPA CONSULTANT ) Arrival Mode Ambulatory, Walker Transfer Assistance None Patient Identification Verified (Name & Yes ) Patient Requires Transmission-Based No Precautions Height and Weight Body Mass Index (BMI) 70.6 BMI Classification Obese Vital Signs Temperature Source Temporal Pulse Location Monitor Respiratory Rate (12-18) 18 Respiratory rate source Observation Source Monitor Position Semi-Fowlers Blood Pressure Location Left Arm History Since Last Visit- (Skip if this is Patient's initial visit) Have you changed medications since your No last visit? Any new allergies or adverse reactions No Had a fall/change in ADL's that may No increase risk of falls Signs or symptoms of abuse and/or No neglect since last visit Have you been in the hospital since your No last visit? Has dressing in place as prescribed Yes Has compression in place as prescribed No Has offloadiing in place as prescribed No Experienced any changes in pain level or No management Pain Scale: 0-10 Numeric Is Patient Pain Free? Yes WC - Nurse 1 - General Ulcer Measurement Start: 12/18/23 09:10 Freq: Status: Active Protocol: Activity Type Activity Date Activity User E-sign Co-sign Detail Recorded Client Recorded Date Recorded By Document 12/18/23 09:10 RB wound 12/18/23 09:36 RB 12/18/23 09:10 Wound Center Nurse 1 12. left dorsal foot -Combined with other wound No -Current Size (cm) - Length 1.5 -Current Size (cm) - Width 1.8 -Current Size (cm) - Depth 0.1 -Total Square Cm 2.70 -Photo Taken Yes -Tunneling No -Undermining/Tunneling No -Circular Undermining No -Exudate Amt Medium -Exudate Type Serosanguineous -Wound Margin Distinct, Outline Attached -Granulation Amt Medium (34-66%) -Granulation Quality [place] -Slough/Fibrin Yes -Necrosis Amt Medium (34-66%) -Necrotic Tissue Type Adherent Slough -Structure Exposed N/A -Texture (Maryuri-wound Skin Appearance) Assessed, Friable -Moisture (Maryuri-wound Skin Appearance) Assessed -Color (Maryuri-wound Skin Appearance) Assessed -Temperature (Maryuri-wound Skin No Abnormality Appearance) (Pt Warm) -Tenderness on Palpation (Maryuri-wound No Skin Appearance) -Ulcer Cleansing Wound Cleanser -Foul Odor after Cleansing No -Anesthetic Used 4% Lidocaine Solution #11- R 2ND TOE -Combined with other wound No -Current Size (cm) - Length 2 -Current Size (cm) - Width 2.5 -Current Size (cm) - Depth 0.1 -Total Square Cm 5.0 -Tunneling No -Undermining/Tunneling No -Circular Undermining No -Exudate Amt Medium -Exudate Type Serosanguineous -Wound Margin Distinct, Outline Attached -Granulation Amt Medium (34-66%) -Granulation Quality [place] -Slough/Fibrin Yes -Necrosis Amt Medium (34-66%) -Necrotic Tissue Type Adherent Slough -Structure Exposed N/A -Texture (Maryuri-wound Skin Appearance) Assessed -Moisture (Maryuri-wound Skin Appearance) Assessed -Color (Maryuri-wound Skin Appearance) Assessed -Temperature (Maryuri-wound Skin No Abnormality Appearance) (Pt Warm) -Tenderness on Palpation (Maryuri-wound No Skin Appearance) -Ulcer Cleansing Wound Cleanser -Foul Odor after Cleansing No -Anesthetic Used 4% Lidocaine Solution #10- R DORSAL FOOT CLUSTER -Combined with other wound No -Current Size (cm) - Length 0.1 -Current Size (cm) - Width 0.1 -Current Size (cm) - Depth 0.1 -Total Square Cm 0.01 #9 RT SUMNER CLUSTER -Combined with other wound No -Current Size (cm) - Length 9 -Current Size (cm) - Width 9.5 -Current Size (cm) - Depth 0.1 -Total Square Cm 85.5 -Tunneling No -Undermining/Tunneling No -Circular Undermining No -Exudate Amt Medium -Exudate Type Serosanguineous -Wound Margin Distinct, Outline Attached -Granulation Amt Medium (34-66%) -Granulation Quality [place] -Slough/Fibrin Yes -Necrosis Amt Medium (34-66%) -Necrotic Tissue Type Adherent Slough -Structure Exposed N/A -Texture (Maryuri-wound Skin Appearance) Assessed, Friable -Moisture (Maryuri-wound Skin Appearance) Assessed -Color (Maryuri-wound Skin Appearance) Assessed -Temperature (Maryuri-wound Skin No Abnormality Appearance) (Pt Warm) -Tenderness on Palpation (Maryuri-wound No Skin Appearance) -Ulcer Cleansing Wound Cleanser -Foul Odor after Cleansing No -Anesthetic Used 4% Lidocaine Solution Lower Limb Edema Present Yes Right Calf (cm) 63.5 Right Ankle (cm) 29.5 Left Calf (cm) 63 Left Ankle (cm) 30 WC - Nurse 2 - General Ulcer CM Notes Start: 12/18/23 09:10 Freq: Status: Active Protocol: Activity Type Activity Date Activity User E-sign Co-sign Detail Recorded Client Recorded Date Recorded By Document 12/18/23 09:41 JF 0000 12/18/23 10:02 JF 12/18/23 09:41 Wound Center Nurse 2 12. left dorsal foot -Time 09:59 -Correct Patient Yes -Correct Side, Site, Position Yes -Correct Procedure Yes -Procedure Performed Yes -Type of Procedure Debridement -Clinical Debridement Epidermis / Dermis -Tissue Removed Epidermis, Dermis -Post Debridement (cm) - Length 1.0 -Post Debridement (cm) - Width 3.0 -Post Debridement (cm) - Depth 0.1 -Total Square (Post) (cm) 3.00 -Area of Debridement (cm) - Length 1.0 -Area of Debridement (cm) - Width 3.0 -Total Square (Area) (cm) 3.00 -Tunneling No -Undermining/Tunneling No -Circular Undermining No -Wound/Ulcer Outcome Not Healed -Ulcer Cleansing Rinsed/ Irrigated with Saline -Foul Odor after Cleansing No -Bioengineered Tissue No -Bleeding Controlled with Pressure -Treatment Response Procedure Tolerated Well -Offloading No -Debridement - Open, 1st 20sq cm No -Debridement - Subq, 1st 20sq cm No #11- R 2ND TOE -Time 09:56 -Correct Patient Yes -Correct Side, Site, Position Yes -Correct Procedure Yes -Procedure Performed Yes -Type of Procedure Debridement -Clinical Debridement Subcutaneous -Tissue Removed Subcutaneous -Post Debridement (cm) - Length 1.5 -Post Debridement (cm) - Width 1.0 -Post Debridement (cm) - Depth 0.1 -Total Square (Post) (cm) 1.50 -Area of Debridement (cm) - Length 1.5 -Area of Debridement (cm) - Width 1.0 -Total Square (Area) (cm) 1.50 -Tunneling No -Undermining/Tunneling No -Circular Undermining No -Wound/Ulcer Outcome Not Healed -Ulcer Cleansing Rinsed/ Irrigated with Saline -Foul Odor after Cleansing No -Bioengineered Tissue No -Bleeding Controlled with Pressure -Treatment Response Procedure Tolerated Well -Offloading No -Debridement - Subq, 1st 20sq cm Yes #10- R DORSAL FOOT CLUSTER -Time 10:00 -Correct Patient Yes -Correct Side, Site, Position Yes -Correct Procedure Yes -Procedure Performed Yes -Type of Procedure Debridement -Clinical Debridement Epidermis / Dermis -Tissue Removed Epidermis, Dermis -Post Debridement (cm) - Length 1.0 -Post Debridement (cm) - Width 1.5 -Post Debridement (cm) - Depth 0.1 -Total Square (Post) (cm) 1.50 -Area of Debridement (cm) - Length 1.0 -Area of Debridement (cm) - Width 1.5 -Total Square (Area) (cm) 1.50 -Tunneling No -Undermining/Tunneling No -Circular Undermining No -Wound/Ulcer Outcome Not Healed -Ulcer Cleansing Rinsed/ Irrigated with Saline -Foul Odor after Cleansing No -Bioengineered Tissue No -Bleeding Controlled with Pressure -Treatment Response Procedure Tolerated Well -Offloading No -Debridement - Open, 1st 20sq cm No #9 RT SUMNER CLUSTER -Time 10:01 -Correct Patient Yes -Correct Side, Site, Position Yes -Correct Procedure Yes -Procedure Performed Yes -Type of Procedure Debridement -Clinical Debridement Epidermis / Dermis -Tissue Removed Epidermis, Dermis -Post Debridement (cm) - Length 3.5 -Post Debridement (cm) - Width 3.0 -Post Debridement (cm) - Depth 0.1 -Total Square (Post) (cm) 10.50 -Area of Debridement (cm) - Length 3.5 -Area of Debridement (cm) - Width 3.0 -Total Square (Area) (cm) 10.50 -Tunneling No -Undermining/Tunneling No -Circular Undermining No -Wound/Ulcer Outcome Not Healed -Ulcer Cleansing Rinsed/ Irrigated with Saline -Foul Odor after Cleansing No -Bioengineered Tissue No -Bleeding Controlled with Pressure -Treatment Response Procedure Tolerated Well -Offloading No -Debridement - Open, 1st 20sq cm Yes Pain Scale: 0-10 Numeric Is Patient Pain Free? Yes - Nurse 3 - General Ulcer D/C NN Start: 12/18/23 09:10 Freq: Status: Active Protocol: Activity Type Activity Date Activity User E-sign Co-sign Detail Recorded Client Recorded Date Recorded By Document 12/18/23 10:50 RB wound 12/18/23 10:52 RB 12/18/23 10:50 Wound Care Center Nurse 3 12. left dorsal foot -Ulcer Cleansing Wound Cleanser -Primary Dressing Applied Promogran -Primary Dressing Covered/Secured with Dry Gauze,Dry Gauze & Roll Gauze,Secured with Tape -Promogran 1 #11- R 2ND TOE -Ulcer Cleansing Wound Cleanser -Primary Dressing Applied Promogran -Primary Dressing Covered/Secured with Dry Gauze,Dry Gauze & Roll Gauze,Secured with Tape -Promogran 1 #10- R DORSAL FOOT CLUSTER -Ulcer Cleansing Wound Cleanser -Primary Dressing Applied Promogran -Primary Dressing Covered/Secured with Dry Gauze -Promogran 1 #9 RT SUMNER CLUSTER -Ulcer Cleansing Wound Cleanser -Primary Dressing Applied Promogran -Primary Dressing Covered/Secured with Dry Gauze -Promogran 1 Left -Multi-Layered Wrap Application Unna Boot - Left ($) Right -Multi-Layered Wrap Application Unna Boot - Right ($) Treatment Response Procedure Tolerated Well Pain Scale: 0-10 Numeric Is Patient Pain Free? Yes WC - Visit Discharge Ambulatory Status Ambulatory, Walker Transportation Private Auto Medication Reconcilliation completed & No provided to patient/care provider Clinical Summary of Care Provided Yes Additional Wound Wound debrided: right sumner cluster Laterality: Right Type of Debridement: Selective debridement Depth: Down to and including healthy tissue and in the subcutaneous layer Percentage of wound debrided: 100 Instrument Used: 5mm curette Tissue Removed: Yellow slough, devitalized tissue Severity: Fat Layer Exposed Amount of bleeding with debridement: Mild Bleeding Controlled with: Compression and gauze Patient tolerated procedure: Patient tolerated procedure well Additional Wound Wound debrided: left dorsal foot Laterality: Left Type of Debridement: Selective debridement Anesthesia Used: 4% Lidocaine Solution and 5% Lidocaine Gel Depth: Down to and including healthy tissue and in the subcutaneous layer Percentage of wound debrided: 100 Instrument Used: 5mm curette Tissue Removed: Yellow slough, devitalized tissue Severity: Fat Layer Exposed Amount of bleeding with debridement: Mild Bleeding Controlled with: Compression and gauze Patient tolerated procedure: Patient tolerated procedure well Additional Wound Wound debrided: right second toe Laterality: Right Type of Debridement: Excisional debridement Anesthesia Used: 4% Lidocaine Solution and 5% Lidocaine Gel Depth: Down to and including healthy tissue and in the subcutaneous layer Percentage of wound debrided: 100 Instrument Used: 5mm curette Tissue Removed: Yellow slough, devitalized tissue Severity: Fat Layer Exposed Amount of bleeding with debridement: Mild Bleeding Controlled with: Compression and gauze Patient tolerated procedure: Patient tolerated procedure well Assessment/Plan Assessment/Plan (1) Bullous pemphigoid: CODE(S): L12.0 - Bullous pemphigoid (2) Type 2 diabetes mellitus without complications: CODE(S): E11.9 - Type 2 diabetes mellitus without complications 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: without senior living use Qualified Code(s): E11.9 - Type 2 diabetes mellitus without complications (3) Lymphedema: CODE(S): I89.0 - Lymphedema, not elsewhere classified (4) Morbid obesity with BMI of 70 and over, adult: CODE(S): E66.01 - Morbid (severe) obesity due to excess calories; Z68.45 - Body mass index [BMI] 70 or greater, adult (5) Hypertension: CODE(S): I10 - Essential (primary) hypertension QUALIFIERS: Hypertension type: primary hypertension Qualified Code(s): I10 - Essential (primary) hypertension (6) Venous stasis ulcer of right ankle with fat layer exposed: CODE(S): I83.013 - Varicose veins of right lower extremity with ulcer of ankle; L97.312 - Non-pressure chronic ulcer of right ankle with fat layer exposed QUALIFIERS: Varicose vein presence: with varicose veins Qualified Code(s): I83.013 - Varicose veins of right lower extremity with ulcer of ankle; L97.312 - Non-pressure chronic ulcer of right ankle with fat layer exposed (7) Ulcer of right lower extremity with fat layer exposed: CODE(S): L97.912 - Non-pressure chronic ulcer of unspecified part of right lower leg with fat layer exposed PLAN: Plan Evaluation and debridement of right lower extremity ulcers and left dorsal foot ulcer performed today in clinic as annotated above. At home wound-care instructions: Will continue to apply Promogran to ulcers for moderate drainage and then apply UNNA boot compression wrap to manage edema of bilateral lower legs. Continue treatment with Circaid compression wrap of left lower leg. Apply Promogran to second toe ulcer daily and cover with gauze for moderate drainage. Due to her compliance with conservative treatment of her lymphedema with compression wraps and elevation, lymphedema clinic referral and treatment with continued struggles with worsening lymphedema and continued development of ulcers, she would benefit from lymphedema pumps. She is unable to don traditional compression stockings or adjust her Circaid compression wraps due to arthritis and morbid obesity which limit the effectiveness of these modalities. She would be able to apply and operate lymphedema pumps independently while her daughter is at work where she is unable to adjust compression wraps when her daughter is working. She was treated for a 2 month span last year by Dr. Coyne here and is now been seen for 3 weeks for this episode of ulcers and lymphedema. Off-loading: The patient was instructed to avoid pressure and friction on the affected areas. Reposition every 2 hours at minimum. Avoid prolonged standing and/or dangling of legs. When seated, feet should be elevated at chest level. Frequent ambulation is encouraged. Diet: Patient encouraged to increase protein intake while taking caution to avoid high carbohydrate and/or sugar intake to promote healing. Labs/cultures/imaging: Completed Bactrim for staph infection on wound culture. She is on chronic treatment with doxycycline for bullous pemphigoid. Follow-up: Return in 3 weeks for wound care follow up and weekly for nurse visits to change UNNA boots. Return sooner or report to the emergency room should symptoms worsen, or new symptoms arise.
[2023-12-24 11:30] VITALS: RESP 20; BMI 70.6
[2023-12-30 11:15] VITALS: RESP 24; TEMP 36.6; BMI 70.6
[2024-01-08 09:57] VITALS: PULSE 82; RESP 18; TEMP 35.2; BMI 70.6
--- NOTE | 2024-01-08 10:16 | WC ---
pt refused B/P. She states the automatic B/P machine is too tight.
--- NOTE | 2024-01-08 12:49 | PCM.WC.PN ---
History of Present Illness Date of Service: 01/08/24 Chief Complaint: Right lower extremity ulcers and blisters and bilateral lymphedema History of Wound: Jeniffer is an 78-year-old female with PMHx of excision of melanoma from the left arm, HTN, morbid obesity, lymphedema, DM type II, bullous pemphigoid, JENNIFER on Bipap that has been treated by the wound healing center in the past, most recently October of [address] Coyne for nonhealing ulcers of lower extremities and edema and was prescribed Circaid compression wraps. She is accompanied by her daughter Lily whom she lives with. Her bullous pemphigoid has been stable. Her lymphedema is not well controlled with Circaid compression wraps and she is also diligent with elevating her legs while in bed with a wedge pillow with still having difficulty with swelling in her lower legs. She is somewhat sedentary but does not sit with her legs down. She is compliant with JENNIFER treatment. She recently developed multiple sites of blisters to her right lower leg which have ruptured and have been leaking yellow serous fluid. The ulcers have been present x approx. 4 weeks. Her daughter has been applying vaseline and Bacitracin and covering these with gauze. She is compliant with Circaid compression wraps but does note that when she elevates her legs during the day and gets up that they do slide down frequently and her daughter is not always home to readjust the wraps and she is unable to do this on her own. She denies recent cellulitis to the lower extremities. Daughter brought her to PCP. She was referred to the wound care center for care of multiple right lower extremity ulcers with blisters. Patient is morbidly obese however is trying to move more and is able to walk some. Patient is diabetic with last A1c 5.9%, managed with diet. Patient denies N/V/F/chills. She denies pain to the lower extremities today. Subjective Subjective This is a 76-year-old female who presents to the wound care center today for a follow-up of multiple right lower extremity ulcers secondary to lymphedema.?She also developed new ulcers/blisters to the top of her left foot. She tolerated treatment with UNNA boot compression and had a decrease in 4 cm in her calf circumference the first week. The ulcers on her leg are improved and 2 healed but unfortunately more new blisters have developed. This is likely due in part to a flare of her bullous pemphigoid. She denies increased pain, drainage, or odor. She completed Bactrim DS for positive wound cultures. Objective Data Objective Data Vital Signs: Vital Signs Temp Pulse Resp BP O2 Del Method 95.3 F L 82 18 182/100 H Room Air 01/08/24 09:57 01/08/24 09:57 01/08/24 09:57 12/17/23 00:27 12/24/23 11:30 Oxygen Delivery Method Room Air Weight: 175.087 kg Body Mass Index (BMI) 70.6 Physical Exam Const alert, oriented x3 and no apparent distress General Appearance: cooperative and comfortable Nutritional Appearance: morbidly obese HEENT normocephalic and head/scalp atraumatic Lymph Lymphatic: lymphedema elephantiasis Resp normal respiratory effort Effort and Inspection: able to speak in complete sentences Cardio regular rate and regular rhythm Extremity General Extremity: edema bilateral lower extremity Details: severe Skin General Skin Exam: lichenification, venous stasis and dermatitis Wounds: wounds noted Wound Narrative: as in clinical panel Psych mental status grossly normal, thought process normal, cooperative and affect normal Debridement Note Debridement Note Wound debrided: left dorsal foot Laterality: Left Type of Debridement: Selective debridement Anesthesia Used: 4% Lidocaine Solution Depth: Down to and including healthy tissue and in the subcutaneous layer Percentage of wound debrided: 100 Instrument Used: 7mm curette Tissue Removed: Yellow slough, devitalized tissue Severity: Fat Layer Exposed Amount of bleeding with debridement: Mild Bleeding Controlled with: Compression and gauze Patient tolerated procedure: Patient tolerated procedure well Post-Debridement Measurements and Additional Note: Post-Debridement Measurements/Treatment - Nurse 1 - General Ulcer Assessment Start: 12/18/23 09:10 Freq: Status: Active Protocol: NETTIE Activity Type Activity Date Activity User E-sign Co-sign Detail Recorded Client Recorded Date Recorded By Document 12/18/23 09:10 RB wound 12/18/23 09:36 RB Document 12/24/23 11:30 KW xfh 12/24/23 11:32 KW Document 12/30/23 11:15 DL 1606-1-10 12/30/23 11:50 DL Document 01/08/24 09:57 RB [id number] 01/08/24 10:12 RB Edit Result 01/08/24 09:57 RB (1) [id number] 01/08/24 11:08 RB (1) Pulse Rate (60-100) => 82 Source Monitor => Position Semi-Fowlers => Blood Pressure Location Left Arm => 12/18/23 12/24/23 12/30/23 09:10 11:30 11:15 WC - Today's Visit Information Type of service Follow-up Visit Nurse-only Nurse-only (Physician/HOSPITAL SUPERINTENDENT Visit Visit ) Arrival Mode Ambulatory, Ambulatory, Ambulatory, Walker Walker Walker Transfer Assistance None None Accompanied by DAUGHTER Patient Identification Verified (Name & Yes Yes Yes ) Patient Requires Transmission-Based No No Precautions Height and Weight Body Mass Index (BMI) 70.6 70.6 70.6 BMI Classification Obese Obese Obese Vital Signs Temperature (97.8 F-99.1 F) 97.8 F Temperature Source Temporal Temporal Pulse Rate (60-100) Pulse Location Monitor Respiratory Rate (12-18) 18 20 H 24 H Respiratory rate source Observation Observation Observation Oxygen Delivery Method Room Air Source Monitor Position Semi-Fowlers Blood Pressure Location Left Arm Comment Refused BP today History Since Last Visit- (Skip if this is Patient's initial visit) Have you changed medications since your No No No last visit? Any new allergies or adverse reactions No No No Had a fall/change in ADL's that may No No No increase risk of falls Signs or symptoms of abuse and/or No No No neglect since last visit Have you been in the hospital since your No No No last visit? Has dressing in place as prescribed Yes Yes Yes Has compression in place as prescribed No Yes Yes Has offloadiing in place as prescribed No N/A N/A Experienced any changes in pain level or No No No management Left Footwear Slipper Right Footwear Slipper Pain Scale: 0-10 Numeric Is Patient Pain Free? Yes Yes Yes 01/08/24 09:57 WC - Today's Visit Information Type of service Follow-up Visit (Physician/HOSPITAL SUPERINTENDENT ) Arrival Mode Ambulatory, Walker Transfer Assistance Manual Accompanied by Patient Identification Verified (Name & Yes ) Patient Requires Transmission-Based Precautions Height and Weight Body Mass Index (BMI) 70.6 BMI Classification Obese Vital Signs Temperature (97.8 F-99.1 F) 95.3 F L Temperature Source Temporal Pulse Rate (60-100) 82 Pulse Location Monitor Respiratory Rate (12-18) 18 Respiratory rate source Observation Oxygen Delivery Method Source Position Blood Pressure Location Comment History Since Last Visit- (Skip if this is Patient's initial visit) Have you changed medications since your No last visit? Any new allergies or adverse reactions No Had a fall/change in ADL's that may No increase risk of falls Signs or symptoms of abuse and/or No neglect since last visit Have you been in the hospital since your No last visit? Has dressing in place as prescribed Yes Has compression in place as prescribed Yes Has offloadiing in place as prescribed No Experienced any changes in pain level or No management Left Footwear Right Footwear Pain Scale: 0-10 Numeric Is Patient Pain Free? Yes 01/08/24 10:16 Wound Center by Laila Vega pt refused B/P. She states the automatic B/P machine is too tight. Initialized on 01/08/24 10:16 - END OF NOTE WC - Nurse 1 - General Ulcer Measurement Start: 12/18/23 09:10 Freq: Status: Active Protocol: Activity Type Activity Date Activity User E-sign Co-sign Detail Recorded Client Recorded Date Recorded By Document 12/18/23 09:10 RB wound 12/18/23 09:36 RB Document 12/30/23 11:15 DL 1606-1-10 12/30/23 11:50 DL Document 01/08/24 09:57 RB [id number] 01/08/24 10:12 RB 12/18/23 12/30/23 01/08/24 09:10 11:15 09:57 Wound Center Nurse 1 12. left dorsal foot -Combined with other wound No No -Current Size (cm) - Length 1.5 0.1 0 -Current Size (cm) - Width 1.8 0.1 0 -Current Size (cm) - Depth 0.1 0.1 0 -Total Square Cm 2.70 0.01 0 -Photo Taken Yes Yes -Epithelialization Large 67-100% -Tunneling No -Undermining/Tunneling No -Circular Undermining No -Exudate Amt Medium None Present -Exudate Type Serosanguineous -Wound Margin Distinct, Outline Attached -Granulation Amt Medium (34-66%) Large (67-100%) -Granulation Quality [place] -Slough/Fibrin Yes -Necrosis Amt Medium (34-66%) None Present (0 %) -Necrotic Tissue Type Adherent Slough -Structure Exposed N/A N/A -Texture (Maryuri-wound Skin Appearance) Assessed, Scarring Friable -Moisture (Maryuri-wound Skin Appearance) Assessed Dry/Scaly -Color (Maryuri-wound Skin Appearance) Assessed No Abnormality -Temperature (Maryuri-wound Skin No Abnormality No Abnormality Appearance) (Pt Warm) (Pt Warm) -Tenderness on Palpation (Maryuri-wound No Skin Appearance) -Ulcer Cleansing Wound Cleanser Soap and Water -Foul Odor after Cleansing No No -Anesthetic Used 4% Lidocaine Solution #11- R 2ND TOE -Combined with other wound No No -Current Size (cm) - Length 2 0.1 0 -Current Size (cm) - Width 2.5 0.1 0 -Current Size (cm) - Depth 0.1 0.1 0 -Total Square Cm 5.0 0.01 0 -Photo Taken Yes -Epithelialization Large 67-100% -Tunneling No -Undermining/Tunneling No -Circular Undermining No -Exudate Amt Medium None Present -Exudate Type Serosanguineous -Wound Margin Distinct, Outline Attached -Granulation Amt Medium (34-66%) Large (67-100%) -Granulation Quality [place] -Slough/Fibrin Yes -Necrosis Amt Medium (34-66%) None Present (0 %) -Necrotic Tissue Type Adherent Slough -Structure Exposed N/A N/A -Texture (Maryuri-wound Skin Appearance) Assessed Scarring -Moisture (Maryuri-wound Skin Appearance) Assessed No Abnormality -Color (Maryuri-wound Skin Appearance) Assessed No Abnormality -Temperature (Maryuri-wound Skin No Abnormality No Abnormality Appearance) (Pt Warm) (Pt Warm) -Tenderness on Palpation (Maryuri-wound No No Skin Appearance) -Ulcer Cleansing Wound Cleanser Soap and Water -Foul Odor after Cleansing No No -Anesthetic Used 4% Lidocaine Solution #10- R DORSAL FOOT CLUSTER -Combined with other wound No No -Current Size (cm) - Length 0.1 0.1 0 -Current Size (cm) - Width 0.1 0.1 0 -Current Size (cm) - Depth 0.1 0.1 0 -Total Square Cm 0.01 0.01 0 -Photo Taken Yes -Epithelialization Large 67-100% -Exudate Amt None Present -Granulation Amt Large (67-100%) -Granulation Quality [place] -Necrosis Amt None Present (0 %) -Structure Exposed N/A -Texture (Maryuri-wound Skin Appearance) Scarring -Moisture (Maryuri-wound Skin Appearance) No Abnormality -Color (Maryuri-wound Skin Appearance) No Abnormality -Temperature (Maryuri-wound Skin No Abnormality Appearance) (Pt Warm) -Ulcer Cleansing Soap and Water -Foul Odor after Cleansing No #9 RT JOSUE CLUSTER -Combined with other wound No No -Current Size (cm) - Length 9 0.1 0.1 -Current Size (cm) - Width 9.5 0.1 0.1 -Current Size (cm) - Depth 0.1 0.1 0.1 -Total Square Cm 85.5 0.01 0.01 -Photo Taken Yes -Tunneling No No -Undermining/Tunneling No No -Circular Undermining No No -Exudate Amt Medium None Present None Present -Exudate Type Serosanguineous -Wound Margin Distinct, Distinct, Outline Outline Attached Attached -Granulation Amt Medium (34-66%) Large (67-100%) Large (67-100%) -Granulation Quality [place] -Slough/Fibrin Yes Yes -Necrosis Amt Medium (34-66%) None Present (0 Small (1-33%) %) -Necrotic Tissue Type Adherent Slough Adherent Slough -Structure Exposed N/A N/A -Texture (Maryuri-wound Skin Appearance) Assessed, Scarring Friable Friable -Moisture (Maryuri-wound Skin Appearance) Assessed No Abnormality Assessed -Color (Maryuri-wound Skin Appearance) Assessed No Abnormality Assessed -Temperature (Maryuri-wound Skin No Abnormality No Abnormality No Abnormality Appearance) (Pt Warm) (Pt Warm) (Pt Warm) -Tenderness on Palpation (Maryuri-wound No No No Skin Appearance) -Ulcer Cleansing Wound Cleanser Soap and Water Wound Cleanser -Foul Odor after Cleansing No No No -Anesthetic Used 4% Lidocaine Solution Lower Limb Edema Present Yes Yes Right Calf (cm) 63.5 61 Right Ankle (cm) 29.5 30 Left Calf (cm) 63 69 Left Ankle (cm) 30 30 WC - Nurse 2 - General Ulcer CM Notes Start: 12/18/23 09:10 Freq: Status: Active Protocol: Activity Type Activity Date Activity User E-sign Co-sign Detail Recorded Client Recorded Date Recorded By Document 12/18/23 09:41 JF 0000 12/18/23 10:02 JF Document 12/24/23 11:30 KW xfh 12/24/23 11:32 KW Document 01/08/24 10:44 [id number] 01/08/24 11:01 12/18/23 12/24/23 01/08/24 09:41 11:30 10:44 Wound Center Nurse 2 12. left dorsal foot -Time 09:59 10:44 -Correct Patient Yes Yes -Correct Side, Site, Position Yes Yes -Correct Procedure Yes Yes -Procedure Performed Yes Yes -Type of Procedure Debridement Debridement -Clinical Debridement Epidermis / Subcutaneous Dermis -Tissue Removed Epidermis, Subcutaneous Dermis -Post Debridement (cm) - Length 1.0 1.3 -Post Debridement (cm) - Width 3.0 1.0 -Post Debridement (cm) - Depth 0.1 0.1 -Total Square (Post) (cm) 3.00 1.30 -Area of Debridement (cm) - Length 1.0 1.3 -Area of Debridement (cm) - Width 3.0 1.0 -Total Square (Area) (cm) 3.00 1.30 -Tunneling No No -Undermining/Tunneling No No -Circular Undermining No No -Wound/Ulcer Outcome Not Healed Not Healed -Ulcer Cleansing Rinsed/ Rinsed/ Irrigated with Irrigated with Saline Saline -Foul Odor after Cleansing No No -Bioengineered Tissue No No -Bleeding Controlled with Pressure Pressure -Treatment Response Procedure Procedure Tolerated Well Tolerated Well -Offloading No -Debridement - Open, 1st 20sq cm No -Debridement - Subq, 1st 20sq cm No Yes #11- R 2ND TOE -Time 09:56 10:44 -Correct Patient Yes Yes -Correct Side, Site, Position Yes Yes -Correct Procedure Yes -Procedure Performed Yes -Type of Procedure Debridement -Clinical Debridement Subcutaneous -Tissue Removed Subcutaneous -Post Debridement (cm) - Length 1.5 -Post Debridement (cm) - Width 1.0 -Post Debridement (cm) - Depth 0.1 -Total Square (Post) (cm) 1.50 -Area of Debridement (cm) - Length 1.5 -Area of Debridement (cm) - Width 1.0 -Total Square (Area) (cm) 1.50 -Tunneling No No -Undermining/Tunneling No No -Circular Undermining No No -Wound/Ulcer Outcome Not Healed Healed- Epithelialized -Ulcer Cleansing Rinsed/ Irrigated with Saline -Foul Odor after Cleansing No -Bioengineered Tissue No -Bleeding Controlled with Pressure -Treatment Response Procedure Tolerated Well -Offloading No -Debridement - Subq, 1st 20sq cm Yes #10- R DORSAL FOOT CLUSTER -Time 10:00 10:45 -Correct Patient Yes Yes -Correct Side, Site, Position Yes Yes -Correct Procedure Yes -Procedure Performed Yes -Type of Procedure Debridement -Clinical Debridement Epidermis / Dermis -Tissue Removed Epidermis, Dermis -Post Debridement (cm) - Length 1.0 -Post Debridement (cm) - Width 1.5 -Post Debridement (cm) - Depth 0.1 -Total Square (Post) (cm) 1.50 -Area of Debridement (cm) - Length 1.0 -Area of Debridement (cm) - Width 1.5 -Total Square (Area) (cm) 1.50 -Tunneling No No -Undermining/Tunneling No No -Circular Undermining No No -Wound/Ulcer Outcome Not Healed Healed- Epithelialized -Ulcer Cleansing Rinsed/ Irrigated with Saline -Foul Odor after Cleansing No -Bioengineered Tissue No -Bleeding Controlled with Pressure -Treatment Response Procedure Tolerated Well -Offloading No -Debridement - Open, 20sq cm No #9 RT JOSUE CLUSTER -Time 10:01 10:45 -Correct Patient Yes Yes -Correct Side, Site, Position Yes Yes -Correct Procedure Yes -Procedure Performed Yes -Type of Procedure Debridement -Clinical Debridement Epidermis / Dermis -Tissue Removed Epidermis, Dermis -Post Debridement (cm) - Length 3.5 -Post Debridement (cm) - Width 3.0 -Post Debridement (cm) - Depth 0.1 -Total Square (Post) (cm) 10.50 -Area of Debridement (cm) - Length 3.5 -Area of Debridement (cm) - Width 3.0 -Total Square (Area) (cm) 10.50 -Tunneling No No -Undermining/Tunneling No No -Circular Undermining No No -Wound/Ulcer Outcome Not Healed Healed- Epithelialized -Ulcer Cleansing Rinsed/ Irrigated with Saline -Foul Odor after Cleansing No -Bioengineered Tissue No -Bleeding Controlled with Pressure -Treatment Response Procedure Tolerated Well -Offloading No -Debridement - Open, 1st 20sq cm Yes Pain Scale: 0-10 Numeric Is Patient Pain Free? Yes Yes Yes WC - Nurse 3 - General Ulcer D/C NN Start: 12/18/23 09:10 Freq: Status: Active Protocol: Activity Type Activity Date Activity User E-sign Co-sign Detail Recorded Client Recorded Date Recorded By Document 12/18/23 10:50 RB wound 12/18/23 10:52 RB Document 12/24/23 11:30 KW xfh 12/24/23 11:32 KW Document 12/30/23 11:15 DL 1606-1-10 12/30/23 11:50 DL Document 01/08/24 11:35 RB [id number] 01/08/24 11:36 RB 12/18/23 12/24/23 12/30/23 10:50 11:30 11:15 Wound Care Center Nurse 3 12. left dorsal foot -Ulcer Cleansing Wound Cleanser Soap and Water -Foul Odor after Cleansing No -Primary Dressing Applied Promogran Promogran -Other Dressing PT PROMOGRAN -Primary Dressing Covered/Secured with Dry Gauze,Dry Dry Gauze Gauze & Roll Gauze,Secured with Tape -Other Covering unna -Promogran 1 1 #11- R 2ND TOE -Ulcer Cleansing Wound Cleanser Soap and Water -Foul Odor after Cleansing No -Primary Dressing Applied Promogran -Other Dressing PT PROMOGRAN promogran -Primary Dressing Covered/Secured with Dry Gauze,Dry Dry Gauze Dry Gauze, Gauze & Roll Secured with Gauze,Secured Tape with Tape -Promogran 1 #10- R DORSAL FOOT CLUSTER -Ulcer Cleansing Wound Cleanser Soap and Water -Foul Odor after Cleansing No -Primary Dressing Applied Promogran -Other Dressing PROMOGRAN promogran -Primary Dressing Covered/Secured with Dry Gauze Dry Gauze -Other Covering unna -Promogran 1 #9 RT JOSUE CLUSTER -Ulcer Cleansing Wound Cleanser Soap and Water -Foul Odor after Cleansing No -Primary Dressing Applied Promogran -Other Dressing PROMOGRAN -Primary Dressing Covered/Secured with Dry Gauze Dry Gauze -Other Covering unna -Promogran 1 BLE -Multi-Layered Wrap Application Unna Boot - Unna Boot - Bilateral ($) Bilateral ($) Left -Multi-Layered Wrap Application Unna Boot - Left ($) Right -Multi-Layered Wrap Application Unna Boot - Right ($) Treatment Response Procedure Procedure Tolerated Well Tolerated Well Vital Signs Temperature (97.8 F-99.1 F) 97.8 F Temperature Source Temporal Respiratory Rate (12-18) 20 H 24 H Respiratory rate source Observation Observation Oxygen Delivery Method Room Air Comment Refused BP today Pain Scale: 0-10 Numeric Is Patient Pain Free? Yes Yes Yes WC - Visit Discharge Discharge Condition Stable Ambulatory Status Ambulatory, Ambulatory, Walker Walker Transportation Private Auto Private Auto Medication Reconcilliation completed & No provided to patient/care provider Clinical Summary of Care Provided Yes 01/08/24 11:35 Wound Care Center Nurse 3 12. left dorsal foot -Ulcer Cleansing -Foul Odor after Cleansing -Primary Dressing Applied -Other Dressing promogran -Primary Dressing Covered/Secured with -Other Covering -Promogran #11- R 2ND TOE -Ulcer Cleansing -Foul Odor after Cleansing -Primary Dressing Applied -Other Dressing -Primary Dressing Covered/Secured with -Promogran #10- R DORSAL FOOT CLUSTER -Ulcer Cleansing -Foul Odor after Cleansing -Primary Dressing Applied -Other Dressing -Primary Dressing Covered/Secured with -Other Covering -Promogran #9 RT JOSUE CLUSTER -Ulcer Cleansing -Foul Odor after Cleansing -Primary Dressing Applied -Other Dressing promogran -Primary Dressing Covered/Secured with -Other Covering -Promogran BLE -Multi-Layered Wrap Application Unna Boot - Bilateral ($) Left -Multi-Layered Wrap Application Right -Multi-Layered Wrap Application Treatment Response Procedure Tolerated Well Vital Signs Temperature (97.8 F-99.1 F) Temperature Source Respiratory Rate (12-18) Respiratory rate source Oxygen Delivery Method Comment Pain Scale: 0-10 Numeric Is Patient Pain Free? Yes WC - Visit Discharge Discharge Condition Stable Ambulatory Status Ambulatory, Walker Transportation Private Auto Medication Reconcilliation completed & No provided to patient/care provider Clinical Summary of Care Provided Yes Assessment/Plan Assessment/Plan (1) Bullous pemphigoid: CODE(S): L12.0 - Bullous pemphigoid (2) Type 2 diabetes mellitus without complications: CODE(S): E11.9 - Type 2 diabetes mellitus without complications QUALIFIERS: Diabetes mellitus usp insulin use: without usp use Qualified Code(s): E11.9 - Type 2 diabetes mellitus without complications (3) Lymphedema: CODE(S): I89.0 - Lymphedema, not elsewhere classified (4) Morbid obesity with BMI of 70 and over, adult: CODE(S): E66.01 - Morbid (severe) obesity due to excess calories; Z68.45 - Body mass index [BMI] 70 or greater, adult (5) Hypertension: CODE(S): I10 - Essential (primary) hypertension QUALIFIERS: Hypertension type: primary hypertension Qualified Code(s): I10 - Essential (primary) hypertension (6) Venous stasis ulcer of right ankle with fat layer exposed: CODE(S): I83.013 - Varicose veins of right lower extremity with ulcer of ankle; L97.312 - Non-pressure chronic ulcer of right ankle with fat layer exposed QUALIFIERS: Varicose vein presence: with varicose veins Qualified Code(s): I83.013 - Varicose veins of right lower extremity with ulcer of ankle; L97.312 - Non-pressure chronic ulcer of right ankle with fat layer exposed (7) Ulcer of right lower extremity with fat layer exposed: CODE(S): L97.912 - Non-pressure chronic ulcer of unspecified part of right lower leg with fat layer exposed PLAN: Plan Evaluation and debridement of right lower extremity ulcers and left dorsal foot ulcer performed today in clinic as annotated above. At home wound-care instructions: Will continue to apply Promogran to ulcer of left foot for moderate drainage and then apply UNNA boot compression wrap to manage edema of bilateral lower legs. She has been contacted by [employer] underwriting sales representative for lymphedema pumps. I do think that her ulcers are also being caused in part by bullous pemphigoid and prednisone did seem to prevent new ulcers from developing. We discussed possibly seeking rheumatology referral for other options for treatment. Due to her compliance with conservative treatment of her lymphedema with compression wraps and elevation, lymphedema clinic referral and treatment with continued struggles with worsening lymphedema and continued development of ulcers, she would benefit from lymphedema pumps. She is unable to don traditional compression stockings or adjust her Circaid compression wraps due to arthritis and morbid obesity which limit the effectiveness of these modalities. She would be able to apply and operate lymphedema pumps independently while her daughter is at work where she is unable to adjust compression wraps when her daughter is working. She was treated for a 2 month span last year by Dr. Coyne here and is now been seen for 6 weeks for this episode of ulcers and lymphedema. Off-loading: The patient was instructed to avoid pressure and friction on the affected areas. Reposition every 2 hours at minimum. Avoid prolonged standing and/or dangling of legs. When seated, feet should be elevated at chest level. Frequent ambulation is encouraged. Diet: Patient encouraged to increase protein intake while taking caution to avoid high carbohydrate and/or sugar intake to promote healing. Labs/cultures/imaging: Completed Bactrim for staph infection on wound culture. She is on chronic treatment with doxycycline for bullous pemphigoid. Follow-up: Return in 1 week for wound care follow up and weekly for nurse visits to change UNNA boots. Return sooner or report to the emergency room should symptoms worsen, or new symptoms arise.
--- NOTE | 2024-01-11 08:56 | WC ---
PHOTO 01/07/24 LEFT DORSAL FOOT
--- NOTE | 2024-01-11 08:56 | WC ---
PHOTO 01/08/24 RIGHT JOSUE
--- NOTE | 2024-01-11 08:57 | WC ---
PHOTO 01/08/24 RIGHT DORSAL FOOT
--- NOTE | 2024-01-11 08:59 | WC ---
PHOTO 01/08/24 RIGHT SECOND TOE
--- NOTE | 2024-01-13 13:31 | WC ---
PHOTO 01/08/24 LEFT DORSAL FOOT
--- NOTE | 2024-01-13 13:32 | WC ---
PHOTO 01/08/24 RIGHT DORSAL FOOT
--- NOTE | 2024-01-13 13:32 | WC ---
PHOTO 01/08/24 RIGHT 2ND TOE
[2024-01-15 09:48] VITALS: BP 188/90; PULSE 82; RESP 18; TEMP 36.1; BMI 70.6
--- NOTE | 2024-01-15 13:38 | PCM.WC.PN ---
History of Present Illness Date of Service: 01/15/24 Chief Complaint: Right lower extremity ulcers and blisters and bilateral lymphedema History of Wound: Jeniffer is an 78-year-old female with PMHx of excision of melanoma from the left arm, HTN, morbid obesity, lymphedema, DM type II, bullous pemphigoid, JENNIFER on Bipap that has been treated by the wound healing center in the past, most recently October of [address] Coyne for nonhealing ulcers of lower extremities and edema and was prescribed Circaid compression wraps. She is accompanied by her daughter Lily whom she lives with. Her bullous pemphigoid has been stable. Her lymphedema is not well controlled with Circaid compression wraps and she is also diligent with elevating her legs while in bed with a wedge pillow with still having difficulty with swelling in her lower legs. She is somewhat sedentary but does not sit with her legs down. She is compliant with JENNIFER treatment. She recently developed multiple sites of blisters to her right lower leg which have ruptured and have been leaking yellow serous fluid. The ulcers have been present x approx. 4 weeks. Her daughter has been applying vaseline and Bacitracin and covering these with gauze. She is compliant with Circaid compression wraps but does note that when she elevates her legs during the day and gets up that they do slide down frequently and her daughter is not always home to readjust the wraps and she is unable to do this on her own. She denies recent cellulitis to the lower extremities. Daughter brought her to PCP. She was referred to the wound care center for care of multiple right lower extremity ulcers with blisters. Patient is morbidly obese however is trying to move more and is able to walk some. Patient is diabetic with last A1c 5.9%, managed with diet. Patient denies N/V/F/chills. She denies pain to the lower extremities today. Subjective Subjective This is an 78-year-old female who presents to the wound care center today for a follow-up of multiple right lower extremity ulcers secondary to lymphedema.?She also developed new ulcers/blisters to the top of her left foot. She tolerated treatment with UNNA boot compression and had a decrease in 4 cm in her calf circumference the first week. The ulcers on her leg are improved and are almost healed. No new blisters have developed. This is likely due in part to a flare of her bullous pemphigoid and was started on a second course of prednisone on 01/08/24. She denies increased pain, drainage, or odor. Objective Data Objective Data Vital Signs: Vital Signs Temp Pulse Resp BP O2 Del Method 97 F L 82 18 188/90 H Room Air 01/15/24 09:48 01/15/24 09:48 01/15/24 09:48 01/15/24 09:48 12/24/23 11:30 Oxygen Delivery Method Room Air Weight: 175.087 kg Body Mass Index (BMI) 70.6 Physical Exam Const alert, oriented x3 and no apparent distress General Appearance: cooperative and comfortable Nutritional Appearance: morbidly obese HEENT normocephalic and head/scalp atraumatic Lymph Lymphatic: lymphedema elephantiasis Resp normal respiratory effort Effort and Inspection: able to speak in complete sentences Cardio regular rate and regular rhythm Extremity General Extremity: edema bilateral lower extremity Details: severe Skin General Skin Exam: lichenification, venous stasis and dermatitis Wounds: wounds noted Wound Narrative: as in clinical panel Psych mental status grossly normal, thought process normal, cooperative and affect normal Debridement Note Debridement Note Wound debrided: right sumner cluster Laterality: Right Type of Debridement: Excisional debridement Anesthesia Used: 4% Lidocaine Solution and 5% Lidocaine Gel Depth: Down to and including healthy tissue and in the subcutaneous layer Percentage of wound debrided: 100 Instrument Used: 3mm curette Tissue Removed: Yellow slough, devitalized tissue Severity: Fat Layer Exposed Amount of bleeding with debridement: Mild Bleeding Controlled with: Compression and gauze Patient tolerated procedure: Patient tolerated procedure well Post-Debridement Measurements and Additional Note: Post-Debridement Measurements/Treatment - Nurse 1 - General Ulcer Assessment Start: 12/18/23 09:10 Freq: Status: Active Protocol: NETTIE Activity Type Activity Date Activity User E-sign Co-sign Detail Recorded Client Recorded Date Recorded By Document 12/18/23 09:10 RB wound 12/18/23 09:36 RB Document 12/24/23 11:30 KW xfh 12/24/23 11:32 KW Document 12/30/23 11:15 DL 1606-1-10 12/30/23 11:50 DL Document 01/08/24 09:57 RB [id number] 01/08/24 10:12 RB Edit Result 01/08/24 09:57 RB (1) [id number] 01/08/24 11:08 RB Document 01/15/24 09:48 RB [id number] 01/15/24 10:13 RB Edit Result 01/15/24 09:48 RB (2) [id number] 01/15/24 10:18 RB (1) Pulse Rate (60-100) => 82 Source Monitor => Position Semi-Fowlers => Blood Pressure Location Left Arm => (2) Temperature (97.8 F-99.1 F) => 97 F L Pulse Rate (60-100) => 82 Pulse Location Monitor => Radial Blood Pressure (90/60-120/80) => 188/90 H Blood Pressure Mean (mm Hg) => 122 Source Monitor => Manual 12/18/23 12/24/23 12/30/23 09:10 11:30 11:15 WC - Today's Visit Information Type of service Follow-up Visit Nurse-only Nurse-only (Physician/CONTRACTS OFFICER Visit Visit ) Arrival Mode Ambulatory, Ambulatory, Ambulatory, Walker Walker Walker Transfer Assistance None None Accompanied by DAUGHTER Patient Identification Verified (Name & Yes Yes Yes ) Patient Requires Transmission-Based No No Precautions Height and Weight Body Mass Index (BMI) 70.6 70.6 70.6 BMI Classification Obese Obese Obese Vital Signs Temperature (97.8 F-99.1 F) 97.8 F Temperature Source Temporal Temporal Pulse Rate (60-100) Pulse Location Monitor Respiratory Rate (12-18) 18 20 H 24 H Respiratory rate source Observation Observation Observation Oxygen Delivery Method Room Air Blood Pressure (90/60-120/80) Blood Pressure Mean (mm Hg) Source Monitor Position Semi-Fowlers Blood Pressure Location Left Arm Comment Refused BP today History Since Last Visit- (Skip if this is Patient's initial visit) Have you changed medications since your No No No last visit? Any new allergies or adverse reactions No No No Had a fall/change in ADL's that may No No No increase risk of falls Signs or symptoms of abuse and/or No No No neglect since last visit Have you been in the hospital since your No No No last visit? Has dressing in place as prescribed Yes Yes Yes Has compression in place as prescribed No Yes Yes Has offloadiing in place as prescribed No N/A N/A Experienced any changes in pain level or No No No management Left Footwear Slipper Right Footwear Slipper Pain Scale: 0-10 Numeric Is Patient Pain Free? Yes Yes Yes 01/08/24 01/15/24 09:57 09:48 - Today's Visit Information Type of service Follow-up Visit Follow-up Visit (Physician/CONTRACTS OFFICER (Physician/CONTRACTS OFFICER ) ) Arrival Mode Ambulatory, Ambulatory, Walker Walker Transfer Assistance Manual Manual Accompanied by Patient Identification Verified (Name & Yes Yes ) Patient Requires Transmission-Based No Precautions Height and Weight Body Mass Index (BMI) 70.6 70.6 BMI Classification Obese Obese Vital Signs Temperature (97.8 F-99.1 F) 95.3 F L 97 F L Temperature Source Temporal Temporal Pulse Rate (60-100) 82 82 Pulse Location Monitor Radial Respiratory Rate (12-18) 18 18 Respiratory rate source Observation Observation Oxygen Delivery Method Blood Pressure (90/60-120/80) 188/90 H Blood Pressure Mean (mm Hg) 122 Source Manual Position Semi-Fowlers Blood Pressure Location Right Arm Comment History Since Last Visit- (Skip if this is Patient's initial visit) Have you changed medications since your No No last visit? Any new allergies or adverse reactions No No Had a fall/change in ADL's that may No No increase risk of falls Signs or symptoms of abuse and/or No No neglect since last visit Have you been in the hospital since your No No last visit? Has dressing in place as prescribed Yes Yes Has compression in place as prescribed Yes Yes Has offloadiing in place as prescribed No No Experienced any changes in pain level or No No management Left Footwear Slipper Right Footwear Slipper Pain Scale: 0-10 Numeric Is Patient Pain Free? Yes Yes 01/08/24 10:16 Wound Center by Laila Vega pt refused B/P. She states the automatic B/P machine is too tight. Initialized on 01/08/24 10:16 - END OF NOTE - Nurse 1 - General Ulcer Measurement Start: 12/18/23 09:10 Freq: Status: Active Protocol: Activity Type Activity Date Activity User E-sign Co-sign Detail Recorded Client Recorded Date Recorded By Document 12/18/23 09:10 RB wound 12/18/23 09:36 RB Document 12/30/23 11:15 DL 1606-1-10 12/30/23 11:50 DL Document 01/08/24 09:57 RB [id number] 01/08/24 10:12 RB Document 01/15/24 09:48 RB [id number] 01/15/24 10:13 RB 12/18/23 12/30/23 01/08/24 09:10 11:15 09:57 Wound Center Nurse 1 #11- R 2ND TOE -Combined with other wound No No -Current Size (cm) - Length 2 0.1 0 -Current Size (cm) - Width 2.5 0.1 0 -Current Size (cm) - Depth 0.1 0.1 0 -Total Square Cm 5.0 0.01 0 -Photo Taken Yes -Epithelialization Large 67-100% -Tunneling No -Undermining/Tunneling No -Circular Undermining No -Exudate Amt Medium None Present -Exudate Type Serosanguineous -Wound Margin Distinct, Outline Attached -Granulation Amt Medium (34-66%) Large (67-100%) -Granulation Quality [place] -Slough/Fibrin Yes -Necrosis Amt Medium (34-66%) None Present (0 %) -Necrotic Tissue Type Adherent Slough -Structure Exposed N/A N/A -Texture (Maryuri-wound Skin Appearance) Assessed Scarring -Moisture (Maryuri-wound Skin Appearance) Assessed No Abnormality -Color (Maryuri-wound Skin Appearance) Assessed No Abnormality -Temperature (Maryuri-wound Skin No Abnormality No Abnormality Appearance) (Pt Warm) (Pt Warm) -Tenderness on Palpation (Maryuri-wound No No Skin Appearance) -Ulcer Cleansing Wound Cleanser Soap and Water -Foul Odor after Cleansing No No -Anesthetic Used 4% Lidocaine Solution #10- R DORSAL FOOT CLUSTER -Combined with other wound No No -Current Size (cm) - Length 0.1 0.1 0 -Current Size (cm) - Width 0.1 0.1 0 -Current Size (cm) - Depth 0.1 0.1 0 -Total Square Cm 0.01 0.01 0 -Photo Taken Yes -Epithelialization Large 67-100% -Exudate Amt None Present -Granulation Amt Large (67-100%) -Granulation Quality [place] -Necrosis Amt None Present (0 %) -Structure Exposed N/A -Texture (Maryuri-wound Skin Appearance) Scarring -Moisture (Maryuri-wound Skin Appearance) No Abnormality -Color (Maryuri-wound Skin Appearance) No Abnormality -Temperature (Maryuri-wound Skin No Abnormality Appearance) (Pt Warm) -Ulcer Cleansing Soap and Water -Foul Odor after Cleansing No 12. left dorsal foot -Combined with other wound No No -Current Size (cm) - Length 1.5 0.1 0 -Current Size (cm) - Width 1.8 0.1 0 -Current Size (cm) - Depth 0.1 0.1 0 -Total Square Cm 2.70 0.01 0 -Photo Taken Yes Yes -Epithelialization Large 67-100% -Tunneling No -Undermining/Tunneling No -Circular Undermining No -Exudate Amt Medium None Present -Exudate Type Serosanguineous -Wound Margin Distinct, Outline Attached -Granulation Amt Medium (34-66%) Large (67-100%) -Granulation Quality [place] -Slough/Fibrin Yes -Necrosis Amt Medium (34-66%) None Present (0 %) -Necrotic Tissue Type Adherent Slough -Structure Exposed N/A N/A -Texture (Maryuri-wound Skin Appearance) Assessed, Scarring Friable -Moisture (Maryuri-wound Skin Appearance) Assessed Dry/Scaly -Color (Maryuri-wound Skin Appearance) Assessed No Abnormality -Temperature (Maryuri-wound Skin No Abnormality No Abnormality Appearance) (Pt Warm) (Pt Warm) -Tenderness on Palpation (Maryuri-wound No Skin Appearance) -Ulcer Cleansing Wound Cleanser Soap and Water -Foul Odor after Cleansing No No -Anesthetic Used 4% Lidocaine Solution #9 RT SUMNER CLUSTER -Combined with other wound No No -Current Size (cm) - Length 9 0.1 0.1 -Current Size (cm) - Width 9.5 0.1 0.1 -Current Size (cm) - Depth 0.1 0.1 0.1 -Total Square Cm 85.5 0.01 0.01 -Photo Taken Yes -Tunneling No No -Undermining/Tunneling No No -Circular Undermining No No -Exudate Amt Medium None Present None Present -Exudate Type Serosanguineous -Wound Margin Distinct, Distinct, Outline Outline Attached Attached -Granulation Amt Medium (34-66%) Large (67-100%) Large (67-100%) -Granulation Quality [place] -Slough/Fibrin Yes Yes -Necrosis Amt Medium (34-66%) None Present (0 Small (1-33%) %) -Necrotic Tissue Type Adherent Slough Adherent Slough -Structure Exposed N/A N/A -Texture (Maryuri-wound Skin Appearance) Assessed, Scarring Friable Friable -Moisture (Maryuri-wound Skin Appearance) Assessed No Abnormality Assessed -Color (Maryuri-wound Skin Appearance) Assessed No Abnormality Assessed -Temperature (Maryuri-wound Skin No Abnormality No Abnormality No Abnormality Appearance) (Pt Warm) (Pt Warm) (Pt Warm) -Tenderness on Palpation (Maryuri-wound No No No Skin Appearance) -Ulcer Cleansing Wound Cleanser Soap and Water Wound Cleanser -Foul Odor after Cleansing No No No -Anesthetic Used 4% Lidocaine Solution Lower Limb Edema Present Yes Yes Right Calf (cm) 63.5 61 Right Ankle (cm) 29.5 30 Left Calf (cm) 63 69 Left Ankle (cm) 30 30 01/15/24 09:48 Wound Center Nurse 1 #11- R 2ND TOE -Combined with other wound No -Current Size (cm) - Length 0 -Current Size (cm) - Width 0 -Current Size (cm) - Depth 0 -Total Square Cm 0 -Photo Taken Yes -Epithelialization Large 67-100% -Tunneling -Undermining/Tunneling -Circular Undermining -Exudate Amt -Exudate Type -Wound Margin -Granulation Amt -Granulation Quality -Slough/Fibrin -Necrosis Amt -Necrotic Tissue Type -Structure Exposed -Texture (Maryuri-wound Skin Appearance) -Moisture (Maryuri-wound Skin Appearance) -Color (Maryuri-wound Skin Appearance) -Temperature (Maryuri-wound Skin Appearance) -Tenderness on Palpation (Maryuri-wound Skin Appearance) -Ulcer Cleansing -Foul Odor after Cleansing -Anesthetic Used #10- R DORSAL FOOT CLUSTER -Combined with other wound No -Current Size (cm) - Length 0 -Current Size (cm) - Width 0 -Current Size (cm) - Depth 0 -Total Square Cm 0 -Photo Taken Yes -Epithelialization Large 67-100% -Exudate Amt -Granulation Amt -Granulation Quality -Necrosis Amt -Structure Exposed -Texture (Maryuri-wound Skin Appearance) -Moisture (Maryuri-wound Skin Appearance) -Color (Maryuri-wound Skin Appearance) -Temperature (Maryuri-wound Skin Appearance) -Ulcer Cleansing -Foul Odor after Cleansing 12. left dorsal foot -Combined with other wound No -Current Size (cm) - Length 0.1 -Current Size (cm) - Width 0.1 -Current Size (cm) - Depth 0.1 -Total Square Cm 0.01 -Photo Taken Yes -Epithelialization Large 67-100% -Tunneling No -Undermining/Tunneling No -Circular Undermining No -Exudate Amt Small -Exudate Type Serosanguineous -Wound Margin Distinct, Outline Attached -Granulation Amt Medium (34-66%) -Granulation Quality [place] -Slough/Fibrin Yes -Necrosis Amt Medium (34-66%) -Necrotic Tissue Type Adherent Slough -Structure Exposed Joint -Texture (Maryuri-wound Skin Appearance) Assessed -Moisture (Maryuri-wound Skin Appearance) Assessed -Color (Maryuri-wound Skin Appearance) Assessed -Temperature (Maryuri-wound Skin No Abnormality Appearance) (Pt Warm) -Tenderness on Palpation (Maryuri-wound No Skin Appearance) -Ulcer Cleansing Wound Cleanser -Foul Odor after Cleansing No -Anesthetic Used 5% Lidocaine Gel #9 RT SUMNER CLUSTER -Combined with other wound No -Current Size (cm) - Length 1 -Current Size (cm) - Width 2 -Current Size (cm) - Depth 0.1 -Total Square Cm 2 -Photo Taken Yes -Tunneling No -Undermining/Tunneling No -Circular Undermining No -Exudate Amt Medium -Exudate Type Serosanguineous -Wound Margin Distinct, Outline Attached -Granulation Amt Medium (34-66%) -Granulation Quality [place] -Slough/Fibrin Yes -Necrosis Amt Medium (34-66%) -Necrotic Tissue Type Adherent Slough -Structure Exposed N/A -Texture (Maryuri-wound Skin Appearance) Assessed -Moisture (Maryuri-wound Skin Appearance) Assessed -Color (Maryuri-wound Skin Appearance) Assessed -Temperature (Maryuri-wound Skin No Abnormality Appearance) (Pt Warm) -Tenderness on Palpation (Maryuri-wound No Skin Appearance) -Ulcer Cleansing Wound Cleanser -Foul Odor after Cleansing No -Anesthetic Used 5% Lidocaine Gel Lower Limb Edema Present Yes Right Calf (cm) 57.5 Right Ankle (cm) 28.8 Left Calf (cm) 71 Left Ankle (cm) 29.5 WC - Nurse 2 - General Ulcer CM Notes Start: 12/18/23 09:10 Freq: Status: Active Protocol: Activity Type Activity Date Activity User E-sign Co-sign Detail Recorded Client Recorded Date Recorded By Document 12/18/23 09:41 JF 0000 12/18/23 10:02 JF Document 12/24/23 11:30 KW [facility] 12/24/23 11:32 KW Document 01/08/24 10:44 GM [id number] 01/08/24 11:01 GM Document 01/15/24 11:11 GM [id number] 01/15/24 11:20 GM 12/18/23 12/24/23 01/08/24 09:41 11:30 10:44 Wound Center Nurse 2 #11- R 2ND TOE -Time 09:56 10:44 -Correct Patient Yes Yes -Correct Side, Site, Position Yes Yes -Correct Procedure Yes -Procedure Performed Yes -Type of Procedure Debridement -Clinical Debridement Subcutaneous -Tissue Removed Subcutaneous -Post Debridement (cm) - Length 1.5 -Post Debridement (cm) - Width 1.0 -Post Debridement (cm) - Depth 0.1 -Total Square (Post) (cm) 1.50 -Area of Debridement (cm) - Length 1.5 -Area of Debridement (cm) - Width 1.0 -Total Square (Area) (cm) 1.50 -Tunneling No No -Undermining/Tunneling No No -Circular Undermining No No -Wound/Ulcer Outcome Not Healed Healed- Epithelialized -Ulcer Cleansing Rinsed/ Irrigated with Saline -Foul Odor after Cleansing No -Bioengineered Tissue No -Bleeding Controlled with Pressure -Treatment Response Procedure Tolerated Well -Offloading No -Debridement - Subq, 1st 20sq cm Yes #10- R DORSAL FOOT CLUSTER -Time 10:00 10:45 -Correct Patient Yes Yes -Correct Side, Site, Position Yes Yes -Correct Procedure Yes -Procedure Performed Yes -Type of Procedure Debridement -Clinical Debridement Epidermis / Dermis -Tissue Removed Epidermis, Dermis -Post Debridement (cm) - Length 1.0 -Post Debridement (cm) - Width 1.5 -Post Debridement (cm) - Depth 0.1 -Total Square (Post) (cm) 1.50 -Area of Debridement (cm) - Length 1.0 -Area of Debridement (cm) - Width 1.5 -Total Square (Area) (cm) 1.50 -Tunneling No No -Undermining/Tunneling No No -Circular Undermining No No -Wound/Ulcer Outcome Not Healed Healed- Epithelialized -Ulcer Cleansing Rinsed/ Irrigated with Saline -Foul Odor after Cleansing No -Bioengineered Tissue No -Bleeding Controlled with Pressure -Treatment Response Procedure Tolerated Well -Offloading No -Debridement - Open, 1st 20sq cm No 12. left dorsal foot -Time 09:59 10:44 -Correct Patient Yes Yes -Correct Side, Site, Position Yes Yes -Correct Procedure Yes Yes -Procedure Performed Yes Yes -Type of Procedure Debridement Debridement -Clinical Debridement Epidermis / Subcutaneous Dermis -Tissue Removed Epidermis, Subcutaneous Dermis -Post Debridement (cm) - Length 1.0 1.3 -Post Debridement (cm) - Width 3.0 1.0 -Post Debridement (cm) - Depth 0.1 0.1 -Total Square (Post) (cm) 3.00 1.30 -Area of Debridement (cm) - Length 1.0 1.3 -Area of Debridement (cm) - Width 3.0 1.0 -Total Square (Area) (cm) 3.00 1.30 -Tunneling No No -Undermining/Tunneling No No -Circular Undermining No No -Wound/Ulcer Outcome Not Healed Not Healed -Ulcer Cleansing Rinsed/ Rinsed/ Irrigated with Irrigated with Saline Saline -Foul Odor after Cleansing No No -Bioengineered Tissue No No -Bleeding Controlled with Pressure Pressure -Treatment Response Procedure Procedure Tolerated Well Tolerated Well -Offloading No -Debridement - Open, 1st 20sq cm No -Debridement - Subq, 1st 20sq cm No Yes #9 RT SUMNER CLUSTER -Time 10:01 10:45 -Correct Patient Yes Yes -Correct Side, Site, Position Yes Yes -Correct Procedure Yes -Procedure Performed Yes -Type of Procedure Debridement -Clinical Debridement Epidermis / Dermis -Tissue Removed Epidermis, Dermis -Post Debridement (cm) - Length 3.5 -Post Debridement (cm) - Width 3.0 -Post Debridement (cm) - Depth 0.1 -Total Square (Post) (cm) 10.50 -Area of Debridement (cm) - Length 3.5 -Area of Debridement (cm) - Width 3.0 -Total Square (Area) (cm) 10.50 -Tunneling No No -Undermining/Tunneling No No -Circular Undermining No No -Wound/Ulcer Outcome Not Healed Healed- Epithelialized -Ulcer Cleansing Rinsed/ Irrigated with Saline -Foul Odor after Cleansing No -Bioengineered Tissue No -Bleeding Controlled with Pressure -Treatment Response Procedure Tolerated Well -Offloading No -Debridement - Open, 1st 20sq cm Yes -Debridement - Subq, 20sq cm Pain Scale: 0-10 Numeric Is Patient Pain Free? Yes Yes Yes 01/15/24 11:11 Wound Center Nurse 2 #11- R 2ND TOE -Time -Correct Patient -Correct Side, Site, Position -Correct Procedure -Procedure Performed -Type of Procedure -Clinical Debridement -Tissue Removed -Post Debridement (cm) - Length -Post Debridement (cm) - Width -Post Debridement (cm) - Depth -Total Square (Post) (cm) -Area of Debridement (cm) - Length -Area of Debridement (cm) - Width -Total Square (Area) (cm) -Tunneling -Undermining/Tunneling -Circular Undermining -Wound/Ulcer Outcome -Ulcer Cleansing -Foul Odor after Cleansing -Bioengineered Tissue -Bleeding Controlled with -Treatment Response -Offloading -Debridement - Subq, 20sq cm #10- R DORSAL FOOT CLUSTER -Time -Correct Patient -Correct Side, Site, Position -Correct Procedure -Procedure Performed -Type of Procedure -Clinical Debridement -Tissue Removed -Post Debridement (cm) - Length -Post Debridement (cm) - Width -Post Debridement (cm) - Depth -Total Square (Post) (cm) -Area of Debridement (cm) - Length -Area of Debridement (cm) - Width -Total Square (Area) (cm) -Tunneling -Undermining/Tunneling -Circular Undermining -Wound/Ulcer Outcome -Ulcer Cleansing -Foul Odor after Cleansing -Bioengineered Tissue -Bleeding Controlled with -Treatment Response -Offloading -Debridement - Open, 20sq cm 12. left dorsal foot -Time 11:12 -Correct Patient Yes -Correct Side, Site, Position Yes -Correct Procedure -Procedure Performed -Type of Procedure -Clinical Debridement -Tissue Removed -Post Debridement (cm) - Length -Post Debridement (cm) - Width -Post Debridement (cm) - Depth -Total Square (Post) (cm) -Area of Debridement (cm) - Length -Area of Debridement (cm) - Width -Total Square (Area) (cm) -Tunneling -Undermining/Tunneling -Circular Undermining -Wound/Ulcer Outcome Healed- Epithelialized -Ulcer Cleansing -Foul Odor after Cleansing -Bioengineered Tissue -Bleeding Controlled with -Treatment Response -Offloading -Debridement - Open, 1st 20sq cm -Debridement - Subq, 1st 20sq cm #9 RT SUMNER CLUSTER -Time 11:12 -Correct Patient Yes -Correct Side, Site, Position Yes -Correct Procedure Yes -Procedure Performed Yes -Type of Procedure Debridement -Clinical Debridement Subcutaneous -Tissue Removed Subcutaneous -Post Debridement (cm) - Length 0.6 -Post Debridement (cm) - Width 0.5 -Post Debridement (cm) - Depth 0.1 -Total Square (Post) (cm) 0.30 -Area of Debridement (cm) - Length 0.6 -Area of Debridement (cm) - Width 0.5 -Total Square (Area) (cm) 0.30 -Tunneling No -Undermining/Tunneling No -Circular Undermining No -Wound/Ulcer Outcome Not Healed -Ulcer Cleansing Rinsed/ Irrigated with Saline -Foul Odor after Cleansing No -Bioengineered Tissue No -Bleeding Controlled with Pressure -Treatment Response Procedure Tolerated Well -Offloading -Debridement - Open, 1st 20sq cm -Debridement - Subq, 1st 20sq cm Yes Pain Scale: 0-10 Numeric Is Patient Pain Free? Yes WC - Nurse 3 - General Ulcer D/C NN Start: 12/18/23 09:10 Freq: Status: Active Protocol: Activity Type Activity Date Activity User E-sign Co-sign Detail Recorded Client Recorded Date Recorded By Document 12/18/23 10:50 RB wound 12/18/23 10:52 RB Document 12/24/23 11:30 KW xfh 12/24/23 11:32 KW Document 12/30/23 11:15 DL 1606-1-10 12/30/23 11:50 DL Document 01/08/24 11:35 RB [id number] 01/08/24 11:36 RB Document 01/15/24 11:50 RB [id number] 01/15/24 11:52 RB 12/18/23 12/24/23 12/30/23 10:50 11:30 11:15 Wound Care Center Nurse 3 #11- R 2ND TOE -Ulcer Cleansing Wound Cleanser Soap and Water -Foul Odor after Cleansing No -Primary Dressing Applied Promogran -Other Dressing PT PROMOGRAN promogran -Primary Dressing Covered/Secured with Dry Gauze,Dry Dry Gauze Dry Gauze, Gauze & Roll Secured with Gauze,Secured Tape with Tape -Promogran 1 #10- R DORSAL FOOT CLUSTER -Ulcer Cleansing Wound Cleanser Soap and Water -Foul Odor after Cleansing No -Primary Dressing Applied Promogran -Other Dressing PROMOGRAN promogran -Primary Dressing Covered/Secured with Dry Gauze Dry Gauze -Other Covering unna -Promogran 1 12. left dorsal foot -Ulcer Cleansing Wound Cleanser Soap and Water -Foul Odor after Cleansing No -Primary Dressing Applied Promogran Promogran -Other Dressing PT PROMOGRAN -Primary Dressing Covered/Secured with Dry Gauze,Dry Dry Gauze Gauze & Roll Gauze,Secured with Tape -Other Covering unna -Promogran 1 1 #9 RT SUMNER CLUSTER -Ulcer Cleansing Wound Cleanser Soap and Water -Foul Odor after Cleansing No -Primary Dressing Applied Promogran -Other Dressing PROMOGRAN -Primary Dressing Covered/Secured with Dry Gauze Dry Gauze -Other Covering unna -Promogran 1 BLE -Multi-Layered Wrap Application Unna Boot - Unna Boot - Bilateral ($) Bilateral ($) Left -Multi-Layered Wrap Application Unna Boot - Left ($) Right -Multi-Layered Wrap Application Unna Boot - Right ($) -Other Treatment Response Procedure Procedure Tolerated Well Tolerated Well Vital Signs Temperature (97.8 F-99.1 F) 97.8 F Temperature Source Temporal Respiratory Rate (12-18) 20 H 24 H Respiratory rate source Observation Observation Oxygen Delivery Method Room Air Comment Refused BP today Pain Scale: 0-10 Numeric Is Patient Pain Free? Yes Yes Yes WC - Visit Discharge Discharge Condition Stable Ambulatory Status Ambulatory, Ambulatory, Walker Walker Transportation Private Auto Private Auto Medication Reconcilliation completed & No provided to patient/care provider Clinical Summary of Care Provided Yes 01/08/24 01/15/24 11:35 11:50 Wound Care Center Nurse 3 #11- R 2ND TOE -Ulcer Cleansing -Foul Odor after Cleansing -Primary Dressing Applied -Other Dressing -Primary Dressing Covered/Secured with -Promogran #10- R DORSAL FOOT CLUSTER -Ulcer Cleansing -Foul Odor after Cleansing -Primary Dressing Applied -Other Dressing -Primary Dressing Covered/Secured with -Other Covering -Promogran 12. left dorsal foot -Ulcer Cleansing -Foul Odor after Cleansing -Primary Dressing Applied -Other Dressing promogran -Primary Dressing Covered/Secured with -Other Covering -Promogran #9 RT SUMNER CLUSTER -Ulcer Cleansing Wound Cleanser -Foul Odor after Cleansing -Primary Dressing Applied -Other Dressing promogran promogran -Primary Dressing Covered/Secured with -Other Covering -Promogran BLE -Multi-Layered Wrap Application Unna Boot - Bilateral ($) Left -Multi-Layered Wrap Application Unna Boot - Left ($) Right -Multi-Layered Wrap Application -Other circaid Treatment Response Procedure Procedure Tolerated Well Tolerated Well Vital Signs Temperature (97.8 F-99.1 F) Temperature Source Respiratory Rate (12-18) Respiratory rate source Oxygen Delivery Method Comment Pain Scale: 0-10 Numeric Is Patient Pain Free? Yes Yes WC - Visit Discharge Discharge Condition Stable Stable Ambulatory Status Ambulatory, Ambulatory, Walker Walker Transportation Private Auto Private Auto Medication Reconcilliation completed & No No provided to patient/care provider Clinical Summary of Care Provided Yes Yes Assessment/Plan Assessment/Plan (1) Bullous pemphigoid: CODE(S): L12.0 - Bullous pemphigoid (2) Type 2 diabetes mellitus without complications: CODE(S): E11.9 - Type 2 diabetes mellitus without complications QUALIFIERS: Diabetes mellitus mcc insulin use: without mcc use Qualified Code(s): E11.9 - Type 2 diabetes mellitus without complications (3) Lymphedema: CODE(S): I89.0 - Lymphedema, not elsewhere classified (4) Morbid obesity with BMI of 70 and over, adult: CODE(S): E66.01 - Morbid (severe) obesity due to excess calories; Z68.45 - Body mass index [BMI] 70 or greater, adult (5) Hypertension: CODE(S): I10 - Essential (primary) hypertension QUALIFIERS: Hypertension type: primary hypertension Qualified Code(s): I10 - Essential (primary) hypertension (6) Venous stasis ulcer of right ankle with fat layer exposed: CODE(S): I83.013 - Varicose veins of right lower extremity with ulcer of ankle; L97.312 - Non-pressure chronic ulcer of right ankle with fat layer exposed QUALIFIERS: Varicose vein presence: with varicose veins Qualified Code(s): I83.013 - Varicose veins of right lower extremity with ulcer of ankle; L97.312 - Non-pressure chronic ulcer of right ankle with fat layer exposed (7) Ulcer of right lower extremity with fat layer exposed: CODE(S): L97.912 - Non-pressure chronic ulcer of unspecified part of right lower leg with fat layer exposed PLAN: Plan Evaluation and debridement of right lower extremity ulcers and left dorsal foot ulcer performed today in clinic as annotated above. At home wound-care instructions: Will continue to apply Promogran ulcer of rigt sumner for moderate drainage and then apply UNNA boot compression wrap to manage edema. She will wear a Circaid compression wrap to her left lower leg. She has been contacted by [facility] admissions representative for lymphedema pumps. I do think that her ulcers are also being caused in part by bullous pemphigoid and prednisone did seem to prevent new ulcers from developing. We discussed possibly seeking rheumatology referral for other options for treatment. Due to her compliance with conservative treatment of her lymphedema with compression wraps and elevation, lymphedema clinic referral and treatment with continued struggles with worsening lymphedema and continued development of ulcers, she would benefit from lymphedema pumps. She is unable to don traditional compression stockings or adjust her Circaid compression wraps due to arthritis and morbid obesity which limit the effectiveness of these modalities. She would be able to apply and operate lymphedema pumps independently while her daughter is at work where she is unable to adjust compression wraps when her daughter is working. She was treated for a 2 month span last year by Dr. Coyne here and is now been seen for 6 weeks for this episode of ulcers and lymphedema. Off-loading: The patient was instructed to avoid pressure and friction on the affected areas. Reposition every 2 hours at minimum. Avoid prolonged standing and/or dangling of legs. When seated, feet should be elevated at chest level. Frequent ambulation is encouraged. Diet: Patient encouraged to increase protein intake while taking caution to avoid high carbohydrate and/or sugar intake to promote healing. Labs/cultures/imaging: Completed Bactrim for staph infection on wound culture. She is on chronic treatment with doxycycline for bullous pemphigoid. Follow-up: Return in 1 week for wound care follow up. Return sooner or report to the emergency room should symptoms worsen, or new symptoms arise.
--- NOTE | 2024-01-20 10:02 | WC ---
PHOTO 01/15/24 LEFT DORSAL FOOT
--- NOTE | 2024-01-20 10:03 | WC ---
PHOTO 01/15/24 RIGHT 2ND TOE
== END 2024-01-16 23:59 | disposition home or self-care (01) ==
LOC: WC 10:00
PROVIDERS: PCP Family Medicine; Referring Provider Family Medicine; Visit Provider Family Medicine
DX: I83.013 Varicose veins of right lower extremity with ulcer of ankle (principal); L97.312 Non-pressure chronic ulcer of right ankle with fat layer exposed; L12.0 Bullous pemphigoid; E66.01 Morbid (severe) obesity due to excess calories; Z68.45 Body mass index [BMI] 70 or greater, adult; E11.9 Type 2 diabetes mellitus without complications; G47.33 Obstructive sleep apnea (adult) (pediatric); I89.0 Lymphedema, not elsewhere classified; I10 Essential (primary) hypertension; I87.2 Venous insufficiency (chronic) (peripheral)
CPT/HCPCS: 11042; 29580; 97597; 99212; G0463

== ENCOUNTER 2024-01-22 09:21 | Outpatient (RCR) | payer MEDICARE, SELFPAY ==
[2024-01-17 00:20] VITALS: BP 182/100; PULSE 88; RESP 18; TEMP 35.7; BMI 70.6
[2024-01-22 09:33] VITALS: RESP 18; TEMP 36; BMI 70.6
== END 2024-01-22 12:00 | disposition home or self-care (01) ==
LOC: WC 09:21
PROVIDERS: PCP Family Medicine; Referring Provider Family Medicine; Visit Provider Family Medicine
DX: E11.622 Type 2 diabetes mellitus with other skin ulcer (principal); I83.013 Varicose veins of right lower extremity with ulcer of ankle; L97.912 Non-pressure chronic ulcer of unspecified part of right lower leg with fat layer exposed; L12.0 Bullous pemphigoid; E66.01 Morbid (severe) obesity due to excess calories; I89.0 Lymphedema, not elsewhere classified; G47.33 Obstructive sleep apnea (adult) (pediatric); I10 Essential (primary) hypertension; Z85.820 Personal history of malignant melanoma of skin
CPT/HCPCS: 99213; G0463

== ENCOUNTER → 2024-01-25 | Outpatient (CLI) | payer MEDICARE, SELFPAY ==
[2024-01-25 16:07] LABS: T4 Free Direct 1.01 ng/dL (0.76-1.46)
== END | disposition home or self-care (01) ==
LOC: MFPLAB 12:25
PROVIDERS: PCP Family Medicine; Visit Provider Registered Nurse
DX: E03.9 Hypothyroidism, unspecified (principal)
CPT/HCPCS: 36415; 84439; 84443

== ENCOUNTER 2024-02-05 10:30 | Outpatient (RCR) | payer MEDICARE, SELFPAY ==
[2024-02-05 10:39] VITALS: RESP 18; TEMP 36.6
== END 2024-02-05 12:39 | disposition home or self-care (01) ==
LOC: WC 10:30
PROVIDERS: PCP Family Medicine; Referring Provider Family Medicine; Visit Provider Family Medicine
DX: I83.013 Varicose veins of right lower extremity with ulcer of ankle (principal); L97.312 Non-pressure chronic ulcer of right ankle with fat layer exposed; L12.0 Bullous pemphigoid; Z68.45 Body mass index [BMI] 70 or greater, adult; E66.01 Morbid (severe) obesity due to excess calories; E11.9 Type 2 diabetes mellitus without complications; I87.2 Venous insufficiency (chronic) (peripheral); I89.0 Lymphedema, not elsewhere classified; G47.33 Obstructive sleep apnea (adult) (pediatric); I10 Essential (primary) hypertension; I83.91 Asymptomatic varicose veins of right lower extremity
CPT/HCPCS: 11042; 11045; 29580; 99213; G0463

== ENCOUNTER → 2024-10-05 | Outpatient (CLI) | payer MEDICARE, SELFPAY ==
[2024-10-05 13:26] LABS: Absolute Lymphocyte Count 1.93 X10^3/uL (0.83-4.51); Absolute Neutrophil Count 5.5 X10^3/uL (2.0-7.7); Basophil# 0.06 X10^3/uL; Basophil% 0.7 % (0-1); Eosinophil# 0.44 X10^3/uL; Hematocrit 44.4 % (37-47); Hemoglobin 14.3 g/dL (12.0-15.0); Lymphocyte # 1.93 X10^3/ul (0.83-4.51); Lymphocyte % 21.9 % (19-41); Mean Corp Hgb Conc 32.2 g/dL (32-36); Mean Corpuscular Hgb 31.1 pg (27.0-32.0); Mean Corpuscular Volume 96.5 fL (81-99); Mean Platelet Vol. 11.6 fl (6.2-12.0); Monocyte# 0.82 X10^3/uL; Monocyte% 9.3 % (0-10); NRBC Flagged by Analyzer 0 % (0-5); Neutrophil # 5.54 X10^3/uL (2.7-7.7); Neutrophil % 62.9 % (47-70); Platelet Count 160 K/mm3 (150-450); RBC Distribution Width CV 14.9 % (11.6-14.6); RBC Distribution Width SD 52.8 fl (35.1-43.9); White Blood Count 8.8 K/mm3 (4.4-11.0)
[2024-10-06 11:27] LABS: ALB/GLOB Ratio 0.7 RATIO (0.9-2.4); AST(SGOT) 18 U/L (<=31); Alanine Aminotransfer ALT/SGPT 17 U/L (<=34); Alkaline Phosphatase 96 U/L (35-104); Anion Gap 9 (5-15); BUN 21 mg/dL (4-19); BUN/Creat Ratio 28.7 RATIO (10-20); Calcium,Total 9.4 mg/dL (7.6-11.0); Carbon Dioxide 26.2 mmol/L (21.0-32.0); Chloride 104 mmol/L (98-108); Cholesterol 149 mg/dL (<=200); Creatinine, Serum 0.73 mg/dL (0.70-1.20); EST Glomerular Filtration Rate 84 (>60); Globulin 4.1 g/dL (2.2-4.2); Glucose 107 mg/dL (70-99); High Density Lipoprotein 59 mg/dL; Low Density Lipoprotein Calc. 70 mg/dL; Potassium 4.4 mmol/L (3.3-5.1); Protein, Total 7.2 g/dL (5.9-8.4); Sodium Level 140 mmol/L (133-145); Total Bilirubin 0.67 mg/dL (0.00-1.30); Triglycerides 99 mg/dL; Very Low Density Lipoprotein 20 mg/dL (5-40); cholesterol:hdl ratio screen 2.52
== END | disposition home or self-care (01) ==
LOC: MTLAB 11:03
PROVIDERS: PCP Nurse Practitioner Family; Referring Provider Nurse Practitioner Family; Visit Provider Nurse Practitioner Family
DX: E03.9 Hypothyroidism, unspecified (principal); I10 Essential (primary) hypertension; E78.5 Hyperlipidemia, unspecified; R73.03 Prediabetes
CPT/HCPCS: 36415; 80053; 80061; 83036; 84439; 84443; 85025